=== PATIENT | male | born 1965 | race Caucasian/White ===

== ENCOUNTER 2020-11-08 12:22 | Outpatient (REF) | payer OTHER, SELFPAY ==
[2020-11-08 14:41] LABS: Alanine Aminotransferase 19 U/L (0-40); Albumin Level 4.6 g/dL (3.5-5.0); Alkaline Phosphatase 56 U/L (39-117); Anion Gap 12 (12-20); Aspartate Amino Transferase 18 U/L (5-37); Bilirubin Total 1.5 mg/dL (0.0-1.0); Blood Urea Nitrogen 20 mg/dL (9-16); Calcium 9.1 mg/dL (8.4-10.2); Carbon Dioxide 28 mmol/L (22-29); Chloride 103 mmol/L (96-108); Cholesterol 215 mg/dL; Estimated Glomerular Filt Rate > 60; Glucose Fasting 100 mg/dL (60-99); HDL Cholesterol 52 mg/dL; LDL Cholesterol Calculated 147 mg/dl; Potassium 3.8 mmol/l (3.3-5.1); Sodium 139 mmol/L (135-145); Total Protein 7.4 g/dL (6.5-8.0); Triglycerides 82 mg/dL
[2020-11-08 14:52] LABS: TSH reflex Free T4 1.17 mIU/mL (0.32-4.0)
== END 2020-11-08 12:23 | disposition home or self-care (01) ==
LOC: HO.WFDLDS 12:22
PROVIDERS: Visit Provider Family Medicine
DX: Z00.00 Encounter for general adult medical examination without abnormal findings (principal); R79.89 Other specified abnormal findings of blood chemistry
CPT/HCPCS: 80053; 80061; 84443

== ENCOUNTER 2020-11-09 09:21 | Outpatient (REF) | payer OTHER, SELFPAY ==
[2020-11-09 11:53] LABS: Prostate Specific Antigen Scr 1.59 ng/mL (<0.05-4.0)
== END 2020-11-09 09:22 | disposition home or self-care (01) ==
LOC: HO.WFDLDS 09:21
PROVIDERS: Visit Provider Family Medicine
DX: Z12.5 Encounter for screening for malignant neoplasm of prostate (principal)
CPT/HCPCS: 84153

== ENCOUNTER 2020-11-13 10:33 | Outpatient (REF) | payer OTHER, SELFPAY ==
--- NOTE | 2020-11-13 10:38 | US_ITS ---
EXAMINATION: US SCROTUM CLINICAL INFORMATION: Right testicular pain. COMPARISON: None TECHNIQUE: A sonogram of the scrotum was performed assessing butts-scale appearance and color Doppler flow. Spectral Doppler analysis of the arterial and venous flow were performed in the testes bilaterally. FINDINGS: RIGHT: Right testicle measures 4.43 x 2.54 x 5.17 cm, volume 30.4 mL. There is a small hyperechoic scrotal pole, otherwise no focal testicular parenchymal lesions are visualized. Spectral Doppler analysis of the arterial and venous flow is normal in the right testis. Right epididymal head is normal in size. There is a small right epididymal head cyst measuring 0.40 x 0.35 x 0.25 cm. There is small right hydrocele and a varicocele. Right epididymal Doppler flow is normal. LEFT: Left testicle measures 5.24 x 2.78 x 3.95 cm, volume 30.1 mL. No focal testicular parenchymal lesions are visualized. Spectral Doppler analysis of the arterial and venous flow is normal in the left testis. Left epididymal head is normal in size. There is a small left hydrocele and varicocele seen. Left epididymal Doppler flow is normal. US/US scrotum IMPRESSION: Bilateral hydroceles and varicoceles. There is a small right epididymal cyst and a right testicular scrotal fanta. Both testes are unremarkable with normal flow seen to both testes and epididymides.
== END 2020-11-13 10:34 | disposition home or self-care (01) ==
LOC: HO.HMGCX 10:33
PROVIDERS: PCP Family Medicine; Visit Provider Family Medicine
DX: N50.811 Right testicular pain (principal)
CPT/HCPCS: 76870

== ENCOUNTER 2020-11-16 14:23 | Outpatient (REF) | payer OTHER, SELFPAY | END 2020-11-16 14:24 | disposition home or self-care (01) | LOC: HO.LAB 14:23 | PROVIDERS: Visit Provider Internal Medicine | DX: Z20.828 Contact with and (suspected) exposure to other viral communicable diseases (principal) | CPT/HCPCS: C9803; U0003 ==

== ENCOUNTER → 2021-02-13 08:13 | Outpatient (BNVA) | payer OTHER, SELFPAY | PROVIDERS: PCP Family Medicine; Visit Provider Psychiatry & Neurology Neurology ==

== ENCOUNTER → 2021-08-14 11:25 | Outpatient (BNVA) | payer OTHER, SELFPAY | PROVIDERS: PCP Family Medicine; Visit Provider Psychiatry & Neurology Neurology ==

== ENCOUNTER → 2022-02-08 09:04 | Outpatient (BNVA) | payer OTHER, SELFPAY | PROVIDERS: PCP Family Medicine; Visit Provider Nurse Practitioner Family | DX: G47.33 Obstructive sleep apnea (adult) (pediatric) (principal); Z79.899 Other long term (current) drug therapy | CPT/HCPCS: 99212 ==

== ENCOUNTER → 2023-03-06 08:39 | Outpatient (BNVA) | payer OTHER, SELFPAY | PROVIDERS: PCP Family Medicine; Visit Provider Nurse Practitioner Family | DX: Z13.89 Encounter for screening for other disorder (principal) ==

== ENCOUNTER → 2023-03-25 10:24 | Outpatient (REF) | payer OTHER, SELFPAY | LOC: HO.SL 10:24 | PROVIDERS: PCP Family Medicine; Visit Provider Nurse Practitioner Family | DX: G47.33 Obstructive sleep apnea (adult) (pediatric) (principal) | CPT/HCPCS: 95806 ==

== ENCOUNTER 2023-05-21 16:28 | Outpatient (AMB) | payer OTHER, SELFPAY ==
--- NOTE | 2023-05-21 16:46 | MHC.OFFWIV ---
Intake Vital Signs 05/21/23 16:47 Height 5 ft 11 in BP 142/70 H Blood Pressure Location Lt brachial Position Sitting Pulse 95 Pulse Source Pulse Oximeter Temp 97.3 F Temp Source Temporal Artery Scan Pulse Oximetry (%) 100 Oxygen Delivery Method Room Air Intake Visit Reasons: EP Infected wound? (lobby) Intake Note: Pt is here c/o infection wound on his left leg. Patient Tobacco Use Status: Never used Tobacco Allergies erythromycin base Allergy (Mild, Verified 05/30/23 15:27) Rash Medication List - Last Reconciled 05/30/23 by Rinku Sauceda MD celecoxib 200 mg PO DAILY doxycycline monohydrate 200 mg (2 x 100 mg) PO ONCE lisinopril-hydrochlorothiazide 10-12.5 mg 1 tab PO DAILY omeprazole 20 mg PO DAILY 90 days sertraline 50 mg PO DAILY 90 days Do you need a note to return to daycare/school/sports/work: No HPI EP Infected wound? (lobby) HPI Details 57-year-old male presents to the office for a sick visit. He has a rash on the left leg. No redness or tenderness. [facility] Surgical History History of hernia surgery History of hip surgery Social History Alcohol intake: current Alcohol intake frequency: a few times a week Patient Tobacco Use Status: Never used Tobacco e-Cigarette/Vaping Use: Never Used Second Hand Smoke Exposure: No service: No Current occupational status: employed Current occupational exposures/hazards: No Cognitive needs: No Hearing needs: No Vision needs: No Physical Exam Vital Signs: Last Vital Signs Temp 97.3 F 05/21/23 16:47 Pulse 95 05/21/23 16:47 BP 142/70 H 05/21/23 16:47 Pulse Ox 100 05/21/23 16:47 Oxygen Delivery Method Room Air 05/21/23 16:47 Extrem Other: Erythematous rash, left leg. No vesicles or pustules. Assessment & Plan Assessment & Plan (1) Cellulitis: Code(s): L03.90 - Cellulitis, unspecified Plan: Continue current medications. Coding Level of Care Code Est Pt Level 3 (94647) Diagnoses Cellulitis L03.90
[2023-05-21 16:47] VITALS: BP 142/70; PULSE 95; TEMP 36.3; O2SAT 100
== END 2023-05-21 17:01 | disposition home or self-care (01) ==
LOC: HO.HMGWI 16:28
PROVIDERS: PCP Family Medicine
DX: L03.90 Cellulitis, unspecified (principal)
CPT/HCPCS: 99213

== ENCOUNTER 2023-08-06 09:04 | Outpatient (AMB) | payer OTHER, SELFPAY ==
--- NOTE | 2023-08-06 09:12 | MHC.OFFVIS ---
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 The home sleep study result was significant for moderate degree of sleep apnea with increased severity in supine sleep. The AHI was 23/hr, supine AHI was 52/hr and oxygen bello was 78%. He started APAP [id number]. The CPAP compliance and therapy response (07/07-08/05) reviewed. The usage days 100% and the average usage hours 7 hrs and 40 min. The AHI was 2.7/hr and the max pressure was 10. He sleeps well with new CPAP for 7-9 hrs. His daytime symptoms has improved, no tired or sleepy during daytime. [facility] Surgical History History of hip surgery History of hernia surgery Social History Alcohol intake: current Alcohol intake frequency: a few times a week Patient Tobacco Use Status: Never used Tobacco e-Cigarette/Vaping Use: Never Used Second Hand Smoke Exposure: No service: No Current occupational status: employed Current occupational exposures/hazards: No Cognitive needs: No Hearing needs: No Vision needs: No Review of Systems Const All systems reviewed & are unremarkable except as noted in HPI and below Physical Exam Vital Signs: Last Vital Signs Pulse 57 08/06/23 09:14 BP 110/82 08/06/23 09:14 Pulse Ox 97 08/06/23 09:14 Oxygen Delivery Method Room Air 08/06/23 09:14 Const General: cooperative and healthy appearing Nutritional Appearance: average body habitus Orientation/consciousness: patient oriented x3 Neck Neck: Yes full ROM Resp Effort & Inspection: normal respiratory effort and able to speak in complete sentences Neuro General: patient oriented x3 and CN's II-XI intact bilaterally Gait exam (Neuro): Normal gait present Motor exam (neuro): 5/5 motor strength present throughout Psych Appearance: grossly normal Mental Status: mental status grossly normal Speech and movement: Normal speech and movement present Assessment & Plan Assessment & Plan (1) HEAVEN (obstructive sleep apnea): Code(s): G47.33 - Obstructive sleep apnea (adult) (pediatric) Plan Continue to use APAP [id number] as patient experiences good clinical effects, better quality sleep and daytime sleepiness has improved. Stressed compliance, use CPAP nightly and more than 4 hrs. Wt reduction advised. Coding Level of Care Code Est Pt Level 3 (49840) Diagnoses HEAVEN (obstructive sleep apnea) G47.33
[2023-08-06 09:14] VITALS: BP 110/82; PULSE 57; O2SAT 97
== END 2023-08-06 09:34 | disposition home or self-care (01) ==
PROVIDERS: Visit Provider Nurse Practitioner Family
DX: G47.33 Obstructive sleep apnea (adult) (pediatric) (principal)
CPT/HCPCS: 99213

== ENCOUNTER → 2023-08-06 09:04 | Outpatient (BNVA) | payer OTHER, SELFPAY | PROVIDERS: Visit Provider Nurse Practitioner Family ==

== ENCOUNTER 2023-11-12 12:57 | Outpatient (REF) | payer OTHER, SELFPAY ==
[2023-11-12 14:22] LABS: Appearance Urine Clear; Color Urine Yellow; Glucose Urine UA Negative (Negative); Leukocyte Esterase Urine Negative (Negative); Nitrite Urine Negative (Negative); PH 5.5 (5.0-9.0); Specific Gravity - Urine 1.015 (1.005-1.025); Urine Blood Negative (Negative); Urine Ketones Negative (Negative); Urine Protein Negative (Neg-Trace)
[2023-11-12 14:56] LABS: Creatinine Urine 111.99 mg/dL; Microalbum/Creatinine Ratio Ur 5.3 ug/mg cr (<30)
[2023-11-12 16:25] LABS: Estimated Average Glucose 111 mg/dL; Hemoglobin A1c % 5.5 % (<6.0)
[2023-11-12 16:54] LABS: Alanine Aminotransferase 25 U/L (0-40); Albumin Level 4.6 g/dL (3.5-5.0); Alkaline Phosphatase 70 U/L (39-117); Anion Gap 11 (12-20); Aspartate Amino Transferase 23 U/L (5-37); Bilirubin Total 0.8 mg/dL (0.0-1.0); Blood Urea Nitrogen 17 mg/dL (9-16); Calcium 9.9 mg/dL (8.4-10.2); Carbon Dioxide 30 mmol/L (22-29); Chloride 104 mmol/L (96-108); Cholesterol 205 mg/dL (<200); Estimated Glomerular Filt Rate > 60; Glucose Fasting 120 mg/dL (60-99); HDL Cholesterol 37 mg/dL (>40); LDL Cholesterol Calculated 111 mg/dL (<100); Potassium 4.3 mmol/L (3.3-5.1); Sodium 141 mmol/L (135-145); Total Protein 7.7 g/dL (6.5-8.0); Triglycerides 286 mg/dL (<150)
[2023-11-12 17:15] LABS: TSH reflex Free T4 1.18 uIU/mL (0.32-4.0)
[2023-11-12 17:21] LABS: Prostate Specific Antigen Scr 3.44 ng/mL (<0.05-4.0)
== END 2023-11-12 12:58 | disposition home or self-care (01) ==
LOC: HO.WFDLDS 12:57
PROVIDERS: Visit Provider Family Medicine
DX: Z00.00 Encounter for general adult medical examination without abnormal findings (principal); I10 Essential (primary) hypertension; R73.01 Impaired fasting glucose; R39.198 Other difficulties with micturition; E78.6 Lipoprotein deficiency; Z12.5 Encounter for screening for malignant neoplasm of prostate
CPT/HCPCS: 36415; 80053; 80061; 81003; 82043; 82570; 83036; 84153; 84443

== ENCOUNTER 2023-11-13 08:58 | Outpatient (AMB) | payer OTHER, SELFPAY ==
[2023-11-13 09:02] VITALS: BP 110/62; PULSE 91; RESP 13; O2SAT 96; BMI 29.6
--- NOTE | 2023-11-13 09:02 | A.OFFPC_ITS ---
Vital Signs 11/13/23 09:02 Height 5 ft 11 in Weight 212 lb BMI 29.6 BP 110/62 Blood Pressure Location Lt brachial Position Sitting Respiration 13 Pulse 91 Pulse Source Pulse Oximeter Pulse Oximetry (%) 96 Oxygen Delivery Method Room Air Intake Visit Reasons: CPE Intake Note: Patient is here today for his physical. Patient reports he takes cod liver oil, vitamin D3, vitamin K2, Magnesium, and probiotics- patient does not know the dosing of these items. Patient reports he has tinnitus and hearing concerns and has not seen an ENT. Fill Technician Required: No Accompanied by: Self / Same As Patient Allergies erythromycin base Allergy (Mild, Verified 11/13/23 09:07) Rash Tobacco use date assessed: 11/13/23 Dental Screening Dental Screen Date: 11/13/23 Did you have a dental visit in the last 12 months?: Yes Did you have a dental problem in the last 6 months where you did not have access to dental care?: No Was dental information given to patient?: Patient has dentist HPI CPE HPI Details 58 y/o male presents for a CPE with f/u labs and health maintenance. Labs were drawn 11/12/23. Reviewed labs with pt. Elevated fasting glucose of 120. A1c 5.5%. Triglycerides 286. TC 205. LDL 111. HDL low at 37. Blood pressure today 110/62. He is on lisinopril-HCTZ 10-12.5mg daily. Pt reports tinnitus. Pt states he has not been exercising much. HPI Comments History of Present Illness Details Documentation assistance for Miguel Ángel Small MD, was provided by David Irving, Sewer Cleaner on 11/13/2023 9:25 AM EREN. Rachelle, Dr. Small, have read, observed, and verified documentation. [facility] Surgical History History of hip surgery History of hernia surgery Family History (Updated 11/13/23 @ 09:13 by Georgie Escobar CMA) Sister Breast cancer Father Alcohol abuse Social History (Updated 11/13/23 @ 09:16 by Georgie Escobar CMA) Household Members: Children Household Members Other:: Son Housing: House Are you a primary attending ambulatory care to a significant other at home: No Do you presently have visiting nurse or other home services: No 75 years or older and lives alone: No Alcohol intake: current Alcohol intake frequency: a few times a week Patient Tobacco Use Status: Never used Tobacco e-Cigarette/Vaping Use: Never Used Second Hand Smoke Exposure: No service: No Current occupational status: employed 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 1. Little interest or pleasure in doing things: nearly every day 2. Feeling down, depressed, or hopeless: not at all 3. Trouble falling or staying asleep, or sleeping too much: several days 4. Feeling tired or having little energy: several days 5. Poor appetite or overeating: several days 6. Feeling bad about yourself - or that you are a failure or have let yourself or your family down: not at all 7. Trouble concentrating on things, such as reading the newspaper or watching television: not at all 8. Moving or speaking so slowly that other people could have noticed. Or the opposite - being so fidgety or restless that you have been moving around a lot more than usual: not at all 9. Thoughts that you would be better off or of hurting yourself in some way: not at all Total score: 6 Depression Screening Interpretation: Positive Depression Screening Follow-up: Declines treatment Depression Screening Done: Yes 93448 - PHQ-9 Billing: Yes Source: Developed by Drs. Tani Mehta, Bhumika Burns, De Mckeon and colleagues, with an educational noe from [employer]. Thrive Questionnaire Date Thrive assessed: 11/13/23 I am a: Patient What is your living situation today?: I have a steady place to live Within the past 12 months, did the food you bought not last and you didn't have the money to get more?: Never true Within the past 12 months, did you worry whether your food would run out before you got money to buy more?: Never true Do you have trouble paying for medicines?: No Do you have trouble getting transportation to medical appointments?: No Do you have trouble paying your heating and electricity bill?: No Do you have trouble taking care of your child, family member or friend?: No Do you have trouble with day-to-day activities such as bathing, preparing meals, shopping, managing finances, etc.?: No Are you currently unemployed and looking for a job?: No Are you interested in more education?: No Please select the resources that you would like help with: None Currently or been in a relationship where the following occur: no concerns reported AUDIT C Alcohol Use Questionnaire (AUDIT-C) 1. How often do you have a drink containing alcohol?: 2-3 times a week 2. How many drinks containing alcohol do you have on a typical day when you are drinking?: 1 or 2 3. How often do you have six or more drinks on one occasion?: Never Total Score: 3 SANTOS-7 AMB Questionnaire SANTOS-7 Date SANTOS - 7 assessed: 11/13/23 Feeling nervous, anxious, or on edge: 3 = Nearly every day Not being able to stop or control worryin = Not at all Worrying too much about different things: 1 = Several days Trouble relaxin = Several days Being so restless that it is hard to sit still: 0 = Not at all Becoming easily annoyed or irritable: 1 = Several days Feeling afraid as if something awful might happen: 0 = Not at all Total SANTOS-7 score (0-4 normal; 5-9 mild; 10-14 moderate; 15-21 severe): 6 Source: Developed by Drs. Tani Mehta, Bhumika Burns, De Mckeon and colleagues, with an educational noe from [employer]. SANTOS-7 Assessment Billing SANTOS-7 Assessment Tool: SANTOS-7 Assessment 20669 Physical exam (Primary Care) Vital Signs: Last Vital Signs Pulse 91 11/13/23 09:02 Resp 13 11/13/23 09:02 BP 110/62 11/13/23 09:02 Pulse Ox 96 11/13/23 09:02 Oxygen Delivery Method Room Air 11/13/23 09:02 BMI result Body Mass Index 29.6 Tobacco/Smoking Status: Tobacco use Status Tobacco use date assessed 11/13/23 11/13/23 09:15 Patient Tobacco Use Status Never used Tobacco 11/13/23 09:16 e-Cigarette/Vaping Use Never Used 11/13/23 09:16 PHQ-9: PHQ-9 Score PHQ-9: Total score 6 11/13/23 10:40 Depression Screening Interpretation: Positive Depression Screening Follow-up: Declines treatment Thrive Assessment: Date of Thrive Assessment Date Thrive assessed 11/13/23 11/13/23 09:20 Currently or been in a relationship where the following occur: no concerns reported Assessment and Plan Assessment & Plan (1) Adult general medical exam: Code(s): Z00.00 - Encounter for general adult medical examination without abnormal findings Plan: 58-year-old?male?presents?for?complete?physical?exam Encouraged?healthy?diet?with?active?lifestyle?and?plenty?of?exercise (2) Essential hypertension: Code(s): I10 - Essential (primary) hypertension Plan: Blood?pressure?is?controlled.??Goal?is?less?than?140/90 Continue?current?medications (3) Elevated fasting glucose: Code(s): R73.01 - Impaired fasting glucose Plan: A1c?at?upper?range?of?normal?and?strong?family?history?of?diabetes Encouraged?diet?lower?in?sugars?and?starches Encouraged?diet?exercise?and?weight?loss (4) Low HDL (under 40): Code(s): E78.6 - Lipoprotein deficiency Plan: Encouraged?exercise?and?lifestyle?changes Will?recheck?in?3?months (5) Tinnitus: Code(s): H93.19 - Tinnitus, unspecified ear Plan: Referred?to?audiology May?need?referral?to?ENT (6) Screening for colon cancer: Code(s): Z12.11 - Encounter for screening for malignant neoplasm of colon Plan: Patient?says?he?had?a?colonoscopy?at?about?age?51?and?was?told?to?follow- up?in?10?years Will?request?report (7) Screening for prostate cancer: Code(s): Z12.5 - Encounter for screening for malignant neoplasm of prostate Plan: Significant?increase?in?patient's?PSA?value?though?still?less?than?4.0 He?does?note?some?decrease?in?urine?stream,?intermittently. Repeating?PSA We?discussed?may?need?BRODIE?or?referral?to?urology. Orders: Orders Hemoglobin A1c Today R73.01 - Impaired fasting glucose Comprehensive [place]. Panel Fast Today R73.01 - Impaired fasting glucose, Z00.00 - Encounter for general adult medical examination without abnormal findings Lipid Panel Today E78.6 - Lipoprotein deficiency, Z00.00 - Encounter for general adult medical examination without abnormal findings Prostate Specific Antigen Scr Today R39.198 - Other difficulties with micturition, Z12.5 - Encounter for screening for malignant neoplasm of prostate Referrals Audiology Referral H91.90 - Unspecified hearing loss, unspecified ear, H93.19 - Tinnitus, unspecified ear Coding Level of Care Code Est Pt Level 3 (34492) Est Pt Prev Care 40-64y(27243) Diagnoses Adult general medical exam Z00.00 Essential hypertension I10 Elevated fasting glucose R73.01 Low HDL (under 40) E78.6 Tinnitus H93.19 Screening for colon cancer Z12.11 Screening for prostate cancer Z12.5 Additional Codes SANTOS-7 Assessment Billing - SANTOS-7 Assessment Tool: SANTOS-7 Assessment 70460 ([id number])
== END 2023-11-13 09:48 | disposition home or self-care (01) ==
PROVIDERS: PCP Family Medicine; Visit Provider Family Medicine
DX: Z00.00 Encounter for general adult medical examination without abnormal findings (principal); I10 Essential (primary) hypertension; R73.01 Impaired fasting glucose; E78.6 Lipoprotein deficiency; H93.19 Tinnitus, unspecified ear; Z12.11 Encounter for screening for malignant neoplasm of colon; Z12.5 Encounter for screening for malignant neoplasm of prostate
CPT/HCPCS: 99213; 99396

== ENCOUNTER 2024-02-23 13:09 | Outpatient (REF) | payer OTHER, SELFPAY | END 2024-02-23 13:10 | disposition home or self-care (01) | LOC: HO.SH 13:09 | PROVIDERS: PCP Family Medicine; Visit Provider Family Medicine | DX: Z01.118 Encounter for examination of ears and hearing with other abnormal findings (principal); H90.3 Sensorineural hearing loss, bilateral; H93.13 Tinnitus, bilateral | CPT/HCPCS: 92557; 92567 ==

== ENCOUNTER 2024-07-26 15:12 | Outpatient (REF) | payer OTHER, SELFPAY ==
[2024-07-27 05:30] LABS: Estimated Average Glucose 111 mg/dL; Hemoglobin A1c % 5.5 % (<6.0)
== END 2024-07-26 15:13 | disposition home or self-care (01) ==
LOC: HO.WFDLDS 15:12
PROVIDERS: Visit Provider Family Medicine
DX: R73.01 Impaired fasting glucose (principal)
CPT/HCPCS: 36415; 83036

== ENCOUNTER 2024-07-27 10:33 | Outpatient (REF) | payer OTHER, SELFPAY ==
[2024-07-27 15:12] LABS: Prostate Specific Antigen Scr 3.71 ng/mL (<0.05-4.0)
[2024-07-27 15:33] LABS: Alanine Aminotransferase 18 U/L (0-40); Albumin Level 4.6 g/dL (3.5-5.0); Alkaline Phosphatase 64 U/L (39-117); Anion Gap 13 (12-20); Aspartate Amino Transferase 18 U/L (5-37); Bilirubin Total 1.5 mg/dL (0.0-1.0); Blood Urea Nitrogen 18 mg/dL (9-16); Carbon Dioxide 27 mmol/L (22-29); Chloride 105 mmol/L (96-108); Cholesterol 197 mg/dL (<200); Estimated Glomerular Filt Rate > 60; Glucose Fasting 95 mg/dL (60-99); HDL Cholesterol 40 mg/dL (>40); LDL Cholesterol Calculated 139 mg/dL (<100); Potassium 3.9 mmol/L (3.3-5.1); Sodium 141 mmol/L (135-145); Total Protein 7.6 g/dL (6.5-8.0); Triglycerides 93 mg/dL (<150)
== END 2024-07-27 10:34 | disposition home or self-care (01) ==
LOC: HO.WFDLDS 10:33
PROVIDERS: Visit Provider Family Medicine
DX: Z00.00 Encounter for general adult medical examination without abnormal findings (principal); R73.01 Impaired fasting glucose; E78.6 Lipoprotein deficiency; Z12.5 Encounter for screening for malignant neoplasm of prostate; R39.198 Other difficulties with micturition
CPT/HCPCS: 36415; 80053; 80061; 84153

== ENCOUNTER 2024-07-28 16:30 | Outpatient (AMB) | payer OTHER, SELFPAY ==
--- NOTE | 2024-07-28 16:37 | MHC.PC.OV ---
Vital Signs 07/28/24 16:40 Height 5 ft 11 in Weight 201 lb BMI 28.0 BP 110/60 Blood Pressure Location Rt brachial Position Sitting Respiration 12 Pulse 62 Pulse Source Pulse Oximeter Temp 96.9 F Temp Source Tympanic Pulse Oximetry (%) 97 Oxygen Delivery Method Room Air Intake Visit Reasons: elevated FBS and lipids Intake Note: f/u for labs Allergies erythromycin base Allergy (Mild, Verified 07/28/24 16:38) Rash Tobacco use date assessed: 11/13/23 Dental Screening Dental Screen Date: 11/13/23 HPI elevated FBS and lipids HPI Details 59 y/o male presents to f/u elevated FBS, lipids, PSA level. Labs drawn 07/27/24. Reviewed labs with pt. Triglycerides improved from 286 to 93. TC 197. LDL 139. HDL 40. PSA 3.71. A1c 5.5% - 07/26/24. Blood pressure today 110/60. He is on lisinopril-HCTZ 10-12.5mg daily. Pt notes he has been exercising more frequently now. HPI Comments History of Present Illness Details Documentation assistance for Miguel Ángel Small MD, was provided by David Irving, Guest History Clerk on 07/28/2024 at 5:19 PM EST. I, Dr. Small, have read, observed, and verified documentation. [facility] Surgical History History of hip surgery History of hernia surgery Family History (Updated 11/13/23 @ 09:13 by Georgie Escobar CMA) Sister Breast cancer Father Alcohol abuse Social History (Updated 11/13/23 @ 09:16 by Georgie Escobar CMA) Household Members: Children Household Members Other:: Son Housing: House Are you a primary professional healthcare representative to a significant other at home: No Do you presently have visiting nurse or other home services: No 75 years or older and lives alone: No Alcohol intake: current Alcohol intake frequency: a few times a week Patient Tobacco Use Status: Never used Tobacco e-Cigarette/Vaping Use: Never Used Second Hand Smoke Exposure: No service: No Current occupational status: employed 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 Tani Mehta, Bhumika Burns, De Mckeon and colleagues, with an educational noe from [employer]. Review of Systems Const Denies chills, Denies fatigue, Denies fever(s), Denies headache(s) and Denies weakness ENT Denies dizziness and Denies headache(s) Card Denies dyspnea Resp Denies cough, Denies dyspnea, Denies wheezing and Denies other (shortness of breath) Musc Reports back pain, Denies numbness and Denies tingling Neuro Denies dizziness, Denies headache(s), Denies numbness, Denies tingling and Denies weakness Psych Denies anxiety and Denies depression Endo Denies fatigue Aller/Immun Denies wheezing Physical exam (Primary Care) Vital Signs: Last Vital Signs Temp 96.9 F 07/28/24 16:40 Pulse 62 07/28/24 16:40 Resp 12 07/28/24 16:40 BP 110/60 07/28/24 16:40 Pulse Ox 97 07/28/24 16:40 Oxygen Delivery Method Room Air 07/28/24 16:40 BMI result Body Mass Index 28.0 Tobacco/Smoking Status: Tobacco use Status Tobacco use date assessed 11/13/23 07/28/24 16:43 Patient Tobacco Use Status Never used Tobacco 07/28/24 16:43 e-Cigarette/Vaping Use Never Used 07/28/24 16:43 Thrive Assessment: Date of Thrive Assessment Date Thrive assessed 11/13/23 07/28/24 16:43 Const General: well developed; No acute distress Nutritional Appearance: well nourished Orientation/consciousness: patient oriented x3 HENMT Head: Yes normocephalic and Yes atraumatic Eyes General: appearance normal, both eyes and all related structures Pupils: Equal, round and reactive pupils present EOM: EOMs intact bilaterally Resp Effort & Inspection: normal respiratory effort Neuro General: patient oriented x3 and gait normal Cranial nerves: Yes Equal, round and reactive pupils present Psych Affect: normal affect Assessment and Plan Assessment & Plan (1) Elevated fasting glucose: Code(s): R73.01 - Impaired fasting glucose Plan: Fasting?blood?sugars?have?been?elevated A1c?is?in?top?normal?range Likely?some?insulin?resistance Encouraged?diet?lower?in?sugars?and?starches Will?continue?to?monitor (2) Essential hypertension: Code(s): I10 - Essential (primary) hypertension Plan: Blood?pressure?is?controlled Goal?is?less?than?140/90 Continue?current?medication?regimen (3) Hyperlipidemia: Code(s): E78.5 - Hyperlipidemia, unspecified Plan: Triglycerides?are?improved?but?LDL?cholesterol?has?increased?and?is?still?too?high Patient?wants?to?avoid?statin Encouraged?diet?lower?in?sugars?and?starches Encouraged?weight?loss?and?exercise (4) Low HDL (under 40): Code(s): E78.6 - Lipoprotein deficiency Plan: Encouraged?more?exercise (5) Screening for prostate cancer: Code(s): Z12.5 - Encounter for screening for malignant neoplasm of prostate Plan: PSA?level?has?increased?and?patient?notices?decrease?in?urinary?stream?and?some?incomplete?emptying Referred?to?urology (6) Back pain: Code(s): M54.9 - Dorsalgia, unspecified Plan: Back?pain?which?appears?muscular Encouraged?ice/heat?and?will?give?him?a?script?for?meloxicam. Demonstrated?stretching?exercises He?will?let?me?know?if?not?improving?or?worsening (7) Skin tag: Code(s): L91.8 - Other hypertrophic disorders of the skin Plan: Patient?has?small?skin?tag?in?right?ear?canal He?would?like?a?referral?to?ENT?he-referred Orders: Orders Comprehensive [place]. Panel Fast Today E78.5 - Hyperlipidemia, unspecified, Z00.00 - Encounter for general adult medical examination without abnormal findings Hemoglobin A1c Today E78.5 - Hyperlipidemia, unspecified, R73.01 - Impaired fasting glucose Lipid Panel Today E78.5 - Hyperlipidemia, unspecified, Z00.00 - Encounter for general adult medical examination without abnormal findings Referrals Ear/Nose/Throat Referral L91.8 - Other hypertrophic disorders of the skin Urology Referral R39.11 - Hesitancy of micturition, R97.20 - Elevated prostate specific antigen [PSA] Medications: New meloxicam 15 mg PO DAILY 30 days 30 tabs 2RF Coding Level of Care Code Est Pt Level 4 (06615) Diagnoses Elevated fasting glucose R73.01 Essential hypertension I10 Hyperlipidemia E78.5 Low HDL (under 40) E78.6 Screening for prostate cancer Z12.5 Back pain M54.9 Skin tag L91.8
[2024-07-28 16:40] VITALS: BP 110/60; PULSE 62; RESP 12; TEMP 36.1; O2SAT 97; BMI 28.0
== END 2024-07-28 17:05 ==
PROVIDERS: PCP Family Medicine; Visit Provider Family Medicine
DX: R73.01 Impaired fasting glucose (principal); I10 Essential (primary) hypertension; E78.5 Hyperlipidemia, unspecified; E78.6 Lipoprotein deficiency; Z12.5 Encounter for screening for malignant neoplasm of prostate; M54.9 Dorsalgia, unspecified; L91.8 Other hypertrophic disorders of the skin
CPT/HCPCS: 99214

== ENCOUNTER 2024-09-23 15:29 | Outpatient (AMB) | payer OTHER, SELFPAY ==
--- NOTE | 2024-09-23 15:43 | A.OFFVIS_ITS ---
Intake Visit Reasons: increasing PSA/urinary hesitancy Intake Note: New Patient presents for initial visit for increasing PSA and urinary hesitancy Urology Medications: none Blood Thinner: none PVR: 23ml's Enrichment Assistant Required: No Accompanied by: Self / Same As Patient Allergies erythromycin base Allergy (Mild, Verified 09/24/24 09:28) Rash Medication List - Last Reconciled 09/24/24 by KEYLA Banuelos lisinopril-hydrochlorothiazide 10-12.5 mg 1 tab PO DAILY lorazepam 0.5 mg PO BEDTIME PRN 30 days meloxicam 15 mg PO DAILY 30 days omeprazole 20 mg PO DAILY 90 days sertraline 50 mg PO DAILY 90 days sulfamethoxazole-trimethoprim 800-160 mg (Bactrim DS) 1 tab PO BID 14 days HPI Comments Details: Jarret is a very pleasant 59-year-old male patient of Dr. Small. He has a past medical history of GERD, hypertension, and bilateral hip replacements. He presents to the office today as a new patient for an elevation and a PSA. In discussion with the patient today he reports to be doing and feeling well. He reports having followed up with his PCP at which time it was noted his PSA has been increasingly going up. When asked he does report follow ing up with a urologist approximately 20 years ago and underwent a vasectomy and had a BORDIE that was noted to be within normal limits. He does report a previous history of prostatitis however discusses modifying his diet and prostatitis improved. PSA results reviewed with the patient today. PSAs are as follows: 11/05 1.6, 11/08 3.4, 08/10 3.7 We discussed at length potential causes of increase in PSA as well as further treatment options. Dairy performed noted boggy prostate left side greater than right otherwise no suspicious nodules palpated. When asked he does report noting intermittent issues with urinary hesitancy however this is infrequent. He otherwise denies urinary urgency, urinary frequency, incontinence, nocturia, hematuria, dysuria, foul smelling urine, changes to urinary stream, flank pain, fever, and or chills. He is happy with his current voiding parameters. In office urinalysis results reviewed with the patient today. PVR 23ml's. He discusses going to the gym 3 times per week in [place]. He otherwise offers no other issues or concerns at this time. [facility] Surgical History History of hip surgery History of hernia surgery Family History Sister Breast cancer Father Alcohol abuse Social History Household Members: Children Household Members Other:: Son Housing: House Are you a primary animal caretaker to a significant other at home: No Do you presently have visiting nurse or other home services: No 75 years or older and lives alone: No Alcohol intake: current Alcohol intake frequency: a few times a week Patient Tobacco Use Status: Never used Tobacco e-Cigarette/Vaping Use: Never Used Second Hand Smoke Exposure: No service: No Current occupational status: employed 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 Current occupational exposures/hazards: No Sexual orientation: Unable to collect Gender identity: Unable to collect Cognitive needs: No Hearing needs: Yes ( says what a lot has tinnitus ) Vision needs: No Review of Systems Const All systems reviewed & are unremarkable except as noted in HPI and below Physical Exam Const General: cooperative, healthy appearing, comfortable, no acute distress, well developed, alert and awake Orientation/consciousness: patient oriented x3 Limitations: no limitations HEENT Head: Yes normal to inspection, Yes normocephalic and Yes atraumatic Ears: hearing grossly normal bilaterally Eyes General: appearance normal, both eyes and all related structures Neck Neck: Yes normal visual inspection and Yes trachea midline Chest Chest palpation & inspection: normal inspection of the chest Resp Effort & Inspection: normal respiratory effort and able to speak in complete sentences Cardio Rate: regular rate GI Inspection: Yes normal to inspection General: Yes no CVA tenderness Back/Spine/Pelvis Back: no CVA tenderness Skin General skin exam: no rashes or lesions noted Neuro General: patient oriented x3 Extrem General: Yes normal to inspection Psych Appearance: grossly normal and well kempt Mental Status: mental status grossly normal Speech and movement: Normal speech and movement present and Clear speech present Affect: normal affect Attitude: cooperative Thought process: Normal thought process present Thought content: Normal thought content present Insight: Fair insight present (Psych) Judgement: Fair judgement present (Psych) Office Procedures Post Void Residual Post Residual Void Post Void Residual (PVR): 23 [id number] Void Residual by ultrasound Results AMB Urinalysis, Automated UA Leukoctes 0 Elana/uL Last Edit by [employer] juan Rodrigues on 09/23/24 16:32 UA Nitrite Last Edit by [employer] juan Isent[employer]mimi on 09/23/24 16:32 UA Urobilinogen 0.2 mg/dL Last Edit by [employer] on 09/23/24 16:32 UA Protein 0 mg/dL Last Edit by [employer] on 09/23/24 16:32 UA pH 5.5 Last Edit by [employer] on 09/23/24 16:32 UA Blood 0 Jerry/uL Last Edit by [employer] on 09/23/24 16:32 UA Specific [place] 1.015 Last Edit by [employer] on 09/23/24 16:32 UA Ketone Negative Last Edit by [employer] on 09/23/24 16:32 UA Bilirubin 0 mg/dL Last Edit by [employer] on 09/23/24 16:32 UA Glucose 0 mg/dL Last Edit by [employer] on 09/23/24 16:32 Results Reviewed Results Reviewed: Laboratory Last Values Urine pH (Auto) 5.5 09/23/24 15:46 Specific [place] (Auto) 1.015 09/23/24 15:46 Urine Protein (Auto) 0 mg/dL 09/23/24 15:46 Glucose (UA)(Auto) 0 mg/dL 09/23/24 15:46 Urine Ketones (Auto) Negative 09/23/24 15:46 Urine Blood (Auto) 0 Jerry/uL 09/23/24 15:46 Urine Bilirubin (Auto) 0 mg/dL 09/23/24 15:46 Urine Urobilinogen (Auto) 0.2 mg/dL 09/23/24 15:46 Leukocyte Esterase (Auto) 0 Elana/uL 09/23/24 15:46 Assessment & Plan Assessment & Plan (1) Prostatitis: Code(s): N41.9 - Inflammatory disease of prostate, unspecified Category: Medical (2) PSA elevation: Code(s): R97.20 - Elevated prostate specific antigen [PSA] Category: Medical Plan In office urinalysis results reviewed with the patient today; as noted above. PVR 23 mL. PSA labs reviewed with the patient today; as noted above. Discussed at length potential causes of elevation in PSA. We discussed further treatment options of prostatitis given BRODIE. Will obtain retroperitoneal ultrasound for further assessment evaluation. Start Bactrim as discussed and prescribed. Discussed bladder triggers/irritants. Discussed obtaining PSA status post completion of antibiotic therapy in 4-6 weeks; with no sex the night before, no caffeine morning of, and no heavy lifting 1-2 days prior. Follow-up in 2 months with imaging and lab to be completed prior; or sooner with any issues, concerns, or questions. Orders: Orders AMB Urinalysis Automated 09/23/24 Z13.9 - Encounter for screening, unspecified AMB Post Void Residual by ultrasound 09/23/24 R39.11 - Hesitancy of micturition US retroperitoneal comp 09/23/24 N41.9 - Inflammatory disease of prostate, unspecified Prostate Specific Antigen 6 Months N41.9 - Inflammatory disease of prostate, unspecified, R97.20 - Elevated prostate specific antigen [PSA] Medications: New sulfamethoxazole-trimethoprim 800-160 mg (Bactrim DS) 1 tab PO BID 28 tabs 0RF 14 days N39.0 - Urinary tract infection, site not specified Patient Instructions: The patient had an opportunity to ask questions regarding the treatment plan. All questions were answered. Physical exam, labs, and imaging were discussed and reviewed in detail. As well as risks, benefits, and discussion of treatment choices. No major barriers to understanding were identified. The patient expressed understanding and agreement with the above treatment plan. The patient was made aware they should contact our office by phone for worsening of their current condition, the appearance of new symptoms, or with any questions or concerns. Compliance is encouraged with any medications and follow up testing that is ordered. It is a privilege to be allowed the opportunity to participate in? your urological care.? Again, if you have any questions or concerns If you have any questions or concerns please do not hesitate to contact me. The office is [phone]. This note is constructed using voice recognition software. While every effort has been made to ensure accuracy on site services specialist errors may have been included. Yours sincerely, BRI Banuelos-MEGHANN Coding Level of Care Code New Pt Level 4 (80441) Diagnoses Prostatitis N41.9 PSA elevation R97.20 CPT Codes Post Residual Void - PVR CPT Code: 44502-Yaym Void Residual by ultrasound ([id number])
== END 2024-09-23 16:29 | disposition home or self-care (01) ==
LOC: HO.HUSH 15:30
PROVIDERS: PCP Family Medicine; Visit Provider Nurse Practitioner Family
DX: N41.9 Inflammatory disease of prostate, unspecified (principal); R97.20 Elevated prostate specific antigen [PSA]
CPT/HCPCS: 99204

== ENCOUNTER → 2024-09-23 15:29 | Outpatient (BNVA) | payer OTHER, SELFPAY | PROVIDERS: PCP Family Medicine; Visit Provider Nurse Practitioner Family | DX: R97.20 Elevated prostate specific antigen [PSA] (principal); N41.9 Inflammatory disease of prostate, unspecified | CPT/HCPCS: 51798; 81003 ==

== ENCOUNTER 2024-09-30 14:58 | Outpatient (REF) | payer OTHER, SELFPAY | END 2024-09-30 14:59 | disposition home or self-care (01) | LOC: HO.US 14:58 | PROVIDERS: PCP Family Medicine; Visit Provider Nurse Practitioner Family | DX: N41.9 Inflammatory disease of prostate, unspecified (principal) | CPT/HCPCS: 76770 ==

== ENCOUNTER 2024-10-28 12:27 | Outpatient (REF) | payer OTHER, SELFPAY ==
--- OUTSIDE RECORDS SUMMARY | 2024-10-28 12:30 | XMS_ITS | Data Portability ---
Author Organization [facility], Main Office Address [address] [place] [address] Care Team Providers Care Business Services Officer Name Role Phone NIXON HERNANDEZ Primary Care Provider [facility] Float Nurse TIFF LEONARD Referring Provider Assessment Encounter Date Assessment Date Assessment LastModified by Organization Details LastModified Time 10/21/2017 10/21/2017 STable chronic medical problems. Reviewed motivations for increasing exercise. [email or web address] Not available 10/21/2017 08:55:57 04/27/2018 04/27/2018 Stable BP on present meds. Needs repeat labs. Knee pain seems consistent with PF pain phelmuth Not available 04/27/2018 09:30:44 11/16/2018 11/16/2018 Stable BP on present meds. Doing well with some intended weight loss. Hb A1C down slightly. pheuth Not available 11/16/2018 10:07:32 Plan of Treatment Reminders Order Date Submit Date Provider Last Modified By Organization Details Last Modified Time Details Appointments None record ed. Lab BMP, serum or plasma 2016 017 [email or web address] & Growttos [facility], [address] [place], [address], 8 11:09:35 lipid panel, serum 2016 017 [email or web address] [facility], [address] [place], [address], 8 11:09:35 ALT (pamela august), serum or plasma 2016 017 [email or web address] [facility], [address] [place], [address], 8 11:09:35 TSH, serum or plasma 2016 017 [email or web address] [facility], [address] [place], [address], 8 11:09:34 CBC w/ auto diff 2016 017 [email or web address] [facility], [address] [place], [address], 8 11:09:35 BMP, serum or plasma 2017 018 JOCELINE [facility], [address], [address], [place], [address], 8 15:39:41 lipid panel, serum 2017 018 J[facility], [address], [address], [place], [address], 8 15:39:42 TSH, serum or plasma 2017 018 [facility], [address], [address], [place], [address], 8 15:55:52 CBC w/ auto diff 2017 018 J[facility], [address], [address], [place], [address], 8 14:30:42 lipid panel, serum 2017 018 JOCELINE [facility], [address] [place], [address], 8 11:07:05 BMP, serum or plasma 2017 018 JOCELINE [facility], [address] [place], [address], 8 11:07:04 HbA1c (hemog lobin A1c), blood 2017 018 [email or web address] [facility], [address], [address], 8 10:22:36 HbA1c (hemog lobin A1c), blood - Please add to labs done 018. 2017 018 [email or web address] [facility], [address], [address], [place], [address], 9 11:35:33 hemogl obin A1C, finger stick 2017 018 pheuth In-Office Order, Internal Use Only DO Not Attach Compendium DO Not Attach Compendium, Do Not Delete/merge, [id number] 8 09:46:31 lipid panel, serum 2017 018 [email or web address] [facility], [address] [place], [address], 9 15:35:57 BMP, serum or plasma 2017 018 [email or web address] [facility], [address] [place], [address], 9 15:35:57 Referral nutrit ionist /dieti karan referr al 2016 017 [email or web address] Not available 7 09:30:22 physic al therap ist referr al - Please see for BPPV 2016 017 rakesh [facility], [address] [place] [address] Rd, [address], [place], [address], 8 15:21:26 nutrit ionist /dieti karan referr al 2017 018 [email or web address] Not available 8 10:13:38 Procedures None record ed. Surgeries None record ed. Imaging None record ed. Medication Orders omepra zole 20 mg capsul echristina releas e 2017 018 [facility], [address] [facility], [place], [address], 8 09:47:43 Patient TargetsNo targets recorded. Patient Instructions Encounter Date Encounter Id Patient Instructions Last Modified By Organization Details Last Modified Time 10/21/2017 [id number] When You Want to Lose Weight: Care Instructions [email or web address] Not available 10/21/2017 09:26:49 Nutrition Referr al and Weight Management Follow-up Information [email or web address] Not available 10/21/2017 09:30:15 high blood press ure: care instructions [email or web address] Not available 10/21/2017 09:26:49 learning about h igh blood pressure [email or web address] Not available 10/21/2017 09:26:49 obsessive-compul sive disorder: care instructions [email or web address] Not available 10/21/2017 09:26:49 10/27/2017 [id number] benign paroxysma l positional vertigo (bppv): care instructions [email or web address] Not available 10/27/2017 16:34:30 04/27/2018 [id number] patellofemoral p ain syndrome (runner's knee): exercises [facility] Not available 04/27/2018 09:26:19 patellofemoral p ain syndrome: care instructions [facility] Not available 04/27/2018 09:26:18 high blood press ure: care instructions phelmuth Not available 04/27/2018 09:26:18 learning about h igh blood pressure phelmuth Not available 04/27/2018 09:26:19 05/18/2018 [id number] high cholesterol : care instructions Not available 05/18/2018 14:06:24 heart-healthy di et: care instructions Not available 05/18/2018 14:06:24 prediabetes: car e instructions Not available 05/18/2018 13:43:06 mediterranean diet Not availab le 05/18/2018 13:43:06 11/16/2018 [id number] gastroesophageal reflux disease (GERD): care instructions [facility] Not available 11/16/2018 09:47:43 high cholesterol : care instructions [facility] Not available 11/16/2018 09:55:59 high blood press ure: care instructions [facility] Not available 11/16/2018 09:55:59 learning about h igh blood pressure phelmuth Not available 11/16/2018 09:55:59 When You Want to Lose Weight: Care Instructions [facility] Not available 11/16/2018 09:46:30 Nutrition Referr al and Weight Management Follow-up Information [facility] Not available 11/16/2018 09:46:30 Reason for Referral Hairspring Vibrator/dietitian Refer ral for Body mass index 25-29 - overweight Referring Physician: Nixon Hernandez, Internal Medicine, Encounter Date: 10/21/2017 Please see for BPPV Referring Physician: Nixon Hernandez Internal Medicine, Encounter Date: 10/27/2017 Hairspring Vibrator/dietitian Refer ral for Body mass index 25-29 - overweight Referring Physician: Nixon Hernandez Internal Medicine, Encounter Date: 11/16/2018 Results Created Date Observation Date Name Description Value Unit Range Abnormal Flag Note LastModifiedBy Organization Detail LastModifiedTime 04/27/20 18 04/27/2018 CBC w/ auto diff WBC 4.5 K/mm3 (4.0-1 1.0) Not Available [facility] [address] [place], [address], 04/27/2018 14:30:42 04/27/20 18 04/27/2018 CBC w/ auto diff RBC 4.69 M/mm3 (4.70- 6.10) low Not Available [facility] [address] [place], [address], 04/27/2018 14:30:42 04/27/20 18 04/27/2018 CBC w/ auto diff HGB 13.8 gm/dL (13.7- 16.5) Effec tive April 10 18, refer ence range s for HGB and HCT have been updat ed. Not Available [facility] [address] [place], [address], 04/27/2018 14:30:42 04/27/20 18 04/27/2018 CBC w/ auto diff HCT 42.1 % (40.5- 48.5) Effec tive April 10, 18, refer ence range s for HGB and HCT have been updat ed. Not Available [facility] [address] [place], [address], 04/27/2018 14:30:42 04/27/20 18 04/27/2018 CBC w/ auto diff MCV 89.8 fL (80.0- 94.0) Not Available [facility] [address] [place], [address], 04/27/2018 14:30:42 04/27/20 18 04/27/2018 CBC w/ auto diff MCH 29.4 pg (27.0- 34.0) Not Available [facility] [address] [place], [address], 04/27/2018 14:30:42 04/27/20 18 04/27/2018 CBC w/ auto diff MCHC 32.8 g/dL (33.0- 37.0) low Not Available [facility] [address] [place], [address], 04/27/2018 14:30:42 04/27/20 18 04/27/2018 CBC w/ auto diff plt 165 K/mm3 (150-4 60) Not Available [facility] [address] [place], [address], 04/27/2018 14:30:42 04/27/20 18 04/27/2018 CBC w/ auto diff RDW-SD 41.9 fL (<47.0 ) Not Available [facility] [address] [place], [address], 04/27/2018 14:30:42 04/27/20 18 04/27/2018 CBC w/ auto diff MPV 12.2 fL (9.4-1 2.4) Not Available [facility] [address] [place], [address], 04/27/2018 14:30:42 04/27/20 18 04/27/2018 CBC w/ auto diff automated NRBC 0.0 #/100 _WBC' s Not Available [facility] [address] [place], [address], 04/27/2018 14:30:42 04/27/20 18 04/27/2018 CBC w/ auto diff abs. NRBC 0.0 K/mm3 Not Available [facility] [address] [place], [address], 04/27/2018 14:30:42 04/27/20 18 04/27/2018 CBC w/ auto diff neut # 2.7 K/mm3 (1.3-7 .0) Not Available [facility] [address] [place], [address], 04/27/2018 14:30:42 04/27/20 18 04/27/2018 CBC w/ auto diff lymph # 1.3 K/mm3 (0.8-3 .1) Not Available [facility] [address] [place], [address], 04/27/2018 14:30:42 04/27/20 18 04/27/2018 CBC w/ auto diff mono# 0.4 K/mm3 (0.4-1 .3) Not Available [facility] [address] [place], [address], 04/27/2018 14:30:42 04/27/20 18 04/27/2018 CBC w/ auto diff eo # 0.1 K/mm3 (0.0-0 .4) Not Available [facility] [address] [place], [address], 04/27/2018 14:30:42 04/27/20 18 04/27/2018 CBC w/ auto diff baso # 0.0 K/mm3 (0.0-0 .1) Not Available [facility] [address] [place], [address], 04/27/2018 14:30:42 04/27/20 18 04/27/2018 CBC w/ auto diff abs. imm gran 0.0 K/mm3 Not Available [facility] [address] [place], [address], 04/27/2018 14:30:42 04/27/20 18 04/27/2018 CBC w/ auto diff neut 60.1 % (44-76 ) Not Available [facility] [address] [place], [address], 04/27/2018 14:30:42 04/27/20 18 04/27/2018 CBC w/ auto diff lymph 27.8 % (15-43 ) Not Available [facility] [address] [place], [address], 04/27/2018 14:30:42 04/27/20 18 04/27/2018 CBC w/ auto diff monocyte 8.1 % (4.5-1 0.5) Not Available [facility] [address] [place], [address], 04/27/2018 14:30:42 04/27/20 18 04/27/2018 CBC w/ auto diff eo 2.4 % (0-6) Not Available [facility] [address] [place], [address], 04/27/2018 14:30:42 04/27/20 18 04/27/2018 CBC w/ auto diff baso 0.9 % (0-2) Not Available [facility] [address] [place], [address], 04/27/2018 14:30:42 04/27/20 18 04/27/2018 CBC w/ auto diff imm gran 0.7 % (0.0-0 .6) high Not Available [facility] [address] [place], [address], 04/27/2018 14:30:42 04/27/20 18 04/27/2018 BMP, serum or plasm a glucose 117 mg/dL (70-99 ) high Not Available [facility] [address] [place], [address], 04/27/2018 15:39:41 04/27/20 18 04/27/2018 BMP, serum or plasm a BUN 18 mg/dL (6-20) Not Available [facility] [address] [place], [address], 04/27/2018 15:39:41 04/27/20 18 04/27/2018 BMP, serum or plasm a creatinine 0.9 mg/dL (0.7-1 .2) Not Available [facility] [address] [place], [address], 04/27/2018 15:39:41 04/27/20 18 04/27/2018 BMP, serum or plasm a sodium 142 mmol/ L (133-1 45) Not Available [facility] [address] [place], [address], 04/27/2018 15:39:41 04/27/20 18 04/27/2018 BMP, serum or plasm a potassium 4.4 mmol/ L (3.6-5 .2) Not Available [facility] [address] [place], [address], 04/27/2018 15:39:41 04/27/20 18 04/27/2018 BMP, serum or plasm a chloride 101 mmol/ L (98-10 7) Not Available [facility] [address] [place], [address], 04/27/2018 15:39:41 04/27/20 18 04/27/2018 BMP, serum or plasm a bicarbonate 30 mmol/ L (22-29 ) high Not Available [facility] [address] [place], [address], 04/27/2018 15:39:41 04/27/20 18 04/27/2018 BMP, serum or plasm a anion gap 11 (4-17) Not Available [facility] [address] [place], [address], 04/27/2018 15:39:41 04/27/20 18 04/27/2018 BMP, serum or plasm a calcium 9.7 mg/dL (8.6-1 0.5) Not Available [facility] [address] [place], [address], 04/27/2018 15:39:41 04/27/20 18 04/27/2018 BMP, serum or plasm a est GFR non 99 mL/mi n/1.7 3_M2 Creat inine based estim ated glome rular filtr ation rate (eGFR ) is calcu lated using the Chron ic Kidne y Disea se Epide miolo gy Colla borat ion (CKD- EPI). The CKD-E PI creat inine equat ion has not been valid ated in child sharri (<18 years ), pregn ant women or in some racia l or ethni c subgr oups other than Cauca sians and Afric an Ameri cans. Not Available [facility] [address] [place], [address], 04/27/2018 15:39:41 04/27/20 18 04/27/2018 BMP, serum or plasm a est GFR 114 mL/mi n/1.7 3_M2 Creat inine based estim ated glome rular filtr ation rate (eGFR ) is calcu lated using the Chron ic Kidne y Disea se Epide miolo gy Colla borat ion (CKD- EPI). The CKD-E PI creat inine equat ion has not been valid ated in child sharri (<18 years ), pregn ant women or in some racia l or ethni c subgr oups other than Cauca sians and Afric an Ameri cans. Not Available [facility] [address] [place], [address], 04/27/2018 15:39:41 04/27/20 18 04/27/2018 lipid panel , serum cholesterol, total 192 mg/dL (<200) Not Available [facility] [address] [place], [address], 04/27/2018 15:39:42 04/27/20 18 04/27/2018 lipid panel , serum triglyceride 410 mg/dL (<150) high Not Available [facility] [address] [place], [address], 04/27/2018 15:39:42 04/27/20 18 04/27/2018 lipid panel , serum HDL chol 30 mg/dL (>39) low Not Available [facility] [address] [place], [address], 04/27/2018 15:39:42 04/27/20 18 04/27/2018 lipid panel , serum LDL cholesterol, calculated mg/dL (0-130 ) LDL NEHA STERO L NOT CALCU LATED WHEN TRIGL YCERI SRIKANTH ARE GREAT ER THAN OR EQUAL TO 400 MG/DL . Not Available [facility] [address] [place], [address], 04/27/2018 15:39:42 04/27/20 18 04/27/2018 lipid panel , serum non HDL cholesterol (calc) 162 mg/dL (<160) high Not Available [facility] [address] [place], [address], 04/27/2018 15:39:42 04/27/20 18 04/27/2018 TSH, serum or plasm a TSH 1.28 mIU/m L (0.40- 4.00) Not Available [facility] [address] [place], [address], 04/27/2018 15:55:52 04/27/20 18 04/29/2018 HbA1c (hemo globi n A1c), blood hemoglobin A1C, (diagnostic) 5.7 % (0-5.6 ) high INCRE ASED RISK FOR DIABE HAROON MELLI TUS. DIABE HAROON CARE, VOLUM E 33, SUPPL EMENT 1, JANANTHONY RY,20 10 Hemog lobin (Hb) A1c testi ng is perfo rmed by Loretta Olivia- quant immun oassa y. Any cause of short ened eryth rocyt e survi angelica will reduc e expos ure of eryth rocyt es to gluco se with a conse quent decre ase in Hb A1c (%). Cause s of short ened eryth rocyt e lifet nadja might be hemol ytic anemi a or other hemol ytic disea ses, prese nce of homoz ygous forms of abnor mal Hb (eg, SS, CC, SC), pregn ahmet, or recen t signi fican t or chron ic blood loss. Speci mens conta ining Hb F highe r than 10 perce nt of total Hb may resul t in lower than expec anil % Hb A1c. Not Available [facility] [address] [place], [address], 04/29/2018 09:22:49 11/16/20 18 11/16/2018 BMP, serum or plasm a glucose 108 mg/dL (70-99 ) high Not Available [facility] [address] [place], [address], 11/16/2018 11:07:04 11/16/20 18 11/16/2018 BMP, serum or plasm a BUN 21 mg/dL (6-20) high Not Available [facility] [address] [place], [address], 11/16/2018 11:07:04 11/16/20 18 11/16/2018 BMP, serum or plasm a creatinine 1.1 mg/dL (0.7-1 .2) Not Available [facility] [address] [place], [address], 11/16/2018 11:07:04 11/16/20 18 11/16/2018 BMP, serum or plasm a sodium 140 mmol/ L (133-1 45) Not Available [facility] [address] [place], [address], 11/16/2018 11:07:04 11/16/20 18 11/16/2018 BMP, serum or plasm a potassium 3.8 mmol/ L (3.6-5 .2) Not Available [facility] [address] [place], [address], 11/16/2018 11:07:04 11/16/20 18 11/16/2018 BMP, serum or plasm a chloride 97 mmol/ L (98-10 7) low Not Available [facility] [address] [place], [address], 11/16/2018 11:07:04 11/16/20 18 11/16/2018 BMP, serum or plasm a bicarbonate 30 mmol/ L (22-29 ) high Not Available [facility] [address] [place], [address], 11/16/2018 11:07:04 11/16/20 18 11/16/2018 BMP, serum or plasm a anion gap 13 (4-17) Not Available [facility] [address] [place], [address], 11/16/2018 11:07:04 11/16/20 18 11/16/2018 BMP, serum or plasm a calcium 10.0 mg/dL (8.6-1 0.5) Not Available [facility] [address] [place], [address], 11/16/2018 11:07:04 11/16/20 18 11/16/2018 BMP, serum or plasm a est GFR non 77 mL/mi n/1.7 3_M2 Creat inine based estim ated glome rular filtr ation rate (eGFR ) is calcu lated using the Chron ic Kidne y Disea se Epide miolo gy Colla borat ion (CKD- EPI). The CKD-E PI creat inine equat ion has not been valid ated in child sharri (<18 years ), pregn ant women or in some racia l or ethni c subgr oups other than Cauca sians and Afric an Ameri cans. Not Available [facility] [address] [place], [address], 11/16/2018 11:07:04 11/16/20 18 11/16/2018 BMP, serum or plasm a est GFR 89 mL/mi n/1.7 3_M2 Creat inine based estim ated glome heberlar filtr ation rate (eGFR ) is calcu lated using the Chron ic Kidne y Disea se Epide miolo gy Colla borat ion (CKD- EPI). The CKD-E PI creat inine equat ion has not been valid ated in child sharri (<18 years ), pregn ant women or in some racia l or ethni c subgr oups other than Cauca sians and Afric an Ameri cans. Not Available [facility] [address] [place], [address], 11/16/2018 11:07:04 11/16/20 18 11/16/2018 lipid panel , serum cholesterol, total 215 mg/dL (<200) high Not Available [facility] [address] [place], [address], 11/16/2018 11:07:05 11/16/20 18 11/16/2018 lipid panel , serum triglyceride 297 mg/dL (<150) high Not Available [facility] [address] [place], [address], 11/16/2018 11:07:05 11/16/20 18 11/16/2018 lipid panel , serum HDL chol 38 mg/dL (>39) low Not Available [facility] [address] [place], [address], 11/16/2018 11:07:05 11/16/20 18 11/16/2018 lipid panel , serum LDL cholesterol, calculated 118 mg/dL (0-130 ) Not Available [facility] [address] [place], [address], 11/16/2018 11:07:05 11/16/20 18 11/16/2018 lipid panel , serum non HDL cholesterol (calc) 177 mg/dL (<160) high Not Available [facility] [address] [place], [address], 11/16/2018 11:07:05 11/16/20 18 11/16/2018 HbA1c (hemo globi n A1c), blood hemoglobin A1C 5.4 % (4-6) HEMOG LOBIN A1C(% ) GLUCO SE CONTR OL INDEX <6% EXCEL LENT 6-7% VERY GOOD 7-8% GOOD 8-10% FAIR >10% POOR Hemog lobin (Hb) A1c testi ng is perfo rmed by Loretta Olivia- quant immun oassa y. Any cause of short ened eryth rocyt e survi angelica will reduc e expos ure of eryth rocyt es to gluco se with a conse quent decre ase in Hb A1c (%). Not Available [facility] [address] [place], [address], 11/16/2018 13:52:45 11/16/20 18 11/16/2018 hemog lobin A1C, hal blackmon k HA1C 5.4 % 4-6 Not Available In-Office Order Internal Use Only DO Not Attach Compendium DO Not Attach Compendium, Do Not Delete/merge, [id number] 11/16/2018 09:36:28 10/01/20 19 10/01/2019 HbA1c (hemo globi n A1c), blood hemoglobin A1C 5.4 % (4-6) HEMOG LOBIN A1C(% ) GLUCO SE CONTR OL INDEX <6% EXCEL LENT 6-7% VERY GOOD 7-8% GOOD 8-10% FAIR >10% POOR Hemog lobin (Hb) A1c testi ng is perfo rmed by Loretta Olivia- quant immun oassa y. Any cause of short ened eryth rocyt e survi angelica will reduc e expos ure of eryth rocyt es to gluco se with a conse quent decre ase in Hb A1c (%). Not Available [facility] [address] [place], [address], 10/01/2019 18:42:09 10/01/20 19 10/01/2019 BMP, serum or plasm a glucose 89 mg/dL (70-99 ) Not Available [facility] [address] [place], [address], 10/01/2019 18:45:16 10/01/20 19 10/01/2019 BMP, serum or plasm a BUN 14 mg/dL (6-20) Not Available [facility] [address] [place], [address], 10/01/2019 18:45:16 10/01/20 19 10/01/2019 BMP, serum or plasm a creatinine 1.0 mg/dL (0.7-1 .2) Not Available [facility] [address] [place], [address], 10/01/2019 18:45:16 10/01/20 19 10/01/2019 BMP, serum or plasm a sodium 142 mmol/ L (133-1 45) Not Available [facility] [address] [place], [address], 10/01/2019 18:45:16 10/01/20 19 10/01/2019 BMP, serum or plasm a potassium 4.2 mmol/ L (3.6-5 .2) Not Available [facility] [address] [place], [address], 10/01/2019 18:45:16 10/01/20 19 10/01/2019 BMP, serum or plasm a chloride 101 mmol/ L (98-10 7) Not Available [facility] [address] [place], [address], 10/01/2019 18:45:16 10/01/20 19 10/01/2019 BMP, serum or plasm a bicarbonate 30 mmol/ L (22-29 ) high Not Available [facility] [address] [place], [address], 10/01/2019 18:45:16 10/01/20 19 10/01/2019 BMP, serum or plasm a anion gap 11 (4-17) Not Available [facility] [address] [place], [address], 10/01/2019 18:45:16 10/01/20 19 10/01/2019 BMP, serum or plasm a calcium 9.8 mg/dL (8.6-1 0.5) Not Available [facility] [address] [place], [address], 10/01/2019 18:45:16 10/01/20 19 10/01/2019 BMP, serum or plasm a est GFR non 86 mL/mi n/1.7 3_M2 Creat inine based estim ated glome rular filtr ation rate (eGFR ) is calcu lated using the Chron ic Kidne y Disea se Epide miolo gy Colla borat ion (CKD- EPI). The CKD-E PI creat inine equat ion has not been valid ated in child sharri (<18 years ), pregn ant women or in some racia l or ethni c subgr oups other than Cauca sians and Afric an Ameri cans. Not Available [facility] [address] [place], [address], 10/01/2019 18:45:16 10/01/20 19 10/01/2019 BMP, serum or plasm a est GFR 99 mL/mi n/1.7 3_M2 Creat inine based estim ated glome rular filtr ation rate (eGFR ) is calcu lated using the Chron ic Kidne y Disea se Epide miolo gy Colla borat ion (CKD- EPI). The CKD-E PI creat inine equat ion has not been valid ated in child sharri (<18 years ), pregn ant women or in some racia l or ethni c subgr oups other than Cauca sians and Afric an Ameri cans. Not Available [facility] [address] [place], [address], 10/01/2019 18:45:16 10/01/20 19 10/01/2019 lipid panel , serum cholesterol, total 208 mg/dL (<200) high Not Available [facility] [address] [place], [address], 10/01/2019 18:45:17 10/01/20 19 10/01/2019 lipid panel , serum triglyceride 91 mg/dL (<150) Not Available [facility] [address] [place], [address], 10/01/2019 18:45:17 10/01/20 19 10/01/2019 lipid panel , serum HDL chol 47 mg/dL (>39) Not Available [facility] [address] [place], [address], 10/01/2019 18:45:17 10/01/20 19 10/01/2019 lipid panel , serum LDL cholesterol, calculated 143 mg/dL (0-130 ) high Not Available [facility] [address] [place], [address], 10/01/2019 18:45:17 10/01/20 19 10/01/2019 lipid panel , serum non HDL cholesterol (calc) 161 mg/dL (<160) high Not Available [facility] [address] [place], [address], 10/01/2019 18:45:17 10/01/20 19 10/01/2019 lipid panel , serum cholesterol, total 208 mg/dL (<200) high Not Available [facility] [address] [place], [address], 10/01/2019 18:45:25 10/01/20 19 10/01/2019 lipid panel , serum triglyceride 91 mg/dL (<150) Not Available [facility] [address] [place], [address], 10/01/2019 18:45:25 10/01/20 19 10/01/2019 lipid panel , serum HDL chol 47 mg/dL (>39) Not Available [facility] [address] [place], [address], 10/01/2019 18:45:25 10/01/20 19 10/01/2019 lipid panel , serum LDL cholesterol, calculated 143 mg/dL (0-130 ) high Not Available [facility] [address] [place], [address], 10/01/2019 18:45:25 10/01/20 19 10/01/2019 lipid panel , serum non HDL cholesterol (calc) 161 mg/dL (<160) high Not Available [facility] [address] [place], [address], 10/01/2019 18:45:25 10/21/20 17 10/22/2012 XR, abdom en + pelvi s No observ ation record ed. BARCODE Not Available 2016 12:48:22 Result Notes None recorded. Problems Name Problem SNOMED Code Status Onset Date Resolution Date Notes Provider Name and Address Organization Details Recorded Time Abdomina l pain 95463713 Completed 201206/07/2014 IMPRESSI ON: UNCLEAR CAUSE OF PAIN. NO ACUTE ABDOMEN BASED ON CT. MAYBE MILD PANCREAT ITIS. WILL CHECK AMYLASE. HE DRINKS 12 DRINKS A WEEK. NO HX ALCOHOLI SM.; RECORDED 04/02/20 13 10:12AM BY ANANYA ESTRELLA MA, ANNOTATI ON/ADDEN DUM Not Available [facility] 4 15:14:10 Abnormal findings diagnost ic imaging of liver+bi liary tract [id number] Completed 201206/07/2014 IMPRESSI ON: THIS MAY JUST BE INCIDENT AL FINDING. NOT SURE IF CAUSE OF HIS PAIN. GI NEXT WEEK FOR FURTHER W/U; RECORDED 04/02/20 13 10:12AM BY ANANYA ESTRELLA MA, NATALYA ON/ADDEN DUM Not Available [facility] 4 15:14:10 Acute sinusiti s [id number] Completed 200806/07/2014 RECORDED 02/03/20 09 7:20AM BY ANANYA ESTRELLA MA, NATALYA ON/ADDEN DUM Not Available [facility] 4 15:14:10 Anemia [id number] Active 2013 LATASHA Sosa, [place] [facility] 6 09:09:29 Adult health examinat ion Active 2013 LATASHA Sosa, [facility] 6 09:09:26 Anxiety disorder 842297492 Active 2013 LATASHA Sosa, [facility] 6 09:09:20 Diarrhea of presumed infectio us origin 41286481 Completed 201106/07/2014 RECORDED 10/23/20 12 9:37AM BY ANANYA ESTRELLA MA, NATALYA ON/ADDEN DUM Not Available [facility] 4 15:14:11 Dysuria 00609675 Completed 200706/07/2014 RECORDED 11/14/20 08 9:53AM BY NATALYA CASTRO ON/ADDEN DUM Not Available [facility] 4 15:14:11 Essentia l hyperten candace 90227134 Active 2013 LATASHA Sosa MA - [facility] 6 09:09:46 Respirat ory finding 897132013 Completed 201306/07/2014 RECORDED 12/03/19 14 1:12PM BY ROXY MICHELE MA, NATALYA ON/ADDEN DUM Not Available [facility] 4 15:14:11 Malaise and fatigue 703971775 Completed 201106/07/2014 RECORDED 10/23/20 12 9:37AM BY ANANYA ESTRELLA MA, NATALYA ON/ADDEN DUM Not Available [facility] 4 15:14:11 Influenz a vaccine needed 82764205129 06 Completed 201206/07/2014 RECORDED 04/02/20 13 10:12AM BY ANANYA ESTRELLA MA, ANNOTATI ON/ADDEN DUM Not Available [facility] 4 15:14:11 General examinat ion of patient Completed 200706/07/2014 RESOLVED DATE: 07/14/20 08; RECORDED 07/14/20 08 3:43PM BY NATALYA MONTES ON/ADDEN DUM Not Available [facility] 4 15:14:11 Hyperlip idemia 30822506 Active 2013 LATASHA Sosa MA - [facility] 6 09:09:40 Essentia l hyperten candace 09077649 Completed 201206/07/2014 RECORDED 05/21/20 13 12:30PM BY ANANYA ESTRELLA MA, ANNOTNAVEEN ON/ADDEN DUM LATASHA Sosa, [facility] 6 09:09:46 Insomnia 521741956 Active 2013 LATASHA Sosa, [facility] 6 09:09:11 Laborato ry procedur e performe d 782681866 Completed 201206/07/2014 RECORDED 04/02/20 13 10:11AM BY ANANYA ESTRELLA MA, NATALYA ON/ADDEN DUM Not Available [facility] 4 15:14:11 Administ ration of bacteria l and viral vaccine Completed 200706/07/2014 RECORDED 07/14/20 08 3:34PM BY DEBBIE ESTRELLA, OFFICE VISIT Not Available [facility] 4 15:14:11 Patient status finding 862701590 Completed 201310/18/2016 RECORDED 12/03/19 14 1:12PM BY ROXY MICHELE MA, OFFICE VISIT LATASHA Sosa, [facility] 6 09:09:03 Elevated level of transami nase and lactic acid dehydrog enase 718713591 Completed 201106/07/2014 RECORDED 10/23/20 12 9:37AM BY ANANYA ESTRELLA MA, NATALYA ON/ADDEN DUM Not Available [facility] 4 15:14:12 Osteoart hritis of hip 609674817 Active 2013 LATASHA Sosa, [facility] 6 09:09:23 Disorder of bursa of shoulder region 00676591 Active 2013 LATASHA Sosa, [facility] 6 09:09:43 Disorder of skin 18680537 Completed 201306/07/2014 RECORDED 12/03/19 14 1:12PM BY ROXY MICHELE MA, NATALYA ON/ADDEN DUM Not Available [facility] 4 15:14:12 Dermatop hytosis of the perianal area Completed 201106/07/2014 RECORDED 10/23/20 12 9:37AM BY ANANYA ESTRELLA MA, NATALYA ON/ADDEN DUM Not Available [facility] 4 15:14:12 Visual disturba nce 65493434 Completed 201106/07/2014 RECORDED 10/23/20 12 9:37AM BY ANANYA ESTRELLA MA, NATALYA ON/ADDEN DUM Not Available [facility] 4 15:14:12 Urinary system finding 397683442 Completed 201106/07/2014 RECORDED 10/23/20 12 9:36AM BY ANANYA ESTRELLA MA, NATALYA ON/ADDEN DUM Not Available [facility] 4 15:14:12 Abdomina l pain 01498828 Completed 201206/27/2014 IMPRESSI ON: UNCLEAR CAUSE OF PAIN. NO ACUTE ABDOMEN BASED ON CT. MAYBE MILD PANCREAT ITIS. WILL CHECK AMYLASE. HE DRINKS 12 DRINKS A WEEK. NO HX ALCOHOLI SM.; RECORDED 04/02/20 13 10:12AM BY ANANYA ESTRELLA MA, NATALYA ON/ADDEN DUM Not Available [facility] 4 06:00:33 Abnormal findings diagnost ic imaging of liver+bi liary tract 850374805 Completed 201206/27/2014 IMPRESSI ON: THIS MAY JUST BE INCIDENT AL FINDING. NOT SURE IF CAUSE OF HIS PAIN. GI NEXT WEEK FOR FURTHER W/U; RECORDED 04/02/20 13 10:12AM BY ANANYA ESTRELLA MA, NATALYA ON/ADDEN DUM Not Available [facility] 4 06:00:33 Acute sinusiti s 46238570 Completed 200806/27/2014 RECORDED 02/03/20 09 7:20AM BY ANANYA ESTRELLA MA, NATALYA ON/ADDEN DUM Not Available [facility] 4 06:00:33 Diarrhea of presumed infectio us origin 40670316 Completed 201106/27/2014 RECORDED 10/23/20 12 9:37AM BY ANANYA ESTRELLA MA, NATALYA ON/ADDEN DUM Not Available [facility] 4 06:00:33 Dysuria 20292282 Completed 200706/27/2014 RECORDED 11/14/20 08 9:53AM BY LATASHA DELVALLE, REGGIEATI ON/ADDEN DUM Not Available [facility] 4 06:00:33 Respirat ory finding 981193883 Completed 201306/27/2014 RECORDED 12/03/19 14 1:12PM BY ROXY MICHELE MA, NATALYA ON/ADDEN DUM Not Available [facility] 4 06:00:33 Malaise and fatigue 173670678 Completed 201106/27/2014 RECORDED 10/23/20 12 9:37AM BY ANANYA ESTRELLA MA, NATALYA ON/ADDEN DUM Not Available [facility] 4 06:00:33 Influenz a vaccine needed 77861974298 06 Completed 201206/27/2014 RECORDED 04/02/20 13 10:12AM BY ANANYA ESTRELLA MA, NATALYA ON/ADDEN DUM Not Available [facility] 4 06:00:33 General examinat ion of patient Completed 200706/27/2014 RESOLVED DATE: 07/14/20 08; RECORDED 07/14/20 08 3:43PM BY NATALYA MONTES ON/ADDEN DUM Not Available [facility] 4 06:00:33 Laborato ry procedur e performe d 561042009 Completed 201206/27/2014 RECORDED 04/02/20 13 10:11AM BY ANANYA ESTRELLA MA, NATALYA ON/ADDEN DUM Not Available [facility] 4 06:00:33 Administ ration of bacteria l and viral vaccine Completed 200706/27/2014 RECORDED 07/14/20 08 3:34PM BY DEBBIE ESTRELLA, OFFICE VISIT Not Available [facility] 4 06:00:33 Elevated level of transami nase and lactic acid dehydrog enase 970856496 Completed 201106/27/2014 RECORDED 10/23/20 12 9:37AM BY ANANYA ESTRELLA MA, ANNOTNAVEEN ON/ADDEN DUM Not Available [facility] 4 06:00:33 Disorder of skin 54603593 Completed 201306/27/2014 RECORDED 12/03/19 14 1:12PM BY ROXY MICHELE MA, ANNOTATI ON/ADDEN DUM Not Available [facility] 4 06:00:33 Dermatop hytosis of the perianal area Completed 201106/27/2014 RECORDED 10/23/20 12 9:37AM BY ANANYA ESTRELLA MA, NATALYA ON/ADDEN DUM Not Available [facility] 4 06:00:33 Visual disturba nce 78507905 Completed 201106/27/2014 RECORDED 10/23/20 12 9:37AM BY ANANYA ESTRELLA MA, ANNOTATI ON/ADDEN DUM Not Available [facility] 4 06:00:33 Urinary system finding 468700849 Completed 201106/27/2014 RECORDED 10/23/20 12 9:36AM BY ANANYA ESTRELLA MA, REGGIEATI ON/ADDEN DUM Not Available [facility] 4 06:00:33 Body mass index 25-29 - overweig ht 689857024 Active Nixon Hernandez MD [address] [address], [place], [address] , [facility] 4 16:07:00 Gastroes ophageal reflux disease 596539354 Active Nixon Hernandez MD [address] [address], [place], [address] , [facility] 5 14:23:28 Patellar tendonit is 77884076 Active Nixon Hernandez MD [address] [facility] [address], [place], [address] , [facility] 5 14:23:28 Impacted cerumen 64530063 Active Nixon Hernandez MD [address], [place], [address] , [facility] 5 14:23:28 Wheezing symptom 064742332 Completed 10/18/2016 [facility] [place] 6 09:09:32 Hypersom ramon 56592092 Active Nixon Hernandez MD [address] [facility] [address], [place], [address] , [facility] 6 09:29:57 Prediabe haroon 016162457 Active 2017 Nixon Hernandez MD [address] [facility] [address], [place], [address] , [facility] 8 09:36:24 Mixed hyperlip idemia 495736086 Completed 201810/03/2019 Hina Hong PA-C [address] [facility] [address], [place], [address] , [facility] 9 19:19:38 Problem Notes None recorded. Procedures Surgical History Date Name Laterality Status Provider Name and Address Organization Details Recorded Time 7 Colonoscopy completed Julissa Escobar [facility] 08/13/2017 11:18:24 6 Vasectomy completed Ata Sifuentes [facility] 10/21/2017 08:29:26 4 Eye Surgery completed Ata Sifuentes [facility] 10/21/2017 08:29:26 08/01/201 4 Other completed Ananya oquendo MA [facility] 08/26/2014 09:56:51 9 Hernia Repair completed Ata Sifuentes [facility] 10/21/2017 08:29:26 6 Circumcision completed Atakatie Sifuentes [facility] 10/21/2017 08:29:26 6 Hernia Repair completed Ata Lovelacedeann [facility] 10/21/2017 08:29:26 Imaging Results Imaging Date Name Status LastModified by Organiz ation Details LastModified Time 10/22/2012 XR, abdomen + pelvis completed [facility] Information not available 10/21/2017 12:48:22 Procedure Notes None recorded. Medical Equipment None Reported. Allergies Allergen ID Allergen Name Allergen Category Reaction Reaction Severity Criticality Documentation Date Start Date Code Code System Note Provider Name and Address Organization Details Recorded Time 31573 erythromy tonio medicatio n Not available Not available Not available 05/31/20142013 4053 RxNorm as an infan t [facility] [place] 5 08:58:50 Medications Name Sig Start Date Stop Date Status Note LastModified by Organization Details LastModified Time atorvasta tin 40 mg tablet Take 1 tablet every day by oral route for 90 days. 10/05 completed Not Available Not Available Not Available sertralin e 100 mg tablet TAKE 1 TABLET BY MOUTH ONCE DAILY active Not Available Not Available No t Available oxycodone -acetamin ophen 5 mg-325 mg tablet EVERY 4 HRS NEEDED FOR PAIN 10/26 completed RECORDED 10/27/20 12 9:28AM BY RAFAEL SORIANO, MEDICATI ON AUTO-YENY CTIVATIO N; Not Available Not Available Not Available clotrimaz ole-betam ethasone 1 %-0.05 % topical cream BID 11/05 completed RECORDED 11/05/20 12 2:59PM BY ANIKA LOYOLA ANNOTATI ON/ADDEN DUM; Not Available Not Available Not Available polymyxin B sulfate 10,000 unit-trim ethoprim 1 mg/mL eye drops Instill 1 drop 6 times a day by ophthalm ic route for 7 days. 04/25 completed Not Available Not Available Not Available omeprazol e 20 mg capsule,d elayed release Take 1 capsule every day by oral route for 90 days. 2017 active Not Available Not Available Not Avai lable lorazepam 1 mg tablet Take 1 tablet by mouth three times daily as needed active Not Available Not Available No t Available lisinopri l 10 mg-hydroc hlorothia zide 12.5 mg tablet TAKE 1 TABLET BY MOUTH ONCE DAILY active Not Available Not Available No t Available propranol ol 20 mg tablet Q 6 HOURS PRN 11/05 completed RECORDED 11/05/20 12 2:59PM BY ANIKA LOYOLA, ANNOTATI ON/ADDEN DUM; Not Available Not Available Not Available Amoxil BID 12/04 completed RECORDED 01/10/20 09 6:50AM BY BRANDEN BOX MD, MEDICATI ON AUTO-YENY CTIVATIO N; Not Available Not Available Not Available Flucelvax Quad [id number] (PF) 60 mcg (15 mcg x 4)/0.5 mL IM syringe active Not Available Not Available Not Available Vitals Date Recorded Body height Body mass index (BMI) Body weight Heart rate Oxygen saturation Oxygen saturation in Arterial blood by Pulse oximetry Body temperature Systolic blood pressure Diastolic blood pressure Provider Name and Address Organization Details Last Updated DateTime 7 181.61 cm 29.2 kg/m2 38122.5 8 g 61 /min 97 % 97 % 97.4 [degF] 130 mm[Hg] 68 mm[Hg] Ata Sifuentes [facility] 7 08:42:46 Date Recorded Body height Body temperature Oxygen saturation Oxygen saturation in Arterial blood by Pulse oximetry Heart rate Body mass index (BMI) Body weight Systolic blood pressure Diastolic blood pressure Provider Name and Address Organization Details Last Updated DateTime 7 181.61 cm 98.3 [degF] 98 % 98 % 59 /min 29 kg/m2 31629.9 9 g 136 mm[Hg] 84 mm[Hg] Ananya shi [facility] 7 16:14:47 Date Recorded Body height Body mass index (BMI) Body weight Oxygen saturation Oxygen saturation in Arterial blood by Pulse oximetry Heart rate Body temperature Provider Name and Address Organization Details Last Updated DateTime 8 181.61 cm 28.7 kg/m2 11304.8 1 g 97 % 97 % 65 /min 97.7 [degF] Ananya shi MA [facility] 8 09:04:31 Date Recorded Systolic blood pressure Diastolic blood pressure Provider Name and Address Organization Details Last Updated DateTime 04/27/2018 122 mm[Hg] 76 mm[Hg] Nixon Hernandez MD [address], [address], [facility] 04/27/2018 09:26:05 Date Recorded Body height Body mass index (BMI) Body weight Heart rate Oxygen saturation Oxygen saturation in Arterial blood by Pulse oximetry Body temperature Systolic blood pressure Diastolic blood pressure Provider Name and Address Organization Details Last Updated DateTime 8 181.61 cm 26.7 kg/m2 63835.6 2 g 81 /min 98 % 98 % 98.7 [degF] 127 mm[Hg] 83 mm[Hg] Claudette Unger [facility] 8 13:04:48 Date Recorded Body height Body mass index (BMI) Body weight Heart rate Oxygen saturation Oxygen saturation in Arterial blood by Pulse oximetry Body temperature Systolic blood pressure Diastolic blood pressure Provider Name and Address Organization Details Last Updated DateTime 8 181.61 cm 26.4 kg/m2 34530.7 4 g 69 /min 98 % 98 % 98.7 [degF] 107 mm[Hg] 72 mm[Hg] Catina Grimm MA [facility] 8 09:22:39 Social History Question Answer Notes LastModified by Organizat ion Details LastModified Time Tobacco Smoking Status Never Smoker [facility]ASHA [facility] 08/26/2014 09:56:50 Do You Have An Advance Directive? Yes Signed 03/17/2015 Information not available 03/17/2015 What Is Your Level Of Alcohol Consumption? Moderate Information not available 08/26/2014 Animal Exposure? Yes Information not available 08/26/2014 Do You Wear A Helmet When Biking? Yes Information not available 08/26/2014 Is Blood Transfusion Acceptable In An Emergency? Yes Information not available 08/26/2014 What Is Your Level Of Caffeine Consumption? Moderate 2 Cups Of Coffee Daily, Occasional Tea Information not available 09/22/2015 How Much Tobacco Do You Chew? None Information not available 08/26/2014 Are You Currently Employed? Yes Information not available 08/26/2014 What Type Of Diet Are You Following? REGULAR Information not available 08/26/2014 Which Illicit Or Recreational Drugs Have You Used? 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 No Information not available 08/26/2014 How Many Days In The Past Year Have You Had A Heavy Drinking Consumption (4+ Female, 5+ Male)? 3 Information not available 08/26/2014 Are There Any Guns Present In Your Home? Yes Information not available 08/26/2014 What Is Your Home Situation? Both Parents Information not available 08/26/2014 Legally Blind In One Or Both Eyes? No Information not available 08/26/2014 Live Alone Or With Others? With Others (Yancy) And Son Information not available 09/22/2015 Do You Take Precautions To Prevent Distracted Driving? Yes Information not available 09/22/2015 How Often Do You Need To Have Someone Help You When You Read Instructions, Pamphlets, Or Other Written Material From Your Doctor Or Pharmacy? Never Information not available 09/22/2015 Have You Served In The [employer]? No Information not available 10/18/2016 Marital Status Inform ation not available 08/26/2014 What Was The Date Of Your Most Recent Tobacco Screening? 11/16/2018 Information not available 06/10/2019 Total Number Of Stairs In Home 15 Information not available 08/26/2014 How Many Children Do You Have? 1 Son (Buddhist) Information not available 09/22/2015 Do You Use Protection During Sex? No Information not available 08/26/2014 Difficulty Reading? No Information not available 08/26/2014 What Is Your Relationship Status? Information not available 08/26/2014 Seat Belts Used Routinely Yes Information not available 08/26/2014 Are You Sexually Active? Yes Information not available 08/26/2014 Smoke Alarm In Home Yes Information not available 09/22/2015 At What Age Did You Start Smoking Tobacco? 0 Information not available 09/22/2015 Are You Passively Exposed To Smoke? No Information not available 09/22/2015 How Much Tobacco Do You Smoke? No Information not available 03/17/2015 What Types Of Sporting Activities Do You Participate In? Jogging Information not available 08/26/2014 Do You Use Any Illicit Or Recreational Drugs? No Information not available 08/26/2014 Do You Use Sunscreen Routinely? No Information not available 08/26/2014 How Many Years Have You Smoked Tobacco? 0 Information not available 09/22/2015 Sex: Unknown Functional Status Question Answer Note LastModified by Organizat ion Details LastModified Time Do you have difficulty walking or climbing stairs? No Information not available 08/26/2014 Difficulty driving at night? No Information not available 08/26/2014 Are you able to care for yourself? Yes Information not available 08/26/2014 Do you have difficulty dressing or bathing? No Information not available 08/26/2014 What is your exercise level? Moderate 4 x week Information not available 09/22/2015 Mental Status Question Answer Note LastModified by Organization D etails LastModified Time Do you have difficulty concentrating, remembering or making decisions? No Information no t available 08/26/2014 Family History Relationship Description Onset Age of this Age Resolved Age Notes LastModified by Organization Details LastModified Time Maternal Aunt Malignant tumor of breast 48 51 [email or web address] s Not available 08/26/2014 09:56:48 Son Anxiety disorder 6 [email or web address] Not available 08:51:52 Mother Malignant tumor of breast 55 [email or web address] Not available 08:51:52 Mother Obesity 40 [email or web address] s Not available 10/18/2016 09:07:58 Father Diabetes mellitus 40 [email or web address] Not available 08:51:52 Father Malignant tumor of lung 65 [email or web address] Not available 08:51:52 Father Anxiety disorder 21 [email or web address] Not available 08:51:52 Father Heart disease 51 [email or web address] Not available 08:51:52 Father Alcohol abuse 17 [email or web address] Not available 08:51:52 Father Hypertensive disorder 35 [email or web address] Not available 08:51:52 Father Chronic obstructive pulmonary disease 60 74 [email or web address] Not available 2017 09:45:38 Father Obesity 55 [email or web address] Not availa ble 03/29/2016 08:51:52 Paternal Aunt Malignant tumor of breast 50 55 [email or web address] s Not available 08/26/2014 09:56:48 Brother Anxiety disorder 21 [email or web address] Not available 08:51:52 Sister Allergy 21 [email or web address] s Not available 10/18/2016 09:07:58 Sister Anxiety disorder 21 [email or web address] Not available 08:51:52 Sister Malignant tumor of breast 44 [email or web address] s Not available 10/18/2016 09:07:58 Sister Obesity [email or web address] Not available 11/16/2018 09:46:01 Medical History Condition Response Other N Gout N Kidney Stones N Blood Diseases N Hyperthyroidism N Breast Cancer N Hypothyroidism N Lung Disease N COPD N Depression N Defects or Inherited Disease N Anesthesia Complications N Headaches/Migraines Y Varicose Veins N Anxiety Disorder Y Obesity N Vision or Eye Problems Y Arthritis N Head Injury/Concussion N Infertility N Polyps N Congenital Anomalies N Acid Reflux (GERD) Y Cancer N Stroke N ADHD N Endometriosis N High Cholesterol N Liver Disease N Fibromyalgia N Kidney Disease N Heart Problems N Ear or Hearing Problems N Hospitalizations N Thyroid Problems N GI Problems N Acne N Eating Disorder N Skin Problems N Anemia N Constipation N Bladder Problems N Mental Illness N Ovarian Cancer N Diabetes N Blood Transfusions N Seizures/Epilepsy N Tuberculosis N AIDS/HIV N Congestive Heart Failure (CHF) N Eczema N Diverticulitis N Abuse/Domestic Violence N Asthma N Allergies Y Reflux/GERD N Hepatitis N Pulmonary Embolism N Hypertension Y Chicken Pox Y Autism Spectrum Disorder (ASD) N Osteoporosis N Immunizations Vaccine Type Date Status Note Provider Nam e and Address Organization Details Recorded Time Influenza, split virus, quadrivalent, PF 6 completed Not Available [facility] 12/04/2019 02:22:07 Influenza, split virus, quadrivalent, PF 7 completed Not Available [facility] 12/04/2019 02:22:11 Tdap 8 completed Not Available [facility] 12/04/2019 02:21:48 Influenza, split virus, trivalent, PF 4 completed Not Available [facility] 12/04/2019 02:21:57 Influenza, split virus, quadrivalent, PF 8 completed Not Available [facility] 12/04/2019 02:22:15 Tdap 8 completed Not Available [facility] 05/31/2014 13:23:39 Influenza, split virus, trivalent, preservative 1 completed Not Available [facility] 05/31/2014 13:23:39 Influenza, split virus, trivalent, preservative 2 completed Not Available [facility] 05/31/2014 13:23:39 Past Encounters Encounter ID Performer Location Encounter Start Date Encounter Closed Date Diagnosis/Indication Diagnosis SNOMED-CT Code Diagnosis ICD10 Code [id number] [address]Comm [address] [place] [address] 12/18/2007 00:00:[id number] [place] [address] 12/29/2007 00:00:00 [id number] autoEComm erce [address] [facility] [place] [address] 07/14/2008 00:00:00 [id number] autoEComm erce [address] [facility] [place] [address] 11/14/2008 00:00:00 [id number] autoEComm erce [address] [facility] [place] [address] 02/02/2009 00:00:00 [id number] autoEComm erce [address] [facility] [place] [address] 09/20/2009 00:00:00 [id number] autoEComm erce [address] [facility] [place] [address] 12/20/2009 00:00:00 [id number] autoEComm erce [address] [facility] [place] [address] 06/27/2010 00:00:00 [id number] autoEComm erce [address] [facility] [place] [address] 01/08/2011 00:00:00 [id number] autoEComm erce [address] [facility] [place] [address] 10/23/2012 00:00:00 [id number] autoEComm erce [address] [facility] [place] [address] 04/02/2013 00:00:00 [id number] autoEComm erce [address] [facility] [place] [address] 05/21/2013 00:00:00 [id number] autoEComm erce [address] [facility] [place] [address] 12/03/2013 00:00:00 [id number] Main Office [address] [address] [place] [address] 08/26/2014 09:40:18 08/26/2014 11:11:25 Adult health examination 613861727 Needs infl uenza immunization 073289823 Essential hypertension 75144980 Hyperlipidemia 79135753 Body mass index 25-29 - overweight 498231539 [id number] Main Office [address] [address] [place] [address] 03/17/2015 08:52:49 03/17/2015 09:27:02 Essential hypertension 26988128 [id number] Nixon Hernandez MD Main Office [address] [address] [place] [address] 09/22/2015 08:54:36 09/22/2015 10:36:06 Adult health examination 702801575 Z00.00 Essential hypertension 29392004 I10 Anxiety disorder 6863795 06 F41.9 Hyperlipidemia 07329575 E78.5 Gastroesop hageal reflux disease 637704275 K21.9 Patellar tendonitis 3778 5001 M76.50 Impacted cerumen 9198489 6 H61.22 Wheezing symptom 9695465 08 R06.2 [id number] Nixon Hernandez MD Main Office [address] [address] [place] [address] 03/29/2016 08:43:25 03/29/2016 09:32:19 Essential hypertension 60308615 I10 Family romina nning education 011518687 Z30.02 Hypersomnia 15342070 G47 .10 [id number] Nixon Hernandez MD Main Office [address] [address] [place] [address] 10/18/2016 09:00:30 10/18/2016 10:13:03 Adult health examination 101445177 Z00.00 Needs infl uenza immunization 969800339 Z23 Screening for malignant neoplasm of colon 329874613 Z12.11 Body mass index 25-29 - overweight 527628471 E66.3 Hyperlipidemia 27731773 E78.5 Fatigue 42880032 R53.83 Gastroesop hageal reflux disease 666783551 K21.9 [id number] Nixon Hernandez MD Main Office [address] [address] [place] [address] 04/25/2017 11:07:04 04/25/2017 11:49:25 Essential hypertension 48041583 I10 Hyperlipidemia 30754364 E78.5 Fatigue 09451714 R53.83 [id number] Nixon Hernandez MD Main Office [address] [address] [place] [address] 07/29/2017 14:58:39 07/29/2017 16:09:18 Needs influenza immunization 832372707 Z23 [id number] Nixon Hernandez MD Main Office [address] [address] [place] [address] 10/21/2017 08:26:02 10/21/2017 09:30:21 Adult health examination 603308716 Z00.00 Essential hypertension 11566035 I10 Hyperlipidemia 87365313 E78.5 Fatigue 01547548 R53.83 Body mass index 25-29 - overweight 481387608 E66.3 Z68.25 Obsessive- compulsive disorder 415852217 F42.9 [id number] Nixon Hernandez MD Main Office [address] [address] [place] [address] 10/27/2017 15:55:29 10/27/2017 16:34:42 Benign paroxysmal positional vertigo 007453648 H81.10 [id number] Nixon Hernandez MD Main Office [address] [address] [place] [address] 04/27/2018 08:47:55 04/27/2018 09:33:18 Essential hypertension 66825407 I10 Administra tion of viral vaccine 66739686 Z23 Hyperlipidemia 88806941 E78.5 Fatigue 13765753 R53.83 Patellofem oral stress syndrome 583650685 M22.2X9 [id number] Nixon Hernandez MD Main Office [address] [address] [place] [address] 05/18/2018 13:01:09 05/18/2018 14:21:34 Prediabetes 489529840 R73.03 Mixed hyperlipidemia 267 021048 E78.2 Body mass index 25-29 - overweight 084437054 Z68.26 [id number] Nixon Hernandez MD Main Office [address] [address] [place] [address] 11/16/2018 09:12:04 11/16/2018 10:08:00 Adult health examination 876644023 Z00.00 Needs infl uenza immunization 657046210 Z23 Body mass index 25-29 - overweight 228026689 E66.3 Z68.25 Prediabetes 901330160 R7 3.03 Gastroesop hageal reflux disease 991494276 K21.9 Hyperlipidemia 09247652 E78.5 Essential hypertension 51274343 I10 Health Concerns Section Related Observation LastModified by Organization Detai ls LastModified Time None Recorded Concern Status LastModified by Organization Details LastModified Time None Recorded Advance Directives Directive Y: signed 03/17/2015 Payers Encounter Date Sequence Insurance Name Policy Number Policy Haynse Covered Member ID Haynes Member ID Guarantor Name 10/21/2017 1 [facility] ([facility]) [id number] 23 Yancy Nalepinski [id number] Yancy Nalepinski 10/27/2017 1 [facility] ([facility]) [id number] 23 Yancy Nalepinski [id number] Yancy Nalepinski 04/27/2018 1 [facility] (PPO) [id number] 23 Yancy Nalepinski [id number] Yancy Nalepinski 05/18/2018 1 [facility] (O) [id number] 23 Yancy Nalepinski [id number] Yancy Nalepinski 11/16/2018 1 [facility] (O) [id number] 23 Yancy Nalepinski [id number] Yancy Nalepinski Notes Date Note Type Note Provider Name and Address Organization Details Recorded Time 7 text/html Anxiety/DepressionReported bypatient.Notes:Stable symptoms of depression and anxiety with OCD. Taking sertraline with good effects. Previously seen by psychiatry. Good med adherence.Hypertension F/UReported bypatient.Associated Symptoms:no dizziness; no lightheadedness; no chest pain; no shortness of breath; no palpitations; no edema; no calf pain with exertion Lifestyle:regular exercise; limiting/avoiding salt Medications:taking medications as directed; no side effects from medication Here for PE visit. Doing well. Reviewed cardiovascular risks and concerns about weight. Nixon Hernandez MD [address], [address], [facility] 10/21/2017 09:25:17 7 text/html DizzinessReported bypatient.Quality:symptoms worse in the evening (wakes occasionally from sleep) Severity:no effect on daily activities Duration:intermittent episodes lasting:; lasts <5 minutes Notes sensation of dizziness with spinning sensation for the past 4 days. Nixon Hernandez MD [address], [address], [facility] 10/27/2017 16:37:37 8 text/html Hypertension F/UReported bypatient.Associated Symptoms:no dizziness; no lightheadedness; no chest pain; no shortness of breath; no palpitations; no edema; no calf pain with exertion Lifestyle:regular exercise; limiting/avoiding salt; has been walking more Medications:taking medications as directed; no side effects from medicationNotes:Stable BP checking intermittently - no recent BP readingsMusculoskeletal PainReported bypatient.Location:right knee Quality:aching Severity:same Duration:present for 1-6 months; approx 2 mos Timing:intermittent; worse with extreme of flexion Context:no obvious injuryNotes:No obvious swelling Nixon Hernandez MD [address], [address], [facility] 04/27/2018 09:31:19 8 text/html Diabetes F/UReported bypatient.Context:normal range of home blood sugars (in the low 100s); seeing eye doctor regularly Associated Symptoms:no weight gain; no weight loss; no dizziness; no sweats; no headaches; no confusion; no increased thirst; no increased appetite; no increased urination; no blurred vision; no numbness of feet; no calluses on feetNotes:52 year old male presents for prediabetic counseling and f/u. REcent lab showed fasting glucose of 117 and HgA1c was 5.7%. Pt. has family h/o Diabetes Mellitus in father. Current BMI is 26.7 down from 28.7 recently in April . Pt. started new diet with more regular eating and lowered carbs significantly. Stopped beer and sweats. Has well controlled HTN and labs showed mixed hyperlipidemia with TRG count of 401 and HDL of 30. High cardiovasc. risk with early IA in father at age 50. Pt. lost 15 lbs since April 27. Nixon Hernandez MD [address] [address], [place], [address], [facility] 05/18/2018 18:03:06 8 text/html GERD RefluxReported bypatient.Notes:Stable on PPIHypertension F/UReported bypatient.Associated Symptoms:no dizziness; no lightheadedness; no chest pain; no shortness of breath; no palpitations; no edema; no calf pain with exertion Lifestyle:regular exercise; limiting/avoiding salt Medications:taking medications as directed; no side effects from medication Here for PE visit. Doing well. Reviewed cardiovascular risks and concerns about weight and exercise program. Has had 20lbs weight loss intended over the past year. Had pre-diabetes diagnosis in April 2018. Had been doing more exercise over the summer months. Nixon Hernandez MD [address] [address], [place], [address], [facility] 11/16/2018 10:07:57
[2024-10-28 14:33] LABS: Estimated Average Glucose 105 mg/dL; Hemoglobin A1C 121.9946 umol/L; Hemoglobin A1c % 5.3 % (<6.0); Total Hemoglobin (HGBA1C) 3561.0167 umol/L
[2024-10-28 14:47] LABS: Alanine Aminotransferase 29 U/L (0-40); Albumin Level 4.5 g/dL (3.5-5.0); Alkaline Phosphatase 77 U/L (39-117); Anion Gap 12 (12-20); Aspartate Amino Transferase 28 U/L (5-37); Bilirubin Total 1.6 mg/dL (0.0-1.0); Blood Urea Nitrogen 22 mg/dL (9-16); Carbon Dioxide 31 mmol/L (22-29); Chloride 105 mmol/L (96-108); Cholesterol 189 mg/dL (<200); Estimated Glomerular Filt Rate > 60; Glucose Fasting 98 mg/dL (60-99); HDL Cholesterol 40 mg/dL (>40); LDL Cholesterol Calculated 122 mg/dL (<100); Sodium 144 mmol/L (135-145); Total Protein 7.5 g/dL (6.5-8.0); Triglycerides 136 mg/dL (<150)
== END 2024-10-28 12:28 | disposition home or self-care (01) ==
LOC: HO.WFDLDS 12:27
PROVIDERS: Visit Provider Family Medicine
DX: Z00.00 Encounter for general adult medical examination without abnormal findings (principal); E78.5 Hyperlipidemia, unspecified; R73.01 Impaired fasting glucose
CPT/HCPCS: 36415; 80053; 80061; 83036

== ENCOUNTER 2024-10-29 08:28 | Outpatient (AMB) | payer OTHER, SELFPAY ==
--- NOTE | 2024-10-29 08:34 | MHC.PC.OV ---
Vital Signs 10/29/24 08:36 10/29/24 08:44 Height 5 ft 1 in Weight 195 lb 4 oz BMI 36.9 BP 158/96 H 138/90 H Blood Pressure Location Lt brachial Lt brachial Position Sitting Sitting Pulse 56 Pulse Source Pulse Oximeter Pulse Oximetry (%) 99 Oxygen Delivery Method Room Air Intake Visit Reasons: f/u HLD, HTN Intake Note: Follow up. Needs refill on Omeprazole 20mg. Lab results. Recreational Therapy Aide Required: No Allergies erythromycin base Allergy (Mild, Verified 10/29/24 08:35) Rash Tobacco use date assessed: 11/13/23 Dental Screening Dental Screen Date: 11/13/23 HPI f/u HLD, HTN HPI Details 59 y/o male presents to f/u HLD, HTN. Labs drawn 10/28/24. Reviewed labs with pt. Triglycerides 136. TC 189. LDL 122. HDL 40. A1c 5.3%. Blood pressure today 138/90. He is on lisinopril-HCTZ 10-12.5mg daily. Continues to f/u with urology for urinary symptoms and rising PSA level. He is on sertraline 50mg, lorazpem for his mood. Notes he had been on sertraline 100mg before but had stopped this due to sexual side effects. Pt questions whether or not he has adult ADHD. HPI Comments History of Present Illness Details Documentation assistance for Miguel Ángel Small MD, was provided by David Irving, Application Lead on 10/29/2024 at 9:01 AM EST. I, Dr. Small, have read, observed, and verified documentation. COUNT INCLUDES THE [facility] Surgical History History of hip surgery History of hernia surgery Family History Sister Breast cancer Father Alcohol abuse Social History Household Members: Children Household Members Other:: Son Housing: House Are you a primary ostomy care nurse to a significant other at home: No Do you presently have visiting nurse or other home services: No 75 years or older and lives alone: No Alcohol intake: current Alcohol intake frequency: a few times a week Patient Tobacco Use Status: Never used Tobacco e-Cigarette/Vaping Use: Never Used Second Hand Smoke Exposure: No service: No Current occupational status: employed 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 1. Little interest or pleasure in doing things: several days 2. Feeling down, depressed, or hopeless: not at all 3. Trouble falling or staying asleep, or sleeping too much: several days 4. Feeling tired or having little energy: not at all 5. Poor appetite or overeating: not at all 6. Feeling bad about yourself - or that you are a failure or have let yourself or your family down: not at all 7. Trouble concentrating on things, such as reading the newspaper or watching television: several days 8. Moving or speaking so slowly that other people could have noticed. Or the opposite - being so fidgety or restless that you have been moving around a lot more than usual: several days 9. Thoughts that you would be better off or of hurting yourself in some way: not at all Total score: 4 Depression Screening Interpretation: Positive Depression Screening Done: Yes 75501 - PHQ-9 Billing: Yes Source: Developed by Drs. Tani Mehta, Bhumika Burns, De Mckeon and colleagues, with an educational noe from [employer]. Thrive Questionnaire Date Thrive assessed: 10/29/24 I am a: Patient What is your living situation today?: I have a steady place to live Within the past 12 months, did the food you bought not last and you didn't have the money to get more?: Never true Within the past 12 months, did you worry whether your food would run out before you got money to buy more?: Never true Do you have trouble paying for medicines?: No Do you have trouble getting transportation to medical appointments?: No Do you have trouble paying your heating and electricity bill?: No Do you have trouble taking care of your child, family member or friend?: No Do you have trouble with day-to-day activities such as bathing, preparing meals, shopping, managing finances, etc.?: No Are you currently unemployed and looking for a job?: Yes Are you interested in more education?: No Please select the resources that you would like help with: None Currently or been in a relationship where the following occur: No concerns reported THRIVE Score: 0 AUDIT C Alcohol Use Questionnaire (AUDIT-C) 1. How often do you have a drink containing alcohol?: 2-3 times a week 2. How many drinks containing alcohol do you have on a typical day when you are drinking?: 3 or 4 3. How often do you have six or more drinks on one occasion?: Less than monthly Total Score: 5 SANTOS-7 AMB Questionnaire SANTOS-7 Date SANTOS - 7 assessed: 10/29/24 Feeling nervous, anxious, or on edge: 2 = More than half the days Not being able to stop or control worryin = Several days Worrying too much about different things: 1 = Several days Trouble relaxin = Several days Being so restless that it is hard to sit still: 0 = Not at all Becoming easily annoyed or irritable: 1 = Several days Feeling afraid as if something awful might happen: 0 = Not at all Total SANTOS-7 score (0-4 normal; 5-9 mild; 10-14 moderate; 15-21 severe): 6 Source: Developed by Drs. Tani Mehta, Bhumika Burns, De Mckeon and colleagues, with an educational noe from [employer]. SANTOS-7 Assessment Billing SANTOS-7 Assessment Tool: SANTOS-7 Assessment 89452 Review of Systems Const Denies chills, Denies fatigue, Denies fever(s), Denies headache(s) and Denies weakness ENT Denies dizziness and Denies headache(s) Card Denies dyspnea Resp Denies cough, Denies dyspnea, Denies wheezing and Denies other (shortness of breath) Musc Denies numbness and Denies tingling Neuro Denies dizziness, Denies headache(s), Denies numbness, Denies tingling and Denies weakness Psych Reports anxiety and Reports depression Endo Denies fatigue Aller/Immun Denies wheezing Physical exam (Primary Care) Vital Signs: Last Vital Signs Pulse 56 10/29/24 08:36 BP 138/90 H 10/29/24 08:44 Pulse Ox 99 10/29/24 08:36 Oxygen Delivery Method Room Air 10/29/24 08:36 BMI result Body Mass Index 36.9 Tobacco/Smoking Status: Tobacco use Status Tobacco use date assessed 11/13/23 10/29/24 08:35 Patient Tobacco Use Status Never used Tobacco 10/29/24 08:35 e-Cigarette/Vaping Use Never Used 10/29/24 08:35 PHQ-9: PHQ-9 Score PHQ-9: Total score 4 10/29/24 08:35 Depression Screening Interpretation: Positive Thrive Assessment: Date of Thrive Assessment Date Thrive assessed 11/13/23 10/29/24 08:35 Currently or been in a relationship where the following occur: No concerns reported Const General: well developed; No acute distress Nutritional Appearance: well nourished Orientation/consciousness: patient oriented x3 HENMT Head: Yes normocephalic and Yes atraumatic Eyes General: appearance normal, both eyes and all related structures Pupils: Equal, round and reactive pupils present EOM: EOMs intact bilaterally Resp Effort & Inspection: normal respiratory effort Auscultation: clear to auscultation bilaterally Cardio Rate: regular rate Rhythm: regular rhythm Heart sounds: S1 normal heart sound present, S2 normal heart sound present, no gallops, no murmurs and no rubs Neuro General: patient oriented x3 and gait normal Cranial nerves: Yes Equal, round and reactive pupils present Psych Affect: normal affect Coding Level of Care Code Est Pt Level 4 (27933) Diagnoses Essential hypertension I10 Hyperlipidemia E78.5 Anxiety F41.9 PSA elevation R97.20 Additional Codes SANTOS-7 Assessment Billing - SANTOS-7 Assessment Tool: SANTOS-7 Assessment 41706 ([id number]) PHQ-9 - 31901 - PHQ-9 Billing: Yes ([id number]) Assessment & Plan Assessment & Plan (1) Essential hypertension: Code(s): I10 - Essential (primary) hypertension Category: Medical Plan: Blood?pressure?is?running?too?high.??Goal?is?less?than?140/90 Increased?lisinopril?in?his?combo?pill (2) Hyperlipidemia: Code(s): E78.5 - Hyperlipidemia, unspecified Category: Medical Plan: LDL?cholesterol?is?elevated.??HDL?is?borderline He?will?work?on?a?diet?lower?in?saturated?fats?and?cholesterol.??Encouraged?exercise (3) Anxiety: Code(s): F41.9 - Anxiety disorder, unspecified Category: Medical Plan: Ongoing/worsened?anxiety?lately?and?patient?has?been?needing?an?increased?dose?of?lorazepam. Increased?to?1?mg?per?dose Continue?sertraline Referred?to?a?therapist. Patient?wonders?if?he?may?have?adult?ADHD.??He?can?discuss?with?a?therapist.??May?evaluation?by?Psychiatry?neuropsychiatry. (4) PSA elevation: Code(s): R97.20 - Elevated prostate specific antigen [PSA] Category: Medical Plan: Patient?is?undergoing?workup?with?Urology Orders: Referrals Nurse Navigator Referral F41.9 - Anxiety disorder, unspecified Medications: New lisinopril-hydrochlorothiazide 20-12.5 mg 1 tab PO DAILY 90 days 90 tabs 3RF blood-glucose meter (FreeStyle Lite Meter kit) DX: R 73.01, test blood sugar Once a day, duration 999 days 1 ea 0RF R73.01 - Impaired fasting glucose Changed From lorazepam MassPat Verified 0.5 mg PO BEDTIME 30 days PRN 12 tabs 0RF anxiety To lorazepam MassPat Verified 1 mg PO BEDTIME 30 days PRN 12 tabs 0RF anxiety Refilled omeprazole 20 mg PO DAILY 90 days 90 caps 3RF Discontinued lisinopril-hydrochlorothiazide 10-12.5 mg Discontinued Reason: Doctor's Order 1 tab PO DAILY 90 tabs 0RF
[2024-10-29 08:36] VITALS: BP 158/96; PULSE 56; O2SAT 99; BMI 36.9
[2024-10-29 08:44] VITALS: BP 138/90
== END 2024-10-29 09:17 | disposition home or self-care (01) ==
PROVIDERS: PCP Family Medicine; Visit Provider Family Medicine
DX: I10 Essential (primary) hypertension (principal); E78.5 Hyperlipidemia, unspecified; F41.9 Anxiety disorder, unspecified; R97.20 Elevated prostate specific antigen [PSA]

== ENCOUNTER → 2024-10-29 08:28 | Outpatient (BNVA) | payer OTHER, SELFPAY | PROVIDERS: PCP Family Medicine; Visit Provider Family Medicine | DX: I10 Essential (primary) hypertension (principal); E78.5 Hyperlipidemia, unspecified; F41.9 Anxiety disorder, unspecified; R97.20 Elevated prostate specific antigen [PSA]; Z79.899 Other long term (current) drug therapy | CPT/HCPCS: 96127 ==

== ENCOUNTER 2024-11-19 11:08 | Outpatient (REF) | payer OTHER, SELFPAY ==
--- OUTSIDE RECORDS SUMMARY | 2024-11-19 12:57 | XMS_ITS | Data Portability ---
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 TIFF LEONARD Referring Provider Assessment Encounter Date [...] Lab BMP, serum or plasma 2016 017 [email or web address] [facility], [address] [place], [address], 8 11:09:35 lipid panel, serum 2016 017 [email or web address] [facility], [address] [place], [address], 8 11:09:35 ALT (pamela august), serum or plasma 2016 017 [email or web address] [facility], [address] [place], [address], 8 11:09:35 TSH, serum or plasma 2016 017 [email or web address] [facility], [address] [place], [address], 8 11:09:34 CBC w/ auto diff 2016 017 [email or web address] [facility], [address] [place], [address], 8 11:09:35 BMP, serum or plasma 2017 018 JOCELINE [facility], [address], [address], [place], [address], 8 15:39:41 lipid panel, serum 2017 018 JOCELINE [facility], [address], [address], [place], [address], 8 15:39:42 TSH, serum or plasma 2017 018 JOCELINE [facility], [address], [address], [place], [address], 8 15:55:52 CBC w/ auto diff 2017 018 JOCELINE [facility], [address], [address], [place], [address], 8 14:30:42 lipid panel, serum 2017 018 JOCELINE [facility], [address] [place], [address], 8 11:07:05 BMP, serum or plasma 2017 018 JOCELINE [facility], [address] [place], [address], 8 11:07:04 HbA1c (hemog lobin A1c), blood 2017 018 [email or web address] [facility], [address], [address], 8 10:22:36 HbA1c (hemog lobin A1c), blood - Please add to labs done 018. 2017 018 [email or web address] [facility], [address], [address], [place], [address], 9 11:35:33 hemogl obin A1C, finger stick 2017 018 pheuth In-Office Order, Internal Use Only DO Not Attach Compendium DO Not Attach Compendium, Do Not Delete/merge, [id number] 8 09:46:31 lipid panel, serum 2017 018 [email or web address] [facility], [address] [place], [address], 9 15:35:57 BMP, serum or plasma 2017 018 [email or web address] [facility], [address] [place], [address], 9 15:35:57 Referral nutrit ionist /dieti karan referr al 2016 017 [email or web address] Not available 7 09:30:22 physic al therap ist referr al - Please see for BPPV 2016 017 rakesh [facility] [place], [address] [place] [address] Rd, [address], [place], [address], 8 15:21:26 nutrit ionist /dieti karan referr al 2017 018 [email or web address] Not available 8 10:13:38 Procedures None record ed. Surgeries None record ed. Imaging None record ed. Medication Orders omepra zole 20 mg capsul echristina releas e 2017 018 [facility], [address] [facility], [place], [address], 8 09:47:43 Patient TargetsNo targets recorded. Patient Instructions Encounter Date Encounter Id Patient Instructions Last Modified By Organization Details Last Modified Time 10/21/2017 [id number] When You Want to Lose Weight: Care Instructions [email or web address] Not available 10/21/2017 09:26:49 Nutrition Referr al and Weight Management Follow-up Information [email or web address] Not available 10/21/2017 09:30:15 high blood press ure: care instructions [email or web address] Not available 10/21/2017 09:26:49 learning about h igh blood pressure [email or web address] Not available 10/21/2017 09:26:49 obsessive-compul sive disorder: care instructions [email or web address] Not available 10/21/2017 09:26:49 10/27/2017 [id number] benign paroxysma l positional vertigo (bppv): care instructions [email or web address] Not available 10/27/2017 16:34:30 04/27/2018 [id number] patellofemoral p ain syndrome (runner's knee): [facility] Not [facility] 04/27/2018 09:26:19 patellofemoral p ain syndrome: [facility] Not available 04/27/2018 09:26:18 high blood press ure: care instructions [email or web address] Not available 04/27/2018 09:26:18 learning about h igh blood pressure phelmuth Not available 04/27/2018 09:26:19 05/18/2018 [id number] high cholesterol : care instructions Not available 05/18/2018 14:06:24 heart-healthy di et: care instructions Not available 05/18/2018 14:06:24 prediabetes: car e instructions Not available 05/18/2018 13:43:06 mediterranean diet Not availab le 05/18/2018 13:43:06 11/16/2018 [id number] gastroesophageal reflux disease (GERD): care instructions [facility] Not available 11/16/2018 09:47:43 high cholesterol : care instructions [facility] Not available 11/16/2018 09:55:59 high blood press ure: care instructions [facility] Not available 11/16/2018 09:55:59 learning about h igh blood pressure phelmuth Not available 11/16/2018 09:55:59 When You Want to Lose Weight: [email or web address] Not available 11/16/2018 09:46:30 Nutrition Referr al and Weight Management Follow-up Information [facility] Not available 11/16/2018 09:46:30 Reason for Referral Vp Clinical/dietitian Refer ral for Body mass index 25-29 - overweight Referring Physician: Nixon Hernandez, Internal Medicine, Encounter Date: 10/21/2017 Please see for BPPV Referring Physician: Nixon Hernandez Internal Medicine, Encounter Date: 10/27/2017 Vp Clinical/dietitian Refer ral for Body mass index 25-29 - overweight Referring Physician: Nixon Hernandez Internal Medicine, Encounter Date: 11/16/2018 Results Created Date Observation Date Name Description Value Unit Range Abnormal Flag Note LastModifiedBy Organization Detail LastModifiedTime 04/27/20 18 04/27/2018 CBC w/ auto diff WBC 4.5 K/mm3 (4.0-1 1.0) Not Available [facility] [address] [place], [address], 04/27/2018 14:30:42 04/27/20 18 04/27/2018 CBC w/ auto diff RBC 4.69 M/mm3 (4.70- 6.10) low Not Available [facility] [address] [place], [address], 04/27/2018 14:30:42 04/27/20 18 04/27/2018 CBC w/ auto diff HGB 13.8 gm/dL (13.7- 16.5) Effec tive April 10 18, refer ence range s for HGB and HCT have been updat ed. Not Available [facility] [address] [place], [address], 04/27/2018 14:30:42 04/27/20 18 04/27/2018 CBC w/ auto diff HCT 42.1 % (40.5- 48.5) Effec tive April 10, 18, refer ence range s for HGB and HCT have been updat ed. Not Available [facility] [address] [place], [address], 04/27/2018 14:30:42 04/27/20 18 04/27/2018 CBC w/ auto diff MCV 89.8 fL (80.0- 94.0) Not Available [facility] [address] [place], [address], 04/27/2018 14:30:42 04/27/20 18 04/27/2018 CBC w/ auto diff MCH 29.4 pg (27.0- 34.0) Not Available [facility] [address] [place], [address], 04/27/2018 14:30:42 04/27/20 18 04/27/2018 CBC w/ auto diff MCHC 32.8 g/dL (33.0- 37.0) low Not Available [facility] [address] [place], [address], 04/27/2018 14:30:42 04/27/20 18 04/27/2018 CBC w/ auto diff plt 165 K/mm3 (150-4 60) Not Available [facility] [address] [place], [address], 04/27/2018 14:30:42 04/27/20 18 04/27/2018 CBC w/ auto diff RDW-SD 41.9 fL (<47.0 ) Not Available [facility] [address] [place], [address], 04/27/2018 14:30:42 04/27/20 18 04/27/2018 CBC w/ auto diff MPV 12.2 fL (9.4-1 2.4) Not Available [facility] [address] [place], [address], 04/27/2018 14:30:42 04/27/20 18 04/27/2018 CBC w/ auto diff automated NRBC 0.0 #/100 _WBC' s Not Available [facility] [address] [place], [address], 04/27/2018 14:30:42 04/27/20 18 04/27/2018 CBC w/ auto diff abs. NRBC 0.0 K/mm3 Not Available [facility] [address] [place], [address], 04/27/2018 14:30:42 04/27/20 18 04/27/2018 CBC w/ auto diff neut # 2.7 K/mm3 (1.3-7 .0) Not Available [facility] [address] [place], [address], 04/27/2018 14:30:42 04/27/20 18 04/27/2018 CBC w/ auto diff lymph # 1.3 K/mm3 (0.8-3 .1) Not Available [facility] [address] [place], [address], 04/27/2018 14:30:42 04/27/20 18 04/27/2018 CBC w/ auto diff mono# 0.4 K/mm3 (0.4-1 .3) Not Available [facility] [address] [place], [address], 04/27/2018 14:30:42 04/27/20 18 04/27/2018 CBC w/ auto diff eo # 0.1 K/mm3 (0.0-0 .4) Not Available [facility] [address] [place], [address], 04/27/2018 14:30:42 04/27/20 18 04/27/2018 CBC w/ auto diff baso # 0.0 K/mm3 (0.0-0 .1) Not Available [facility] [address] [place], [address], 04/27/2018 14:30:42 04/27/20 18 04/27/2018 CBC w/ auto diff abs. imm gran 0.0 K/mm3 Not Available [facility] [address] [place], [address], 04/27/2018 14:30:42 04/27/20 18 04/27/2018 CBC w/ auto diff neut 60.1 % (44-76 ) Not Available [facility] [address] [place], [address], 04/27/2018 14:30:42 04/27/20 18 04/27/2018 CBC w/ auto diff lymph 27.8 % (15-43 ) Not Available [facility] [address] [place], [address], 04/27/2018 14:30:42 04/27/20 18 04/27/2018 CBC w/ auto diff monocyte 8.1 % (4.5-1 0.5) Not Available [facility] [address] [place], [address], 04/27/2018 14:30:42 04/27/20 18 04/27/2018 CBC w/ auto diff eo 2.4 % (0-6) Not Available [facility] [address] [place], [address], 04/27/2018 14:30:42 04/27/20 18 04/27/2018 CBC w/ auto diff baso 0.9 % (0-2) Not Available [facility] [address] [place], [address], 04/27/2018 14:30:42 04/27/20 18 04/27/2018 CBC w/ auto diff imm gran 0.7 % (0.0-0 .6) high Not Available [facility] [address] [place], [address], 04/27/2018 14:30:42 04/27/20 18 04/27/2018 BMP, serum or plasm a glucose 117 mg/dL (70-99 ) high Not Available [facility] [address] [place], [address], 04/27/2018 15:39:41 04/27/20 18 04/27/2018 BMP, serum or plasm a BUN 18 mg/dL (6-20) Not Available [facility] [address] [place], [address], 04/27/2018 15:39:41 04/27/20 18 04/27/2018 BMP, serum or plasm a creatinine 0.9 mg/dL (0.7-1 .2) Not Available [facility] [address] [place], [address], 04/27/2018 15:39:41 04/27/20 18 04/27/2018 BMP, serum or plasm a sodium 142 mmol/ L (133-1 45) Not Available [facility] [address] [place], [address], 04/27/2018 15:39:41 04/27/20 18 04/27/2018 BMP, serum or plasm a potassium 4.4 mmol/ L (3.6-5 .2) Not Available [facility] [address] [place], [address], 04/27/2018 15:39:41 04/27/20 18 04/27/2018 BMP, serum or plasm a chloride 101 mmol/ L (98-10 7) Not Available [facility] [address] [place], [address], 04/27/2018 15:39:41 04/27/20 18 04/27/2018 BMP, serum or plasm a bicarbonate 30 mmol/ L (22-29 ) high Not Available [facility] [address] [place], [address], 04/27/2018 15:39:41 04/27/20 18 04/27/2018 BMP, serum or plasm a anion gap 11 (4-17) Not Available [facility] [address] [place], [address], 04/27/2018 15:39:41 04/27/20 18 04/27/2018 BMP, serum or plasm a calcium 9.7 mg/dL (8.6-1 0.5) Not Available [facility] [address] [place], [address], 04/27/2018 15:39:41 04/27/20 18 04/27/2018 BMP, serum [...] [facility] [address] [place], [address], 04/27/2018 15:39:41 04/27/20 18 04/27/2018 BMP, serum [...] Available [facility] [address] [place], [address], 04/27/2018 15:39:41 04/27/20 18 04/27/2018 lipid panel , serum cholesterol, total 192 mg/dL (<200) Not Available [facility] [address] [place], [address], 04/27/2018 15:39:42 04/27/20 18 04/27/2018 lipid panel , serum triglyceride 410 mg/dL (<150) high Not Available [facility] [address] [place], [address], 04/27/2018 15:39:42 04/27/20 18 04/27/2018 lipid panel , serum HDL chol 30 mg/dL (>39) low Not Available [facility] [address] [place], [address], 04/27/2018 15:39:42 04/27/20 18 04/27/2018 lipid panel , serum LDL cholesterol, calculated mg/dL (0-130 ) LDL NEHA STERO L NOT CALCU LATED WHEN TRIGL YCERI SRIKANTH ARE GREAT ER THAN OR EQUAL TO 400 MG/DL . Not Available [facility] [address] [place], [address], 04/27/2018 15:39:42 04/27/20 18 04/27/2018 lipid panel , serum non HDL cholesterol (calc) 162 mg/dL (<160) high Not Available [facility] [address] [place], [address], 04/27/2018 15:39:42 04/27/20 18 04/27/2018 TSH, serum or plasm a TSH 1.28 mIU/m L (0.40- 4.00) Not Available [facility] [address] [place], [address], 04/27/2018 15:55:52 04/27/20 18 04/29/2018 HbA1c (hemo [...] Available [facility] [address] [place], [address], 04/29/2018 09:22:49 11/16/20 18 11/16/2018 BMP, serum or plasm a glucose 108 mg/dL (70-99 ) high Not Available [facility] [address] [place], [address], 11/16/2018 11:07:04 11/16/20 18 11/16/2018 BMP, serum or plasm a BUN 21 mg/dL (6-20) high Not Available [facility] [address] [place], [address], 11/16/2018 11:07:04 11/16/20 18 11/16/2018 BMP, serum or plasm a creatinine 1.1 mg/dL (0.7-1 .2) Not Available [facility] [address] [place], [address], 11/16/2018 11:07:04 11/16/20 18 11/16/2018 BMP, serum or plasm a sodium 140 mmol/ L (133-1 45) Not Available [facility] [address] [place], [address], 11/16/2018 11:07:04 11/16/20 18 11/16/2018 BMP, serum or plasm a potassium 3.8 mmol/ L (3.6-5 .2) Not Available [facility] [address] [place], [address], 11/16/2018 11:07:04 11/16/20 18 11/16/2018 BMP, serum or plasm a chloride 97 mmol/ L (98-10 7) low Not Available [facility] [address] [place], [address], 11/16/2018 11:07:04 11/16/20 18 11/16/2018 BMP, serum or plasm a bicarbonate 30 mmol/ L (22-29 ) high Not Available [facility] [address] [place], [address], 11/16/2018 11:07:04 11/16/20 18 11/16/2018 BMP, serum or plasm a anion gap 13 (4-17) Not Available [facility] [address] [place], [address], 11/16/2018 11:07:04 11/16/20 18 11/16/2018 BMP, serum or plasm a calcium 10.0 mg/dL (8.6-1 0.5) Not Available [facility] [address] [place], [address], 11/16/2018 11:07:04 11/16/20 18 11/16/2018 BMP, serum [...] Available [facility] [address] [place], [address], 11/16/2018 11:07:04 11/16/20 18 11/16/2018 BMP, serum [...] Available [facility] [address] [place], [address], 11/16/2018 11:07:04 11/16/20 18 11/16/2018 lipid panel , serum cholesterol, total 215 mg/dL (<200) high Not Available [facility] [address] [place], [address], 11/16/2018 11:07:05 11/16/20 18 11/16/2018 lipid panel , serum triglyceride 297 mg/dL (<150) high Not Available [facility] [address] [place], [address], 11/16/2018 11:07:05 11/16/20 18 11/16/2018 lipid panel , serum HDL chol 38 mg/dL (>39) low Not Available [facility] [address] [place], [address], 11/16/2018 11:07:05 11/16/20 18 11/16/2018 lipid panel , serum LDL cholesterol, calculated 118 mg/dL (0-130 ) Not Available [facility] [address] [place], [address], 11/16/2018 11:07:05 11/16/20 18 11/16/2018 lipid panel , serum non HDL cholesterol (calc) 177 mg/dL (<160) high Not Available [facility] [address] [place], [address], 11/16/2018 11:07:05 11/16/20 18 11/16/2018 HbA1c (hemo [...] in Hb A1c (%). Not Available [facility] [address] [place], [address], 11/16/2018 13:52:45 11/16/20 18 11/16/2018 hemog lobin A1C, hal blackmon k HA1C 5.4 % 4-6 Not Available In-Office Order Internal Use Only DO Not Attach Compendium DO Not Attach Compendium, Do Not Delete/merge, [id number] 11/16/2018 09:36:28 10/01/20 19 10/01/2019 HbA1c (hemo [...] Available [facility] [address] [place], [address], 10/01/2019 18:42:09 10/01/20 19 10/01/2019 BMP, serum or plasm a glucose 89 mg/dL (70-99 ) Not Available [facility] [address] [place], [address], 10/01/2019 18:45:16 10/01/20 19 10/01/2019 BMP, serum or plasm a BUN 14 mg/dL (6-20) Not Available [facility] [address] [place], [address], 10/01/2019 18:45:16 10/01/20 19 10/01/2019 BMP, serum or plasm a creatinine 1.0 mg/dL (0.7-1 .2) Not Available [facility] [address] [place], [address], 10/01/2019 18:45:16 10/01/20 19 10/01/2019 BMP, serum or plasm a sodium 142 mmol/ L (133-1 45) Not Available [facility] [address] [place], [address], 10/01/2019 18:45:16 10/01/20 19 10/01/2019 BMP, serum or plasm a potassium 4.2 mmol/ L (3.6-5 .2) Not Available [facility] [address] [place], [address], 10/01/2019 18:45:16 10/01/20 19 10/01/2019 BMP, serum or plasm a chloride 101 mmol/ L (98-10 7) Not Available [facility] [address] [place], [address], 10/01/2019 18:45:16 10/01/20 19 10/01/2019 BMP, serum or plasm a bicarbonate 30 mmol/ L (22-29 ) high Not Available [facility] [address] [place], [address], 10/01/2019 18:45:16 10/01/20 19 10/01/2019 BMP, serum or plasm a anion gap 11 (4-17) Not Available [facility] [address] [place], [address], 10/01/2019 18:45:16 10/01/20 19 10/01/2019 BMP, serum or plasm a calcium 9.8 mg/dL (8.6-1 0.5) Not Available [facility] [address] [place], [address], 10/01/2019 18:45:16 10/01/20 19 10/01/2019 BMP, serum [...] Available [facility] [address] [place], [address], 10/01/2019 18:45:16 10/01/20 19 10/01/2019 BMP, serum [...] Available [facility] [address] [place], [address], 10/01/2019 18:45:16 10/01/20 19 10/01/2019 lipid panel , serum cholesterol, total 208 mg/dL (<200) high Not Available [facility] [address] [place], [address], 10/01/2019 18:45:17 10/01/20 19 10/01/2019 lipid panel , serum triglyceride 91 mg/dL (<150) Not Available [facility] [address] [place], [address], 10/01/2019 18:45:17 10/01/20 19 10/01/2019 lipid panel , serum HDL chol 47 mg/dL (>39) Not Available [facility] [address] [place], [address], 10/01/2019 18:45:17 10/01/20 19 10/01/2019 lipid panel , serum LDL cholesterol, calculated 143 mg/dL (0-130 ) high Not Available [facility] [address] [place], [address], 10/01/2019 18:45:17 10/01/20 19 10/01/2019 lipid panel , serum non HDL cholesterol (calc) 161 mg/dL (<160) high Not Available [facility] [address] [place], [address], 10/01/2019 18:45:17 10/01/20 19 10/01/2019 lipid panel , serum cholesterol, total 208 mg/dL (<200) high Not Available [facility] [address] [place], [address], 10/01/2019 18:45:25 10/01/20 19 10/01/2019 lipid panel , serum triglyceride 91 mg/dL (<150) Not Available [facility] [address] [place], [address], 10/01/2019 18:45:25 10/01/20 19 10/01/2019 lipid panel , serum HDL chol 47 mg/dL (>39) Not Available [facility] [address] [place], [address], 10/01/2019 18:45:25 10/01/20 19 10/01/2019 lipid panel , serum LDL cholesterol, calculated 143 mg/dL (0-130 ) high Not Available [facility] [address] [place], [address], 10/01/2019 18:45:25 10/01/20 19 10/01/2019 lipid panel , serum non HDL cholesterol (calc) 161 mg/dL (<160) high Not Available [facility] [address] [place], [address], 10/01/2019 18:45:25 10/21/20 17 10/22/2012 XR, abdom en + pelvi s No observ ation record ed. BARCODE Not Available 2016 12:48:22 Result Notes None recorded. Problems Name Problem SNOMED Code Status Onset Date Resolution Date Notes Provider Name and Address Organization Details Recorded Time Abdomina l pain 09825546 Completed 201206/07/2014 IMPRESSI ON: UNCLEAR CAUSE OF PAIN. NO ACUTE ABDOMEN BASED ON CT. MAYBE MILD PANCREAT ITIS. WILL CHECK AMYLASE. HE DRINKS 12 DRINKS A WEEK. NO HX ALCOHOLI SM.; RECORDED 04/02/20 13 10:12AM BY ANANYA ESTRELLA MA, ANNOTATI ON/ADDEN DUM Not Available [facility] 4 15:14:10 Abnormal findings diagnost ic imaging of liver+bi liary tract [id number] Completed 201206/07/2014 IMPRESSI ON: THIS MAY JUST BE INCIDENT AL FINDING. NOT SURE IF CAUSE OF HIS PAIN. GI NEXT WEEK FOR FURTHER W/U; RECORDED 04/02/20 13 10:12AM BY ANANYA ESTRELLA MA, NATALYA ON/ADDEN DUM Not Available [facility] 4 15:14:10 Acute sinusiti s 76005319 Completed 200806/07/2014 RECORDED 02/03/20 09 7:20AM BY ANANYA ESTRELLA MA, NATALYA ON/ADDEN DUM Not Available [facility] 4 15:14:10 Anemia 141838417 Active 2013 [place] Sosa, [facility] 6 09:09:29 Adult health examinat ion Active 2013 LAT[place] Sosa, [facility] 6 09:09:26 Anxiety disorder 571791899 Active 2013 LAT[place] Sosa, [facility] 6 09:09:20 Diarrhea of presumed infectio us origin 98016832 Completed 201106/07/2014 RECORDED 10/23/20 12 9:37AM BY ANANYA ESTRELLA MA, NATALYA ON/ADDEN DUM Not Available [facility] 4 15:14:11 Dysuria 90472063 Completed 200706/07/2014 RECORDED 11/14/20 08 9:53AM BY NATALYA CASTRO ON/ADDEN DUM Not Available [facility] 4 15:14:11 Essentia l hyperten candace 70898456 Active 2013 [place] Sosa [place] - [facility] 6 09:09:46 Respirat ory finding 397885945 Completed 201306/07/2014 RECORDED 12/03/19 14 1:12PM BY ROXY MICHELE MA, NATALYA ON/ADDEN DUM Not Available [facility] 4 15:14:11 Malaise and fatigue 949991003 Completed 201106/07/2014 RECORDED 10/23/20 12 9:37AM BY ANANYA ESTRELLA MA, NATALYA ON/ADDEN DUM Not Available [facility] 4 15:14:11 Influenz a vaccine needed [id number] 06 Completed 201206/07/2014 RECORDED 04/02/20 13 10:12AM BY ANANYA ESTRELLA MA, ANNOTATI ON/ADDEN DUM Not Available [facility] 4 15:14:11 General examinat ion of patient Completed 200706/07/2014 RESOLVED DATE: 07/14/20 08; RECORDED 07/14/20 08 3:43PM BY NATALYA MONTES ON/ADDEN DUM Not Available [facility] 4 15:14:11 Hyperlip idemia 82969986 Active 2013 LATASHA Sosa [place] - [facility] 6 09:09:40 Essentia l hyperten candace 86642283 Completed 201206/07/2014 RECORDED 05/21/20 13 12:30PM BY ANANYA ESTRELLA MA, ANNOTNAVEEN ON/ADDEN DUM LATASHA Sosa, [facility] 6 09:09:46 Insomnia 347693823 Active 2013 LAT[place] Sosa, [facility] 6 09:09:11 Laborato ry procedur e performe d 285315171 Completed 201206/07/2014 RECORDED 04/02/20 13 10:11AM BY ANANYA ESTRELLA MA, NATALYA ON/ADDEN DUM Not Available [facility] 4 15:14:11 Administ ration of bacteria l and viral vaccine Completed 200706/07/2014 RECORDED 07/14/20 08 3:34PM BY DEBBIE ESTRELLA, OFFICE VISIT Not Available [facility] 4 15:14:11 Patient status finding 148132712 Completed 201310/18/2016 RECORDED 12/03/19 14 1:12PM BY ROXY MICHELE MA, OFFICE VISIT LATASHA Sosa, [facility] 6 09:09:03 Elevated level of transami nase and lactic acid dehydrog enase 705876459 Completed 201106/07/2014 RECORDED 10/23/20 12 9:37AM BY ANANYA ESTRELLA MA, NATALYA ON/ADDEN DUM Not Available [facility] 4 15:14:12 Osteoart hritis of hip 199101568 Active 2013 LATASHA Sosa, [facility] 6 09:09:23 Disorder of bursa of shoulder region 87680530 Active 2013 LATASHA Sosa, [facility] 6 09:09:43 Disorder of skin 76651390 Completed 201306/07/2014 RECORDED 12/03/19 14 1:12PM BY ROXY MICHELE MA, NATALYA ON/ADDEN DUM Not Available [facility] 4 15:14:12 Dermatop hytosis of the perianal area Completed 201106/07/2014 RECORDED 10/23/20 12 9:37AM BY ANANYA ESTRELLA MA, NATALYA ON/ADDEN DUM Not Available [facility] 4 15:14:12 Visual disturba nce 65043494 Completed 201106/07/2014 RECORDED 10/23/20 12 9:37AM BY ANANYA ESTRELLA MA, NATALYA ON/ADDEN DUM Not Available [facility] 4 15:14:12 Urinary system finding 513063739 Completed 201106/07/2014 RECORDED 10/23/20 12 9:36AM BY ANANYA ESTRELLA MA, NATALYA ON/ADDEN DUM Not Available [facility] 4 15:14:12 Abdomina l pain 03550669 Completed 201206/27/2014 IMPRESSI ON: UNCLEAR CAUSE OF PAIN. NO ACUTE ABDOMEN BASED ON CT. MAYBE MILD PANCREAT ITIS. WILL CHECK AMYLASE. HE DRINKS 12 DRINKS A WEEK. NO HX ALCOHOLI SM.; RECORDED 04/02/20 13 10:12AM BY ANANYA ESTRELLA MA, NATALYA ON/ADDEN DUM Not Available [facility] 4 06:00:33 Abnormal findings diagnost ic imaging of liver+bi liary tract 175663562 Completed 201206/27/2014 IMPRESSI ON: THIS MAY JUST BE INCIDENT AL FINDING. NOT SURE IF CAUSE OF HIS PAIN. GI NEXT WEEK FOR FURTHER W/U; RECORDED 04/02/20 13 10:12AM BY ANANYA ESTRELLA MA, NATALYA ON/ADDEN DUM Not Available [facility] 4 06:00:33 Acute sinusiti s [id number] Completed 200806/27/2014 RECORDED 02/03/20 09 7:20AM BY ANANYA ESTRELLA MA, NATLAYA ON/ADDEN DUM Not Available [facility] 4 06:00:33 Diarrhea of presumed infectio us origin [id number] Completed 201106/27/2014 RECORDED 10/23/20 12 9:37AM BY ANANYA ESTRELLA MA, NATALYA ON/ADDEN DUM Not Available [facility] 4 06:00:33 Dysuria [id number] Completed 200706/27/2014 RECORDED 11/14/20 08 9:53AM BY LATASHA DELVALLE, REGGIEATI ON/ADDEN DUM Not Available [facility] 4 06:00:33 Respirat ory finding 707298919 Completed 201306/27/2014 RECORDED 12/03/19 14 1:12PM BY ROXY MICHELE MA, NATALYA ON/ADDEN DUM Not Available [facility] 4 06:00:33 Malaise and fatigue 985327304 Completed 201106/27/2014 RECORDED 10/23/20 12 9:37AM BY ANANYA ESTRELLA MA, NATALYA ON/ADDEN DUM Not Available [facility] 4 06:00:33 Influenz a vaccine needed [id number] 06 Completed 201206/27/2014 RECORDED 04/02/20 13 10:12AM BY ANANYA ESTRELLA MA, NATALYA ON/ADDEN DUM Not Available [facility] 4 06:00:33 General examinat ion of patient Completed 200706/27/2014 RESOLVED DATE: 07/14/20 08; RECORDED 07/14/20 08 3:43PM BY NATALYA MONTES ON/ADDEN DUM Not Available [facility] 4 06:00:33 Laborato ry procedur e performe d 233962734 Completed 201206/27/2014 RECORDED 04/02/20 13 10:11AM BY ANANYA ESTRELLA MA, NATALYA ON/ADDEN DUM Not Available [facility] 4 06:00:33 Administ ration of bacteria l and viral vaccine Completed 200706/27/2014 RECORDED 07/14/20 08 3:34PM BY DEBBIE ESTRELLA, OFFICE VISIT Not Available [facility] 4 06:00:33 Elevated level of transami nase and lactic acid dehydrog enase 011412864 Completed 201106/27/2014 RECORDED 10/23/20 12 9:37AM BY ANANYA ESTRELLA MA, ANNOTNAVEEN ON/ADDEN DUM Not Available [facility] 4 06:00:33 Disorder of skin 79941079 Completed 201306/27/2014 RECORDED 12/03/19 14 1:12PM BY ROXY MICHELE MA, ANNOTATI ON/ADDEN DUM Not Available [facility] 4 06:00:33 Dermatop hytosis of the perianal area Completed 201106/27/2014 RECORDED 10/23/20 12 9:37AM BY ANANYA ESTRELLA MA, NATALYA ON/ADDEN DUM Not Available [facility] 4 06:00:33 Visual disturba nce 81413505 Completed 201106/27/2014 RECORDED 10/23/20 12 9:37AM BY ANANYA ESTRELLA MA, ANNOTATI ON/ADDEN DUM Not Available [facility] 4 06:00:33 Urinary system finding 272215307 Completed 201106/27/2014 RECORDED 10/23/20 12 9:36AM BY ANANYA ESTRELLA MA, REGGIEATI ON/ADDEN DUM Not Available [facility] 4 06:00:33 Body mass index 25-29 - overweig ht 319991851 Active Nixon Hernandez MD [address] [address], [place], [address] , [facility] 4 16:07:00 Gastroes ophageal reflux disease 582570029 Active Nixon Hernandez MD [address] [address], [place], [address] , [facility] 5 14:23:28 Patellar tendonit is 10960034 Active Nixon Hernandez MD [address] [facility] [address], [place], [address] , [facility] 5 14:23:28 Impacted cerumen 44337179 Active Nixon Hernandez MD [address], [place], [address] , [facility] 5 14:23:28 Wheezing symptom 768699151 Completed 10/18/2016 [facility] 09:09:32 Hypersom ramon 05557474 Active Nixon Hernandez MD [address] [facility] [address], [place], [address] , [facility] 6 09:29:57 Prediabe haroon 938509296 Active 2017 Nixon Hernandez MD [address] [facility] [address], [place], [address] , [facility] 8 09:36:24 Mixed hyperlip idemia 723887751 Completed 201810/03/2019 Hina Hong PA-C [address] [facility] [address], [place], [address] , [facility] 9 19:19:38 Problem Notes None recorded. Procedures Surgical History Date Name Laterality Status Provider Name and Address Organization Details Recorded Time 7 Colonoscopy completed Julissa Escobar [facility] 08/13/2017 11:18:24 6 Vasectomy completed Ata Sifuentes [facility] 10/21/2017 08:29:26 4 Eye Surgery completed Ata Sifuentes [facility] 10/21/2017 08:29:26 08/01/201 4 Other completed Ananya oquendo MA [facility] 08/26/2014 09:56:51 9 Hernia Repair completed Ata Sifuentes [facility] 10/21/2017 08:29:26 6 Circumcision completed Atakatie Sifuentes [facility] 10/21/2017 08:29:26 6 Hernia Repair completed Ata Lovelacedeann [facility] 10/21/2017 08:29:26 Imaging Results Imaging Date Name Status LastModified by Organiz ation Details LastModified Time 10/22/2012 XR, abdomen + pelvis completed [facility] Information not available 10/21/2017 12:48:22 Procedure Notes None recorded. Medical Equipment None Reported. Allergies Allergen ID Allergen Name Allergen Category Reaction Reaction Severity Criticality Documentation Date Start Date Code Code System Note Provider Name and Address Organization Details Recorded Time 20657 erythromy tonio medicatio n Not available Not available Not available 05/31/20142013 4053 RxNorm as an infan t [facility] 5 08:58:50 Medications Name Sig Start Date [...] 6:50AM BY BRANDEN BOX MD, MEDICATI ON AUTO-EYNY CTIVATIO N; Not Available Not Available Not Available Flucelvax Quad [id number] (PF) 60 mcg (15 mcg x 4)/0.5 mL IM syringe active Not Available Not Available Not Available Vitals Date Recorded Body height Body mass index (BMI) Body weight Heart rate Oxygen saturation Oxygen saturation in Arterial blood by Pulse oximetry Body temperature Systolic blood pressure Diastolic blood pressure Provider Name and Address Organization Details Last Updated DateTime 7 181.61 cm 29.2 kg/m2 58165.5 8 g 61 /min 97 % 97 % 97.4 [degF] 130 mm[Hg] 68 mm[Hg] Ata Sifuentes [facility] 7 08:42:46 Date Recorded Body height Body temperature Oxygen saturation Oxygen saturation in Arterial blood by Pulse oximetry Heart rate Body mass index (BMI) Body weight Systolic blood pressure Diastolic blood pressure Provider Name and Address Organization Details Last Updated DateTime 7 181.61 cm 98.3 [degF] 98 % 98 % 59 /min 29 kg/m2 98115.9 9 g 136 mm[Hg] 84 mm[Hg] Ananya shi [facility] 7 16:14:47 Date Recorded Body height Body mass index (BMI) Body weight Oxygen saturation Oxygen saturation in Arterial blood by Pulse oximetry Heart rate Body temperature Provider Name and Address Organization Details Last Updated DateTime 8 181.61 cm 28.7 kg/m2 42211.8 1 g 97 % 97 % 65 /min 97.7 [degF] Ananya shi MA [facility] 8 09:04:31 Date Recorded Systolic blood pressure Diastolic blood pressure Provider Name and Address Organization Details Last Updated DateTime 04/27/2018 122 mm[Hg] 76 mm[Hg] Nixon Hernandez MD [address], [address], [facility] 04/27/2018 09:26:05 Date Recorded Body height Body mass index (BMI) Body weight Heart rate Oxygen saturation Oxygen saturation in Arterial blood by Pulse oximetry Body temperature Systolic blood pressure Diastolic blood pressure Provider Name and Address Organization Details Last Updated DateTime 8 181.61 cm 26.7 kg/m2 02325.6 2 g 81 /min 98 % 98 % 98.7 [degF] 127 mm[Hg] 83 mm[Hg] Claudette Unger [facility] 8 13:04:48 Date Recorded Body height Body mass index (BMI) Body weight Heart rate Oxygen saturation Oxygen saturation in Arterial blood by Pulse oximetry Body temperature Systolic blood pressure Diastolic blood pressure Provider Name and Address Organization Details Last Updated DateTime 8 181.61 cm 26.4 kg/m2 89287.7 4 g 69 /min 98 % 98 % 98.7 [degF] 107 mm[Hg] 72 mm[Hg] Catina Grimm MA [facility] 8 09:22:39 Social History Question Answer Notes LastModified by Organizat ion Details LastModified Time Tobacco Smoking Status Never Smoker LATASHA Melo 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 No Information not available 10/18/2016 Marital Status Inform ation not available 08/26/2014 What Was The Date Of Your Most Recent Tobacco Screening? 11/16/2018 Information not available 06/10/2019 Total Number Of Stairs In Home 15 Information not available 08/26/2014 How Many Children Do You Have? 1 Son (Caodaism) Information not available 09/22/2015 Do You Use [...] Diseases N Hyperthyroidism N Breast Cancer N Depression N COPD N Lung Disease N Hypothyroidism N Defects or Inherited Disease N Anesthesia Complications N Headaches/Migraines Y Varicose Veins N Anxiety Disorder Y Obesity N Vision or Eye Problems Y Arthritis N Head Injury/Concussion N Polyps N Infertility N Congenital Anomalies N Acid Reflux (GERD) [...] virus, quadrivalent, PF 6 completed Not Available [facility] 12/04/2019 02:22:07 Influenza, split virus, quadrivalent, PF 7 completed Not Available [facility] 12/04/2019 02:22:11 Tdap 8 completed Not Available [facility] 12/04/2019 02:21:48 Influenza, split virus, trivalent, PF 4 completed Not Available [facility] 12/04/2019 02:21:57 Influenza, split virus, quadrivalent, PF 8 completed Not Available [facility] 12/04/2019 02:22:15 Tdap 8 completed Not Available [facility] 05/31/2014 13:23:39 Influenza, split virus, trivalent, preservative 1 completed Not Available [facility] 05/31/2014 13:23:39 Influenza, split virus, trivalent, preservative 2 completed Not Available [facility] 05/31/2014 13:23:39 Past Encounters Encounter ID Performer Location Encounter Start Date Encounter Closed Date Diagnosis/Indication Diagnosis SNOMED-CT Code Diagnosis ICD10 Code [id number] [address]Comm [address] [place] [address] 12/18/2007 00:00:00 [id number] autoEComm erce [address] [facility] [address] [place] [address] 12/29/2007 00:00:00 [id number] autoEComm erce [address] [facility] [place] [address] 07/14/2008 00:00:00 [id number] autoEComm erce [address] [facility] [place] [address] 11/14/2008 00:00:00 [id number] autoEComm erce [address] [facility] [place] [address] 02/02/2009 00:00:00 [id number] autoEComm erce [address] [facility] [place] [address] 09/20/2009 00:00:00 [id number] autoEComm erce [address] [facility] [place] [address] 12/20/2009 00:00:00 [id number] autoEComm erce [address] [facility] [place] [address] 06/27/2010 00:00:00 [id number] autoEComm erce [address] [facility] [place] [address] 01/08/2011 00:00:00 [id number] autoEComm erce [address] [facility] [place] [address] 10/23/2012 00:00:00 [id number] autoEComm erce [address] [facility] [place] [address] 04/02/2013 00:00:00 [id number] autoEComm erce [address] [facility] [place] [address] 05/21/2013 00:00:00 [id number] autoEComm erce [address] [facility] [place] [address] 12/03/2013 00:00:00 [id number] Main Office [address] [address] [place] [address] 08/26/2014 09:40:18 08/26/2014 11:11:25 Adult health examination 413709523 Needs infl uenza immunization 576664793 Essential hypertension 51884282 Hyperlipidemia 45805677 Body mass index 25-29 - overweight 961959086 [id number] Main Office [address] [address] [place] [address] 03/17/2015 08:52:49 03/17/2015 09:27:02 Essential hypertension 29107855 [id number] Nixon Hernandez MD Main Office [address] [address] [place] [address] 09/22/2015 08:54:36 09/22/2015 10:36:06 Adult health examination 765896602 Z00.00 Essential hypertension 19591994 I10 Anxiety disorder 3008714 06 F41.9 Hyperlipidemia 11805075 E78.5 Gastroesop hageal reflux disease 967094921 K21.9 Patellar tendonitis 3778 5001 M76.50 Impacted cerumen 0221428 6 H61.22 Wheezing symptom 7508315 08 R06.2 [id number] Nixon Hernandez MD Main Office [address] [address] [place] [address] 03/29/2016 08:43:25 03/29/2016 09:32:19 Essential hypertension 43505758 I10 Family romina nning education 819877741 Z30.02 Hypersomnia 38077629 G47 .10 [id number] Nixon Hernandez MD Main Office [address] [address] [place] [address] 10/18/2016 09:00:30 10/18/2016 10:13:03 Adult health examination 772770075 Z00.00 Needs infl uenza immunization 793100982 Z23 Screening for malignant neoplasm of colon 472518116 Z12.11 Body mass index 25-29 - overweight 775450269 E66.3 Hyperlipidemia 96432650 E78.5 Fatigue 90646895 R53.83 Gastroesop hageal reflux disease 120961980 K21.9 [id number] Nixon Hernandez MD Main Office [address] [address] [place] [address] 04/25/2017 11:07:04 04/25/2017 11:49:25 Essential hypertension 15103974 I10 Hyperlipidemia 51860519 E78.5 Fatigue 31534317 R53.83 [id number] Nixon Hernandez MD Main Office [address] [address] [place] [address] 07/29/2017 14:58:39 07/29/2017 16:09:18 Needs influenza immunization 201273123 Z23 [id number] Nixon eHrnandez MD Main Office [address] [address] [place] [address] 10/21/2017 08:26:02 10/21/2017 09:30:21 Adult health examination 217416169 Z00.00 Essential hypertension 33696960 I10 Hyperlipidemia 84048367 E78.5 Fatigue 99260041 R53.83 Body mass index 25-29 - overweight 593400652 E66.3 Z68.25 Obsessive- compulsive disorder 304782443 F42.9 [id number] Nixon Hernandez MD Main Office [address] [address] [place] [address] 10/27/2017 15:55:29 10/27/2017 16:34:42 Benign paroxysmal positional vertigo 908486265 H81.10 [id number] Nixon Hernandez MD Main Office [address] [address] [place] [address] 04/27/2018 08:47:55 04/27/2018 09:33:18 Essential hypertension 00546045 I10 Administra tion of viral vaccine 65435304 Z23 Hyperlipidemia 88098168 E78.5 Fatigue 93173670 R53.83 Patellofem oral stress syndrome 407687904 M22.2X9 [id number] Nixon Hernandez MD Main Office [address] [address] [place] [address] 05/18/2018 13:01:09 05/18/2018 14:21:34 Prediabetes 331767797 R73.03 Mixed hyperlipidemia 267 149174 E78.2 Body mass index 25-29 - overweight 468436172 Z68.26 [id number] Nixon Hernandez MD Main Office [address] [address] [place] [address] 11/16/2018 09:12:04 11/16/2018 10:08:00 Adult health examination 731285352 Z00.00 Needs infl uenza immunization 855344474 Z23 Body mass index 25-29 - overweight 052492761 E66.3 Z68.25 Prediabetes 752990300 R7 3.03 Gastroesop hageal reflux disease 051775066 K21.9 Hyperlipidemia 70033526 E78.5 Essential hypertension 95772335 I10 Health Concerns Section Related Observation LastModified by Organization Detai ls LastModified Time None Recorded Concern Status LastModified by Organization Details LastModified Time None Recorded Advance Directives Directive Y: signed 03/17/2015 Payers Encounter Date Sequence Insurance Name Policy Number Policy Haynes Covered Member ID Haynes Member ID Guarantor Name 10/21/2017 1 [facility] (O) [id number] Yancy Nalepinski [id number] Yancy Nalepinski 10/27/2017 1 [facility] (O) [id number] 23 Yancy Nalepinski [id number] Yancy Nalepinski 04/27/2018 1 [facility] (PPO) [id number] 23 Yancy Nalepinski [id number] Yancy Nalepinski 05/18/2018 1 [facility] (O) [id number] 23 Yancy Nalepinski [id number] Yancy Nalepinski 11/16/2018 1 [facility] (O) [id number] 23 Yancy Nalepinski [id number] Yancy Nalepinski Notes Date Note Type Note [...] concerns about weight. Nixon Hernandez MD [address], [address], [facility] 10/21/2017 09:25:17 7 text/html DizzinessReported bypatient.Quality:symptoms worse in the evening (wakes occasionally from sleep) Severity:no effect on daily activities Duration:intermittent episodes lasting:; lasts <5 minutes Notes sensation of dizziness with spinning sensation for the past 4 days. Nixon Hernandez MD [address], [address], [facility] 10/27/2017 16:37:37 8 text/html Hypertension F/UReported bypatient.Associated [...] injuryNotes:No obvious swelling Nixon Hernandez MD [address], [address], [facility] 04/27/2018 09:31:19 8 text/html Diabetes F/UReported bypatient.Context:normal [...] of 31. High cardiovasc. risk with early AL in father at age 50. Pt. lost 15 lbs since April 27. Nixon Hernandez MD [address] [address], [place], [address], [facility] 05/18/2018 18:03:06 8 text/html GERD RefluxReported bypatient.Notes:Stable [...] over the summer months. Nixon Hernandez MD [address] [address], [place], [address], [facility] 11/16/2018 10:07:57
[2024-11-19 15:00] LABS: Prostate Specific Antigen 4.03 ng/mL (<0.05-4.0)
== END 2024-11-19 11:09 | disposition home or self-care (01) ==
LOC: HO.WFDLDS 11:08
PROVIDERS: Visit Provider Nurse Practitioner Family
DX: N41.9 Inflammatory disease of prostate, unspecified (principal); R97.20 Elevated prostate specific antigen [PSA]; Z12.5 Encounter for screening for malignant neoplasm of prostate
CPT/HCPCS: 36415; 84153

== ENCOUNTER 2024-11-22 15:24 | Outpatient (AMB) | payer OTHER, SELFPAY ==
--- NOTE | 2024-11-22 15:34 | A.OFFVIS_ITS ---
Intake Visit Reasons: 2m/ PSA/ US Intake Note: Patient presents today for follow up visit on: increasing PSA, PSA lab and ultrasound results * Imaging Completed: 09/30/24 * PSA: 4.03 Urology Medications: none Blood Thinner: none Diorama Model Maker Required: No Accompanied by: Self / Same As Patient Allergies erythromycin base Allergy (Mild, Verified 11/22/24 20:45) Rash Medication List - Last Reconciled 11/22/24 by BRI Banuelos- blood-glucose meter (FreeStyle Lite Meter kit) DX: R 73.01, test blood sugar Once a day, duration 999 days finasteride 5 mg PO DAILY 90 days lisinopril-hydrochlorothiazide 20-12.5 mg 1 tab PO DAILY 90 days lorazepam 1 mg PO BEDTIME PRN 30 days meloxicam 15 mg PO DAILY 30 days omeprazole 20 mg PO DAILY 90 days sertraline 50 mg PO DAILY 90 days HPI Comments Details: Jarret is a very pleasant 59-year-old male patient of Dr. Small. He has a past medical history of GERD, hypertension, and bilateral hip replacements. He presents to the office today for follow-up. Of note, patient was seen approximately 2 months ago as a new patient for an elevated PSA at which time a retroperitoneal ultrasound and redraw of PSA were ordered for further assessment evaluation. Patient also was treated for potential prostatitis as BRODIE during last office visit noted boggy prostate. In discussion with the patient today he reports having completed antibiotic therapy as prescribed. He does feel lower urinary tract symptoms of urinary hesitancy have somewhat improved. Unofficial retroperitoneal ultrasound notes bilateral kidneys with no calculi, lesions, and or hydronephrosis. Pre void bladder volume was approximately 480 mL. Postvoid bladder volume is approximately 125 mL. Question ureterocele right side of the prostate. Prostate volume of approximatly 130 mL. PSAs are as follows: 11/05 1.6, 11/08 3.4, 08/10 3.7, 12/11 4.0 We discussed correlation of enlarged prostate with borderline elevated PSA. We discussed potential causes of elevated PSA as well as further workup to include surveillance monitoring verses MRI of the prostate versus prostate biopsy. Risks and benefits of these interventions were discussed. He discusses following up with a urologist approximately 20 years ago as he underwent a vasectomy in the past and also has a longstanding history of prostatitis. He currently denies a ny bothersome urinary issues or concerns. He denies urinary urgency, urinary frequency, incontinence, nocturia, hematuria, dysuria, foul smelling urine, changes to urinary stream, flank pain, fever, and or chills. He is happy with his current voiding parameters. In office urinalysis results reviewed with the patient today. He discusses going to the gym 3 times per week in [place]. He otherwise offers no other issues or concerns at this time. [facility] Surgical History History of hip surgery History of hernia surgery Family History Sister Breast cancer Father Alcohol abuse Social History Household Members: Children Household Members Other:: Son Housing: House Are you a primary ocular care aide to a significant other at home: No Do you presently have visiting nurse or other home services: No 75 years or older and lives alone: No Alcohol intake: current Alcohol intake frequency: a few times a week Patient Tobacco Use Status: Never used Tobacco e-Cigarette/Vaping Use: Never Used Second Hand Smoke Exposure: No service: No Current occupational status: employed 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 Current occupational exposures/hazards: No Sexual orientation: Unable to collect Gender identity: Unable to collect Cognitive needs: No Hearing needs: Yes ( says what a lot has tinnitus ) Vision needs: No Review of Systems Const All systems reviewed & are unremarkable except as noted in HPI and below Physical Exam Const General: cooperative, healthy appearing, comfortable, no acute distress, well developed, alert and awake Orientation/consciousness: patient oriented x3 Limitations: no limitations HEENT Head: Yes normal to inspection, Yes normocephalic and Yes atraumatic Ears: hearing grossly normal bilaterally Eyes General: appearance normal, both eyes and all related structures Neck Neck: Yes normal visual inspection and Yes trachea midline Chest Chest palpation & inspection: normal inspection of the chest Resp Effort & Inspection: normal respiratory effort and able to speak in complete sentences Cardio Rate: regular rate GI Inspection: Yes normal to inspection General: Yes no CVA tenderness Back/Spine/Pelvis Back: no CVA tenderness Skin General skin exam: no rashes or lesions noted Neuro General: patient oriented x3 Extrem General: Yes normal to inspection Psych Appearance: grossly normal and well kempt Mental Status: mental status grossly normal Speech and movement: Normal speech and movement present and Clear speech present Affect: normal affect Attitude: cooperative Thought process: Normal thought process present Thought content: Normal thought content present Insight: Fair insight present (Psych) Judgement: Fair judgement present (Psych) Results AMB Urinalysis, Automated UA Leukoctes 0 Elana/uL Last Edit by [employer] on 11/22/24 15:45 UA Nitrite Last Edit by [employer] on 11/22/24 15:45 UA Urobilinogen 0.2 mg/dL Last Edit by [employer] on 11/22/24 15:45 UA Protein 0 mg/dL Last Edit by [employer] on 11/22/24 15:45 UA pH 5.5 Last Edit by [employer] on 11/22/24 15:45 UA Blood 0 Jerry/uL Last Edit by [employer] on 11/22/24 15:45 UA Specific [place] 1.020 Last Edit by [employer] on 11/22/24 15:45 UA Ketone Last Edit by [employer] on 11/22/24 15:45 UA Bilirubin 0 mg/dL Last Edit by [employer] on 11/22/24 15:45 UA Glucose 0 mg/dL Last Edit by [employer] on 11/22/24 15:45 Results Reviewed Results Reviewed: Laboratory Last Values Urine pH (Auto) 5.5 11/22/24 15:44 Specific [place] (Auto) 1.020 11/22/24 15:44 Urine Protein (Auto) 0 mg/dL 11/22/24 15:44 Glucose (UA)(Auto) 0 mg/dL 11/22/24 15:44 Urine Blood (Auto) 0 Jerry/uL 01/06/25 15:44 Urine Bilirubin (Auto) 0 mg/dL 11/22/24 15:44 Urine Urobilinogen (Auto) 0.2 mg/dL 11/22/24 15:44 Leukocyte Esterase (Auto) 0 Elana/uL 11/22/24 15:44 Assessment & Plan Assessment & Plan (1) Prostatitis: Code(s): N41.9 - Inflammatory disease of prostate, unspecified Category: Medical (2) Urinary hesitancy: Code(s): R39.11 - Hesitancy of micturition Category: Medical (3) PSA elevation: Code(s): R97.20 - Elevated prostate specific antigen [PSA] Category: Medical (4) Enlarged prostate: Code(s): N40.0 - Benign prostatic hyperplasia without lower urinary tract symptoms Category: Medical (5) Ureterocele: Code(s): N28.89 - Other specified disorders of kidney and ureter Category: Medical Plan In office urinalysis results reviewed with the patient today; as noted above. Recent unofficial retroperitoneal ultrasound results reviewed with the patient today; as noted above. Recent PSA results reviewed with the patient today; as noted above. We discussed at length potential causes of elevated PSA. We discussed further treatment options to include surveillance monitoring of PSA verses MRI of the prostate verses prostate biopsy verses trial of finasteride; risks and benefits of these interventions were discussed. All questions were answered. Start finasteride as discussed and prescribed. Will obtain PSA in 4 months. We discussed potential for near future in office cystoscopy to further assess potential for prostate procedure. Follow-up in 4 months with PSA and PVR; or sooner with any issues, concerns, and or questions. Orders: Orders AMB Urinalysis Automated Today Z13.9 - Encounter for screening, unspecified PSA,Total (Free>4and<10) 4 Months N40.0 - Benign prostatic hyperplasia without lower urinary tract symptoms, R97.20 - Elevated prostate specific antigen [PSA] Medications: New finasteride 5 mg PO DAILY 90 days 90 tabs 1RF N32.0 - Bladder-neck obstruction Patient Instructions: The patient had an opportunity to ask questions regarding the treatment plan. All questions were answered. Physical exam, labs, and imaging were discussed and reviewed in detail. As well as risks, benefits, and discussion of treatment choices. No major barriers to understanding were identified. The patient expressed understanding and agreement with the above treatment plan. The patient was made aware they should contact our office by phone for worsening of their current condition, the appearance of new symptoms, or with any questions or concerns. Compliance is encouraged with any medications and follow up testing that is ordered. It is a privilege to be allowed the opportunity to participate in? your urological care.? Again, if you have any questions or concerns If you have any questions or concerns please do not hesitate to contact me. The office is [phone]. This note is constructed using voice recognition software. While every effort has been made to ensure accuracy advanced practice rn errors may have been included. Yours sincerely, CHRISTY Banuelos Coding Level of Care Code Est Pt Level 4 (80106) Diagnoses Prostatitis N41.9 Urinary hesitancy R39.11 PSA elevation R97.20 Enlarged prostate N40.0 Ureterocele N28.89
--- OUTSIDE RECORDS SUMMARY | 2024-11-22 17:17 | XMS_ITS | Data Portability ---
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 Name Role Phone NIXON HERNANDEZ Primary Care Provider [facility] Pantograph Engraver TIFF LEONARD Referring Provider [phone] Assessment Encounter Date Assessment Date Assessment LastModified [...] Lab BMP, serum or plasma 2016 017 [email or web address] [facility], [address] [place], [address], 8 11:09:35 lipid panel, serum 2016 017 [email or web address] [facility], [address] [place], [address], 8 11:09:35 ALT (pamela august), serum or plasma 2016 017 [email or web address] [facility], [address] [place], [address], 8 11:09:35 TSH, serum or plasma 2016 017 [email or web address] [facility], [address] [place], [address], 8 11:09:34 CBC w/ auto diff 2016 017 [email or web address] [facility], [address] [place], [address], 8 11:09:35 BMP, serum or plasma 2017 018 JOCELINE [facility], [address], [address], [place], [address], 8 15:39:41 lipid panel, serum 2017 018 JOC[facility], [address], [address], [place], [address], 8 15:39:42 TSH, serum or plasma 2017 018 [facility], [address], [address], [place], [address], 8 15:55:52 CBC w/ auto diff 2017 018 JOC[facility], [address], [address], [place], [address], 8 14:30:42 lipid panel, serum 2017 018 JOCELINE [facility], [address] [place], [address], 8 11:07:05 BMP, serum or plasma 2017 018 JOCELINE [facility], [address] [place], [address], 8 11:07:04 HbA1c (hemog lobin A1c), blood 2017 018 [email or web address] [facility], [address], [address], 8 10:22:36 HbA1c (hemog lobin A1c), blood - Please add to labs done 018. 2017 018 [email or web address] [facility], [address], [address], [place], [address], 9 11:35:33 hemogl obin A1C, finger stick 2017 018 pheuth In-Office Order, Internal Use Only DO Not Attach Compendium DO Not Attach Compendium, Do Not Delete/merge, [id number] 8 09:46:31 lipid panel, serum 2017 018 [email or web address] [facility], [address] [place], [address], 9 15:35:57 BMP, serum or plasma 2017 018 [email or web address] [facility], [address] [place], [address], 9 15:35:57 Referral nutrit ionist /dieti karan referr al 2016 017 [email or web address] Not available 7 09:30:22 physic al therap ist referr al - Please see for BPPV 2016 017 rakesh [facility] [place], [address] [place] [address] Rd, [address], [place], [address], 8 15:21:26 nutrit ionist /dieti karan referr al 2017 018 [email or web address] Not available 8 10:13:38 Procedures None record ed. Surgeries None record ed. Imaging None record ed. Medication Orders omepra zole 20 mg capsul echristina releas e 2017 018 [facility], [address] [facility], [place], [address], 8 09:47:43 Patient TargetsNo targets recorded. Patient Instructions Encounter Date Encounter Id Patient Instructions Last Modified By Organization Details Last Modified Time 10/21/2017 [id number] When You Want to Lose Weight: Care Instructions [email or web address] Not available 10/21/2017 09:26:49 Nutrition Referr al and Weight Management Follow-up Information Not available 10/21/2017 09:30:15 high blood press ure: care instructions [email or web address] Not available 10/21/2017 09:26:49 learning about h igh blood pressure [email or web address] Not available 10/21/2017 09:26:49 obsessive-compul sive disorder: care instructions [email or web address] Not available 10/21/2017 09:26:49 10/27/2017 [id number] benign paroxysma l positional vertigo (bppv): care instructions [email or web address] Not available 10/27/2017 16:34:30 04/27/2018 [id number] patellofemoral p ain syndrome (runner's knee): [facility] Not available 04/27/2018 09:26:19 patellofemoral p ain syndrome: care instructions [email or web address] Not available 04/27/2018 09:26:18 high blood press ure: care instructions [email or web address] Not available 04/27/2018 09:26:18 learning about h igh blood pressure phelmuth Not available 04/27/2018 09:26:19 05/18/2018 [id number] high cholesterol : care instructions Not available 05/18/2018 14:06:24 heart-healthy di et: care instructions Not available 05/18/2018 14:06:24 prediabetes: car e instructions Not available 05/18/2018 13:43:06 mediterranean diet Not availab le 05/18/2018 13:43:06 11/16/2018 [id number] gastroesophageal reflux disease (GERD): care instructions [facility] Not available 11/16/2018 09:47:43 high cholesterol : care instructions [facility] Not available 11/16/2018 09:55:59 high blood press ure: care instructions [facility] Not available 11/16/2018 09:55:59 learning about h igh blood pressure phelmuth Not available 11/16/2018 09:55:59 When You Want to Lose Weight: [facility] Not available 11/16/2018 09:46:30 Nutrition Referr al and Weight Management Follow-up Information [facility] Not available 11/16/2018 09:46:30 Reason for Referral House Wrecker/dietitian Refer ral for Body mass index 25-29 - overweight Referring Physician: Nixon Hernandez, Internal Medicine, Encounter Date: 10/21/2017 Please see for BPPV Referring Physician: Nixon Hernandez Internal Medicine, Encounter Date: 10/27/2017 House Wrecker/dietitian Refer ral for Body mass index 25-29 - overweight Referring Physician: Nixon Hernandez Internal Medicine, Encounter Date: 11/16/2018 Results Created Date Observation Date Name Description Value Unit Range Abnormal Flag Note LastModifiedBy Organization Detail LastModifiedTime 04/27/20 18 04/27/2018 CBC w/ auto diff WBC 4.5 K/mm3 (4.0-1 1.0) Not Available [facility] [address] [place], [address], 04/27/2018 14:30:42 04/27/20 18 04/27/2018 CBC w/ auto diff RBC 4.69 M/mm3 (4.70- 6.10) low Not Available [facility] [address] [place], [address], 04/27/2018 14:30:42 04/27/20 18 04/27/2018 CBC w/ auto diff HGB 13.8 gm/dL (13.7- 16.5) Effec tive April 10 18, refer ence range s for HGB and HCT have been updat ed. Not Available [facility] [address] [place], [address], 04/27/2018 14:30:42 04/27/20 18 04/27/2018 CBC w/ auto diff HCT 42.1 % (40.5- 48.5) Effec tive April 10, 18, refer ence range s for HGB and HCT have been updat ed. Not Available [facility] [address] [place], [address], 04/27/2018 14:30:42 04/27/20 18 04/27/2018 CBC w/ auto diff MCV 89.8 fL (80.0- 94.0) Not Available [facility] [address] [place], [address], 04/27/2018 14:30:42 04/27/20 18 04/27/2018 CBC w/ auto diff MCH 29.4 pg (27.0- 34.0) Not Available [facility] [address] [place], [address], 04/27/2018 14:30:42 04/27/20 18 04/27/2018 CBC w/ auto diff MCHC 32.8 g/dL (33.0- 37.0) low Not Available [facility] [address] [place], [address], 04/27/2018 14:30:42 04/27/20 18 04/27/2018 CBC w/ auto diff plt 165 K/mm3 (150-4 60) Not Available [facility] [address] [place], [address], 04/27/2018 14:30:42 04/27/20 18 04/27/2018 CBC w/ auto diff RDW-SD 41.9 fL (<47.0 ) Not Available [facility] [address] [place], [address], 04/27/2018 14:30:42 04/27/20 18 04/27/2018 CBC w/ auto diff MPV 12.2 fL (9.4-1 2.4) Not Available [facility] [address] [place], [address], 04/27/2018 14:30:42 04/27/20 18 04/27/2018 CBC w/ auto diff automated NRBC 0.0 #/100 _WBC' s Not Available [facility] [address] [place], [address], 04/27/2018 14:30:42 04/27/20 18 04/27/2018 CBC w/ auto diff abs. NRBC 0.0 K/mm3 Not Available [facility] [address] [place], [address], 04/27/2018 14:30:42 04/27/20 18 04/27/2018 CBC w/ auto diff neut # 2.7 K/mm3 (1.3-7 .0) Not Available [facility] [address] [place], [address], 04/27/2018 14:30:42 04/27/20 18 04/27/2018 CBC w/ auto diff lymph # 1.3 K/mm3 (0.8-3 .1) Not Available [facility] [address] [place], [address], 04/27/2018 14:30:42 04/27/20 18 04/27/2018 CBC w/ auto diff mono# 0.4 K/mm3 (0.4-1 .3) Not Available [facility] [address] [place], [address], 04/27/2018 14:30:42 04/27/20 18 04/27/2018 CBC w/ auto diff eo # 0.1 K/mm3 (0.0-0 .4) Not Available [facility] [address] [place], [address], 04/27/2018 14:30:42 04/27/20 18 04/27/2018 CBC w/ auto diff baso # 0.0 K/mm3 (0.0-0 .1) Not Available [facility] [address] [place], [address], 04/27/2018 14:30:42 04/27/20 18 04/27/2018 CBC w/ auto diff abs. imm gran 0.0 K/mm3 Not Available [facility] [address] [place], [address], 04/27/2018 14:30:42 04/27/20 18 04/27/2018 CBC w/ auto diff neut 60.1 % (44-76 ) Not Available [facility] [address] [place], [address], 04/27/2018 14:30:42 04/27/20 18 04/27/2018 CBC w/ auto diff lymph 27.8 % (15-43 ) Not Available [facility] [address] [place], [address], 04/27/2018 14:30:42 04/27/20 18 04/27/2018 CBC w/ auto diff monocyte 8.1 % (4.5-1 0.5) Not Available [facility] [address] [place], [address], 04/27/2018 14:30:42 04/27/20 18 04/27/2018 CBC w/ auto diff eo 2.4 % (0-6) Not Available [facility] [address] [place], [address], 04/27/2018 14:30:42 04/27/20 18 04/27/2018 CBC w/ auto diff baso 0.9 % (0-2) Not Available [facility] [address] [place], [address], 04/27/2018 14:30:42 04/27/20 18 04/27/2018 CBC w/ auto diff imm gran 0.7 % (0.0-0 .6) high Not Available [facility] [address] [place], [address], 04/27/2018 14:30:42 04/27/20 18 04/27/2018 BMP, serum or plasm a glucose 117 mg/dL (70-99 ) high Not Available [facility] [address] [place], [address], 04/27/2018 15:39:41 04/27/20 18 04/27/2018 BMP, serum or plasm a BUN 18 mg/dL (6-20) Not Available [facility] [address] [place], [address], 04/27/2018 15:39:41 04/27/20 18 04/27/2018 BMP, serum or plasm a creatinine 0.9 mg/dL (0.7-1 .2) Not Available [facility] [address] [place], [address], 04/27/2018 15:39:41 04/27/20 18 04/27/2018 BMP, serum or plasm a sodium 142 mmol/ L (133-1 45) Not Available [facility] [address] [place], [address], 04/27/2018 15:39:41 04/27/20 18 04/27/2018 BMP, serum or plasm a potassium 4.4 mmol/ L (3.6-5 .2) Not Available [facility] [address] [place], [address], 04/27/2018 15:39:41 04/27/20 18 04/27/2018 BMP, serum or plasm a chloride 101 mmol/ L (98-10 7) Not Available [facility] [address] [place], [address], 04/27/2018 15:39:41 04/27/20 18 04/27/2018 BMP, serum or plasm a bicarbonate 30 mmol/ L (22-29 ) high Not Available [facility] [address] [place], [address], 04/27/2018 15:39:41 04/27/20 18 04/27/2018 BMP, serum or plasm a anion gap 11 (4-17) Not Available [facility] [address] [place], [address], 04/27/2018 15:39:41 04/27/20 18 04/27/2018 BMP, serum or plasm a calcium 9.7 mg/dL (8.6-1 0.5) Not Available [facility] [address] [place], [address], 04/27/2018 15:39:41 04/27/20 18 04/27/2018 BMP, serum [...] [facility] [address] [place], [address], 04/27/2018 15:39:41 04/27/20 18 04/27/2018 BMP, serum [...] Available [facility] [address] [place], [address], 04/27/2018 15:39:41 04/27/20 18 04/27/2018 lipid panel , serum cholesterol, total 192 mg/dL (<200) Not Available [facility] [address] [place], [address], 04/27/2018 15:39:42 04/27/20 18 04/27/2018 lipid panel , serum triglyceride 410 mg/dL (<150) high Not Available [facility] [address] [place], [address], 04/27/2018 15:39:42 04/27/20 18 04/27/2018 lipid panel , serum HDL chol 30 mg/dL (>39) low Not Available [facility] [address] [place], [address], 04/27/2018 15:39:42 04/27/20 18 04/27/2018 lipid panel , serum LDL cholesterol, calculated mg/dL (0-130 ) LDL NEHA STERO L NOT CALCU LATED WHEN TRIGL YCERI SRIKANTH ARE GREAT ER THAN OR EQUAL TO 400 MG/DL . Not Available [facility] [address] [place], [address], 04/27/2018 15:39:42 04/27/20 18 04/27/2018 lipid panel , serum non HDL cholesterol (calc) 162 mg/dL (<160) high Not Available [facility] [address] [place], [address], 04/27/2018 15:39:42 04/27/20 18 04/27/2018 TSH, serum or plasm a TSH 1.28 mIU/m L (0.40- 4.00) Not Available [facility] [address] [place], [address], 04/27/2018 15:55:52 04/27/20 18 04/29/2018 HbA1c (hemo [...] Available [facility] [address] [place], [address], 04/29/2018 09:22:49 11/16/20 18 11/16/2018 BMP, serum or plasm a glucose 108 mg/dL (70-99 ) high Not Available [facility] [address] [place], [address], 11/16/2018 11:07:04 11/16/20 18 11/16/2018 BMP, serum or plasm a BUN 21 mg/dL (6-20) high Not Available [facility] [address] [place], [address], 11/16/2018 11:07:04 11/16/20 18 11/16/2018 BMP, serum or plasm a creatinine 1.1 mg/dL (0.7-1 .2) Not Available [facility] [address] [place], [address], 11/16/2018 11:07:04 11/16/20 18 11/16/2018 BMP, serum or plasm a sodium 140 mmol/ L (133-1 45) Not Available [facility] [address] [place], [address], 11/16/2018 11:07:04 11/16/20 18 11/16/2018 BMP, serum or plasm a potassium 3.8 mmol/ L (3.6-5 .2) Not Available [facility] [address] [place], [address], 11/16/2018 11:07:04 11/16/20 18 11/16/2018 BMP, serum or plasm a chloride 97 mmol/ L (98-10 7) low Not Available [facility] [address] [place], [address], 11/16/2018 11:07:04 11/16/20 18 11/16/2018 BMP, serum or plasm a bicarbonate 30 mmol/ L (22-29 ) high Not Available [facility] [address] [place], [address], 11/16/2018 11:07:04 11/16/20 18 11/16/2018 BMP, serum or plasm a anion gap 13 (4-17) Not Available [facility] [address] [place], [address], 11/16/2018 11:07:04 11/16/20 18 11/16/2018 BMP, serum or plasm a calcium 10.0 mg/dL (8.6-1 0.5) Not Available [facility] [address] [place], [address], 11/16/2018 11:07:04 11/16/20 18 11/16/2018 BMP, serum [...] Available [facility] [address] [place], [address], 11/16/2018 11:07:04 11/16/20 18 11/16/2018 BMP, serum [...] Available [facility] [address] [place], [address], 11/16/2018 11:07:04 11/16/20 18 11/16/2018 lipid panel , serum cholesterol, total 215 mg/dL (<200) high Not Available [facility] [address] [place], [address], 11/16/2018 11:07:05 11/16/20 18 11/16/2018 lipid panel , serum triglyceride 297 mg/dL (<150) high Not Available [facility] [address] [place], [address], 11/16/2018 11:07:05 11/16/20 18 11/16/2018 lipid panel , serum HDL chol 38 mg/dL (>39) low Not Available [facility] [address] [place], [address], 11/16/2018 11:07:05 11/16/20 18 11/16/2018 lipid panel , serum LDL cholesterol, calculated 118 mg/dL (0-130 ) Not Available [facility] [address] [place], [address], 11/16/2018 11:07:05 11/16/20 18 11/16/2018 lipid panel , serum non HDL cholesterol (calc) 177 mg/dL (<160) high Not Available [facility] [address] [place], [address], 11/16/2018 11:07:05 11/16/20 18 11/16/2018 HbA1c (hemo [...] in Hb A1c (%). Not Available [facility] [address] [place], [address], 11/16/2018 13:52:45 11/16/20 18 11/16/2018 hemog lobin A1C, hal blackmon k HA1C 5.4 % 4-6 Not Available In-Office Order Internal Use Only DO Not Attach Compendium DO Not Attach Compendium, Do Not Delete/merge, [id number] 11/16/2018 09:36:28 10/01/20 19 10/01/2019 HbA1c (hemo [...] Available [facility] [address] [place], [address], 10/01/2019 18:42:09 10/01/20 19 10/01/2019 BMP, serum or plasm a glucose 89 mg/dL (70-99 ) Not Available [facility] [address] [place], [address], 10/01/2019 18:45:16 10/01/20 19 10/01/2019 BMP, serum or plasm a BUN 14 mg/dL (6-20) Not Available [facility] [address] [place], [address], 10/01/2019 18:45:16 10/01/20 19 10/01/2019 BMP, serum or plasm a creatinine 1.0 mg/dL (0.7-1 .2) Not Available [facility] [address] [place], [address], 10/01/2019 18:45:16 10/01/20 19 10/01/2019 BMP, serum or plasm a sodium 142 mmol/ L (133-1 45) Not Available [facility] [address] [place], [address], 10/01/2019 18:45:16 10/01/20 19 10/01/2019 BMP, serum or plasm a potassium 4.2 mmol/ L (3.6-5 .2) Not Available [facility] [address] [place], [address], 10/01/2019 18:45:16 10/01/20 19 10/01/2019 BMP, serum or plasm a chloride 101 mmol/ L (98-10 7) Not Available [facility] [address] [place], [address], 10/01/2019 18:45:16 10/01/20 19 10/01/2019 BMP, serum or plasm a bicarbonate 30 mmol/ L (22-29 ) high Not Available [facility] [address] [place], [address], 10/01/2019 18:45:16 10/01/20 19 10/01/2019 BMP, serum or plasm a anion gap 11 (4-17) Not Available [facility] [address] [place], [address], 10/01/2019 18:45:16 10/01/20 19 10/01/2019 BMP, serum or plasm a calcium 9.8 mg/dL (8.6-1 0.5) Not Available [facility] [address] [place], [address], 10/01/2019 18:45:16 10/01/20 19 10/01/2019 BMP, serum [...] Available [facility] [address] [place], [address], 10/01/2019 18:45:16 10/01/20 19 10/01/2019 BMP, serum [...] Available [facility] [address] [place], [address], 10/01/2019 18:45:16 10/01/20 19 10/01/2019 lipid panel , serum cholesterol, total 208 mg/dL (<200) high Not Available [facility] [address] [place], [address], 10/01/2019 18:45:17 10/01/20 19 10/01/2019 lipid panel , serum triglyceride 91 mg/dL (<150) Not Available [facility] [address] [place], [address], 10/01/2019 18:45:17 10/01/20 19 10/01/2019 lipid panel , serum HDL chol 47 mg/dL (>39) Not Available [facility] [address] [place], [address], 10/01/2019 18:45:17 10/01/20 19 10/01/2019 lipid panel , serum LDL cholesterol, calculated 143 mg/dL (0-130 ) high Not Available [facility] [address] [place], [address], 10/01/2019 18:45:17 10/01/20 19 10/01/2019 lipid panel , serum non HDL cholesterol (calc) 161 mg/dL (<160) high Not Available [facility] [address] [place], [address], 10/01/2019 18:45:17 10/01/20 19 10/01/2019 lipid panel , serum cholesterol, total 208 mg/dL (<200) high Not Available [facility] [address] [place], [address], 10/01/2019 18:45:25 10/01/20 19 10/01/2019 lipid panel , serum triglyceride 91 mg/dL (<150) Not Available [facility] [address] [place], [address], 10/01/2019 18:45:25 10/01/20 19 10/01/2019 lipid panel , serum HDL chol 47 mg/dL (>39) Not Available [facility] [address] [place], [address], 10/01/2019 18:45:25 10/01/20 19 10/01/2019 lipid panel , serum LDL cholesterol, calculated 143 mg/dL (0-130 ) high Not Available [facility] [address] [place], [address], 10/01/2019 18:45:25 10/01/20 19 10/01/2019 lipid panel , serum non HDL cholesterol (calc) 161 mg/dL (<160) high Not Available [facility] [address] [place], [address], 10/01/2019 18:45:25 10/21/20 17 10/22/2012 XR, abdom en + pelvi s No observ ation record ed. BARCODE Not Available 2016 12:48:22 Result Notes None recorded. Problems Name Problem SNOMED Code Status Onset Date Resolution Date Notes Provider Name and Address Organization Details Recorded Time Abdomina l pain [id number] Completed 201206/07/2014 IMPRESSI ON: UNCLEAR CAUSE OF PAIN. NO ACUTE ABDOMEN BASED ON CT. MAYBE MILD PANCREAT ITIS. WILL CHECK AMYLASE. HE DRINKS 12 DRINKS A WEEK. NO HX ALCOHOLI SM.; RECORDED 04/02/20 13 10:12AM BY ANANYA ESTRELLA MA, ANNOTATI ON/ADDEN DUM Not Available [facility] 4 15:14:10 Abnormal findings diagnost ic imaging of liver+bi liary tract [id number] Completed 201206/07/2014 IMPRESSI ON: THIS MAY JUST BE INCIDENT AL FINDING. NOT SURE IF CAUSE OF HIS PAIN. GI NEXT WEEK FOR FURTHER W/U; RECORDED 04/02/20 13 10:12AM BY ANANYA ESTRELLA MA, NATALYA ON/ADDEN DUM Not Available [facility] 4 15:14:10 Acute sinusiti s 96555915 Completed 200806/07/2014 RECORDED 02/03/20 09 7:20AM BY ANANYA ESTRELLA MA, NATALYA ON/ADDEN DUM Not Available [facility] 4 15:14:10 Anemia 718636181 Active 2013 LAT[place]HA Sosa, [facility] 6 09:09:29 Adult health examinat ion Active 2013 LAT[place]HA Sosa, [facility] 6 09:09:26 Anxiety disorder 641424262 Active 2013 LATASHA Sosa, [facility] 6 09:09:20 Diarrhea of presumed infectio us origin 54560393 Completed 201106/07/2014 RECORDED 10/23/20 12 9:37AM BY ANANYA ESTRELLA MA, NATALYA ON/ADDEN DUM Not Available [facility] 4 15:14:11 Dysuria 15740406 Completed 200706/07/2014 RECORDED 11/14/20 08 9:53AM BY NATALYA CASTRO ON/ADDEN DUM Not Available [facility] 4 15:14:11 Essentia l hyperten candace 31801233 Active 2013 [place]HA Sosa MA - [facility] 6 09:09:46 Respirat ory finding 451857468 Completed 201306/07/2014 RECORDED 12/03/19 14 1:12PM BY ROXY MICHELE MA, NATALYA ON/ADDEN DUM Not Available [facility] 4 15:14:11 Malaise and fatigue 052854815 Completed 201106/07/2014 RECORDED 10/23/20 12 9:37AM BY ANANYA ESTRELLA MA, NATALYA ON/ADDEN DUM Not Available [facility] 4 15:14:11 Influenz a vaccine needed [id number] 06 Completed 201206/07/2014 RECORDED 04/02/20 13 10:12AM BY ANANYA ESTRELLA MA, ANNOTATI ON/ADDEN DUM Not Available [facility] 4 15:14:11 General examinat ion of patient Completed 200706/07/2014 RESOLVED DATE: 07/14/20 08; RECORDED 07/14/20 08 3:43PM BY NATALYA MONTES ON/ADDEN DUM Not Available [facility] 4 15:14:11 Hyperlip idemia 82699703 Active 2013 LATASHA Sosa MA - [facility] 6 09:09:40 Essentia l hyperten candace 01780560 Completed 201206/07/2014 RECORDED 05/21/20 13 12:30PM BY ANANYA ESTRELLA MA, ANNOTNAVEEN ON/ADDEN DUM LATASHA Sosa, [facility] 6 09:09:46 Insomnia 218305476 Active 2013 LATASHA Sosa, [facility] 6 09:09:11 Laborato ry procedur e performe d 433824235 Completed 201206/07/2014 RECORDED 04/02/20 13 10:11AM BY ANANYA ESTRELLA MA, NATALYA ON/ADDEN DUM Not Available [facility] 4 15:14:11 Administ ration of bacteria l and viral vaccine Completed 200706/07/2014 RECORDED 07/14/20 08 3:34PM BY DEBBIE ESTRELLA, OFFICE VISIT Not Available [facility] 4 15:14:11 Patient status finding [id number] Completed 201310/18/2016 RECORDED 12/03/19 14 1:12PM BY ROXY MICHELE MA, OFFICE VISIT LATASHA Sosa, [facility] 6 09:09:03 Elevated level of transami nase and lactic acid dehydrog enase 598726442 Completed 201106/07/2014 RECORDED 10/23/20 12 9:37AM BY ANANYA ESTRELLA MA, NATALYA ON/ADDEN DUM Not Available [facility] 4 15:14:12 Osteoart hritis of hip 706679438 Active 2013 LATASHA Sosa, [facility] 6 09:09:23 Disorder of bursa of shoulder region 05545039 Active 2013 LATASHA Sosa, [facility] 6 09:09:43 Disorder of skin 01658920 Completed 201306/07/2014 RECORDED 12/03/19 14 1:12PM BY ROXY MICHELE MA, NATALYA ON/ADDEN DUM Not Available [facility] 4 15:14:12 Dermatop hytosis of the perianal area Completed 201106/07/2014 RECORDED 10/23/20 12 9:37AM BY ANANYA ESTRELLA MA, NATALYA ON/ADDEN DUM Not Available [facility] 4 15:14:12 Visual disturba nce 02396245 Completed 201106/07/2014 RECORDED 10/23/20 12 9:37AM BY ANANYA ESTRELLA MA, NATALYA ON/ADDEN DUM Not Available [facility] 4 15:14:12 Urinary system finding 212660544 Completed 201106/07/2014 RECORDED 10/23/20 12 9:36AM BY ANANYA ESTRELLA MA, NATALYA ON/ADDEN DUM Not Available [facility] 4 15:14:12 Abdomina l pain 66586556 Completed 201206/27/2014 IMPRESSI ON: UNCLEAR CAUSE OF PAIN. NO ACUTE ABDOMEN BASED ON CT. MAYBE MILD PANCREAT ITIS. WILL CHECK AMYLASE. HE DRINKS 12 DRINKS A WEEK. NO HX ALCOHOLI SM.; RECORDED 04/02/20 13 10:12AM BY ANANYA ESTRELLA MA, NATALYA ON/ADDEN DUM Not Available [facility] 4 06:00:33 Abnormal findings diagnost ic imaging of liver+bi liary tract 795280799 Completed 201206/27/2014 IMPRESSI ON: THIS MAY JUST BE INCIDENT AL FINDING. NOT SURE IF CAUSE OF HIS PAIN. GI NEXT WEEK FOR FURTHER W/U; RECORDED 04/02/20 13 10:12AM BY ANANYA ESTRELLA MA, NATALYA ON/ADDEN DUM Not Available [facility] 4 06:00:33 Acute sinusiti s [id number] Completed 200806/27/2014 RECORDED 02/03/20 09 7:20AM BY ANANYA ESTRELLA MA, NATALYA ON/ADDEN DUM Not Available [facility] 4 06:00:33 Diarrhea of presumed infectio us origin [id number] Completed 201106/27/2014 RECORDED 10/23/20 12 9:37AM BY ANANYA ESTRELLA MA, NATALYA ON/ADDEN DUM Not Available [facility] 4 06:00:33 Dysuria [id number] Completed 200706/27/2014 RECORDED 11/14/20 08 9:53AM BY LATASHA DELVALLE, REGGIEATI ON/ADDEN DUM Not Available [facility] 4 06:00:33 Respirat ory finding [id number] Completed 201306/27/2014 RECORDED 12/03/19 14 1:12PM BY ROXY MICHELE MA, NATALYA ON/ADDEN DUM Not Available Pending sale to [facility] 4 06:00:33 Malaise and fatigue [id number] Completed 201106/27/2014 RECORDED 10/23/20 12 9:37AM BY ANANYA ESTRELLA MA, NATALYA ON/ADDEN DUM Not Available Pending sale to [facility] 4 06:00:33 Influenz a vaccine needed [id number] 06 Completed 201206/27/2014 RECORDED 04/02/20 13 10:12AM BY ANANYA ESTRELLA MA, NATALYA ON/ADDEN DUM Not Available Pending sale to [facility] 4 06:00:33 General examinat ion of patient Completed 200706/27/2014 RESOLVED DATE: 07/14/20 08; RECORDED 07/14/20 08 3:43PM BY NATALYA MONTES ON/ADDEN DUM Not Available Pending sale to [facility] 4 06:00:33 Laborato ry procedur e performe d [id number] Completed 201206/27/2014 RECORDED 04/02/20 13 10:11AM BY ANANYA ESTRELLA MA, NATALYA ON/ADDEN DUM Not Available [facility] 4 06:00:33 Administ ration of bacteria l and viral vaccine Completed 200706/27/2014 RECORDED 07/14/20 08 3:34PM BY DEBBIE ESTRELLA, OFFICE VISIT Not Available [facility] 4 06:00:33 Elevated level of transami nase and lactic acid dehydrog enase 693979274 Completed 201106/27/2014 RECORDED 10/23/20 12 9:37AM BY ANANYA ESTRELLA MA, ANNOTNAVEEN ON/ADDEN DUM Not Available [facility] 4 06:00:33 Disorder of skin 85457251 Completed 201306/27/2014 RECORDED 12/03/19 14 1:12PM BY ROXY MICHELE MA, ANNOTATI ON/ADDEN DUM Not Available [facility] 4 06:00:33 Dermatop hytosis of the perianal area Completed 201106/27/2014 RECORDED 10/23/20 12 9:37AM BY ANANYA ESTRELLA MA, NATALYA ON/ADDEN DUM Not Available [facility] 4 06:00:33 Visual disturba nce 74468512 Completed 201106/27/2014 RECORDED 10/23/20 12 9:37AM BY ANANYA ESTRELLA MA, ANNOTATI ON/ADDEN DUM Not Available [facility] 4 06:00:33 Urinary system finding 031763311 Completed 201106/27/2014 RECORDED 10/23/20 12 9:36AM BY ANANYA ESTRELLA MA, REGGIEATI ON/ADDEN DUM Not Available [facility] 4 06:00:33 Body mass index 25-29 - overweig ht 219897173 Active Nixon Hernandez MD [address] [address], [place], [address] , [facility] 4 16:07:00 Gastroes ophageal reflux disease 162209698 Active Nixon Hernandez MD [address] [address], [place], [address] , [facility] 5 14:23:28 Patellar tendonit is 90047277 Active Nixon Hernandez MD [address] [facility] [address], [place], [address] , [facility] 5 14:23:28 Impacted cerumen 72793843 Active Nixon Hernandez MD [address], [place], [address] , [facility] 5 14:23:28 Wheezing symptom 786756183 Completed 10/18/2016 [facility] 6 09:09:32 Hypersom ramon 72482704 Active Nixon Hernandez MD [address] [facility] [address], [place], [address] , [facility] 6 09:29:57 Prediabe haroon 075715121 Active 2017 Nixon Hernandez MD [address] [facility] [address], [place], [address] , [facility] 8 09:36:24 Mixed hyperlip idemia 464925497 Completed 201810/03/2019 Hina Hong PA-C [address] [facility] [address], [place], [address] , [facility] 9 19:19:38 Problem Notes None recorded. Procedures Surgical History Date Name Laterality Status Provider Name and Address Organization Details Recorded Time 7 Colonoscopy completed Julissa Escobar [facility] 08/13/2017 11:18:24 6 Vasectomy completed Ata Sifuentes [facility] 10/21/2017 08:29:26 4 Eye Surgery completed Ata Sifuentes [facility] 10/21/2017 08:29:26 08/01/201 4 Other completed Ananya oquendo MA [facility] 08/26/2014 09:56:51 9 Hernia Repair completed Ata Sifuentes [facility] 10/21/2017 08:29:26 6 Circumcision completed Atakatie Sifuentes [facility] 10/21/2017 08:29:26 6 Hernia Repair completed Ata Lovelacedeann [facility] 10/21/2017 08:29:26 Imaging Results Imaging Date Name Status LastModified by Organiz ation Details LastModified Time 10/22/2012 XR, abdomen + pelvis completed [facility] Information not available 10/21/2017 12:48:22 Procedure Notes None recorded. Medical Equipment None Reported. Allergies Allergen ID Allergen Name Allergen Category Reaction Reaction Severity Criticality Documentation Date Start Date Code Code System Note Provider Name and Address Organization Details Recorded Time 62265 erythromy tonio medicatio n Not available Not available Not available 05/31/20142013 4053 RxNorm as an infan t [facility] 5 08:58:50 Medications Name Sig Start Date [...] Available Not Available Not Available Flucelvax Quad 3384-3720 (PF) 60 mcg (15 mcg x 4)/0.5 mL IM syringe active Not Available Not Available Not Available Vitals Date Recorded Body height Body mass index (BMI) Body weight Heart rate Oxygen saturation Oxygen saturation in Arterial blood by Pulse oximetry Body temperature Systolic blood pressure Diastolic blood pressure Provider Name and Address Organization Details Last Updated DateTime 7 181.61 cm 29.2 kg/m2 22408.5 8 g 61 /min 97 % 97 % 97.4 [degF] 130 mm[Hg] 68 mm[Hg] Ata Sifuentes [facility] 7 08:42:46 Date Recorded Body height Body temperature Oxygen saturation Oxygen saturation in Arterial blood by Pulse oximetry Heart rate Body mass index (BMI) Body weight Systolic blood pressure Diastolic blood pressure Provider Name and Address Organization Details Last Updated DateTime 7 181.61 cm 98.3 [degF] 98 % 98 % 59 /min 29 kg/m2 49490.9 9 g 136 mm[Hg] 84 mm[Hg] Ananya shi [facility] 7 16:14:47 Date Recorded Body height Body mass index (BMI) Body weight Oxygen saturation Oxygen saturation in Arterial blood by Pulse oximetry Heart rate Body temperature Provider Name and Address Organization Details Last Updated DateTime 8 181.61 cm 28.7 kg/m2 71264.8 1 g 97 % 97 % 65 /min 97.7 [degF] Ananya shi MA [facility] 8 09:04:31 Date Recorded Systolic blood pressure Diastolic blood pressure Provider Name and Address Organization Details Last Updated DateTime 04/27/2018 122 mm[Hg] 76 mm[Hg] Nixon Hernandez MD [address], [address], [facility] 04/27/2018 09:26:05 Date Recorded Body height Body mass index (BMI) Body weight Heart rate Oxygen saturation Oxygen saturation in Arterial blood by Pulse oximetry Body temperature Systolic blood pressure Diastolic blood pressure Provider Name and Address Organization Details Last Updated DateTime 8 181.61 cm 26.7 kg/m2 84647.6 2 g 81 /min 98 % 98 % 98.7 [degF] 127 mm[Hg] 83 mm[Hg] Claudette Unger [facility] 8 13:04:48 Date Recorded Body height Body mass index (BMI) Body weight Heart rate Oxygen saturation Oxygen saturation in Arterial blood by Pulse oximetry Body temperature Systolic blood pressure Diastolic blood pressure Provider Name and Address Organization Details Last Updated DateTime 8 181.61 cm 26.4 kg/m2 54798.7 4 g 69 /min 98 % 98 % 98.7 [degF] 107 mm[Hg] 72 mm[Hg] Catina Grimm MA [facility] 8 09:22:39 Social History Question Answer Notes LastModified by Organizat ion Details LastModified Time Tobacco Smoking Status Never Smoker LATASHA Melo [facility] 08/26/2014 09:56:50 Do You Have An Advance [...] 08/26/2014 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 No Information not available 10/18/2016 Marital Status Inform ation not available 08/26/2014 What Was The Date Of Your Most Recent Tobacco Screening? 11/16/2018 Information not available 06/10/2019 Total Number Of Stairs In Home 15 Information not available 08/26/2014 How Many Children Do You Have? 1 Son (Restorationist) Information not available 09/22/2015 Do You Use [...] available 11/16/2018 09:46:01 Medical History Condition Response Gout N Other N Kidney Stones N Blood Diseases N Hyperthyroidism N Breast Cancer N COPD N Depression N Lung Disease N Hypothyroidism N Defects or Inherited Disease N Anesthesia Complications N Headaches/Migraines Y Anxiety Disorder Y Varicose Veins N Obesity N Vision or Eye Problems Y [...] N Bladder Problems N Mental Illness N Diabetes N Ovarian Cancer N Blood Transfusions N Seizures/Epilepsy N Tuberculosis N AIDS/HIV N Congestive Heart Failure (CHF) N Eczema N Abuse/Domestic Violence N Diverticulitis N Asthma N Allergies Y Reflux/GERD N Hepatitis N Pulmonary Embolism N Hypertension Y Chicken Pox Y Autism Spectrum Disorder (ASD) N Osteoporosis N Immunizations Vaccine Type Date Status Note Provider Nam e and Address Organization Details Recorded Time Influenza, split virus, quadrivalent, PF 6 completed Not Available Pending sale to [facility] 12/04/2019 02:22:07 Influenza, split virus, quadrivalent, PF 7 completed Not Available Pending sale to [facility] 12/04/2019 02:22:11 Tdap 8 completed Not Available Pending sale to [facility] 12/04/2019 02:21:48 Influenza, split virus, trivalent, PF 4 completed Not Available Pending sale to [facility] 12/04/2019 02:21:57 Influenza, split virus, quadrivalent, PF 8 completed Not Available Pending sale to [facility] 12/04/2019 02:22:15 Tdap 8 completed Not Available Pending sale to [facility] 05/31/2014 13:23:39 Influenza, split virus, trivalent, preservative 1 completed Not Available Pending sale to [facility] 05/31/2014 13:23:39 Influenza, split virus, trivalent, preservative 2 completed Not Available Pending sale to [facility] 05/31/2014 13:23:39 Past Encounters Encounter ID Performer Location Encounter Start Date Encounter Closed Date Diagnosis/Indication Diagnosis SNOMED-CT Code Diagnosis ICD10 Code Diagnosis Note [id number] [address] [place] [address] 12/18/2007 00:00:00 [id number] auto[employer] erce [address] [place] [address] 12/29/2007 00:00:00 [id number] autoEComm erce [address] [facility] [address] [place] [address] 07/14/2008 00:00:00 [id number] autoEComm erce [address] [facility] [address] [place] [address] 11/14/2008 00:00:00 [id number] autoEComm erce [address] [facility],[address] [place] [address] 02/02/2009 00:00:00 [id number] auto[employer]Comm erce [address] [facility],[address] [place] [address] 09/20/2009 00:00:00 [id number] autoEComm erce [address] [facility],[address] [place] [address] 12/20/2009 00:00:00 [id number] autoEComm erce [address] [facility],[address] [place] [address] 06/27/2010 00:00:00 [id number] autoEComm erce [address] [facility],[address] [place] [address] 01/08/2011 00:00:00 [id number] autoEComm erce [address] [facility] [place] [address] 10/23/2012 00:00:00 [id number] autoEComm erce [address] [facility] [place] [address] 04/02/2013 00:00:00 [id number] autoEComm erce [address] [facility],[address] [place] [address] 05/21/2013 00:00:00 [id number] autoEComm erce [address] [facility] [place] [address] 12/03/2013 00:00:00 [id number] Main Office [address] [address] [place] [address] 08/26/2014 09:40:18 08/26/2014 11:11:25 Adult health examination 633066629 Needs infl uenza immunization 956298662 Essential hypertension 48715527 Hyperlipidemia 78115308 Body mass index 25-29 - overweight 808715405 262030 Main Office [address] [address] [place] [address] 03/17/2015 08:52:49 03/17/2015 09:27:02 Essential hypertension 29271184 [id number] Nixon Hernandez MD Main Office [address] [address] [place] [address] 09/22/2015 08:54:36 09/22/2015 10:36:06 Adult health examination 411608989 Z00.00 Essential hypertension 63567886 I10 Anxiety disorder 5924576 06 F41.9 Hyperlipidemia 05092569 E78.5 Gastroesop hageal reflux disease 614137570 K21.9 Patellar tendonitis 3778 5001 M76.50 Impacted cerumen 3126173 6 H61.22 Wheezing symptom 7057197 08 R06.2 [id number] Nixon Heranndez MD Main Office [address] [address] [place] [address] 03/29/2016 08:43:25 03/29/2016 09:32:19 Essential hypertension 22200847 I10 Family romina nning education 863153005 Z30.02 Hypersomnia 15362160 G47 .10 [id number] Nixon Hernandez MD Main Office [address] [address] [place] [address] 10/18/2016 09:00:30 10/18/2016 10:13:03 Adult health examination 974921791 Z00.00 Needs infl uenza immunization 077141189 Z23 Screening for malignant neoplasm of colon 619414474 Z12.11 Body mass index 25-29 - overweight 305700188 E66.3 Hyperlipidemia 55449555 E78.5 Fatigue 40319267 R53.83 Gastroesop hageal reflux disease 787858984 K21.9 [id number] Nixon Hernandez MD Main Office [address] [address] [place] [address] 04/25/2017 11:07:04 04/25/2017 11:49:25 Essential hypertension 04443477 I10 Hyperlipidemia 11661273 E78.5 Fatigue 23142721 R53.83 [id number] Nixon Hernandez MD Main Office [address] [address] [place] [address] 07/29/2017 14:58:39 07/29/2017 16:09:18 Needs influenza immunization 449149704 Z23 [id number] Nixon Hernandez MD Main Office [address] [address] [place] [address] 10/21/2017 08:26:02 10/21/2017 09:30:21 Adult health examination 025611695 Z00.00 Essential hypertension 91304608 I10 Hyperlipidemia 68708117 E78.5 Fatigue 86335959 R53.83 Body mass index 25-29 - overweight 414367837 E66.3 Z68.25 Obsessive- compulsive disorder 635512991 F42.9 Continue SSRI [id number] Nixon Hernandez MD Main Office [address] [address] [place] [address] 10/27/2017 15:55:29 10/27/2017 16:34:42 Benign paroxysmal positional vertigo 866244502 H81.10 [id number] Nixon Hernandez MD Main Office [address] [address] [place] [address] 04/27/2018 08:47:55 04/27/2018 09:33:18 Essential hypertension 28108539 I10 Administra tion of viral vaccine 76024043 Z23 Hyperlipidemia 33389453 E78.5 Fatigue 05364400 R53.83 Patellofem oral stress syndrome 770290797 M22.2X9 [id number] Nixon Hernandez MD Main Office [address] [address] [place] [address] 05/18/2018 13:01:09 05/18/2018 14:21:34 Prediabetes 850301519 R73.03 Total time spent teaching and coordinati ng prediabeti c care 45 minutes. Basic physiology of Type II Diabetes Mellitus was reviewed. Glucose records were reviewed. Goal for fasting glucose is 80-130 and 1-2 hrs after the meal under 180. Pt. was instructed on 2000 jean pierre ADA diet and given 7 day sample menus to use at home. Pt. was advised to start exercise activity by walking 30 min at least 3 times weekly and increase weekly or by weekly to 4-6 day per week. If unable to walk , pt. should use other exercise modalities /equipment that is stationary at home or in the gym for that amount of time weekly or water exercises. Mixed hyperlipidemia 267 148332 E78.2 recommend to recheck before next visit. Body mass index 25-29 - overweight 912521096 Z68.26 [id number] Nixon Hernandez MD Main Office [address] [facility] [address] [place] [address] 11/16/2018 09:12:04 11/16/2018 10:08:00 Adult health examination 661316775 Z00.00 Needs infl uenza immunization 409252247 Z23 Body mass index 25-29 - overweight 098647714 E66.3 Z68.25 Prediabetes 817839713 R7 3.03 Gastroesop hageal reflux disease 956045809 K21.9 Hyperlipidemia 64343312 E78.5 Essential hypertension 81999563 I10 Health Concerns Section Related Observation LastModified by Organization Detai ls LastModified Time None Recorded Concern Status LastModified by Organization Details LastModified Time None Recorded Advance Directives Directive Y: signed 03/17/2015 Payers Encounter Date Sequence Insurance Name Policy Number Policy Haynes Covered Member ID Haynes Member ID Guarantor Name 10/21/2017 1 [facility] [id number] Yancy Nalepinski [id number] Yancy Nalepinski 10/27/2017 1 [facility] [id number] 23 Yancy Nalepinski [id number] Yancy Nalepinski 04/27/2018 1 [facility] ([facility] [id number] 23 Yancy Nalepinski [id number] Yancy Nalepinski 05/18/2018 1 [facility] [id number] 23 Yancy Nalepinski [id number] Yancy Nalepinski 11/16/2018 1 [facility] [id number] 23 Yancy Nalepinski [id number] Yancy Nalepinski Notes Date Note Type Note [...] concerns about weight. Nixon Hernandez MD [address], [address], [facility] 10/21/2017 09:25:17 7 text/html DizzinessReported bypatient.Quality:symptoms worse in the evening (wakes occasionally from sleep) Severity:no effect on daily activities Duration:intermittent episodes lasting:; lasts <5 minutes Notes sensation of dizziness with spinning sensation for the past 4 days. Nixon Hernandez MD [address], [address], [facility] 10/27/2017 16:37:37 8 text/html Hypertension F/UReported bypatient.Associated [...] injuryNotes:No obvious swelling Nixon Hernandez MD [address] [address], [place], [address], [facility] 04/27/2018 09:31:19 8 text/html Diabetes F/UReported bypatient.Context:normal [...] of 31. High cardiovasc. risk with early KS in father at age 50. Pt. lost 15 lbs since April 27. Nixon Hernandez MD [address], [address], [facility] 05/18/2018 18:03:06 8 text/html GERD RefluxReported bypatient.Notes:Stable [...] over the summer months. Nixon Hernandez MD [address], [address], [facility] [place] 11/16/2018 10:07:57
== END 2024-11-22 16:12 | disposition home or self-care (01) ==
PROVIDERS: PCP Family Medicine; Visit Provider Nurse Practitioner Family
DX: N41.9 Inflammatory disease of prostate, unspecified (principal); R39.11 Hesitancy of micturition; R97.20 Elevated prostate specific antigen [PSA]; N40.0 Benign prostatic hyperplasia without lower urinary tract symptoms; N28.89 Other specified disorders of kidney and ureter; Z13.9 Encounter for screening, unspecified
CPT/HCPCS: 99214

== ENCOUNTER → 2024-11-22 15:24 | Outpatient (BNVA) | payer OTHER, SELFPAY | PROVIDERS: PCP Family Medicine; Visit Provider Nurse Practitioner Family | DX: N41.9 Inflammatory disease of prostate, unspecified (principal); N40.1 Benign prostatic hyperplasia with lower urinary tract symptoms; R39.11 Hesitancy of micturition; R97.20 Elevated prostate specific antigen [PSA]; N28.89 Other specified disorders of kidney and ureter | CPT/HCPCS: 81003 ==

== ENCOUNTER 2025-02-01 16:37 | Outpatient (AMB) | payer OTHER, SELFPAY ==
--- NOTE | 2025-02-01 16:48 | MHC.PC.OV ---
Vital Signs 02/01/25 16:51 Height 5 ft 1 in Weight 201 lb 4 oz BMI 38.0 BP 110/70 Blood Pressure Location Lt brachial Position Sitting Respiration 12 Pulse 64 Pulse Source Pulse Oximeter Temp 98.5 F Temp Source Oral Pulse Oximetry (%) 96 Oxygen Delivery Method Room Air Intake Visit Reasons: f/u HTN, anxiety Intake Note: patient is scheduled for htn and anxiety follow up Occupational Safety Specialist Required: No Allergies erythromycin base Allergy (Mild, Verified 02/01/25 16:50) Rash Medication List - Last Reconciled 02/01/25 by Miguel Ángel Small MD blood-glucose meter (FreeStyle Lite Meter kit) DX: R 73.01, test blood sugar Once a day, duration 999 days finasteride 5 mg PO DAILY 90 days lisinopril-hydrochlorothiazide 20-12.5 mg 1 tab PO DAILY 90 days lorazepam 1 mg PO BEDTIME PRN 30 days meloxicam 15 mg PO DAILY 30 days omeprazole 20 mg PO DAILY 90 days sertraline 50 mg PO DAILY 90 days Tobacco use date assessed: 11/13/23 Dental Screening Dental Screen Date: 11/13/23 HPI f/u HTN, anxiety HPI Details 59 y/o male presents to f/u hypertension, elevated fasting blood sugars, anxiety. He is on sertraline, lorazepam for his mood. Blood pressure today 110/70, 64p. He is on lisinopril-HCTZ 20-12.5mg daily. A1c today 02/01/25 5.7%. PHQ-9 4, SANTOS-7 today. He notes he has not been using lorazepam recently. [facility] Surgical History History of hip surgery History of hernia surgery Family History Sister Breast cancer Father Alcohol abuse Social History Household Members: Children Household Members Other:: Son Housing: House Are you a primary manager wound care to a significant other at home: No Do you presently have visiting nurse or other home services: No 75 years or older and lives alone: No Alcohol intake: current Alcohol intake frequency: a few times a week Patient Tobacco Use Status: Never used Tobacco e-Cigarette/Vaping Use: Never Used Second Hand Smoke Exposure: No service: No Current occupational status: employed 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 1. Little interest or pleasure in doing things: not at all 2. Feeling down, depressed, or hopeless: not at all 3. Trouble falling or staying asleep, or sleeping too much: several days 4. Feeling tired or having little energy: several days 5. Poor appetite or overeating: several days 6. Feeling bad about yourself - or that you are a failure or have let yourself or your family down: not at all 7. Trouble concentrating on things, such as reading the newspaper or watching television: several days 8. Moving or speaking so slowly that other people could have noticed. Or the opposite - being so fidgety or restless that you have been moving around a lot more than usual: not at all 9. Thoughts that you would be better off or of hurting yourself in some way: not at all Total score: 4 Depression Screening Interpretation: Negative Depression Screening Done: Yes 37351 - PHQ-9 Billing: Yes Source: Developed by Drs. Tani Mehta, Bhumika Burns, De Mckeon and colleagues, with an educational noe from [employer]. Thrive Questionnaire Date Thrive assessed: 02/01/25 I am a: Patient What is your living situation today?: I have a steady place to live Within the past 12 months, did the food you bought not last and you didn't have the money to get more?: Never true Within the past 12 months, did you worry whether your food would run out before you got money to buy more?: Never true Do you have trouble paying for medicines?: No Do you have trouble getting transportation to medical appointments?: No Do you have trouble paying your heating and electricity bill?: No Do you have trouble taking care of your child, family member or friend?: No Do you have trouble with day-to-day activities such as bathing, preparing meals, shopping, managing finances, etc.?: No Are you currently unemployed and looking for a job?: No Are you interested in more education?: No Please select the resources that you would like help with: None Currently or been in a relationship where the following occur: No concerns reported THRIVE Score: 0 AUDIT C Alcohol Use Questionnaire (AUDIT-C) 1. How often do you have a drink containing alcohol?: 2-3 times a week 2. How many drinks containing alcohol do you have on a typical day when you are drinking?: 3 or 4 3. How often do you have six or more drinks on one occasion?: Less than monthly Total Score: 5 SANTOS-7 AMB Questionnaire SANTOS-7 Date SANTOS - 7 assessed: 02/01/25 Feeling nervous, anxious, or on edge: 3 = Nearly every day Not being able to stop or control worryin = Several days Worrying too much about different things: 1 = Several days Trouble relaxin = Not at all Being so restless that it is hard to sit still: 0 = Not at all Becoming easily annoyed or irritable: 1 = Several days Feeling afraid as if something awful might happen: 1 = Several days Total SANTOS-7 score (0-4 normal; 5-9 mild; 10-14 moderate; 15-21 severe): 7 Source: Developed by Drs. Tani Mehta, Bhumika Burns, De Mckeon and colleagues, with an educational noe from [employer]. Review of Systems Const Denies chills, Denies fatigue, Denies fever(s), Denies headache(s) and Denies weakness ENT Denies dizziness and Denies headache(s) Card Denies dyspnea Resp Denies cough, Denies dyspnea, Denies wheezing and Denies other (shortness of breath) Musc Denies numbness and Denies tingling Neuro Denies dizziness, Denies headache(s), Denies numbness, Denies tingling and Denies weakness Psych Reports anxiety and Denies depression Endo Denies fatigue Aller/Immun Denies wheezing Physical exam (Primary Care) Vital Signs: Last Vital Signs Temp 98.5 F 02/01/25 16:51 Pulse 64 02/01/25 16:51 Resp 12 02/01/25 16:51 BP 110/70 02/01/25 16:51 Pulse Ox 96 02/01/25 16:51 Oxygen Delivery Method Room Air 02/01/25 16:51 BMI result Body Mass Index 38.0 Tobacco/Smoking Status: Tobacco use Status Tobacco use date assessed 11/13/23 02/01/25 16:55 Patient Tobacco Use Status Never used Tobacco 02/01/25 16:55 e-Cigarette/Vaping Use Never Used 02/01/25 16:55 PHQ-9: PHQ-9 Score PHQ-9: Total score 4 02/01/25 16:55 Depression Screening Interpretation: Negative Thrive Assessment: Date of Thrive Assessment Date Thrive assessed 02/01/25 02/01/25 16:55 Currently or been in a relationship where the following occur: No concerns reported Const General: well developed; No acute distress Nutritional Appearance: well nourished Orientation/consciousness: patient oriented x3 HENMT Head: Yes normocephalic and Yes atraumatic Eyes General: appearance normal, both eyes and all related structures Pupils: Equal, round and reactive pupils present EOM: EOMs intact bilaterally Resp Effort & Inspection: normal respiratory effort Auscultation: clear to auscultation bilaterally Cardio Rate: regular rate Rhythm: regular rhythm Heart sounds: S1 normal heart sound present, S2 normal heart sound present, no gallops, no murmurs and no rubs Neuro General: patient oriented x3 and gait normal Cranial nerves: Yes Equal, round and reactive pupils present Psych Affect: normal affect Results AMB Hemoglobin A1c AMB Hemoglobin A1c 5.7 % Last Edit by JOSIE Bahena on 02/01/25 17:10 Coding Level of Care Code Est Pt Level 4 (41056) Diagnoses Essential hypertension I10 Pre-diabetes R73.03 Anxiety F41.9 Difficulty concentrating R41.840 Additional Codes PHQ-9 - 37878 - PHQ-9 Billing: Yes ([id number]) Assessment & Plan Assessment & Plan (1) Essential hypertension: Code(s): I10 - Essential (primary) hypertension Category: Medical Plan: Blood?pressure?now?well?controlled.??Goal?is?less?than?140/90 Continue?current?medication (2) Pre-diabetes: Code(s): R73.03 - Prediabetes Category: Medical Plan: A1c?has?risen?to?5.7%?again.??Pre?diabetes?range. Encouraged?diet?lower?in?sugars?and?starches Encouraged?exercise?and?some?weight?loss (3) Anxiety: Code(s): F41.9 - Anxiety disorder, unspecified Category: Medical Plan: Fairly?stable?with?sertraline?and?patient?has?lorazepam?which?he?says?does?not?use?often. He?is?also?wondering?about?the?possibility?of?ADD?and?I?have?referred?him?to?a?therapist.??He?says?he?was?contacted?but?did?not?get?a?chance?to?answer. Will?ask?the?nurse?navigator?to?reach?out?to?again?get?connected?with?a?therapist. (4) Difficulty concentrating: Code(s): R41.840 - Attention and concentration deficit Category: Medical Plan: As?above Orders: Orders AMB Hemoglobin A1c Today R73.03 - Prediabetes
[2025-02-01 16:51] VITALS: BP 110/70; PULSE 64; RESP 12; TEMP 36.9; O2SAT 96; BMI 38.0
--- OUTSIDE RECORDS SUMMARY | 2025-02-01 18:52 | XMS_ITS | Data Portability ---
Author Organization [facility], Main Office Address [address] [place] [address] Care Team Providers Care Engineering Clerk Name Role Phone NIXON HERNANDEZ Primary Care Provider [phone] [facility] Soaping Machine Back Tender [phone] TIFF LEONARD Referring Provider Assessment Encounter Date [...] Time Details Appointments None record ed. Lab HbA1c (hemog lobin A1c), blood - Please add to labs done 018. 2017 018 rakesh [facility], [address] [address], [place], [address], 9 11:35:33 hemogl obin A1C, finger stick 2017 018 [facility] In-Office Order, Internal Use Only DO Not Attach Compendium DO Not Attach Compendium, Do Not Delete/merge, [id number] 8 09:46:31 lipid panel, serum 2017 018 [email or web address] [facility] (Centralized Electronic Ordering - All Locations), Patient Can Go To The Location Of Their Choice, 9 15:35:57 BMP, serum or plasma 2017 018 [email or web address] [facility] (Centralized Electronic Ordering - All Locations), Patient Can Go To The Location Of Their Choice, 9 15:35:57 lipid panel, serum 2017 018 JOCELINE [facility] (Centralized Electronic Ordering - All Locations), Patient Can Go To The Location Of Their Choice, 8 11:07:05 BMP, serum or plasma 2017 018 JOCELINE [facility] (Centralized Electronic Ordering - All Locations), Patient Can Go To The Location Of Their Choice, 8 11:07:04 HbA1c (hemog lobin A1c), blood 2017 018 [email or web address] [facility] (Centralized Electronic Ordering - All Locations), Patient Can Go To The Location Of Their Choice, 8 10:22:36 BMP, serum or plasma 2017 018 JOCELINE [facility], [address], [address], [place], [address], 8 15:39:41 lipid panel, serum 2017 018 JOCELINE [facility], [address], [address], [place], [address], 8 15:39:42 TSH, serum or plasma 2017 018 JOCELINE [facility], [address], [address], [place], [address], 8 15:55:52 CBC w/ auto diff 2017 018 JOCELINE [facility], [address], [address], [place], [address], 8 14:30:42 BMP, serum or plasma 2016 017 [email or web address] [facility] (Centralized Electronic Ordering - All Locations), Patient Can Go To The Location Of Their Choice, [id number] 8 11:09:35 lipid panel, serum 2016 017 [email or web address] [facility] (Centralized Electronic Ordering - All Locations), Patient Can Go To The Location Of Their Choice, [id number] 8 11:09:35 ALT (pamela august), serum or plasma 2016 017 [email or web address] [facility] (Centralized Electronic Ordering - All Locations), Patient Can Go To The Location Of Their Choice, [id number] 8 11:09:35 TSH, serum or plasma 2016 017 [email or web address] [facility] (Centralized Electronic Ordering - All Locations), Patient Can Go To The Location Of Their Choice, [id number] 8 11:09:34 CBC w/ auto diff 2016 017 [email or web address] [facility] (Centralized Electronic Ordering - All Locations), Patient Can Go To The Location Of Their Choice, [id number] 8 11:09:35 Referral nutrit ionist /sauli karan referr al 2017 018 [email or web address] Not available 8 10:13:38 physic al therap ist referr al - Please see for BPPV 2016 017 [email or web address] [facility] [place], [address] [place] [address], [address], [place], [address], 8 15:21:26 nutrit ionist /dieti karan referr al 2016 017 [email or web address] Not available 7 09:30:22 Procedures None record ed. Surgeries None record ed. Imaging None record ed. Medication Orders omepra zole 20 mg capsul christina manzano e 2017 018 [facility], [address] [place] [address], [place], [address], 8 09:47:43 Patient TargetsNo targets recorded. Patient Instructions Encounter Date Encounter Id Patient Instructions Last Modified By Organization Details Last Modified Time 10/21/2017 [id number] When You Want to Lose Weight: Care Instructions [email or web address] Not available 10/21/2017 09:26:49 Nutrition Referr al and Weight Management Follow-up Information [email or web address] Not available 10/21/2017 09:30:15 high blood press ure: care instructions [email or web address] Not available 10/21/2017 09:26:49 learning about h igh blood pressure [email or web address] Not available 10/21/2017 09:26:49 obsessive-compul sive disorder: care instructions [email or web address] Not available 10/21/2017 09:26:49 10/27/2017 [id number] benign paroxysma l positional vertigo (bppv): care instructions [email or web address] Not available 10/27/2017 16:34:30 04/27/2018 [id number] patellofemoral p ain syndrome (runner's knee): exercises [facility] Not available 04/27/2018 09:26:19 patellofemoral p ain syndrome: care instructions [facility] Not available 04/27/2018 09:26:18 high blood press ure: care instructions [email or web address] Not available 04/27/2018 09:26:18 learning about h igh blood pressure [email or web address] Not available 04/27/2018 09:26:19 05/18/2018 [id number] high cholesterol : care instructions Not available 05/18/2018 14:06:24 heart-healthy di et: care instructions Not available 05/18/2018 14:06:24 prediabetes: car e instructions Not available 05/18/2018 13:43:06 mediterranean diet Not availab le 05/18/2018 13:43:06 11/16/2018 [id number] gastroesophageal reflux disease (GERD): care instructions [email or web address] Not available 11/16/2018 09:47:43 high cholesterol : care instructions [facility] Not available 11/16/2018 09:55:59 high blood press ure: care instructions [facility] Not available 11/16/2018 09:55:59 learning about h igh blood pressure pheuth Not available 11/16/2018 09:55:59 When You Want to Lose Weight: Care Instructions [facility] Not available 11/16/2018 09:46:30 Nutrition Referr al and Weight Management Follow-up Information [facility] Not available 11/16/2018 09:46:30 Reason for Referral Medical Practice Assistant/dietitian Refer ral for Body mass index 25-29 - overweight Referring Physician: Nixon Hernandez, Internal Medicine, Encounter Date: 10/21/2017 Please see for BPPV Referring Physician: Nixon Hernandez, Internal Medicine, Encounter Date: 10/27/2017 Medical Practice Assistant/dietitian Refer ral for Body mass index 25-29 - overweight Referring Physician: Nixon Hernandez, Internal Medicine, Encounter Date: 11/16/2018 Results Created Date Observation Date Name Description Value Unit Range Abnormal Flag Note LastModifiedBy Organization Detail LastModifiedTime 04/27/2004/27/2018 CBC w/ auto diff WBC 4.5 K/mm3 (4.0-1 1.0) Not Available [facility] (Centralized Electronic Ordering - All Locations) Patient Can Go To The Location Of Their Choice, [id number] 04/27/2018 14:30:42 04/27/2004/27/2018 CBC w/ auto diff RBC 4.69 M/mm3 (4.70- 6.10) low Not Available [facility] (Centralized Electronic Ordering - All Locations) Patient Can Go To The Location Of Their Choice, [id number] 04/27/2018 14:30:42 04/27/2004/27/2018 CBC w/ auto diff HGB 13.8 gm/dL (13.7- 16.5) Effec tive April 10 18, refer ence range s for HGB and HCT have been updat ed. Not Available [facility] (Centralized Electronic Ordering - All Locations) Patient Can Go To The Location Of Their Choice, [id number] 04/27/2018 14:30:42 04/27/20 18 04/27/2018 CBC w/ auto diff HCT 42.1 % (40.5- 48.5) Effec tive April 10, 18, refer ence range s for HGB and HCT have been updat ed. Not Available [facility] (Centralized Electronic Ordering - All Locations) Patient Can Go To The Location Of Their Choice, 04/27/2018 14:30:42 04/27/2004/27/2018 CBC w/ auto diff MCV 89.8 fL (80.0- 94.0) Not Available [facility] (Centralized Electronic Ordering - All Locations) Patient Can Go To The Location Of Their Choice, 04/27/2018 14:30:42 04/27/2004/27/2018 CBC w/ auto diff MCH 29.4 pg (27.0- 34.0) Not Available [facility] (Centralized Electronic Ordering - All Locations) Patient Can Go To The Location Of Their Choice, 04/27/2018 14:30:42 04/27/2004/27/2018 CBC w/ auto diff MCHC 32.8 g/dL (33.0- 37.0) low Not Available [facility] (Centralized Electronic Ordering - All Locations) Patient Can Go To The Location Of Their Choice, 04/27/2018 14:30:42 04/27/2004/27/2018 CBC w/ auto diff plt 165 K/mm3 (150-4 60) Not Available [facility] (Centralized Electronic Ordering - All Locations) Patient Can Go To The Location Of Their Choice, 04/27/2018 14:30:42 04/27/2004/27/2018 CBC w/ auto diff RDW-SD 41.9 fL (<47.0 ) Not Available [facility] (Centralized Electronic Ordering - All Locations) Patient Can Go To The Location Of Their Choice, 04/27/2018 14:30:42 04/27/2004/27/2018 CBC w/ auto diff MPV 12.2 fL (9.4-1 2.4) Not Available [facility] (Centralized Electronic Ordering - All Locations) Patient Can Go To The Location Of Their Choice, 04/27/2018 14:30:42 04/27/2004/27/2018 CBC w/ auto diff automated NRBC 0.0 #/100 _WBC' s Not Available [facility] (Centralized Electronic Ordering - All Locations) Patient Can Go To The Location Of Their Choice, 04/27/2018 14:30:42 04/27/2004/27/2018 CBC w/ auto diff abs. NRBC 0.0 K/mm3 Not Available [facility] (Centralized Electronic Ordering - All Locations) Patient Can Go To The Location Of Their Choice, 04/27/2018 14:30:42 04/27/2004/27/2018 CBC w/ auto diff neut # 2.7 K/mm3 (1.3-7 .0) Not Available [facility] (Centralized Electronic Ordering - All Locations) Patient Can Go To The Location Of Their Choice, 04/27/2018 14:30:42 04/27/2004/27/2018 CBC w/ auto diff lymph # 1.3 K/mm3 (0.8-3 .1) Not Available [facility] (Centralized Electronic Ordering - All Locations) Patient Can Go To The Location Of Their Choice, 04/27/2018 14:30:42 04/27/2004/27/2018 CBC w/ auto diff mono# 0.4 K/mm3 (0.4-1 .3) Not Available [facility] (Centralized Electronic Ordering - All Locations) Patient Can Go To The Location Of Their Choice, 04/27/2018 14:30:42 04/27/2004/27/2018 CBC w/ auto diff eo # 0.1 K/mm3 (0.0-0 .4) Not Available [facility] (Centralized Electronic Ordering - All Locations) Patient Can Go To The Location Of Their Choice, 04/27/2018 14:30:42 04/27/2004/27/2018 CBC w/ auto diff baso # 0.0 K/mm3 (0.0-0 .1) Not Available [facility] (Centralized Electronic Ordering - All Locations) Patient Can Go To The Location Of Their Choice, 04/27/2018 14:30:42 04/27/2004/27/2018 CBC w/ auto diff abs. imm gran 0.0 K/mm3 Not Available [facility] ([facility] Ordering - All Locations) Patient Can Go To The Location Of Their Choice, 04/27/2018 14:30:42 04/27/20 18 04/27/2018 CBC w/ auto diff neut 60.1 % (44-76 ) Not Available [facility] (Centralized Electronic Ordering - All Locations) Patient Can Go To The Location Of Their Choice, 04/27/2018 14:30:42 04/27/20 18 04/27/2018 CBC w/ auto diff lymph 27.8 % (15-43 ) Not Available [facility] (Centralized Electronic Ordering - All Locations) Patient Can Go To The Location Of Their Choice, 04/27/2018 14:30:42 04/27/20 18 04/27/2018 CBC w/ auto diff monocyte 8.1 % (4.5-1 0.5) Not Available [facility] (Centralized Electronic Ordering - All Locations) Patient Can Go To The Location Of Their Choice, 04/27/2018 14:30:42 04/27/20 18 04/27/2018 CBC w/ auto diff eo 2.4 % (0-6) Not Available [facility] (Centralized Electronic Ordering - All Locations) Patient Can Go To The Location Of Their Choice, 04/27/2018 14:30:42 04/27/20 18 04/27/2018 CBC w/ auto diff baso 0.9 % (0-2) Not Available [facility] (Centralized Electronic Ordering - All Locations) Patient Can Go To The Location Of Their Choice, 04/27/2018 14:30:42 04/27/20 18 04/27/2018 CBC w/ auto diff imm gran 0.7 % (0.0-0 .6) high Not Available [facility] (Centralized Electronic Ordering - All Locations) Patient Can Go To The Location Of Their Choice, 04/27/2018 14:30:42 04/27/20 18 04/27/2018 BMP, serum or plasm a glucose 117 mg/dL (70-99 ) high Not Available [facility] (Centralized Electronic Ordering - All Locations) Patient Can Go To The Location Of Their Choice, 04/27/2018 15:39:41 04/27/2004/27/2018 BMP, serum or plasm a BUN 18 mg/dL (6-20) Not Available [facility] (Centralized Electronic Ordering - All Locations) Patient Can Go To The Location Of Their Choice, 04/27/2018 15:39:41 04/27/20 18 04/27/2018 BMP, serum or plasm a creatinine 0.9 mg/dL (0.7-1 .2) Not Available [facility] (Centralized Electronic Ordering - All Locations) Patient Can Go To The Location Of Their Choice, 04/27/2018 15:39:41 04/27/2004/27/2018 BMP, serum or plasm a sodium 142 mmol/ L (133-1 45) Not Available [facility] (Centralized Electronic Ordering - All Locations) Patient Can Go To The Location Of Their Choice, 04/27/2018 15:39:41 04/27/2004/27/2018 BMP, serum or plasm a potassium 4.4 mmol/ L (3.6-5 .2) Not Available [facility] (Centralized Electronic Ordering - All Locations) Patient Can Go To The Location Of Their Choice, 04/27/2018 15:39:41 04/27/2004/27/2018 BMP, serum or plasm a chloride 101 mmol/ L (98-10 7) Not Available [facility] (Centralized Electronic Ordering - All Locations) Patient Can Go To The Location Of Their Choice, 04/27/2018 15:39:41 04/27/2004/27/2018 BMP, serum or plasm a bicarbonate 30 mmol/ L (22-29 ) high Not Available [facility] (Centralized Electronic Ordering - All Locations) Patient Can Go To The Location Of Their Choice, 04/27/2018 15:39:41 04/27/2004/27/2018 BMP, serum or plasm a anion gap 11 (4-17) Not Available [facility] (Centralized Electronic Ordering - All Locations) Patient Can Go To The Location Of Their Choice, 04/27/2018 15:39:41 04/27/2004/27/2018 BMP, serum or plasm a calcium 9.7 mg/dL (8.6-1 0.5) Not Available [facility] (Centralized Electronic Ordering - All Locations) Patient Can Go To The Location Of Their Choice, 04/27/2018 15:39:41 04/27/2004/27/2018 BMP, serum or plasm a est GFR [...] [place] [employer] [employer]. Not Available [facility] (Centralized Electronic Ordering - All Locations) Patient Can Go To The Location Of Their Choice, 04/27/2018 15:39:41 04/27/2004/27/2018 BMP, serum or plasm a est GFR [...] [employer]. Not Available [facility] (Centralized Electronic Ordering - All Locations) Patient Can Go To The Location Of Their Choice, 04/27/2018 15:39:41 04/27/2004/27/2018 lipid panel , serum cholesterol, total 192 mg/dL (<200) Not Available [facility] ([facility] Ordering - All Locations) Patient Can Go To The Location Of Their Choice, 04/27/2018 15:39:42 04/27/2004/27/2018 lipid panel , serum triglyceride 410 mg/dL (<150) high Not Available [facility] ([facility] Order[facility] - All Locations) Patient Can Go To The Location Of Their Choice, 04/27/2018 15:39:42 04/27/2004/27/2018 lipid panel , serum HDL chol 30 mg/dL (>39) low Not Available [facility] (Centralized Electronic Ordering - All Locations) Patient Can Go To The Location Of Their Choice, 04/27/2018 15:39:42 04/27/2004/27/2018 lipid panel , serum LDL cholesterol, calculated mg/dL (0-130 ) LDL NEHA STERO L NOT CALCU LATED WHEN TRIGL YCERI SRIKANTH ARE GREAT ER THAN OR EQUAL TO 400 MG/DL . Not Available [facility] (Centralized Electronic Ordering - All Locations) Patient Can Go To The Location Of Their Choice, [id number] 04/27/2018 15:39:42 04/27/2004/27/2018 lipid panel , serum non HDL cholesterol (calc) 162 mg/dL (<160) high Not Available [facility] ([facility] Ordering - All Locations) Patient Can Go To The Location Of Their Choice, [id number] 04/27/2018 15:39:42 04/27/2004/27/2018 TSH, serum or plasm a TSH 1.28 mIU/m L (0.40- 4.00) Not Available [facility] (Centralized Electronic Ordering - All Locations) Patient Can Go To The Location Of Their Choice, [id number] 04/27/2018 15:55:52 04/27/2004/29/2018 HbA1c (hemo globi n A1c), blood hemoglobin A1C, (diagnostic) 5.7 % (0-5.6 ) high INCRE ASED RISK FOR DIABE HAROON MELLI TUS. DIABE HAROON CARE, VOLUM E 33, SUPPL EMENT 1, DARIAN RY,20 10 Hemog lobin (Hb) A1c testi [...] anil % Hb A1c. Not Available [facility] (Centralized Electronic Ordering - All Locations) Patient Can Go To The Location Of Their Choice, [id number] 04/29/2018 09:22:49 11/16/20 18 11/16/2018 BMP, serum or plasm a glucose 108 mg/dL (70-99 ) high Not Available [facility] (Centralized Electronic Ordering - All Locations) Patient Can Go To The Location Of Their Choice, [id number] 11/16/2018 11:07:04 11/16/20 18 11/16/2018 BMP, serum or plasm a BUN 21 mg/dL (6-20) high Not Available [facility] (Centralized Electronic Ordering - All Locations) Patient Can Go To The Location Of Their Choice, [id number] 11/16/2018 11:07:04 11/16/20 18 11/16/2018 BMP, serum or plasm a creatinine 1.1 mg/dL (0.7-1 .2) Not Available [facility] (Centralized Electronic Ordering - All Locations) Patient Can Go To The Location Of Their Choice, [id number] 11/16/2018 11:07:04 11/16/20 18 11/16/2018 BMP, serum or plasm a sodium 140 mmol/ L (133-1 45) Not Available [facility] ([facility]ized Electronic Ordering - All Locations) Patient Can Go To The Location Of Their Choice, [id number] 11/16/2018 11:07:04 11/16/20 18 11/16/2018 BMP, serum or plasm a potassium 3.8 mmol/ L (3.6-5 .2) Not Available [facility] (Centralized Electronic Ordering - All Locations) Patient Can Go To The Location Of Their Choice, [id number] 11/16/2018 11:07:04 11/16/20 18 11/16/2018 BMP, serum or plasm a chloride 97 mmol/ L (98-10 7) low Not Available [facility] (Centralized Electronic Ordering - All Locations) Patient Can Go To The Location Of Their Choice, [id number] 11/16/2018 11:07:04 11/16/20 18 11/16/2018 BMP, serum or plasm a bicarbonate 30 mmol/ L (22-29 ) high Not Available [facility] (Centralized Electronic Ordering - All Locations) Patient Can Go To The Location Of Their Choice, [id number] 11/16/2018 11:07:04 11/16/20 18 11/16/2018 BMP, serum or plasm a anion gap 13 (4-17) Not Available [facility] (Centralized Electronic Ordering - All Locations) Patient Can Go To The Location Of Their Choice, [id number] 11/16/2018 11:07:04 11/16/20 18 11/16/2018 BMP, serum or plasm a calcium 10.0 mg/dL (8.6-1 0.5) Not Available [facility] ([facility]ized Electronic Ordering - All Locations) Patient Can Go To The Location Of Their Choice, [id number] 11/16/2018 11:07:04 11/16/20 18 11/16/2018 BMP, serum [...] [employer]. Not Available [facility] (Centralized Electronic Ordering - All Locations) Patient Can Go To The Location Of Their Choice, [id number] 11/16/2018 11:07:04 11/16/20 18 11/16/2018 BMP, serum [...] [employer]. Not Available [facility] (Centralized Electronic Ordering - All Locations) Patient Can Go To The Location Of Their Choice, [id number] 11/16/2018 11:07:04 11/16/20 18 11/16/2018 lipid panel , serum cholesterol, total 215 mg/dL (<200) high Not Available [facility] ([facility] Order[facility] - All Locations) Patient Can Go To The Location Of Their Choice, [id number] 11/16/2018 11:07:05 11/16/20 18 11/16/2018 lipid panel , serum triglyceride 297 mg/dL (<150) high Not Available [facility] ([facility] Order[facility] - All Locations) Patient Can Go To The Location Of Their Choice, [id number] 11/16/2018 11:07:05 11/16/20 18 11/16/2018 lipid panel , serum HDL chol 38 mg/dL (>39) low Not Available [facility] ([facility]ized Electronic Ordering - All Locations) Patient Can Go To The Location Of Their Choice, [id number] 11/16/2018 11:07:05 11/16/20 18 11/16/2018 lipid panel , serum LDL cholesterol, calculated 118 mg/dL (0-130 ) Not Available [facility] ([facility]ized [facility] Ordering - All Locations) Patient Can Go To The Location Of Their Choice, [id number] 11/16/2018 11:07:05 11/16/20 18 11/16/2018 lipid panel , serum non HDL cholesterol (calc) 177 mg/dL (<160) high Not Available [facility] ([facility] Order[facility] - All Locations) Patient Can Go To The Location Of Their Choice, [id number] 11/16/2018 11:07:05 11/16/20 18 11/16/2018 HbA1c (hemo [...] in Hb A1c (%). Not Available [facility] ([facility]ized [facility] Ordering - All Locations) Patient Can Go To The Location Of Their Choice, [id number] 11/16/2018 13:52:45 11/16/20 18 11/16/2018 hemog lobin A1C, finge rstic k HA1C 5.4 % 4-6 Not Available In-Office Order Internal Use Only DO Not Attach Compendium DO Not Attach Compendium, Do Not Delete/merge, [id number] 11/16/2018 09:36:28 10/01/2010/01/2019 HbA1c (hemo globi n A1c), blood hemoglobin [...] in Hb A1c (%). Not Available [facility] ([facility]ized Electronic Ordering - All Locations) Patient Can Go To The Location Of Their Choice, 10/01/2019 18:42:09 10/01/2010/01/2019 BMP, serum or plasm a glucose 89 mg/dL (70-99 ) Not Available [facility] ([facility]ized Electronic Ordering - All Locations) Patient Can Go To The Location Of Their Choice, 10/01/2019 18:45:16 10/01/20 19 10/01/2019 BMP, serum or plasm a BUN 14 mg/dL (6-20) Not Available [facility] ([facility]ized Electronic Ordering - All Locations) Patient Can Go To The Location Of Their Choice, 10/01/2019 18:45:16 10/01/20 19 10/01/2019 BMP, serum or plasm a creatinine 1.0 mg/dL (0.7-1 .2) Not Available [facility] ([facility]ized Electronic Ordering - All Locations) Patient Can Go To The Location Of Their Choice, 10/01/2019 18:45:16 10/01/20 19 10/01/2019 BMP, serum or plasm a sodium 142 mmol/ L (133-1 45) Not Available [facility] (Centralized Electronic Ordering - All Locations) Patient Can Go To The Location Of Their Choice, 10/01/2019 18:45:16 10/01/20 19 10/01/2019 BMP, serum or plasm a potassium 4.2 mmol/ L (3.6-5 .2) Not Available [facility] ([facility]ized Electronic Ordering - All Locations) Patient Can Go To The Location Of Their Choice, 10/01/2019 18:45:16 10/01/20 19 10/01/2019 BMP, serum or plasm a chloride 101 mmol/ L (98-10 7) Not Available [facility] ([facility]ized Electronic Ordering - All Locations) Patient Can Go To The Location Of Their Choice, 10/01/2019 18:45:16 10/01/20 19 10/01/2019 BMP, serum or plasm a bicarbonate 30 mmol/ L (22-29 ) high Not Available [facility] ([facility]ized Electronic Ordering - All Locations) Patient Can Go To The Location Of Their Choice, 10/01/2019 18:45:16 10/01/20 19 10/01/2019 BMP, serum or plasm a anion gap 11 (4-17) Not Available [facility] ([facility]ized Electronic Ordering - All Locations) Patient Can Go To The Location Of Their Choice, 10/01/2019 18:45:16 10/01/20 19 10/01/2019 BMP, serum or plasm a calcium 9.8 mg/dL (8.6-1 0.5) Not Available [facility] ([facility]ized Electronic Ordering - All Locations) Patient Can Go To The Location Of Their Choice, 10/01/2019 18:45:16 10/01/2010/01/2019 BMP, serum or plasm a est GFR [...] [employer]. Not Available [facility] ([facility]ized Electronic Ordering - All Locations) Patient Can Go To The Location Of Their Choice, 10/01/2019 18:45:16 10/01/20 19 10/01/2019 BMP, serum or plasm a est GFR 99 mL/mi n/1.7 3_M2 Creat inine based estim ated glome rular filtr ation rate (eGFR ) is calcu lated using the Chron ic Kidne y Disea se Epide shane gy Timbo gutierrez (CKD- EPI). The CKD-E PI brandy jay ion has not been valid ated in child sharri (<18 years ), pregn ant women or in some racia l or ethni c subgr oups other than Cauca sians and Afric an Ameri cans. Not Available [facility] (Centralized Electronic Ordering - All Locations) Patient Can Go To The Location Of Their Choice, 10/01/2019 18:45:16 10/01/2010/01/2019 lipid panel , serum cholesterol, total 208 mg/dL (<200) high Not Available [facility] ([facility] Order[facility] - All Locations) Patient Can Go To The Location Of Their Choice, 10/01/2019 18:45:17 10/01/2010/01/2019 lipid panel , serum triglyceride 91 mg/dL (<150) Not Available [facility] ([facility] Order[facility] - All Locations) Patient Can Go To The Location Of Their Choice, 10/01/2019 18:45:17 10/01/2010/01/2019 lipid panel , serum HDL chol 47 mg/dL (>39) Not Available [facility] ([facility]ized Electronic Ordering - All Locations) Patient Can Go To The Location Of Their Choice, 10/01/2019 18:45:17 10/01/2010/01/2019 lipid panel , serum LDL cholesterol, calculated 143 mg/dL (0-130 ) high Not Available [facility] (Centralized Electronic Ordering - All Locations) Patient Can Go To The Location Of Their Choice, 10/01/2019 18:45:17 10/01/2010/01/2019 lipid panel , serum non HDL cholesterol (calc) 161 mg/dL (<160) high Not Available [facility] ([facility] Order[facility] - All Locations) Patient Can Go To The Location Of Their Choice, 10/01/2019 18:45:17 10/01/20 19 10/01/2019 lipid panel , serum cholesterol, total 208 mg/dL (<200) high Not Available [facility] ([facility] Ordering - All Locations) Patient Can Go To The Location Of Their Choice, 10/01/2019 18:45:25 10/01/20 19 10/01/2019 lipid panel , serum triglyceride 91 mg/dL (<150) Not Available [facility] ([facility] Order[facility] - All Locations) Patient Can Go To The Location Of Their Choice, [id number] 10/01/2019 18:45:25 10/01/20 19 10/01/2019 lipid panel , serum HDL chol 47 mg/dL (>39) Not Available [facility] ([facility]ized Electronic Ordering - All Locations) Patient Can Go To The Location Of Their Choice, [id number] 10/01/2019 18:45:25 10/01/20 19 10/01/2019 lipid panel , serum LDL cholesterol, calculated 143 mg/dL (0-130 ) high Not Available [facility] (Centralized Electronic Ordering - All Locations) Patient Can Go To The Location Of Their Choice, [id number] 10/01/2019 18:45:25 10/01/20 19 10/01/2019 lipid panel , serum non HDL cholesterol (calc) 161 mg/dL (<160) high Not Available [facility] (Centralized Electronic Ordering - All Locations) Patient Can Go To The Location Of Their Choice, [id number] 10/01/2019 18:45:25 10/21/20 17 10/22/2012 XR, abdom en + pelvi s No observ ation record ed. BARCODE Not Available 2016 12:48:22 Result Notes None recorded. Problems Name Problem SNOMED Code Status Onset Date Resolution Date Notes Provider Name and Address Organization Details Recorded Time Abdomina l pain 07964420 Completed 201206/07/2014 IMPRESSI ON: UNCLEAR CAUSE OF PAIN. NO ACUTE ABDOMEN BASED ON CT. MAYBE MILD PANCREAT ITIS. WILL CHECK AMYLASE. HE DRINKS 12 DRINKS A WEEK. NO HX ALCOHOLI SM.; RECORDED 04/02/20 13 10:12AM BY ANANYA ESTRELLA MA, ANNOTATI ON/ADDEN DUM Not Available [facility] 4 15:14:10 Abnormal findings diagnost ic imaging of liver+bi liary tract 760060492 Completed 201206/07/2014 IMPRESSI ON: THIS MAY JUST BE INCIDENT AL FINDING. NOT SURE IF CAUSE OF HIS PAIN. GI NEXT WEEK FOR FURTHER W/U; RECORDED 04/02/20 13 10:12AM BY ANANYA ESTRELLA MA, ANNOTATI ON/ADDEN DUM Not Available [facility] 4 15:14:10 Acute sinusiti s 05159113 Completed 200806/07/2014 RECORDED 02/03/20 09 7:20AM BY ANANYA ESTRELLA MA, ANNOTATI ON/ADDEN DUM Not Available [facility] 4 15:14:10 Anemia 963530022 Active 2013 LATASHA Sosa, [facility] 6 09:09:29 Adult health examinat ion Active 2013 LATASHA Sosa, [facility] 6 09:09:26 Anxiety disorder 785485121 Active 2013 LATASHA Sosa, [facility] 6 09:09:20 Diarrhea of presumed infectio us origin 78238404 Completed 201106/07/2014 RECORDED 10/23/20 12 9:37AM BY ANANYA ESTRELLA MA, ANNOTATI ON/ADDEN DUM Not Available [facility] 4 15:14:11 Dysuria 65524391 Completed 200706/07/2014 RECORDED 11/14/20 08 9:53AM BY LATASHA DELVALLE, REGGIEATI ON/ADDEN DUM Not Available [facility] 4 15:14:11 Essentia l hyperten candace 16306271 Active 2013 LATASHA Sosa, [facility] 6 09:09:46 Respirat ory finding 133420257 Completed 201306/07/2014 RECORDED 12/03/19 14 1:12PM BY ROXY MICHELE MA, ANNOTATI ON/ADDEN DUM Not Available [facility] 4 15:14:11 Malaise and fatigue 735143208 Completed 201106/07/2014 RECORDED 10/23/20 12 9:37AM BY ANANYA ESTRELLA MA, NATALYA ON/ADDEN DUM Not Available [facility] 4 15:14:11 Influenz a vaccine needed [id number] 06 Completed 201206/07/2014 RECORDED 04/02/20 13 10:12AM BY ANANYA ESTRELLA MA, ANNOTNAVEEN ON/ADDEN DUM Not Available [facility] 4 15:14:11 General examinat ion of patient Completed 200706/07/2014 RESOLVED DATE: 07/14/20 08; RECORDED 07/14/20 08 3:43PM BY NATALYA MONTES ON/ADDEN DUM Not Available [facility] 4 15:14:11 Hyperlip idemia 15299896 Active 2013 LATASHA Sosa, [facility] 6 09:09:40 Essentia l hyperten candace 92949065 Completed 201206/07/2014 RECORDED 05/21/20 13 12:30PM BY ANANYA ESTRELLA MA, ANNOTNAVEEN ON/ADDEN DUM LATASHA Sosa, [facility] 6 09:09:46 Insomnia 886825834 Active 2013 LATASHA Sosa, [facility] 6 09:09:11 Laborato ry procedur e performe d 641732795 Completed 201206/07/2014 RECORDED 04/02/20 13 10:11AM BY ANANYA ESTRELLA MA, REGGIEATI ON/ADDEN DUM Not Available [facility] 4 15:14:11 Administ ration of bacteria l and viral vaccine Completed 200706/07/2014 RECORDED 07/14/20 08 3:34PM BY DEBBIE ESTRELLA, OFFICE VISIT Not Available [facility] 4 15:14:11 Patient status finding 772732740 Completed 201310/18/2016 RECORDED 12/03/19 14 1:12PM BY ROXY MICHELE MA, OFFICE VISIT LATASHA Sosa, [facility] 6 09:09:03 Elevated level of transami nase and lactic acid dehydrog enase 617563716 Completed 201106/07/2014 RECORDED 10/23/20 12 9:37AM BY ANANYA ESTRELLA MA, ANNOTNAVEEN ON/ADDEN DUM Not Available [facility] 4 15:14:12 Osteoart hritis of hip 637549923 Active 2013 LATASHA Sosa, [facility] 6 09:09:23 Disorder of bursa of shoulder region 49697029 Active 2013 LATASHA Sosa, [facility] 6 09:09:43 Disorder of skin 90733710 Completed 201306/07/2014 RECORDED 12/03/19 14 1:12PM BY ROXY MICHELE MA, ANNOTATI ON/ADDEN DUM Not Available [facility] 4 15:14:12 Dermatop hytosis of the perianal area Completed 201106/07/2014 RECORDED 10/23/20 12 9:37AM BY ANANYA ESTRELLA MA, ANNOTATI ON/ADDEN DUM Not Available [facility] 4 15:14:12 Visual disturba nce 21848682 Completed 201106/07/2014 RECORDED 10/23/20 12 9:37AM BY ANANYA ESTRELLA MA, ANNOTATI ON/ADDEN DUM Not Available [facility] 4 15:14:12 Urinary system finding 026978774 Completed 201106/07/2014 RECORDED 10/23/20 12 9:36AM BY ANANYA ESTRELLA MA, ANNOTATI ON/ADDEN DUM Not Available [facility] 4 15:14:12 Abdomina l pain 93936649 Completed 201206/27/2014 IMPRESSI ON: UNCLEAR CAUSE OF PAIN. NO ACUTE ABDOMEN BASED ON CT. MAYBE MILD PANCREAT ITIS. WILL CHECK AMYLASE. HE DRINKS 12 DRINKS A WEEK. NO HX ALCOHOLI SM.; RECORDED 04/02/20 13 10:12AM BY ANANYA ESTRELLA MA, NATALYA ON/ADDEN DUM Not Available [facility] 4 06:00:33 Abnormal findings diagnost ic imaging of liver+bi liary tract 507315126 Completed 201206/27/2014 IMPRESSI ON: THIS MAY JUST BE INCIDENT AL FINDING. NOT SURE IF CAUSE OF HIS PAIN. GI NEXT WEEK FOR FURTHER W/U; RECORDED 04/02/20 13 10:12AM BY ANANYA ESTRELLA MA, NATALYA ON/ADDEN DUM Not Available [facility] 4 06:00:33 Acute sinusiti s 26755882 Completed 200806/27/2014 RECORDED 02/03/20 09 7:20AM BY ANANYA ESTRELLA MA, NATALYA ON/ADDEN DUM Not Available [facility] 4 06:00:33 Diarrhea of presumed infectio us origin 66912062 Completed 201106/27/2014 RECORDED 10/23/20 12 9:37AM BY ANANYA ESTRELLA MA, REGGIEATI ON/ADDEN DUM Not Available [facility] 4 06:00:33 Dysuria 68458147 Completed 200706/27/2014 RECORDED 11/14/20 08 9:53AM BY NATALYA CASTRO ON/ADDEN DUM Not Available [facility] 4 06:00:33 Respirat ory finding 784472843 Completed 201306/27/2014 RECORDED 12/03/19 14 1:12PM BY ROXY MICHELE MA, NATALYA ON/ADDEN DUM Not Available [facility] 4 06:00:33 Malaise and fatigue 239904278 Completed 201106/27/2014 RECORDED 10/23/20 12 9:37AM BY ANANYA ESTRELLA MA, NATALYA ON/ADDEN DUM Not Available [facility] 4 06:00:33 Influenz a vaccine needed 37479310285 06 Completed 201206/27/2014 RECORDED 04/02/20 13 10:12AM BY ANANYA ESTRELLA MA, NATALYA ON/ADDEN DUM Not Available [facility] 4 06:00:33 General examinat ion of patient Completed 200706/27/2014 RESOLVED DATE: 07/14/20 08; RECORDED 07/14/20 08 3:43PM BY NATALYA MONTES ON/ADDEN DUM Not Available [facility] 4 06:00:33 Laborato ry procedur e performe d 618776457 Completed 201206/27/2014 RECORDED 04/02/20 13 10:11AM BY ANANYA ESTRELLA MA, NATALYA ON/ADDEN DUM Not Available [facility] 4 06:00:33 Administ ration of bacteria l and viral vaccine Completed 200706/27/2014 RECORDED 07/14/20 08 3:34PM BY DEBBIE ESTRELLA, OFFICE VISIT Not Available [facility] 4 06:00:33 Elevated level of transami nase and lactic acid dehydrog enase 020964068 Completed 201106/27/2014 RECORDED 10/23/20 12 9:37AM BY ANANYA ESTRELLA MA, NATALYA ON/ADDEN DUM Not Available [facility] 4 06:00:33 Disorder of skin 29520482 Completed 201306/27/2014 RECORDED 12/03/19 14 1:12PM BY ROXY MICHELE MA, NATALYA ON/ADDEN DUM Not Available [facility] 4 06:00:33 Dermatop hytosis of the perianal area Completed 201106/27/2014 RECORDED 10/23/20 12 9:37AM BY ANANYA ESTRELLA MA, NATALYA ON/ADDEN DUM Not Available [facility] 4 06:00:33 Visual disturba ore 66867279 Completed 201106/27/2014 RECORDED 10/23/20 12 9:37AM BY ANANYA ESTRELLA MA, ANNOTATI ON/ADDEN DUM Not Available [facility] 4 06:00:33 Urinary system finding 306049169 Completed 201106/27/2014 RECORDED 10/23/20 12 9:36AM BY ANANYA ESTRELLA MA, ANNOTATI ON/ADDEN DUM Not Available [facility] 4 06:00:33 Body mass index 25-29 - overweig ht 363174381 Active Nixon Hernandez MD [address], [place], [address] , [facility] 4 16:07:00 Gastroes ophageal reflux disease 874704387 Active Nixon Hernandez MD [address], [place], [address] , [facility] 5 14:23:28 Patellar tendonit is 21084247 Active Nixon Hernandez MD [address], [place], [address] , [facility] 5 14:23:28 Impacted cerumen 04897921 Active Nixon Hernandez MD [address], [place], [address] , [facility] 5 14:23:28 Wheezing symptom 423078446 Completed 10/18/2016 Ananya ellison MA null, [facility] 6 09:09:32 Hypersom ramon 62508104 Active Nixon Hernandez MD [address], [place], [address] , [facility] 6 09:29:57 Prediabe haroon 996160786 Active 2017 Nixon Hernandez MD [address], [place], [address] , [facility] 8 09:36:24 Mixed hyperlip idemia 815914238 Completed 201810/03/2019 Hina Hong PA-C [address], [place], [address] , [facility] 9 19:19:38 Problem Notes None recorded. Procedures Surgical History Date Name Laterality Status Provider Name and Address Organization Details Recorded Time 7 Colonoscopy completed Julissa Escobar [facility] 08/13/2017 11:18:24 6 Vasectomy completed Ata Sifuentes [facility] 10/21/2017 08:29:26 4 Eye Surgery completed Ata Sifuentes [facility] 10/21/2017 08:29:26 4 Other completed Ananya oquendo MA [facility] 08/26/2014 09:56:51 9 Hernia Repair completed Ata Sifuentes [facility] 10/21/2017 08:29:26 6 Circumcision completed Ata Sifuentes [facility] 10/21/2017 08:29:26 6 Hernia Repair completed Ata Sifuentes [facility] 10/21/2017 08:29:26 Imaging Results Imaging Date Name Status LastModified by Organiz ation Details LastModified Time 10/22/2012 XR, abdomen + pelvis completed BAR[facility] Information not available 10/21/2017 12:48:22 Procedure Notes None recorded. Medical Equipment None Reported. Allergies Allergen ID Allergen Name Allergen Category Reaction Reaction Severity Criticality Documentation Date Start Date Code Code System Note Provider Name and Address Organization Details Recorded Time 72530 erythromy tonio medicatio n Not available Not available Not available 05/31/20142013 4053 RxNorm [facility] an [facility] 5 08:58:50 Medications Name Sig [...] 11/05 completed RECORDED 11/05/20 12 2:59PM BY NATALYA INTERIANO ON/ADDYAO DUM; Not Available Not Available Not Available [...] 11/05 completed RECORDED 11/05/20 12 2:59PM BY NATALYA INTERIANO ON/ADDYAO DUM; Not Available Not Available Not Available Amoxil BID 12/04 completed RECORDED 01/10/20 09 6:50AM BY BRANDEN BOX MD, MEDICATI ON AUTO-YENY CTIVATIO N; Not Available Not Available Not Available Flucelvax Quad (PF) 60 mcg (15 mcg x 4)/0.5 mL IM syringe active Not Available Not Available Not Available Vitals Date Recorded Body height Body mass index (BMI) Body weight Heart rate Oxygen saturation Oxygen saturation in Arterial blood by Pulse oximetry Body temperature Systolic blood pressure Diastolic blood pressure Provider Name and Address Organization Details Last Updated DateTime 7 181.61 cm 29.2 kg/m2 88389.5 8 g 61 /min 97 % 97 % 97.4 [degF] 130 mm[Hg] 68 mm[Hg] Ata Sifuentes [facility] 7 08:42:46 Date Recorded Body height Body temperature Oxygen saturation Oxygen saturation in Arterial blood by Pulse oximetry Heart rate Body mass index (BMI) Body weight Systolic blood pressure Diastolic blood pressure Provider Name and Address Organization Details Last Updated DateTime 7 181.61 cm 98.3 [degF] 98 % 98 % 59 /min 29 kg/m2 27850.9 9 g 136 mm[Hg] 84 mm[Hg] Ananya shi MA [facility] 7 16:14:47 Date Recorded Body height Body mass index (BMI) Body weight Oxygen saturation Oxygen saturation in Arterial blood by Pulse oximetry Heart rate Body temperature Provider Name and Address Organization Details Last Updated DateTime 8 181.61 cm 28.7 kg/m2 63070.8 1 g 97 % 97 % 65 /min 97.7 [degF] Ananya shi MA [facility] 8 09:04:31 Date Recorded Systolic blood pressure Diastolic blood pressure Provider Name and Address Organization Details Last Updated DateTime 04/27/2018 122 mm[Hg] 76 mm[Hg] Nixon Hernandez MD [address], [address], [facility] 04/27/2018 09:26:05 Date Recorded Body height Body mass index (BMI) Body weight Heart rate Oxygen saturation Oxygen saturation in Arterial blood by Pulse oximetry Body temperature Systolic blood pressure Diastolic blood pressure Provider Name and Address Organization Details Last Updated DateTime 8 181.61 cm 26.7 kg/m2 10520.6 2 g 81 /min 98 % 98 % 98.7 [degF] 127 mm[Hg] 83 mm[Hg] Claudette Unger [facility] 8 13:04:48 Date Recorded Body height Body mass index (BMI) Body weight Heart rate Oxygen saturation Oxygen saturation in Arterial blood by Pulse oximetry Body temperature Systolic blood pressure Diastolic blood pressure Provider Name and Address Organization Details Last Updated DateTime 8 181.61 cm 26.4 kg/m2 69806.7 4 g 69 /min 98 % 98 % 98.7 [degF] 107 mm[Hg] 72 mm[Hg] Catina Grimm MA [facility] 8 09:22:39 Social History Question Answer Notes LastModified by Organizat ion Details LastModified Time Tobacco Smoking Status Never Smoker LATASHA Melo [facility] 08/26/2014 09:56:50 Do You Have An Advance [...] 08/26/2014 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 No Information not available 10/18/2016 Marital Status Inform ation not available 08/26/2014 What Was The Date Of Your Most Recent Tobacco Screening? 11/16/2018 Information not available 06/10/2019 Total Number Of Stairs In Home 15 Information not available 08/26/2014 How Many Children Do You Have? 1 Son (Evangelical) Information not available 09/22/2015 Do You Use [...] Cancer N Hypothyroidism N Lung Disease N Depression N COPD N Defects or Inherited Disease N Anesthesia [...] virus, quadrivalent, PF 6 completed Not Available [facility] 12/04/2019 02:22:07 Influenza, split virus, quadrivalent, PF 7 completed Not Available [facility] 12/04/2019 02:22:11 Tdap 06/11/201 8 completed Not Available [facility] 12/04/2019 02:21:48 Influenza, split virus, trivalent, PF 4 completed Not Available [facility] 12/04/2019 02:21:57 Influenza, split virus, quadrivalent, PF 8 completed Not Available [facility] 12/04/2019 02:22:15 Tdap 8 completed Not Available [facility] 05/31/2014 13:23:39 Influenza, split virus, trivalent, preservative 1 completed Not Available [facility] 05/31/2014 13:23:39 Influenza, split virus, trivalent, preservative 2 completed Not Available [facility] 05/31/2014 13:23:39 Past Encounters Encounter ID Performer Location Encounter Start Date Encounter Closed Date Diagnosis/Indication Diagnosis SNOMED-CT Code Diagnosis ICD10 Code Diagnosis Note [id number] autoEComm erce [address] [facility] [place] [address] 12/18/2007 00:00:00 [id number] autoEComm erce [address] [facility] [place] [address] 12/29/2007 00:00:00 [id number] autoEComm erce [address] [facility] [place] [address] 07/14/2008 00:00:00 [id number] autoEComm erce [address] [facility] [place] [address] 11/14/2008 00:00:00 [id number] autoEComm erce [address] [facility] [place] [address] 02/02/2009 00:00:00 [id number] autoEComm erce [address] [facility] [place] [address] 09/20/2009 00:00:00 [id number] autoEComm erce [address] [facility] [place] [address] 12/20/2009 00:00:00 [id number] autoEComm erce [address] [place] [place], [place] [address] 06/27/2010 00:00:00 [id number] autoEComm erce [address] [facility] [place], LAT[place] [address] 01/08/2011 00:00:00 [id number] autoEComm erce [address] [facility] [place], [place] [address] 10/23/2012 00:00:00 [id number] autoEComm erce [address] [facility] [place], [place] [address] 04/02/2013 00:00:00 [id number] autoEComm erce [address] [facility] [place], [place] [address] 05/21/2013 00:00:00 [id number] autoEComm erce [address] [facility] [place], [place] [address] 12/03/2013 00:00:00 [id number] Main Office [address] [address] [place] [address] 08/26/2014 09:40:18 08/26/2014 11:11:25 Adult health examination 132969503 Needs infl uenza immunization 138890106 Essential hypertension 61847294 Hyperlipidemia 35932055 Body mass index 25-29 - overweight 145811042 [id number] Main Office [address] [address] [place] [address] 03/17/2015 08:52:49 03/17/2015 09:27:02 Essential hypertension 41346453 [id number] Nixon Hernandez MD Main Office [address] [address] [place] [address] 09/22/2015 08:54:36 09/22/2015 10:36:06 Adult health examination 129619491 Z00.00 Essential hypertension 19812410 I10 Anxiety disorder 7731004 06 F41.9 Hyperlipidemia 54137667 E78.5 Gastroesop hageal reflux disease 147226500 K21.9 Patellar tendonitis 3778 5001 M76.50 Impacted cerumen 3257517 6 H61.22 Wheezing symptom 7543553 08 R06.2 [id number] Nixon Hernandez MD Main Office [address] [address] [place] [address] 03/29/2016 08:43:25 03/29/2016 09:32:19 Essential hypertension 64187096 I10 Family romina nning education 466624598 Z30.02 Hypersomnia 39177893 G47 .10 [id number] Nixon Hernandez MD Main Office [address] [address] [place] [address] 10/18/2016 09:00:30 10/18/2016 10:13:03 Adult health examination 503096825 Z00.00 Needs infl uenza immunization 956784043 Z23 Screening for malignant neoplasm of colon 498701684 Z12.11 Body mass index 25-29 - overweight 511048873 E66.3 Hyperlipidemia 17075839 E78.5 Fatigue 78036911 R53.83 Gastroesop hageal reflux disease 385660099 K21.9 [id number] Nixon Hernandez MD Main Office [address] [address] [place] [address] 04/25/2017 11:07:04 04/25/2017 11:49:25 Essential hypertension 72566875 I10 Hyperlipidemia 79931592 E78.5 Fatigue 97738631 R53.83 [id number] Nixon Hernandez MD Main Office [address] [address] [place] [address] 07/29/2017 14:58:39 07/29/2017 16:09:18 Needs influenza immunization 465723464 Z23 [id number] Nixon Hernandez MD Main Office [address] [address] [place] [address] 10/21/2017 08:26:02 10/21/2017 09:30:21 Adult health examination 316978723 Z00.00 Essential hypertension 20960683 I10 Hyperlipidemia 00152290 E78.5 Fatigue 74042858 R53.83 Body mass index 25-29 - overweight 242429672 E66.3 Z68.25 Obsessive- compulsive disorder 488371703 F42.9 Continue SSRI [id number] Nixon Hernandez MD Main Office [address] [address] [place] [address] 10/27/2017 15:55:29 10/27/2017 16:34:42 Benign paroxysmal positional vertigo 784405583 H81.10 [id number] Nixon Hernandez MD Main Office [address] [address] [place] [address] 04/27/2018 08:47:55 04/27/2018 09:33:18 Essential hypertension 79592968 I10 Administra tion of viral vaccine 26246349 Z23 Hyperlipidemia 56542978 E78.5 Fatigue 63974040 R53.83 Patellofem oral stress syndrome 048451134 M22.2X9 [id number] Nixon Hernandez MD Main Office [address] [address] [place] [address] 05/18/2018 13:01:09 05/18/2018 14:21:34 Prediabetes 568521649 R73.03 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 Mixed hyperlipidemia 267 258161 E78.2 recommend to recheck before next visit. Body mass index 25-29 - overweight 373408184 Z68.26 [id number] Nixon Hernandez MD Main Office [address] [address] [place] [address] 11/16/2018 09:12:04 11/16/2018 10:08:00 Adult health examination 319897241 Z00.00 Needs infl uenza immunization 358457254 Z23 Body mass index 25-29 - overweight 883744019 E66.3 Z68.25 Prediabetes 512114330 R7 3.03 Gastroesop hageal reflux disease 692030501 K21.9 Hyperlipidemia 54242323 E78.5 Essential hypertension 19098886 I10 Health Concerns Section Related Observation LastModified by Organization Detai ls LastModified Time None Recorded Concern Status LastModified by Organization Details LastModified Time None Recorded Advance Directives Directive Y: signed 03/17/2015 Payers Encounter Date Sequence Insurance Name Policy Number Policy Haynes Covered Member ID Haynes Member ID Guarantor Name 10/21/2017 1 [facility] (O) [id number] Yancy Nalepinski [id number] Yancy Nalepinski 10/27/2017 1 [facility] (PPO) [id number] 23 Yancy Nalepinski [id number] Yancy Nalepinski 04/27/2018 1 [facility] (O) [id number] 23 Yancy Nalepinski [id number] Yancy Nalepinski 05/18/2018 1 [facility] (O) [id number] 23 Yancy Nalepinski [id number] Yancy Nalepinski 11/16/2018 1 [facility] (O) [id number] 23 Yancy Nalepinski [id number] Yancy Nalepinski Notes Date Note Type Note [...] concerns about weight. Nixon Hernandez MD [address], [address], [facility] 10/21/2017 09:25:17 7 text/html DizzinessReported bypatient.Quality:symptoms worse in the evening (wakes occasionally from sleep) Severity:no effect on daily activities Duration:intermittent episodes lasting:; lasts <5 minutes Notes sensation of dizziness with spinning sensation for the past 4 days. Nixon Hernandez MD [address], [address], [facility] 10/27/2017 16:37:37 8 text/html Hypertension F/UReported bypatient.Associated [...] obvious injuryNotes:No obvious swelling Nixon Hernandez MD [address], [address], [facility] 04/27/2018 09:31:19 8 text/html Diabetes F/UReported bypatient.Context:normal [...] of 31. High cardiovasc. risk with early [place] in father at age 50. Pt. lost 15 lbs since April 27. Nixon Hernandez MD [address], [address], [facility] 05/18/2018 18:03:06 8 text/html GERD RefluxReported bypatient.Notes:Stable [...] over the summer months. Nixon Hernandez MD [address] [address], [place], [address], [facility] 11/16/2018 10:07:57
== END 2025-02-01 17:09 | disposition home or self-care (01) ==
LOC: HO.HMCFM 16:37
PROVIDERS: PCP Family Medicine; Visit Provider Family Medicine
DX: I10 Essential (primary) hypertension (principal); R73.03 Prediabetes; F41.9 Anxiety disorder, unspecified; R41.840 Attention and concentration deficit

== ENCOUNTER → 2025-02-01 16:37 | Outpatient (BNVA) | payer OTHER, SELFPAY | PROVIDERS: PCP Family Medicine; Visit Provider Family Medicine | DX: I10 Essential (primary) hypertension (principal); R73.03 Prediabetes; F41.9 Anxiety disorder, unspecified; R41.840 Attention and concentration deficit; Z79.899 Other long term (current) drug therapy | CPT/HCPCS: 83036; 96127 ==

== ENCOUNTER 2025-02-10 14:04 | Outpatient (AMB) | payer OTHER, SELFPAY ==
--- NOTE | 2025-02-10 14:07 | A.OFFVIS_ITS ---
Vital Signs 3 02/10/25 14:08 Height 5 ft 11 in Weight 199 lb BMI 27.8 BP 120/82 Blood Pressure Location Lt brachial Position Sitting Pulse 68 Pulse Source Pulse Oximeter Pulse Oximetry (%) 96 Oxygen Delivery Method Room Air Intake Visit Reasons: 1yr follow up CPAp Intake Note: Patient presents follow up HEAVEN. Compliance in chart Internist Medical Doctor Md Required: No Accompanied by: Self / Same As Patient Allergies erythromycin base Allergy (Mild, Verified 02/10/25 14:10) Rash HPI Comments Details: History of Present Illness The patient is a 58-year-old male presenting with a follow-up for obstructive sleep apnea management. he is curious about alternate sleep apnea treatments, such as surgical interventions. Diagnosed with obstructive sleep apnea, managed with CPAP. The CPAP settings are 5 to 20 cm H2O with EPR set to 2. The patient uses CPAP 8 hours/night, maximum pressure 10 cm H2O, residual AHI 1/hour, median leak 0. Excellent adherence with 99% usage. Weight 199, previously 214. No change in medical history except elevated PSA under another provider's care. Reports weight fluctuations, actively exercises to manage weight, previously increased due inactivity post-hip surgery. Reports health improvements with past significant weight loss. Acknowledges stress eating influenced by anxiety and OCD. 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 - Exercise: Regular gym attendance and walking, particularly during warmer months; hip surgery previously limited mobility. - Nutritional Intake: Consumes minimal carbohydrates; focuses on protein and healthy foods with periodic high-carb consumption during social occasions- 3-4 beers when out with his partner. - Weight Management: Engages in active weight management through increased physical activity; reported past significant weight loss but currently stable at around 199. - Substance Use: Occasional alcohol consumption, aware of impact on carbohydrate intake. Review of Systems - Neurological: Reports OCD and chronic anxiety. - Endocrine: No changes significant enough to report other than managed elevated prostate-specific antigen. - Nutrition: Reports eating stress-related to anxiety and OCD. Physical Exam CPAP compliance review: Does patient have sufficient PAP supplies? Yes Does patient clean PAP supplies on a regular basis? Yes Does the patient use distilled water in their PAP machine water reservoir? Yes PAP compliance report reviewed. Compliance report date range: 11/05/2024 - 02/02/2025 Overall usage: 99 percent Usage greater than 4 hours: 99 percent PAP setting: CPAP 5 to 20 cmH2O with EPR set to 2 Maximum APAP pressure: 10 cm H2O Average usage on days used: 8 hours Average mask leakage: 0 LPM Residual AHI: 1 per hour Results - Sleep study findings: Previously 23 events per hour, now maximizing CPAP efficiency at 1 event per hour with improved compliance. - PSA Evaluation: Elevated, managed by another healthcare provider. Discussion Notes During this visit, I discussed the ongoing management and monitoring of the patient?s obstructive sleep apnea using CPAP therapy, commending the patient's excellent compliance and outcomes with a residual AHI of 1 per hour. The patient was informed about alternative treatments for sleep apnea, emphasizing CPAP as the gold-standard treatment. We reviewed the potential influence of weight and physical health on sleep apnea management, discussing the patient's history of effective weight loss and health improvements. The effects of diet on energy levels and sleep were analyzed, particularly in regard to carbohydrate intake and stress management. Strategies to enhance healthy eating habits while maintaining muscle mass were considered. The importance of continual weight and apnea management was emphasized, with reassurance to possibly repeat a sleep study if significant weight loss is achieved. Consistency in dietary and exercise habits was highlighted for overall health maintenance. Plan Continue current CPAP use for obstructive sleep apnea with current settings. Monitor CPAP compliance and evaluate potential sleep study if weight loss is sustained. Continue active weight management and dietary guidance suggested with focus on maintaining energy levels. Maintain regular physical activity and manage stress eating patterns. At this point, I would not recommend alternate treatments, such as the hypoglossal nerve stimulation device. Inspire. - Continue to use CPAP 5 to 20 cmH2O with EPR set to 2 nightly with a goal of greater than 4 hours nightly, as patient is experiencing good clinical effect from use. - CPAP supply refill order written today. - Clean and change PAP supplies routinely, including filters, masks, tubing, and water reservoir. - Use distilled water in PAP water reservoir. Patient was informed and verbally consented to the use of an ambient scribe for clinic note documentation during this visit. [facility] Surgical History History of hip surgery History of hernia surgery Family History Sister Breast cancer Father Alcohol abuse Social History Household Members: Children Household Members Other:: Son Housing: House Are you a primary child care center assistant director to a significant other at home: No Do you presently have visiting nurse or other home services: No 75 years or older and lives alone: No Alcohol intake: current Alcohol intake frequency: a few times a week Patient Tobacco Use Status: Never used Tobacco e-Cigarette/Vaping Use: Never Used Second Hand Smoke Exposure: No service: No Current occupational status: employed 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 Current occupational exposures/hazards: No Sexual orientation: Unable to collect Gender identity: Unable to collect Cognitive needs: No Hearing needs: Yes ( says what a lot has tinnitus ) Vision needs: No Physical Exam Vital Signs: Last Vital Signs Pulse 68 02/10/25 14:08 BP 120/82 02/10/25 14:08 Pulse Ox 96 02/10/25 14:08 Oxygen Delivery Method Room Air 02/10/25 14:08 BMI result Body Mass Index 27.8 Const General: no acute distress Orientation/consciousness: patient oriented x3 Resp Effort & Inspection: normal respiratory effort and able to speak in complete sentences Neuro General: patient oriented x3 Psych Mental Status: mental status grossly normal Speech and movement: Clear speech present Attitude: cooperative Assessment & Plan Assessment & Plan (1) HEAVEN (obstructive sleep apnea): Code(s): G47.33 - Obstructive sleep apnea (adult) (pediatric) Category: Medical Plan Coding Level of Care Code Est Pt Level 3 (57657) Diagnoses HEAVEN (obstructive sleep apnea) G47.33
[2025-02-10 14:08] VITALS: BP 120/82; PULSE 68; O2SAT 96; BMI 27.8
--- OUTSIDE RECORDS SUMMARY | 2025-02-10 17:43 | XMS_ITS | Data Portability ---
Author Organization [facility], Main Office Address [address] [place] [address] Care Team Providers Care Field Contact Person Name Role Phone NIXON HERNANDEZ Primary Care Provider [facility] Vendor TIFF LEONARD Referring Provider Assessment Encounter Date [...] done 018. 2017 018 rakesh [facility], [address] [address], [place], [address], 9 11:35:33 hemogl obin A1C, finger stick 2017 018 [facility] In-Office Order, Internal Use Only DO Not Attach Compendium DO Not Attach Compendium, Do Not Delete/merge, [id number] 8 09:46:31 lipid panel, serum 2017 018 [email or web address] [facility] (Centralized Electronic Ordering - All Locations), Patient Can Go To The Location Of Their Choice, 9 15:35:57 BMP, serum or plasma 2017 018 [email or web address] [facility] (Centralized Electronic Ordering - All Locations), [...] or plasma 2017 018 JOCELINE [facility], [address], [address], [place], [address], 8 15:39:41 lipid panel, serum 2017 018 JOCELINE [facility], [address], [address], [place], [address], 8 15:39:42 TSH, serum or plasma 2017 018 JOCELINE [facility], [address], [address], [place], [address], 8 15:55:52 CBC w/ auto diff 2017 018 JOCELINE [facility], [address], [address], [place], [address], 8 14:30:42 BMP, serum or plasma 2016 017 [email or web address] [facility] (Centralized Electronic Ordering - All Locations), Patient Can Go To The Location Of Their Choice, [id number] 8 11:09:35 lipid panel, serum 2016 017 [email or web address] [facility] (Centralized Electronic Ordering - All Locations), Patient Can Go To The Location Of Their Choice, [id number] 8 11:09:35 ALT (pamela august), serum or plasma 2016 017 [email or web address] [facility] (Centralized Electronic Ordering - All Locations), Patient Can Go To The Location Of Their Choice, [id number] 8 11:09:35 TSH, serum or plasma 2016 017 [email or web address] [facility] (Centralized Electronic Ordering - All Locations), Patient Can Go To The Location Of Their Choice, [id number] 8 11:09:34 CBC w/ auto diff 2016 017 [email or web address] [facility] (Centralized Electronic Ordering - All Locations), Patient Can Go To The Location Of Their Choice, [id number] 8 11:09:35 Referral nutrit ionist /sauli karan referr al 2017 018 Not available 8 10:13:38 physic al therap ist referr al - Please see for BPPV 2016 017 [email or web address] [facility], [address] [place] [address], [address], [place], [address], 8 15:21:26 nutrit ionist /dieti karan referr al 2016 017 Not available 7 09:30:22 Procedures None record ed. Surgeries None record ed. Imaging None record ed. Medication Orders omepra zole 20 mg capsul christina manzano e 2017 018 [facility], [address] [place] [address], [place], [address], 8 09:47:43 Patient TargetsNo targets recorded. Patient Instructions Encounter Date Encounter Id Patient Instructions Last Modified By Organization Details Last Modified Time 10/21/2017 [id number] When You Want to Lose Weight: Care Instructions [email or web address] Not available 10/21/2017 09:26:49 Nutrition Referr al and Weight Management Follow-up Information [email or web address] Not available 10/21/2017 09:30:15 high blood press ure: care instructions [email or web address] Not available 10/21/2017 09:26:49 learning about h igh blood pressure [email or web address] Not available 10/21/2017 09:26:49 obsessive-compul sive disorder: care instructions [email or web address] Not available 10/21/2017 09:26:49 10/27/2017 [id number] benign paroxysma l positional vertigo (bppv): care instructions [email or web address] Not available 10/27/2017 16:34:30 04/27/2018 [id number] patellofemoral p ain syndrome (runner's knee): exercises [facility] Not available 04/27/2018 09:26:19 patellofemoral p ain syndrome: care instructions [facility] Not available 04/27/2018 09:26:18 high blood press ure: care instructions [email or web address] Not available 04/27/2018 09:26:18 learning about h igh blood pressure phelmuth Not available 04/27/2018 09:26:19 05/18/2018 [id number] high cholesterol : care instructions Not available 05/18/2018 14:06:24 heart-healthy di et: care instructions Not available 05/18/2018 14:06:24 prediabetes: car e instructions Not available 05/18/2018 13:43:06 mediterranean diet Not availab le 05/18/2018 13:43:06 11/16/2018 [id number] gastroesophageal reflux disease (GERD): care instructions [email or web address] Not available 11/16/2018 09:47:43 high cholesterol : care instructions [facility] Not available 11/16/2018 09:55:59 high blood press ure: care instructions [facility] Not available 11/16/2018 09:55:59 learning about h igh blood pressure pheuth Not available 11/16/2018 09:55:59 When You Want to Lose Weight: Care Instructions [facility] Not available 11/16/2018 09:46:30 Nutrition Referr al and Weight Management Follow-up Information [facility] Not available 11/16/2018 09:46:30 Reason for Referral Assessment Analyst/dietitian Refer ral for Body mass index 25-29 - overweight Referring Physician: Nixon Hernandez, Internal Medicine, Encounter Date: 10/21/2017 Please see for BPPV Referring Physician: Nixon Hernandez, Internal Medicine, Encounter Date: 10/27/2017 Assessment Analyst/dietitian Refer ral for Body mass index 25-29 - overweight Referring Physician: Nixon Hernandez, Internal Medicine, Encounter Date: 11/16/2018 Results Created Date Observation Date Name Description Value Unit Range Abnormal Flag Note LastModifiedBy Organization Detail LastModifiedTime 04/27/2004/27/2018 CBC w/ auto diff WBC 4.5 K/mm3 (4.0-1 1.0) Not Available [facility] (Centralized Electronic Ordering - All Locations) Patient Can Go To The Location Of Their Choice, [id number] 04/27/2018 14:30:42 04/27/2004/27/2018 CBC w/ auto diff RBC 4.69 M/mm3 (4.70- 6.10) low Not Available [facility] (Centralized Electronic Ordering - All Locations) Patient Can Go To The Location Of Their Choice, [id number] 04/27/2018 14:30:42 04/27/2004/27/2018 CBC w/ auto diff HGB 13.8 gm/dL (13.7- 16.5) Effec tive April 10 18, refer ence range s for HGB and HCT have been updat ed. Not Available [facility] (Centralized Electronic Ordering - All Locations) Patient Can Go To The Location Of Their Choice, [id number] 04/27/2018 14:30:42 04/27/20 18 04/27/2018 CBC w/ [...] Go To The Location Of Their Choice, [id number] 04/27/2018 15:39:42 04/27/2004/27/2018 lipid panel , serum non HDL cholesterol (calc) 162 mg/dL (<160) high Not Available [facility] (Centralized Electronic Ordering - All Locations) Patient Can Go To The Location Of Their Choice, [id number] 04/27/2018 15:39:42 04/27/2004/27/2018 TSH, serum or plasm a TSH 1.28 mIU/m L (0.40- 4.00) Not Available [facility] (Centralized Electronic Ordering - All Locations) Patient Can Go To The Location Of Their Choice, [id number] 04/27/2018 15:55:52 04/27/2004/29/2018 HbA1c (hemo globi n [...] Go To The Location Of Their Choice, [id number] 04/29/2018 09:22:49 11/16/20 18 11/16/2018 BMP, serum or plasm a glucose 108 mg/dL (70-99 ) high Not Available [facility] (Centralized Electronic Ordering - All Locations) Patient Can Go To The Location Of Their Choice, [id number] 11/16/2018 11:07:04 11/16/20 18 11/16/2018 BMP, serum or plasm a BUN 21 mg/dL (6-20) high Not Available [facility] (Centralized Electronic Ordering - All Locations) Patient Can Go To The Location Of Their Choice, [id number] 11/16/2018 11:07:04 11/16/20 18 11/16/2018 BMP, serum or plasm a creatinine 1.1 mg/dL (0.7-1 .2) Not Available [facility] (Centralized Electronic Ordering - All Locations) Patient Can Go To The Location Of Their Choice, [id number] 11/16/2018 11:07:04 11/16/20 18 11/16/2018 BMP, serum or plasm a sodium 140 mmol/ L (133-1 45) Not Available [facility] (Centralized Electronic Ordering - All Locations) Patient Can Go To The Location Of Their Choice, [id number] 11/16/2018 11:07:04 11/16/20 18 11/16/2018 BMP, serum or plasm a potassium 3.8 mmol/ L (3.6-5 .2) Not Available [facility] (Centralized Electronic Ordering - All Locations) Patient Can Go To The Location Of Their Choice, [id number] 11/16/2018 11:07:04 11/16/20 18 11/16/2018 BMP, serum or plasm a chloride 97 mmol/ L (98-10 7) low Not Available [facility] (Centralized Electronic Ordering - All Locations) Patient Can Go To The Location Of Their Choice, [id number] 11/16/2018 11:07:04 11/16/20 18 11/16/2018 BMP, serum or plasm a bicarbonate 30 mmol/ L (22-29 ) high Not Available [facility] (Centralized Electronic Ordering - All Locations) Patient Can Go To The Location Of Their Choice, [id number] 11/16/2018 11:07:04 11/16/20 18 11/16/2018 BMP, serum or plasm a anion gap 13 (4-17) Not Available [facility] (Centralized Electronic Ordering - All Locations) Patient Can Go To The Location Of Their Choice, [id number] 11/16/2018 11:07:04 11/16/20 18 11/16/2018 BMP, serum or plasm a calcium 10.0 mg/dL (8.6-1 0.5) Not Available [facility] (Centralized Electronic Ordering - All Locations) Patient Can Go To The Location Of Their Choice, [id number] 11/16/2018 11:07:04 11/16/20 18 11/16/2018 BMP, serum [...] Go To The Location Of Their Choice, [id number] 11/16/2018 11:07:04 11/16/20 18 11/16/2018 BMP, serum [...] Go To The Location Of Their Choice, [id number] 11/16/2018 11:07:04 11/16/20 18 11/16/2018 lipid panel , serum cholesterol, total 215 mg/dL (<200) high Not Available [facility] (Centralized Electronic Ordering - All Locations) Patient Can Go To The Location Of Their Choice, [id number] 11/16/2018 11:07:05 11/16/20 18 11/16/2018 lipid panel , serum triglyceride 297 mg/dL (<150) high Not Available [facility] (Centralized [facility] Ordering - All Locations) Patient Can Go To The Location Of Their Choice, [id number] 11/16/2018 11:07:05 11/16/20 18 11/16/2018 lipid panel , serum HDL chol 38 mg/dL (>39) low Not Available [facility] (Centralized Electronic Ordering - All Locations) Patient Can Go To The Location Of Their Choice, [id number] 11/16/2018 11:07:05 11/16/20 18 11/16/2018 lipid panel , serum LDL cholesterol, calculated 118 mg/dL (0-130 ) Not Available [facility] (Centralized Electronic Ordering - All Locations) Patient Can Go To The Location Of Their Choice, [id number] 11/16/2018 11:07:05 11/16/20 18 11/16/2018 lipid panel , serum non HDL cholesterol (calc) 177 mg/dL (<160) high Not Available [facility] (Centralized Electronic Ordering - All Locations) Patient Can Go To The Location Of Their Choice, [id number] 11/16/2018 11:07:05 11/16/20 18 11/16/2018 HbA1c (hemo [...] Go To The Location Of Their Choice, [id number] 11/16/2018 13:52:45 11/16/20 18 11/16/2018 hemog lobin A1C, finge rstic k HA1C 5.4 % 4-6 Not Available In-Office Order Internal Use Only DO Not Attach Compendium DO Not Attach Compendium, Do Not Delete/merge, [id number] 11/16/2018 09:36:28 10/01/2010/01/2019 HbA1c (hemo globi n [...] Go To The Location Of Their Choice, [id number] 10/01/2019 18:45:25 10/01/20 19 10/01/2019 lipid panel , serum HDL chol 47 mg/dL (>39) Not Available [facility] (Centralized Electronic Ordering - All Locations) Patient Can Go To The Location Of Their Choice, [id number] 10/01/2019 18:45:25 10/01/20 19 10/01/2019 lipid panel , serum LDL cholesterol, calculated 143 mg/dL (0-130 ) high Not Available [facility] (Centralized Electronic Ordering - All Locations) Patient Can Go To The Location Of Their Choice, [id number] 10/01/2019 18:45:25 10/01/20 19 10/01/2019 lipid panel , serum non HDL cholesterol (calc) 161 mg/dL (<160) high Not Available [facility] (Centralized Electronic Ordering - All Locations) Patient Can Go To The Location Of Their Choice, [id number] 10/01/2019 18:45:25 10/21/20 17 10/22/2012 XR, abdom en + pelvi s No observ ation record ed. BARCODE Not Available 2016 12:48:22 Result Notes None recorded. Problems Name Problem SNOMED Code Status Onset Date Resolution Date Notes Provider Name and Address Organization Details Recorded Time Abdomina l pain 89441601 Completed 201206/07/2014 IMPRESSI ON: UNCLEAR CAUSE OF PAIN. NO ACUTE ABDOMEN BASED ON CT. MAYBE MILD PANCREAT ITIS. WILL CHECK AMYLASE. HE DRINKS 12 DRINKS A WEEK. NO HX ALCOHOLI SM.; RECORDED 04/02/20 13 10:12AM BY ANANYA ESTRELLA MA, ANNOTATI ON/ADDEN DUM Not Available [facility] 4 15:14:10 Abnormal findings diagnost ic imaging of liver+bi liary tract 576000506 Completed 201206/07/2014 IMPRESSI ON: THIS MAY JUST BE INCIDENT AL FINDING. NOT SURE IF CAUSE OF HIS PAIN. GI NEXT WEEK FOR FURTHER W/U; RECORDED 04/02/20 13 10:12AM BY ANANYA ESTRELLA MA, ANNOTATI ON/ADDEN DUM Not Available [facility] 4 15:14:10 Acute sinusiti s 76295672 Completed 200806/07/2014 RECORDED 02/03/20 09 7:20AM BY ANANYA ESTRELLA MA, ANNOTATI ON/ADDEN DUM Not Available [facility] 4 15:14:10 Anemia 676030791 Active 2013 LATASHA Sosa, [facility] 6 09:09:29 Adult health examinat ion Active 2013 LATASHA Sosa, [facility] 6 09:09:26 Anxiety disorder 341141956 Active 2013 LATASHA Sosa, [facility] 6 09:09:20 Diarrhea of presumed infectio us origin 65733780 Completed 201106/07/2014 RECORDED 10/23/20 12 9:37AM BY ANANYA ESTRELLA MA, ANNOTATI ON/ADDEN DUM Not Available [facility] 4 15:14:11 Dysuria 17438442 Completed 200706/07/2014 RECORDED 11/14/20 08 9:53AM BY LATASHA DELVALLE, REGGIEATI ON/ADDEN DUM Not Available [facility] 4 15:14:11 Essentia l hyperten candace 43443450 Active 2013 LATASHA Sosa, [facility] 6 09:09:46 Respirat ory finding 924345832 Completed 201306/07/2014 RECORDED 12/03/19 14 1:12PM BY ROXY MICHELE MA, ANNOTATI ON/ADDEN DUM Not Available [facility] 4 15:14:11 Malaise and fatigue 831635021 Completed 201106/07/2014 RECORDED 10/23/20 12 9:37AM BY ANANYA ESTRELLA MA, NATALYA ON/ADDEN DUM Not Available [facility] 4 15:14:11 Influenz a vaccine needed 86086171192 06 Completed 201206/07/2014 RECORDED 04/02/20 13 10:12AM BY ANANYA ESTRELLA MA, ANNOTNAVEEN ON/ADDEN DUM Not Available [facility] 4 15:14:11 General examinat ion of patient Completed 200706/07/2014 RESOLVED DATE: 07/14/20 08; RECORDED 07/14/20 08 3:43PM BY NATALYA MONTES ON/ADDEN DUM Not Available [facility] 4 15:14:11 Hyperlip idemia 51178444 Active 2013 LATASHA Sosa, [facility] 6 09:09:40 Essentia l hyperten candace 38387754 Completed 201206/07/2014 RECORDED 05/21/20 13 12:30PM BY ANANYA ESTRELLA MA, ANNOTNAVEEN ON/ADDEN DUM LATASHA Sosa, [facility] 6 09:09:46 Insomnia 511267007 Active 2013 LATASHA Sosa, [facility] 6 09:09:11 Laborato ry procedur e performe d 629268341 Completed 201206/07/2014 RECORDED 04/02/20 13 10:11AM BY ANANYA ESTRELLA MA, REGGIEATI ON/ADDEN DUM Not Available [facility] 4 15:14:11 Administ ration of bacteria l and viral vaccine Completed 200706/07/2014 RECORDED 07/14/20 08 3:34PM BY DEBBIE ESTRELLA, OFFICE VISIT Not Available [facility] 4 15:14:11 Patient status finding 489031382 Completed 201310/18/2016 RECORDED 12/03/19 14 1:12PM BY ROXY MICHELE MA, OFFICE VISIT LATASHA Sosa, [facility] 6 09:09:03 Elevated level of transami nase and lactic acid dehydrog enase 435769641 Completed 201106/07/2014 RECORDED 10/23/20 12 9:37AM BY ANANYA ESTRELLA MA, ANNOTNAVEEN ON/ADDEN DUM Not Available [facility] 4 15:14:12 Osteoart hritis of hip 651919397 Active 2013 LATASHA Sosa, [facility] 6 09:09:23 Disorder of bursa of shoulder region 95110033 Active 2013 LATSAHA Sosa, [facility] 6 09:09:43 Disorder of skin 59336644 Completed 201306/07/2014 RECORDED 12/03/19 14 1:12PM BY ROXY MICHELE MA, ANNOTATI ON/ADDEN DUM Not Available [facility] 4 15:14:12 Dermatop hytosis of the perianal area Completed 201106/07/2014 RECORDED 10/23/20 12 9:37AM BY ANANYA ESTRELLA MA, ANNOTATI ON/ADDEN DUM Not Available [facility] 4 15:14:12 Visual disturba nce 74108446 Completed 201106/07/2014 RECORDED 10/23/20 12 9:37AM BY ANANYA ESTRELLA MA, ANNOTATI ON/ADDEN DUM Not Available [facility] 4 15:14:12 Urinary system finding 377356849 Completed 201106/07/2014 RECORDED 10/23/20 12 9:36AM BY ANANYA ESTRELLA MA, ANNOTATI ON/ADDEN DUM Not Available [facility] 4 15:14:12 Abdomina l pain 57871906 Completed 201206/27/2014 IMPRESSI ON: UNCLEAR CAUSE OF PAIN. NO ACUTE ABDOMEN BASED ON CT. MAYBE MILD PANCREAT ITIS. WILL CHECK AMYLASE. HE DRINKS 12 DRINKS A WEEK. NO HX ALCOHOLI SM.; RECORDED 04/02/20 13 10:12AM BY ANANYA ESTRELLA MA, NATALYA ON/ADDEN DUM Not Available [facility] 4 06:00:33 Abnormal findings diagnost ic imaging of liver+bi liary tract 480665354 Completed 201206/27/2014 IMPRESSI ON: THIS MAY JUST BE INCIDENT AL FINDING. NOT SURE IF CAUSE OF HIS PAIN. GI NEXT WEEK FOR FURTHER W/U; RECORDED 04/02/20 13 10:12AM BY ANANYA ESTRELLA MA, NATALYA ON/ADDEN DUM Not Available [facility] 4 06:00:33 Acute sinusiti s 10415297 Completed 200806/27/2014 RECORDED 02/03/20 09 7:20AM BY ANANYA ESTRELLA MA, NATALYA ON/ADDEN DUM Not Available [facility] 4 06:00:33 Diarrhea of presumed infectio us origin 91931164 Completed 201106/27/2014 RECORDED 10/23/20 12 9:37AM BY ANANYA ESTRELLA MA, REGGIEATI ON/ADDEN DUM Not Available [facility] 4 06:00:33 Dysuria 74429190 Completed 200706/27/2014 RECORDED 11/14/20 08 9:53AM BY NATALYA CASTRO ON/ADDEN DUM Not Available [facility] 4 06:00:33 Respirat ory finding 083358242 Completed 201306/27/2014 RECORDED 12/03/19 14 1:12PM BY ROXY MICHELE MA, NATALYA ON/ADDEN DUM Not Available [facility] 4 06:00:33 Malaise and fatigue 753544739 Completed 201106/27/2014 RECORDED 10/23/20 12 9:37AM BY ANANYA ESTRELLA MA, NATALYA ON/ADDEN DUM Not Available [facility] 4 06:00:33 Influenz a vaccine needed 91228831525 06 Completed 201206/27/2014 RECORDED 04/02/20 13 10:12AM BY ANANYA ESTRELLA MA, NATALYA ON/ADDEN DUM Not Available [facility] 4 06:00:33 General examinat ion of patient Completed 200706/27/2014 RESOLVED DATE: 07/14/20 08; RECORDED 07/14/20 08 3:43PM BY NATALYA MONTES ON/ADDEN DUM Not Available [facility] 4 06:00:33 Laborato ry procedur e performe d 511021654 Completed 201206/27/2014 RECORDED 04/02/20 13 10:11AM BY ANANYA ESTRELLA MA, NATALYA ON/ADDEN DUM Not Available [facility] 4 06:00:33 Administ ration of bacteria l and viral vaccine Completed 200706/27/2014 RECORDED 07/14/20 08 3:34PM BY DEBBIE ESTRELLA, OFFICE VISIT Not Available [facility] 4 06:00:33 Elevated level of transami nase and lactic acid dehydrog enase 375116039 Completed 201106/27/2014 RECORDED 10/23/20 12 9:37AM BY ANANYA ESTRELLA MA, NATALYA ON/ADDEN DUM Not Available [facility] 4 06:00:33 Disorder of skin 03179983 Completed 201306/27/2014 RECORDED 12/03/19 14 1:12PM BY ROXY MICHELE MA, NATALYA ON/ADDEN DUM Not Available [facility] 4 06:00:33 Dermatop hytosis of the perianal area Completed 201106/27/2014 RECORDED 10/23/20 12 9:37AM BY ANANYA ESTRELLA MA, NATALYA ON/ADDEN DUM Not Available [facility] 4 06:00:33 Visual disturba nee 29908607 Completed 201106/27/2014 RECORDED 10/23/20 12 9:37AM BY ANANYA ESTRELLA MA, ANNOTATI ON/ADDEN DUM Not Available [facility] 4 06:00:33 Urinary system finding 374456703 Completed 201106/27/2014 RECORDED 10/23/20 12 9:36AM BY ANANYA ESTRELLA MA, ANNOTATI ON/ADDEN DUM Not Available [facility] 4 06:00:33 Body mass index 25-29 - overweig ht 661979663 Active Nixon Hernandez MD [address], [place], [address] , [facility] 4 16:07:00 Gastroes ophageal reflux disease 155606261 Active Nixon Hernandez MD [address], [place], [address] , [facility] 5 14:23:28 Patellar tendonit is 87750755 Active Nixon Hernandez MD [address], [place], [address] , [facility] 5 14:23:28 Impacted cerumen 05943459 Active Nixon Hernandez MD [address], [place], [address] , [facility] 5 14:23:28 Wheezing symptom 315665656 Completed 10/18/2016 Ananya ellison MA null, [facility] 6 09:09:32 Hypersom ramon 06669099 Active Nixon Hernandez MD [address], [place], [address] , [facility] 6 09:29:57 Prediabe haroon 341848872 Active 2017 Nixon Hernandez MD [address], [place], [address] , [facility] 8 09:36:24 Mixed hyperlip idemia 101912167 Completed 201810/03/2019 Hina Hong PA-C [address], [place], [address] , [facility] 9 19:19:38 Problem Notes None recorded. Procedures Surgical History Date Name Laterality Status Provider Name and Address Organization Details Recorded Time 7 Colonoscopy completed Julissa Escobar [facility] 08/13/2017 11:18:24 6 Vasectomy completed Ata Sifuentes [facility] 10/21/2017 08:29:26 4 Eye Surgery completed Ata Sifuentes [facility] 10/21/2017 08:29:26 4 Other completed Ananya oquendo MA [facility] 08/26/2014 09:56:51 9 Hernia Repair completed Ata Sifuentes [facility] 10/21/2017 08:29:26 6 Circumcision completed Ata Sifuentes [facility] 10/21/2017 08:29:26 6 Hernia Repair completed Ata Sifuentes [facility] 10/21/2017 08:29:26 Imaging Results Imaging Date Name Status LastModified by Organiz ation Details LastModified Time 10/22/2012 XR, abdomen + pelvis completed BAR[facility] Information not available 10/21/2017 12:48:22 Procedure Notes None recorded. Medical Equipment None Reported. Allergies Allergen ID Allergen Name Allergen Category Reaction Reaction Severity Criticality Documentation Date Start Date Code Code System Note Provider Name and Address Organization Details Recorded Time 07076 erythromy tonio medicatio n Not available Not available Not available 05/31/20142013 4053 RxNorm as an [facility] 5 08:58:50 Medications Name Sig Start Date [...] Updated DateTime 7 181.61 cm 29.2 kg/m2 94116.5 8 g 61 /min 97 % 97 % 97.4 [degF] 130 mm[Hg] 68 mm[Hg] Ata Sifuentes [facility] 7 08:42:46 Date Recorded Body height Body temperature Oxygen saturation Oxygen saturation in Arterial blood by Pulse oximetry Heart rate Body mass index (BMI) Body weight Systolic blood pressure Diastolic blood pressure Provider Name and Address Organization Details Last Updated DateTime 7 181.61 cm 98.3 [degF] 98 % 98 % 59 /min 29 kg/m2 34024.9 9 g 136 mm[Hg] 84 mm[Hg] Ananya shi MA [facility] 7 16:14:47 Date Recorded Body height Body mass index (BMI) Body weight Oxygen saturation Oxygen saturation in Arterial blood by Pulse oximetry Heart rate Body temperature Provider Name and Address Organization Details Last Updated DateTime 8 181.61 cm 28.7 kg/m2 65963.8 1 g 97 % 97 % 65 /min 97.7 [degF] Ananya shi MA [facility] 8 09:04:31 Date Recorded Systolic blood pressure Diastolic blood pressure Provider Name and Address Organization Details Last Updated DateTime 04/27/2018 122 mm[Hg] 76 mm[Hg] Nixon Hernandez MD [address], [address], [facility] 04/27/2018 09:26:05 Date Recorded Body height Body mass index (BMI) Body weight Heart rate Oxygen saturation Oxygen saturation in Arterial blood by Pulse oximetry Body temperature Systolic blood pressure Diastolic blood pressure Provider Name and Address Organization Details Last Updated DateTime 8 181.61 cm 26.7 kg/m2 30794.6 2 g 81 /min 98 % 98 % 98.7 [degF] 127 mm[Hg] 83 mm[Hg] Claudette Unger [facility] 8 13:04:48 Date Recorded Body height Body mass index (BMI) Body weight Heart rate Oxygen saturation Oxygen saturation in Arterial blood by Pulse oximetry Body temperature Systolic blood pressure Diastolic blood pressure Provider Name and Address Organization Details Last Updated DateTime 8 181.61 cm 26.4 kg/m2 08325.7 4 g 69 /min 98 % 98 % 98.7 [degF] 107 mm[Hg] 72 mm[Hg] Catina Grimm MA [facility] 8 09:22:39 Social History Question Answer Notes LastModified by Organizat ion Details LastModified Time Tobacco Smoking Status Never Smoker LATAS[place] Melo [facility] 08/26/2014 09:56:50 Do You Have An [...] 08/26/2014 What Is Your Occupation? [employer] Information not available 10/18/2016 Have There Been [...] Many Children Do You Have? 1 Son (Religion) Information not available 09/22/2015 Do You Use [...] virus, quadrivalent, PF 6 completed Not Available [facility] 12/04/2019 02:22:07 Influenza, split virus, quadrivalent, PF 7 completed Not Available [facility] 12/04/2019 02:22:11 Tdap 06/11/201 8 completed Not Available [facility] 12/04/2019 02:21:48 Influenza, split virus, trivalent, PF 4 completed Not Available [facility] 12/04/2019 02:21:57 Influenza, split virus, quadrivalent, PF 8 completed Not Available [facility] 12/04/2019 02:22:15 Tdap 8 completed Not Available [facility] 05/31/2014 13:23:39 Influenza, split virus, trivalent, preservative 1 completed Not Available [facility] 05/31/2014 13:23:39 Influenza, split virus, trivalent, preservative 2 completed Not Available [facility] 05/31/2014 13:23:39 Past Encounters Encounter ID Performer Location Encounter Start Date Encounter Closed Date Diagnosis/Indication Diagnosis SNOMED-CT Code Diagnosis ICD10 Code Diagnosis Note [id number] autoEComm erce [address] [facility] [place] [address] 12/18/2007 00:00:00 [id number] autoEComm erce [address] [facility] [place] [address] 12/29/2007 00:00:00 [id number] autoEComm erce [address] [facility] [place] [address] 07/14/2008 00:00:00 [id number] autoEComm erce [address] [facility] [place] [address] 11/14/2008 00:00:00 [id number] autoEComm erce [address] [facility] [place] [address] 02/02/2009 00:00:00 [id number] autoEComm erce [address] [facility] [place] [address] 09/20/2009 00:00:00 [id number] autoEComm erce [address] [facility] [place] [address] 12/20/2009 00:00:00 [id number] autoEComm erce [address] [place], [place] [address] 06/27/2010 00:00:00 [id number] autoEComm erce [address] [facility] [place], [place] [address] 01/08/2011 00:00:00 [id number] autoEComm erce [address] [facility] [place], [place] [address] 10/23/2012 00:00:00 [id number] autoEComm erce [address] [facility] [place], [place] [address] 04/02/2013 00:00:00 [id number] autoEComm erce [address] [facility] [place], [place] [address] 05/21/2013 00:00:00 [id number] autoEComm erce [address] [facility] [place], [place] [address] 12/03/2013 00:00:00 [id number] Main Office [address] [address] [place] [address] 08/26/2014 09:40:18 08/26/2014 11:11:25 Adult health examination 690200341 Needs infl uenza immunization 765600700 Essential hypertension 07173092 Hyperlipidemia 80455272 Body mass index 25-29 - overweight 533854377 [id number] Main Office [address] [address] [place] [address] 03/17/2015 08:52:49 03/17/2015 09:27:02 Essential hypertension 09149603 [id number] Nixon Hernandez MD Main Office [address] [address] [place] [address] 09/22/2015 08:54:36 09/22/2015 10:36:06 Adult health examination 731437239 Z00.00 Essential hypertension 24088134 I10 Anxiety disorder 1424447 06 F41.9 Hyperlipidemia 88365580 E78.5 Gastroesop hageal reflux disease 236715106 K21.9 Patellar tendonitis 3778 5001 M76.50 Impacted cerumen 5627539 6 H61.22 Wheezing symptom 5959006 08 R06.2 [id number] Nixon Hernandez MD Main Office [address] [address] [place] [address] 03/29/2016 08:43:25 03/29/2016 09:32:19 Essential hypertension 70062447 I10 Family romina nning education 396185296 Z30.02 Hypersomnia 69811443 G47 .10 [id number] Nixon Hernandez MD Main Office [address] [address] [place] [address] 10/18/2016 09:00:30 10/18/2016 10:13:03 Adult health examination 479727424 Z00.00 Needs infl uenza immunization 659074451 Z23 Screening for malignant neoplasm of colon 881737164 Z12.11 Body mass index 25-29 - overweight 473473387 E66.3 Hyperlipidemia 19641272 E78.5 Fatigue 77595080 R53.83 Gastroesop hageal reflux disease 417028076 K21.9 [id number] Nixon Hernandez MD Main Office [address] [address] [place] [address] 04/25/2017 11:07:04 04/25/2017 11:49:25 Essential hypertension 06345267 I10 Hyperlipidemia 68055863 E78.5 Fatigue 64746486 R53.83 [id number] Nixon Hernandez MD Main Office [address] [address] [place] [address] 07/29/2017 14:58:39 07/29/2017 16:09:18 Needs influenza immunization 583669611 Z23 [id number] Nixon Hernandez MD Main Office [address] [address] [place] [address] 10/21/2017 08:26:02 10/21/2017 09:30:21 Adult health examination 152877445 Z00.00 Essential hypertension 33673705 I10 Hyperlipidemia 01233679 E78.5 Fatigue 70449056 R53.83 Body mass index 25-29 - overweight 654440806 E66.3 Z68.25 Obsessive- compulsive disorder 524982592 F42.9 Continue SSRI [id number] Nixon Hernandez MD Main Office [address] [address] [place] [address] 10/27/2017 15:55:29 10/27/2017 16:34:42 Benign paroxysmal positional vertigo 753970191 H81.10 [id number] Nixon Hernandez MD Main Office [address] [address] [place] [address] 04/27/2018 08:47:55 04/27/2018 09:33:18 Essential hypertension 25843660 I10 Administra tion of viral vaccine 42929081 Z23 Hyperlipidemia 42442076 E78.5 Fatigue 85054712 R53.83 Patellofem oral stress syndrome 890640771 M22.2X9 [id number] Nixon Hernandez MD Main Office [address] [address] [place] [address] 05/18/2018 13:01:09 05/18/2018 14:21:34 Prediabetes 171298109 R73.03 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 Mixed hyperlipidemia 267 693287 E78.2 recommend to recheck before next visit. Body mass index 25-29 - overweight 261460101 Z68.26 [id number] Nixon Hernandez MD Main Office [address] [address] [place] [address] 11/16/2018 09:12:04 11/16/2018 10:08:00 Adult health examination 128787401 Z00.00 Needs infl uenza immunization 272421523 Z23 Body mass index 25-29 - overweight 711524083 E66.3 Z68.25 Prediabetes 877944912 R7 3.03 Gastroesop hageal reflux disease 171101961 K21.9 Hyperlipidemia 46364022 E78.5 Essential hypertension 15631351 I10 Health Concerns Section Related Observation LastModified by Organization Detai ls LastModified Time None Recorded Concern Status LastModified by Organization Details LastModified Time None Recorded Advance Directives Directive Y: signed 03/17/2015 Payers Encounter Date Sequence Insurance Name Policy Number Policy Haynes Covered Member ID Haynes Member ID Guarantor Name 10/21/2017 1 [facility] (O) [id number] Yancy Nalepinski [id number] Yancy Nalepinski 10/27/2017 1 [facility] (PPO) [id number] 23 Yancy Nalepinski [id number] Yancy Nalepinski 04/27/2018 1 [facility] (O) [id number] 23 Yancy Nalepinski [id number] Yancy Nalepinski 05/18/2018 1 [facility] (O) [id number] 23 Yancy Nalepinski [id number] Yancy Nalepinski 11/16/2018 1 [facility] (O) [id number] 23 Yancy Nalepinski [id number] Yancy Nalepinski Notes Date Note Type Note [...] concerns about weight. Nixon Hernandez MD [address], [address], [facility] 10/21/2017 09:25:17 7 text/html DizzinessReported bypatient.Quality:symptoms worse in the evening (wakes occasionally from sleep) Severity:no effect on daily activities Duration:intermittent episodes lasting:; lasts <5 minutes Notes sensation of dizziness with spinning sensation for the past 4 days. Nixon Hernandez MD [address], [address], [facility] 10/27/2017 16:37:37 8 text/html Hypertension [...] obvious injuryNotes:No obvious swelling Nixon Hernandez MD [address], [address], [facility] 04/27/2018 09:31:19 8 text/html Diabetes [...] of 31. High cardiovasc. risk with early HI in father at age 50. Pt. lost 15 lbs since April 27. Nixon Hernandez MD [address], [address], [facility] 05/18/2018 18:03:06 8 text/html GERD RefluxReported bypatient.Notes:Stable [...] over the summer months. Nixon Hernandez MD [address] [address], [place], [address], [facility] 11/16/2018 10:07:57
== END 2025-02-10 15:15 | disposition home or self-care (01) ==
LOC: HO.HSMS 14:06
PROVIDERS: Absent Provider Nurse Practitioner Family; PCP Family Medicine; Visit Provider Nurse Practitioner Family
DX: G47.33 Obstructive sleep apnea (adult) (pediatric) (principal)
CPT/HCPCS: 99213

== ENCOUNTER 2025-03-21 12:45 | Outpatient (REF) | payer OTHER, SELFPAY ==
--- OUTSIDE RECORDS SUMMARY | 2025-03-21 14:10 | XMS_ITS | Data Portability ---
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 2017 018 rakesh [facility], [address] [address], [place], [address], 9 11:35:33 hemogl obin A1C, finger stick 2017 018 [facility] In-Office Order, Internal Use Only DO Not Attach Compendium DO Not Attach Compendium, Do Not Delete/merge, [id number] 8 09:46:31 lipid panel, serum 2017 018 [email or web address] [facility] (Centralized Electronic Ordering - All Locations), Patient Can Go To The Location Of Their Choice, 9 15:35:57 BMP, serum or plasma 2017 018 [email or web address] [facility] (Centralized Electronic Ordering - All Locations), [...] or plasma 2017 018 JOCELINE [facility], [address], [address], [place], [address], 8 15:39:41 lipid panel, serum 2017 018 JOCELINE [facility], [address], [address], [place], [address], 8 15:39:42 TSH, serum or plasma 2017 018 JOCELINE [facility], [address], [address], [place], [address], 8 15:55:52 CBC w/ auto diff 2017 018 JOCELINE [facility], [address], [address], [place], [address], 8 14:30:42 BMP, serum or plasma 2016 017 [email or web address] [facility] (Centralized Electronic Ordering - All Locations), Patient Can Go To The Location Of Their Choice, [id number] 8 11:09:35 lipid panel, serum 2016 017 [email or web address] [facility] (Centralized Electronic Ordering - All Locations), Patient Can Go To The Location Of Their Choice, [id number] 8 11:09:35 ALT (pamela august), serum or plasma 2016 017 [email or web address] [facility] (Centralized Electronic Ordering - All Locations), Patient Can Go To The Location Of Their Choice, [id number] 8 11:09:35 TSH, serum or plasma 2016 017 [email or web address] [facility] (Centralized Electronic Ordering - All Locations), Patient Can Go To The Location Of Their Choice, [id number] 8 11:09:34 CBC w/ auto diff 2016 017 [email or web address] [facility] (Centralized Electronic Ordering - All Locations), Patient Can Go To The Location Of Their Choice, [id number] 8 11:09:35 Referral nutrit ionist /sauli karan referr al 2017 018 [email or web address] Not available 8 10:13:38 physic al therap ist referr al - Please see for BPPV 2016 017 [email or web address] [facility] [place], [address] [place] [address], [address], [place], [address], 8 15:21:26 nutrit ionist /dieti karan referr al 2016 017 [email or web address] Not available 7 09:30:22 Procedures None record ed. Surgeries None record ed. Imaging None record ed. Medication Orders omepra zole 20 mg capsul christina manzano e 2017 018 [facility], [address] [place] [address], [place], [address], 8 09:47:43 Patient TargetsNo targets recorded. Patient Instructions Encounter Date Encounter Id Patient Instructions Last Modified By Organization Details Last Modified Time 10/21/2017 [id number] When You Want to Lose Weight: Care Instructions [email or web address] Not available 10/21/2017 09:26:49 Nutrition Referr al and Weight Management Follow-up Information [email or web address] Not available 10/21/2017 09:30:15 high blood press ure: care instructions [email or web address] Not available 10/21/2017 09:26:49 learning about h igh blood pressure [email or web address] Not available 10/21/2017 09:26:49 obsessive-compul sive disorder: care instructions [email or web address] Not available 10/21/2017 09:26:49 10/27/2017 [id number] benign paroxysma l positional vertigo (bppv): care instructions [email or web address] Not available 10/27/2017 16:34:30 04/27/2018 [id number] patellofemoral p ain syndrome (runner's knee): exercises [facility] Not available 04/27/2018 09:26:19 patellofemoral p ain syndrome: care instructions [facility] Not available 04/27/2018 09:26:18 high blood press ure: care instructions [email or web address] Not available 04/27/2018 09:26:18 learning about h igh blood pressure phelmuth Not available 04/27/2018 09:26:19 05/18/2018 [id number] high cholesterol : care instructions Not available 05/18/2018 14:06:24 heart-healthy di et: care instructions Not available 05/18/2018 14:06:24 prediabetes: car e instructions Not available 05/18/2018 13:43:06 mediterranean diet Not availab le 05/18/2018 13:43:06 11/16/2018 [id number] gastroesophageal reflux disease (GERD): care instructions [email or web address] Not available 11/16/2018 09:47:43 high cholesterol : care instructions [facility] Not available 11/16/2018 09:55:59 high blood press ure: care instructions [facility] Not available 11/16/2018 09:55:59 learning about h igh blood pressure pheuth Not available 11/16/2018 09:55:59 When You Want to Lose Weight: Care Instructions [facility] Not available 11/16/2018 09:46:30 Nutrition Referr al and Weight Management Follow-up Information [facility] Not available 11/16/2018 09:46: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 Refer ral for Body mass index 25-29 - overweight Referring Physician: Nixon Hernandez, Internal Medicine, Encounter Date: 10/21/2017 Please see for BPPV Referring Physician: Nixon Hernandez, Internal Medicine, Encounter Date: 10/27/2017 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 Refer ral for Body mass index 25-29 - overweight Referring Physician: Nixon Hernandez, Internal Medicine, Encounter Date: 11/16/2018 Results Created Date Observation Date Name Description Value Unit Range Abnormal Flag Note LastModifiedBy Organization Detail LastModifiedTime 04/27/2004/27/2018 CBC w/ auto diff WBC 4.5 K/mm3 (4.0-1 1.0) Not Available [facility] (Centralized Electronic Ordering - All Locations) Patient Can Go To The Location Of Their Choice, [id number] 04/27/2018 14:30:42 04/27/2004/27/2018 CBC w/ auto diff RBC 4.69 M/mm3 (4.70- 6.10) low Not Available [facility] (Centralized Electronic Ordering - All Locations) Patient Can Go To The Location Of Their Choice, [id number] 04/27/2018 14:30:42 04/27/2004/27/2018 CBC w/ auto diff HGB 13.8 gm/dL (13.7- 16.5) Effec tive April 10 18, refer ence range s for HGB and HCT have been updat ed. Not Available [facility] (Centralized Electronic Ordering - All Locations) Patient Can Go To The Location Of Their Choice, [id number] 04/27/2018 14:30:42 04/27/20 18 04/27/2018 CBC w/ [...] Go To The Location Of Their Choice, [id number] 04/27/2018 15:39:42 04/27/2004/27/2018 lipid panel , serum non HDL cholesterol (calc) 162 mg/dL (<160) high Not Available [facility] (Centralized Electronic Ordering - All Locations) Patient Can Go To The Location Of Their Choice, [id number] 04/27/2018 15:39:42 04/27/2004/27/2018 TSH, serum or plasm a TSH 1.28 mIU/m L (0.40- 4.00) Not Available [facility] (Centralized Electronic Ordering - All Locations) Patient Can Go To The Location Of Their Choice, [id number] 04/27/2018 15:55:52 04/27/2004/29/2018 HbA1c (hemo globi n [...] Go To The Location Of Their Choice, [id number] 04/29/2018 09:22:49 11/16/20 18 11/16/2018 BMP, serum or plasm a glucose 108 mg/dL (70-99 ) high Not Available [facility] (Centralized Electronic Ordering - All Locations) Patient Can Go To The Location Of Their Choice, [id number] 11/16/2018 11:07:04 11/16/20 18 11/16/2018 BMP, serum or plasm a BUN 21 mg/dL (6-20) high Not Available [facility] (Centralized Electronic Ordering - All Locations) Patient Can Go To The Location Of Their Choice, [id number] 11/16/2018 11:07:04 11/16/20 18 11/16/2018 BMP, serum or plasm a creatinine 1.1 mg/dL (0.7-1 .2) Not Available [facility] (Centralized Electronic Ordering - All Locations) Patient Can Go To The Location Of Their Choice, [id number] 11/16/2018 11:07:04 11/16/20 18 11/16/2018 BMP, serum or plasm a sodium 140 mmol/ L (133-1 45) Not Available [facility] (Centralized Electronic Ordering - All Locations) Patient Can Go To The Location Of Their Choice, [id number] 11/16/2018 11:07:04 11/16/20 18 11/16/2018 BMP, serum or plasm a potassium 3.8 mmol/ L (3.6-5 .2) Not Available [facility] (Centralized Electronic Ordering - All Locations) Patient Can Go To The Location Of Their Choice, [id number] 11/16/2018 11:07:04 11/16/20 18 11/16/2018 BMP, serum or plasm a chloride 97 mmol/ L (98-10 7) low Not Available [facility] (Centralized Electronic Ordering - All Locations) Patient Can Go To The Location Of Their Choice, [id number] 11/16/2018 11:07:04 11/16/20 18 11/16/2018 BMP, serum or plasm a bicarbonate 30 mmol/ L (22-29 ) high Not Available [facility] (Centralized Electronic Ordering - All Locations) Patient Can Go To The Location Of Their Choice, [id number] 11/16/2018 11:07:04 11/16/20 18 11/16/2018 BMP, serum or plasm a anion gap 13 (4-17) Not Available [facility] (Centralized Electronic Ordering - All Locations) Patient Can Go To The Location Of Their Choice, [id number] 11/16/2018 11:07:04 11/16/20 18 11/16/2018 BMP, serum or plasm a calcium 10.0 mg/dL (8.6-1 0.5) Not Available [facility] (Centralized Electronic Ordering - All Locations) Patient Can Go To The Location Of Their Choice, [id number] 11/16/2018 11:07:04 11/16/20 18 11/16/2018 BMP, serum [...] Go To The Location Of Their Choice, [id number] 11/16/2018 11:07:04 11/16/20 18 11/16/2018 BMP, serum [...] Go To The Location Of Their Choice, [id number] 11/16/2018 11:07:04 11/16/20 18 11/16/2018 lipid panel , serum cholesterol, total 215 mg/dL (<200) high Not Available [facility] (Centralized Electronic Ordering - All Locations) Patient Can Go To The Location Of Their Choice, [id number] 11/16/2018 11:07:05 11/16/20 18 11/16/2018 lipid panel , serum triglyceride 297 mg/dL (<150) high Not Available [facility] (Centralized [facility] Ordering - All Locations) Patient Can Go To The Location Of Their Choice, [id number] 11/16/2018 11:07:05 11/16/20 18 11/16/2018 lipid panel , serum HDL chol 38 mg/dL (>39) low Not Available [facility] (Centralized Electronic Ordering - All Locations) Patient Can Go To The Location Of Their Choice, [id number] 11/16/2018 11:07:05 11/16/20 18 11/16/2018 lipid panel , serum LDL cholesterol, calculated 118 mg/dL (0-130 ) Not Available [facility] (Centralized Electronic Ordering - All Locations) Patient Can Go To The Location Of Their Choice, [id number] 11/16/2018 11:07:05 11/16/20 18 11/16/2018 lipid panel , serum non HDL cholesterol (calc) 177 mg/dL (<160) high Not Available [facility] (Centralized Electronic Ordering - All Locations) Patient Can Go To The Location Of Their Choice, [id number] 11/16/2018 11:07:05 11/16/20 18 11/16/2018 HbA1c (hemo [...] Go To The Location Of Their Choice, [id number] 11/16/2018 13:52:45 11/16/20 18 11/16/2018 hemog lobin A1C, finge rstic k HA1C 5.4 % 4-6 Not Available In-Office Order Internal Use Only DO Not Attach Compendium DO Not Attach Compendium, Do Not Delete/merge, [id number] 11/16/2018 09:36:28 10/01/2010/01/2019 HbA1c (hemo globi n [...] Go To The Location Of Their Choice, [id number] 10/01/2019 18:45:25 10/01/20 19 10/01/2019 lipid panel , serum HDL chol 47 mg/dL (>39) Not Available [facility] (Centralized Electronic Ordering - All Locations) Patient Can Go To The Location Of Their Choice, [id number] 10/01/2019 18:45:25 10/01/20 19 10/01/2019 lipid panel , serum LDL cholesterol, calculated 143 mg/dL (0-130 ) high Not Available [facility] (Centralized Electronic Ordering - All Locations) Patient Can Go To The Location Of Their Choice, [id number] 10/01/2019 18:45:25 10/01/20 19 10/01/2019 lipid panel , serum non HDL cholesterol (calc) 161 mg/dL (<160) high Not Available [facility] (Centralized Electronic Ordering - All Locations) Patient Can Go To The Location Of Their Choice, [id number] 10/01/2019 18:45:25 10/21/20 17 10/22/2012 XR, abdom en + pelvi s No observ ation record ed. BARCODE Not Available 2016 12:48:22 Result Notes None recorded. Problems Name Problem SNOMED Code Status Onset Date Resolution Date Notes Provider Name and Address Organization Details Recorded Time Abdomina l pain 97376689 Completed 201206/07/2014 IMPRESSI ON: UNCLEAR CAUSE OF PAIN. NO ACUTE ABDOMEN BASED ON CT. MAYBE MILD PANCREAT ITIS. WILL CHECK AMYLASE. HE DRINKS 12 DRINKS A WEEK. NO HX ALCOHOLI SM.; RECORDED 04/02/20 13 10:12AM BY ANANYA ESTRELLA MA, ANNOTATI ON/ADDEN DUM Not Available [facility] 4 15:14:10 Abnormal findings diagnost ic imaging of liver+bi liary tract 460317034 Completed 201206/07/2014 IMPRESSI ON: THIS MAY JUST BE INCIDENT AL FINDING. NOT SURE IF CAUSE OF HIS PAIN. GI NEXT WEEK FOR FURTHER W/U; RECORDED 04/02/20 13 10:12AM BY ANANYA ESTRELLA MA, ANNOTATI ON/ADDEN DUM Not Available [facility] 4 15:14:10 Acute sinusiti s 81378400 Completed 200806/07/2014 RECORDED 02/03/20 09 7:20AM BY ANANYA ESTRELLA MA, ANNOTATI ON/ADDEN DUM Not Available [facility] 4 15:14:10 Anemia 528582798 Active 2013 [place] Sosa, [facility] 6 09:09:29 Adult health examinat ion Active 2013 LATASHA Sosa, [facility] 6 09:09:26 Anxiety disorder 971689292 Active 2013 LATASHA Sosa, [facility] 6 09:09:20 Diarrhea of presumed infectio us origin 96025219 Completed 201106/07/2014 RECORDED 10/23/20 12 9:37AM BY ANANYA ESTRELLA MA, ANNOTATI ON/ADDEN DUM Not Available [facility] 4 15:14:11 Dysuria 77618197 Completed 200706/07/2014 RECORDED 11/14/20 08 9:53AM BY LATASHA DELVALLE, REGGIEATI ON/ADDEN DUM Not Available [facility] 4 15:14:11 Essentia l hyperten candace 49385650 Active 2013 LATASHA Sosa, [facility] 6 09:09:46 Respirat ory finding 574671276 Completed 201306/07/2014 RECORDED 12/03/19 14 1:12PM BY ORXY MICHELE MA, ANNOTATI ON/ADDEN DUM Not Available [facility] 4 15:14:11 Malaise and fatigue 955044452 Completed 201106/07/2014 RECORDED 10/23/20 12 9:37AM BY ANANYA ESTRELLA MA, NATALYA ON/ADDEN DUM Not Available [facility] 4 15:14:11 Influenz a vaccine needed 18665452540 06 Completed 201206/07/2014 RECORDED 04/02/20 13 10:12AM BY ANANYA ESTRELLA MA, ANNOTNAVEEN ON/ADDEN DUM Not Available [facility] 4 15:14:11 General examinat ion of patient Completed 200706/07/2014 RESOLVED DATE: 07/14/20 08; RECORDED 07/14/20 08 3:43PM BY NATALYA MONTES ON/ADDEN DUM Not Available [facility] 4 15:14:11 Hyperlip idemia 68113341 Active 2013 LATASHA Sosa, [facility] 6 09:09:40 Essentia l hyperten candace 61458696 Completed 201206/07/2014 RECORDED 05/21/20 13 12:30PM BY ANANYA ESTRELLA MA, ANNOTNAVEEN ON/ADDEN DUM [place]HA Sosa, [facility] 6 09:09:46 Insomnia 628999953 Active 2013 LATASHA Sosa, [facility] 6 09:09:11 Laborato ry procedur e performe d 661516518 Completed 201206/07/2014 RECORDED 04/02/20 13 10:11AM BY ANANYA ESTRELLA MA, REGGIEATI ON/ADDEN DUM Not Available [facility] 4 15:14:11 Administ ration of bacteria l and viral vaccine Completed 200706/07/2014 RECORDED 07/14/20 08 3:34PM BY DEBBIE ESTRELLA, OFFICE VISIT Not Available [facility] 4 15:14:11 Patient status finding 705654093 Completed 201310/18/2016 RECORDED 12/03/19 14 1:12PM BY ROXY MICHELE MA, OFFICE VISIT LATASHA Sosa, [facility] 6 09:09:03 Elevated level of transami nase and lactic acid dehydrog enase 073129948 Completed 201106/07/2014 RECORDED 10/23/20 12 9:37AM BY ANANYA ESTRELLA MA, ANNOTNAVEEN ON/ADDEN DUM Not Available [facility] 4 15:14:12 Osteoart hritis of hip 807787971 Active 2013 LATASHA Sosa, [facility] 6 09:09:23 Disorder of bursa of shoulder region 01898625 Active 2013 LATASHA Sosa, [facility] 6 09:09:43 Disorder of skin 30319038 Completed 201306/07/2014 RECORDED 12/03/19 14 1:12PM BY ROXY MICHELE MA, ANNOTATI ON/ADDEN DUM Not Available [facility] 4 15:14:12 Dermatop hytosis of the perianal area Completed 201106/07/2014 RECORDED 10/23/20 12 9:37AM BY ANANYA ESTRELLA MA, ANNOTATI ON/ADDEN DUM Not Available [facility] 4 15:14:12 Visual disturba nce 61267307 Completed 201106/07/2014 RECORDED 10/23/20 12 9:37AM BY ANANYA ESTRELLA MA, ANNOTATI ON/ADDEN DUM Not Available [facility] 4 15:14:12 Urinary system finding 545188488 Completed 201106/07/2014 RECORDED 10/23/20 12 9:36AM BY ANANYA ESTRELLA MA, ANNOTATI ON/ADDEN DUM Not Available [facility] 4 15:14:12 Abdomina l pain 32912046 Completed 201206/27/2014 IMPRESSI ON: UNCLEAR CAUSE OF PAIN. NO ACUTE ABDOMEN BASED ON CT. MAYBE MILD PANCREAT ITIS. WILL CHECK AMYLASE. HE DRINKS 12 DRINKS A WEEK. NO HX ALCOHOLI SM.; RECORDED 04/02/20 13 10:12AM BY ANANYA ESTRELLA MA, NATALYA ON/ADDEN DUM Not Available [facility] 4 06:00:33 Abnormal findings diagnost ic imaging of liver+bi liary tract 867521028 Completed 201206/27/2014 IMPRESSI ON: THIS MAY JUST BE INCIDENT AL FINDING. NOT SURE IF CAUSE OF HIS PAIN. GI NEXT WEEK FOR FURTHER W/U; RECORDED 04/02/20 13 10:12AM BY ANANYA ESTRELLA MA, NATALYA ON/ADDEN DUM Not Available [facility] 4 06:00:33 Acute sinusiti s 03134557 Completed 200806/27/2014 RECORDED 02/03/20 09 7:20AM BY ANANYA ESTRELLA MA, NATALYA ON/ADDEN DUM Not Available [facility] 4 06:00:33 Diarrhea of presumed infectio us origin 18155837 Completed 201106/27/2014 RECORDED 10/23/20 12 9:37AM BY ANANYA ESTRELLA MA, REGGIEATI ON/ADDEN DUM Not Available [facility] 4 06:00:33 Dysuria 85472406 Completed 200706/27/2014 RECORDED 11/14/20 08 9:53AM BY NATALYA CASTRO ON/ADDEN DUM Not Available [facility] 4 06:00:33 Respirat ory finding 579814628 Completed 201306/27/2014 RECORDED 12/03/19 14 1:12PM BY ROXY MICHELE MA, NATALYA ON/ADDEN DUM Not Available [facility] 4 06:00:33 Malaise and fatigue 467404818 Completed 201106/27/2014 RECORDED 10/23/20 12 9:37AM BY ANANYA ESTRELLA MA, NATALYA ON/ADDEN DUM Not Available [facility] 4 06:00:33 Influenz a vaccine needed 87303467482 06 Completed 201206/27/2014 RECORDED 04/02/20 13 10:12AM BY ANANYA ESTRELLA MA, NATALYA ON/ADDEN DUM Not Available [facility] 4 06:00:33 General examinat ion of patient Completed 200706/27/2014 RESOLVED DATE: 07/14/20 08; RECORDED 07/14/20 08 3:43PM BY NATALYA MONTES ON/ADDEN DUM Not Available [facility] 4 06:00:33 Laborato ry procedur e performe d 935308895 Completed 201206/27/2014 RECORDED 04/02/20 13 10:11AM BY ANANYA ESTRELLA MA, NATALYA ON/ADDEN DUM Not Available [facility] 4 06:00:33 Administ ration of bacteria l and viral vaccine Completed 200706/27/2014 RECORDED 07/14/20 08 3:34PM BY DEBBIE ESTRELLA, OFFICE VISIT Not Available [facility] 4 06:00:33 Elevated level of transami nase and lactic acid dehydrog enase 404103284 Completed 201106/27/2014 RECORDED 10/23/20 12 9:37AM BY ANANYA ESTRELLA MA, NATALYA ON/ADDEN DUM Not Available [facility] 4 06:00:33 Disorder of skin 75023218 Completed 201306/27/2014 RECORDED 12/03/19 14 1:12PM BY ROXY MICHELE MA, NATALYA ON/ADDEN DUM Not Available [facility] 4 06:00:33 Dermatop hytosis of the perianal area Completed 201106/27/2014 RECORDED 10/23/20 12 9:37AM BY ANANYA ESTRELLA MA, NATALYA ON/ADDEN DUM Not Available [facility] 4 06:00:33 Visual disturba wie 80351449 Completed 201106/27/2014 RECORDED 10/23/20 12 9:37AM BY ANANYA ESTRELLA MA, ANNOTATI ON/ADDEN DUM Not Available [facility] 4 06:00:33 Urinary system finding 746194436 Completed 201106/27/2014 RECORDED 10/23/20 12 9:36AM BY ANANYA ESTRELLA MA, ANNOTATI ON/ADDEN DUM Not Available [facility] 4 06:00:33 Body mass index 25-29 - overweig ht 301930296 Active Nixon Hernandez MD [address], [place], [address] , [facility] 4 16:07:00 Gastroes ophageal reflux disease 428596672 Active Nixon Hernandez MD [address], [place], [address] , [facility] 5 14:23:28 Patellar tendonit is 67477582 Active Nixon Hernandez MD [address], [place], [address] , [facility] 5 14:23:28 Impacted cerumen 98123659 Active Nixon Hernandez MD [address], [place], [address] , [facility] 5 14:23:28 Wheezing symptom 920563773 Completed 10/18/2016 Ananya ellison MA null, [facility] 6 09:09:32 Hypersom ramon 97843883 Active Nixno Hernandez MD [address], [place], [address] , [facility] 6 09:29:57 Prediabe haroon 505663960 Active 2017 Nixon Hernandez MD [address], [place], [address] , [facility] 8 09:36:24 Mixed hyperlip idemia 767430083 Completed 201810/03/2019 Hina Hong PA-C [address], [place], [address] , [facility] 9 19:19:38 Problem Notes None recorded. Procedures Surgical History Date Name Laterality Status Provider Name and Address Organization Details Recorded Time 7 Colonoscopy completed Julissa Escobar [facility] 08/13/2017 11:18:24 6 Vasectomy completed Ata Sifuentes [facility] 10/21/2017 08:29:26 4 Eye Surgery completed Ata Sifuentes [facility] 10/21/2017 08:29:26 4 Other completed Ananya oquendo MA [facility] 08/26/2014 09:56:51 9 Hernia Repair completed Ata Sifuentes [facility] 10/21/2017 08:29:26 6 Circumcision completed Ata Sifuentes [facility] 10/21/2017 08:29:26 6 Hernia Repair completed Ata Sifuentes [facility] 10/21/2017 08:29:26 Imaging Results Imaging Date Name Status LastModified by Organiz ation Details LastModified Time 10/22/2012 XR, abdomen + pelvis completed [facility] Information not available 10/21/2017 12:48:22 Procedure Notes None recorded. Medical Equipment None Reported. Allergies Allergen ID Allergen Name Allergen Category Reaction Reaction Severity Criticality Documentation Date Start Date Code Code System Note Provider Name and Address Organization Details Recorded Time 67862 erythromy tonio medicatio n Not available Not available Not available 05/31/20142013 4053 RxNorm as an infan [facility] 5 08:58:50 Medications Name Sig Start [...] Updated DateTime 7 181.61 cm 29.2 kg/m2 47426.5 8 g 61 /min 97 % 97 % 97.4 [degF] 130 mm[Hg] 68 mm[Hg] Ata Sifuentes [facility] 7 08:42:46 Date Recorded Body height Body temperature Oxygen saturation Oxygen saturation in Arterial blood by Pulse oximetry Heart rate Body mass index (BMI) Body weight Systolic blood pressure Diastolic blood pressure Provider Name and Address Organization Details Last Updated DateTime 7 181.61 cm 98.3 [degF] 98 % 98 % 59 /min 29 kg/m2 14717.9 9 g 136 mm[Hg] 84 mm[Hg] Ananya shi MA [facility] 7 16:14:47 Date Recorded Body height Body mass index (BMI) Body weight Oxygen saturation Oxygen saturation in Arterial blood by Pulse oximetry Heart rate Body temperature Provider Name and Address Organization Details Last Updated DateTime 8 181.61 cm 28.7 kg/m2 68968.8 1 g 97 % 97 % 65 /min 97.7 [degF] Ananya shi MA [facility] 8 09:04:31 Date Recorded Systolic blood pressure Diastolic blood pressure Provider Name and Address Organization Details Last Updated DateTime 04/27/2018 122 mm[Hg] 76 mm[Hg] Nixon Hernandez MD [address], [address], [facility] 04/27/2018 09:26:05 Date Recorded Body height Body mass index (BMI) Body weight Heart rate Oxygen saturation Oxygen saturation in Arterial blood by Pulse oximetry Body temperature Systolic blood pressure Diastolic blood pressure Provider Name and Address Organization Details Last Updated DateTime 8 181.61 cm 26.7 kg/m2 86820.6 2 g 81 /min 98 % 98 % 98.7 [degF] 127 mm[Hg] 83 mm[Hg] Claudette Unger [place] [facility] 8 13:04:48 Date Recorded Body height Body mass index (BMI) Body weight Heart rate Oxygen saturation Oxygen saturation in Arterial blood by Pulse oximetry Body temperature Systolic blood pressure Diastolic blood pressure Provider Name and Address Organization Details Last Updated DateTime 8 181.61 cm 26.4 kg/m2 56955.7 4 g 69 /min 98 % 98 % 98.7 [degF] 107 mm[Hg] 72 mm[Hg] Catina Grimm MA [facility] 8 09:22:39 Social History Question Answer Notes LastModified by Organizat ion Details LastModified Time Tobacco Smoking Status Never Smoker LAT[place] Melo [facility] 08/26/2014 09:56:50 Do You Have An Advance [...] 08/26/2014 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 1 Son (Islam) Information not available 09/22/2015 Do You Use [...] 40 [email or web address] Not available 08:51:52 Father Malignant neoplasm of lung 65 [email or web address] Not available 08:51:52 Father Anxiety disorder 21 [email or web address] Not available 08:51:52 Father Heart disease 51 [email or web address] Not available 08:51:52 Father Harmful pattern of use of alcohol 17 [email or web address] Not available 08:51:52 Father Hypertensive [...] History Condition Response Other N Gout N Blood Diseases N Kidney Stones N Hyperthyroidism N Breast Cancer N Hypothyroidism [...] virus, quadrivalent, PF 6 completed Not Available [facility] 12/04/2019 02:22:07 Influenza, split virus, quadrivalent, PF 7 completed Not Available [facility] 12/04/2019 02:22:11 Tdap 8 completed Not Available [facility] 12/04/2019 02:21:48 Influenza, split virus, trivalent, PF 4 completed Not Available [facility] 12/04/2019 02:21:57 Influenza, split virus, quadrivalent, PF 8 completed Not Available [facility] 12/04/2019 02:22:15 Tdap 8 completed Not Available [facility] 05/31/2014 13:23:39 Influenza, split virus, trivalent, preservative 1 completed Not Available [facility] 05/31/2014 13:23:39 Influenza, split virus, trivalent, preservative 2 completed Not Available [facility] 05/31/2014 13:23:39 Past Encounters Encounter ID Performer Location Encounter Start Date Encounter Closed Date Diagnosis/Indication Diagnosis SNOMED-CT Code Diagnosis ICD10 Code Diagnosis Note [id number] [facility] [id number] [facility] [place] [address] 12/18/2007 00:00:00 [id number] autoEComm erce [address] [facility] [place] [address] 12/29/2007 00:00:00 [id number] autoEComm erce [address] [facility] [place] [address] 07/14/2008 00:00:00 [id number] autoEComm erce [address] [facility] [place] [address] 11/14/2008 00:00:00 [id number] autoEComm erce [address] [facility] [place] [address] 02/02/2009 00:00:00 [id number] auto[facility]Comm erce [address] [facility] [place] [address] 09/20/2009 00:00:00 [id number] autoEComm erce [address] [facility] [place] [address] 12/20/2009 00:00:00 [id number] autoEComm erce [address] [facility] [place], [place] [address] 06/27/2010 00:00:00 [id number] autoEComm erce [address] [facility] [place], [place] [address] 01/08/2011 00:00:00 [id number] autoEComm erce [address] [facility] [place], [place] [address] 10/23/2012 00:00:00 [id number] auto[facility]Comm erce [address] [facility] [place], [place] [address] 04/02/2013 00:00:00 [id number] autoEComm erce [address] [facility] [place], [place] [address] 05/21/2013 00:00:00 [id number] autoEComm erce [address] [facility] [place], [place] [address] 12/03/2013 00:00:00 [id number] Nixon Hernandez MD Main Office [address] [address] [place] [address] 08/26/2014 09:40:18 08/26/2014 11:11:25 Adult health examination 432240402 Needs infl uenza immunization 745518897 Essential hypertension 89725697 Hyperlipidemia 36783156 Body mass index 25-29 - overweight 424762267 [id number] Nixon Hernandez MD Main Office [address] [address] [place], [place] [address] 03/17/2015 08:52:49 03/17/2015 09:27:02 Essential hypertension 39710138 [id number] Nixon Hernandez MD Main Office [address] [address] [place], [place] [address] 09/22/2015 08:54:36 09/22/2015 10:36:06 Adult health examination 778714224 Z00.00 Essential hypertension 86276883 I10 Anxiety disorder 1023618 06 F41.9 Hyperlipidemia 73903469 E78.5 Gastroesop hageal reflux disease 079035851 K21.9 Patellar tendonitis 3778 5001 M76.50 Impacted cerumen 6140413 6 H61.22 Wheezing symptom 1640167 08 R06.2 [id number] Nixon Hernandez MD Main Office [address] [address] [place] [address] 03/29/2016 08:43:25 03/29/2016 09:32:19 Essential hypertension 58479488 I10 Family romina nning education 182417746 Z30.02 Hypersomnia 27703232 G47 .10 [id number] Nixon Hernandez MD Main Office [address] [address] [place] [address] 10/18/2016 09:00:30 10/18/2016 10:13:03 Adult health examination 597456951 Z00.00 Needs infl uenza immunization 181396045 Z23 Screening for malignant neoplasm of colon 857727656 Z12.11 Body mass index 25-29 - overweight 803873264 E66.3 Hyperlipidemia 99440900 E78.5 Fatigue 01806961 R53.83 Gastroesop hageal reflux disease 809602050 K21.9 [id number] Nixon Hernandez MD Main Office [address] [address] [place] [address] 04/25/2017 11:07:04 04/25/2017 11:49:25 Essential hypertension 31256420 I10 Hyperlipidemia 92926896 E78.5 Fatigue 14419596 R53.83 [id number] Nixon Hernandez MD Main Office [address] [address] [place] [address] 07/29/2017 14:58:39 07/29/2017 16:09:18 Needs influenza immunization 279205903 Z23 [id number] Nixon Hernandez MD Main Office [address] [address] [place] [address] 10/21/2017 08:26:02 10/21/2017 09:30:21 Adult health examination 452603984 Z00.00 Essential hypertension 52191332 I10 Hyperlipidemia 08210684 E78.5 Fatigue 60702192 R53.83 Body mass index 25-29 - overweight 356654304 E66.3 Z68.25 Obsessive- compulsive disorder 656485338 F42.9 Continue SSRI [id number] Nixon Hernandez MD Main Office [address] [address] [place] [address] 10/27/2017 15:55:29 10/27/2017 16:34:42 Benign paroxysmal positional vertigo 166703866 H81.10 [id number] Nixon Hernandez MD Main Office [address] [address] [place] [address] 04/27/2018 08:47:55 04/27/2018 09:33:18 Essential hypertension 62307497 I10 Administra tion of viral vaccine 33776440 Z23 Hyperlipidemia 22744938 E78.5 Fatigue 19205530 R53.83 Patellofem oral stress syndrome 272659444 M22.2X9 [id number] Hina Hong PA-C Main Office [address] [address] [place] [address] 05/18/2018 13:01:09 05/18/2018 14:21:34 Prediabetes 793601079 R73.03 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 Mixed hyperlipidemia 267 484348 E78.2 recommend to recheck before next visit. Body mass index 25-29 - overweight 733160889 Z68.26 [id number] Nixon Hernandez MD Main Office [address] [address] [place] [address] 11/16/2018 09:12:04 11/16/2018 10:08:00 Adult health examination 499407836 Z00.00 Needs infl uenza immunization 886830273 Z23 Body mass index 25-29 - overweight 854542965 E66.3 Z68.25 Prediabetes 887378235 R7 3.03 Gastroesop hageal reflux disease 482834413 K21.9 Hyperlipidemia 65575212 E78.5 Essential hypertension 90369410 I10 Health Concerns Section Related Observation LastModified by Organization Detai ls LastModified Time None Recorded Concern Status LastModified by Organization Details LastModified Time None Recorded Advance Directives Directive Y: signed 03/17/2015 Payers Encounter Date Sequence Insurance Name Policy Number Policy Haynes Covered Member ID Haynes Member ID Guarantor Name 10/21/2017 1 [facility] ([facility]) [id number] Yancy Nalepinski [id number] Yancy Nalepinski 10/27/2017 1 [facility] ([place]) [id number] 23 Yancy Nalepinski [id number] Yancy Nalepinski 04/27/2018 1 [facility] ([place]) [id number] 23 Yancy Nalepinski [id number] Yancy Nalepinski 05/18/2018 1 [facility] ([place]) [id number] 23 Yancy Nalepinski [id number] Yancy Nalepinski 11/16/2018 1 [facility] ([facility]) [id number] 23 Yancy Nalepinski [id number] Yancy Nalepinski Notes Date Note Type Note [...] and concerns about weight. Nixon Hernandez MD [address] [address], [place], [address], [facility] 10/21/2017 09:25:17 7 text/html DizzinessReported bypatient.Quality:symptoms worse in the evening (wakes occasionally from sleep) Severity:no effect on daily activities Duration:intermittent episodes lasting:; lasts <5 minutes Notes sensation of dizziness with spinning sensation for the past 4 days. Nixon Hernandez MD [address] [address], [place], [address], [facility] 10/27/2017 16:37:37 8 text/html Hypertension F/UReported bypatient.Associated [...] injuryNotes:No obvious swelling Nixon Hernandez MD [address], [address], [facility] 04/27/2018 09:31:19 8 text/html Diabetes F/UReported bypatient.Context:normal [...] of 31. High cardiovasc. risk with early [place] in father at age 50. Pt. lost 15 lbs since April 27. Nixon Hernandez MD [address], [address], [facility] 05/18/2018 18:03:06 12/31/201 8 text/html GERD RefluxReported bypatient.Notes:Stable on PPIHypertension [...] over the summer months. Nixon Hernandez MD [address] [address], [place], [address], [facility] 11/16/2018 10:07:57
[2025-03-21 15:41] LABS: PSA,Total (Free>4and<10) 4.45 ng/mL (0.00-4.00)
[2025-03-24 10:28] LABS: Free Prostate Spec Ag 0.5 ng/mL; Percent Free Prostate Spec Ag 13 % (calc) (>25)
== END 2025-03-21 12:46 | disposition home or self-care (01) ==
LOC: HO.WFDLDS 12:45
PROVIDERS: Visit Provider Nurse Practitioner Family
DX: N40.0 Benign prostatic hyperplasia without lower urinary tract symptoms (principal); R97.20 Elevated prostate specific antigen [PSA]; Z12.5 Encounter for screening for malignant neoplasm of prostate
CPT/HCPCS: 36415; 84153; 84154

== ENCOUNTER 2025-03-22 16:13 | Outpatient (AMB) | payer OTHER, SELFPAY ==
--- NOTE | 2025-03-22 16:13 | A.OFFVIS_ITS ---
Intake Visit Reasons: 4M Follow Up Intake Note: Patient presents today for tele visit follow up visit on: increasing PSA and PSA lab results * PSA: 4.45 (pending) Urology Medications: finasteride Blood Thinner: none Hand Patcher Required: No Accompanied by: Self / Same As Patient Allergies erythromycin base Allergy (Mild, Verified 03/22/25 16:23) Rash Medication List - Last Reconciled 03/22/25 by BRI Banuelos- blood-glucose meter (FreeStyle Lite Meter kit) DX: R 73.01, test blood sugar Once a day, duration 999 days finasteride 5 mg PO DAILY 90 days lisinopril-hydrochlorothiazide 20-12.5 mg 1 tab PO DAILY 90 days lorazepam 1 mg PO BEDTIME PRN 30 days meloxicam 15 mg PO DAILY 30 days omeprazole 20 mg PO DAILY 90 days sertraline 50 mg PO DAILY 90 days HPI Comments Details: Jarret is a very pleasant 59-year-old male patient of Dr. Small. He has a past medical history of GERD, hypertension, and bilateral hip replacem ents. He is being followed up on today via telehealth for his elevated PSA and lower urinary tract symptoms. In discussion with the patient today he reports compliance with finasteride as prescribed. He does continue to report episodes of nocturia and urinary urgency. Recent PSA results were reviewed with the patient today as noted and trended below. We discussed slight increase in PSA despite compliance with finasteride as prescribed. Previous workup has included a retroperitoneal ultrasound 10/10 noting bilateral kidneys with no calculi, hydronephrosis, and or masses noted. The bladder is well distended. Bladder jets are demonstrated. Large lobulated mass protruding into the bladder possibly related to an enlarged prostate measuring 130 mL. Possible ureterocele of the right prostate gland. Trabeculations of the bladder wall. We discussed further workup to include MRI of the prostate verses prostate biopsy verses surveillance monitoring. We also discussed in office cystoscopy for further assessment evaluation to further assess potential TURP as well as biopsy if necessary. Risks and benefits of these treatment options were discussed in detail. All questions were answered. PSAs are as follows: 11/05 1.6, 11/08 3.4, 08/10 3.7, 12/11 4.0, 03/11 4.5, We discussed correlation of enlarged prostate with borderline elevated PSA. We discussed potential causes of elevated PSA as well as further workup. Risks and benefits of these interventions were discussed. He discusses following up with a urologist approximately 20 years ago as he underwent a vasectomy in the past and also has a longstanding history of prostatitis. He denies incontinence, hematuria, dysuria, foul smelling urine, changes to urinary stream, flank pain, fever, and or chills. He otherwise offers no other issues or concerns at this time. [facility] Surgical History History of hip surgery History of hernia surgery Family History Sister Breast cancer Father Alcohol abuse Social History Household Members: Children Household Members Other:: Son Housing: House Are you a primary health care recruiter to a significant other at home: No Do you presently have visiting nurse or other home services: No 75 years or older and lives alone: No Alcohol intake: current Alcohol intake frequency: a few times a week Patient Tobacco Use Status: Never used Tobacco e-Cigarette/Vaping Use: Never Used Second Hand Smoke Exposure: No service: No Current occupational status: employed 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 Current occupational exposures/hazards: No Sexual orientation: Unable to collect Gender identity: Unable to collect Cognitive needs: No Hearing needs: Yes ( says what a lot has tinnitus ) Vision needs: No Review of Systems Const All systems reviewed & are unremarkable except as noted in HPI and below Physical Exam Const General: cooperative Orientation/consciousness: patient oriented x3 Resp Effort & Inspection: able to speak in complete sentences Neuro General: patient oriented x3 Psych Speech and movement: Clear speech present Attitude: cooperative Thought content: Normal thought content present Insight: Fair insight present (Psych) Judgement: Fair judgement present (Psych) Telehealth Telehealth Telehealth Platform: [facility] Location of provider rendering services: practice address Location of patient: address on file Patient Identification confirmed using: Name, : Yes Telehealth method: video Patient verbally consented to treatment: Yes Patient verbally consented to billing insurance company: Yes Patient informed of any privacy concerns related to visit: Yes Results Reviewed Results Reviewed: Date of Service: 09/30/24 Procedure(s): US retroperitoneal comp FINDINGS: RIGHT KIDNEY: 11.2 x 6.2 x 5.0 cm (SAG x AP x TRV). No hydronephrosis. No renal calculi. Renal cortical thickness is normal. Limited visualization. LEFT KIDNEY: 12.5 x 7.0 x 5.1 cm (SAG x AP x TRV). No hydronephrosis. No renal calculi. Renal cortical thickness is normal. Limited visualization. BLADDER: Well distended. Bilateral ureteral jets are demonstrated. Prevoid bladder volume is 482.1 mL. Postvoid bladder volume is 123.1 mL. PROSTATE GLAND: The prostate gland is enlarged with a volume of 127.2 mL. Large lobulated mass protruding into the bladder, possibly related to enlarged prostate gland versus bladder wall mass. Possible ureterocele to the right of the prostate gland. Trabeculation of the bladder wall. IMPRESSION: 1. The prostate gland is enlarged with a volume of 127.2 mL. Large lobulated mass protruding into the bladder, possibly related to enlarged prostate gland versus bladder wall mass. 2. Possible ureterocele to the right of the prostate gland. Trabeculation of the bladder wall. 3. No hydronephrosis. No renal calculi. 4. Urology consultation recommended to determine further management including possible direct visualization with cystoscopy. Assessment & Plan Assessment & Plan (1) Prostatitis: Code(s): N41.9 - Inflammatory disease of prostate, unspecified Category: Medical (2) Urinary hesitancy: Code(s): R39.11 - Hesitancy of micturition Category: Medical (3) PSA elevation: Code(s): R97.20 - Elevated prostate specific antigen [PSA] Category: Medical (4) Enlarged prostate: Code(s): N40.0 - Benign prostatic hyperplasia without lower urinary tract symptoms Category: Medical (5) Ureterocele: Code(s): N28.89 - Other specified disorders of kidney and ureter Category: Medical Plan Recent PSA results reviewed with the patient today; as noted above. We discussed at length potential causes of elevated PSA. We discussed further treatment options of elevated PSA as well as risks and benefits of these interventions. Continue finasteride. All questions were answered. Will schedule for in office cystoscopy for further assessment evaluation. Follow-up per doctor's orders; or sooner with any issues, concerns, and or questions. Patient Instructions: The patient had an opportunity to ask questions regarding the treatment plan. All questions were answered. Physical exam, labs, and imaging were discussed and reviewed in detail. As well as risks, benefits, and discussion of treatment choices. No major barriers to understanding were identified. The patient expressed understanding and agreement with the above treatment plan. The patient was made aware they should contact our office by phone for worsening of their current condition, the appearance of new symptoms, or with any questions or concerns. Compliance is encouraged with any medications and follow up testing that is ordered. It is a privilege to be allowed the opportunity to participate in? your urological care.? Again, if you have any questions or concerns If you have any questions or concerns please do not hesitate to contact me. The office is [phone]. This note is constructed using voice recognition software. While every effort has been made to ensure accuracy acting professor errors may have been included. Yours sincerely, CHRISTY Banuelos Coding Level of Care Code Tele Est Pt Level 4 (47937) Diagnoses Prostatitis N41.9 Urinary hesitancy R39.11 PSA elevation R97.20 Enlarged prostate N40.0 Ureterocele N28.89
--- OUTSIDE RECORDS SUMMARY | 2025-03-22 17:03 | XMS_ITS | Data Portability ---
Author Organization [facility], Main Office Address [address] [place] [address] Care Team Providers Care Video Editing Internship Name Role Phone NIXON HERNANDEZ Primary Care Provider [facility] Rand Maker TIFF LEONARD Referring Provider [phone] Assessment Encounter Date Assessment Date Assessment LastModified [...] done 018. 2017 018 rakesh [facility], [address] [address], [place], [address], 9 11:35:33 hemogl obin A1C, finger stick 2017 018 [facility] In-Office Order, Internal Use Only DO Not Attach Compendium DO Not Attach Compendium, Do Not Delete/merge, [id number] 8 09:46:31 lipid panel, serum 2017 018 [email or web address] [facility] (Centralized Electronic Ordering - All Locations), Patient Can Go To The Location Of Their Choice, 9 15:35:57 BMP, serum or plasma 2017 018 [email or web address] [facility] (Centralized Electronic Ordering - All Locations), [...] or plasma 2017 018 JOCELINE [facility], [address], [address], [place], [address], 8 15:39:41 lipid panel, serum 2017 018 JOCELINE [facility], [address], [address], [place], [address], 8 15:39:42 TSH, serum or plasma 2017 018 JOCELINE [facility], [address], [address], [place], [address], 8 15:55:52 CBC w/ auto diff 2017 018 JOCELINE [facility], [address], [address], [place], [address], 8 14:30:42 BMP, serum or plasma 2016 017 [email or web address] [facility] (Centralized Electronic Ordering - All Locations), Patient Can Go To The Location Of Their Choice, [id number] 8 11:09:35 lipid panel, serum 2016 017 [email or web address] [facility] (Centralized Electronic Ordering - All Locations), Patient Can Go To The Location Of Their Choice, [id number] 8 11:09:35 ALT (pamela august), serum or plasma 2016 017 [email or web address] [facility] (Centralized Electronic Ordering - All Locations), Patient Can Go To The Location Of Their Choice, [id number] 8 11:09:35 TSH, serum or plasma 2016 017 [email or web address] [facility] (Centralized Electronic Ordering - All Locations), Patient Can Go To The Location Of Their Choice, [id number] 8 11:09:34 CBC w/ auto diff 2016 017 [email or web address] [facility] (Centralized Electronic Ordering - All Locations), Patient Can Go To The Location Of Their Choice, [id number] 8 11:09:35 Referral nutrit ionist /sauli karan referr al 2017 018 Not available 8 10:13:38 physic al therap ist referr al - Please see for BPPV 2016 017 [email or web address] [facility], [address] [place] [address], [address], [place], [address], 8 15:21:26 nutrit ionist /dieti karan referr al 2016 017 Not available 7 09:30:22 Procedures None record ed. Surgeries None record ed. Imaging None record ed. Medication Orders omepra zole 20 mg capsul christina manzano e 2017 018 [facility], [address] [place] [address], [place], [address], 8 09:47:43 Patient TargetsNo targets recorded. Patient Instructions Encounter Date Encounter Id Patient Instructions Last Modified By Organization Details Last Modified Time 10/21/2017 [id number] When You Want to Lose Weight: Care Instructions [email or web address] Not available 10/21/2017 09:26:49 Nutrition Referr al and Weight Management Follow-up Information [email or web address] Not available 10/21/2017 09:30:15 high blood press ure: care instructions [email or web address] Not available 10/21/2017 09:26:49 learning about h igh blood pressure [email or web address] Not available 10/21/2017 09:26:49 obsessive-compul sive disorder: care instructions [email or web address] Not available 10/21/2017 09:26:49 10/27/2017 [id number] benign paroxysma l positional vertigo (bppv): care instructions [email or web address] Not available 10/27/2017 16:34:30 04/27/2018 [id number] patellofemoral p ain syndrome (runner's knee): exercises [facility] Not available 04/27/2018 09:26:19 patellofemoral p ain syndrome: care instructions [facility] Not available 04/27/2018 09:26:18 high blood press ure: care instructions [email or web address] Not available 04/27/2018 09:26:18 learning about h igh blood pressure phelmuth Not available 04/27/2018 09:26:19 05/18/2018 [id number] high cholesterol : care instructions Not available 05/18/2018 14:06:24 heart-healthy di et: care instructions Not available 05/18/2018 14:06:24 prediabetes: car e instructions Not available 05/18/2018 13:43:06 mediterranean diet Not availab le 05/18/2018 13:43:06 11/16/2018 [id number] gastroesophageal reflux disease (GERD): care instructions [email or web address] Not available 11/16/2018 09:47:43 high cholesterol : care instructions [facility] Not available 11/16/2018 09:55:59 high blood press ure: care instructions [facility] Not available 11/16/2018 09:55:59 learning about h igh blood pressure pheuth Not available 11/16/2018 09:55:59 When You Want to Lose Weight: Care Instructions [facility] Not available 11/16/2018 09:46:30 Nutrition Referr al and Weight Management Follow-up Information [facility] Not available 11/16/2018 09:46:30 Reason for Referral 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 for Body mass index 25-29 - overweight Referring Physician: Nixon Hernandez, Internal Medicine, Encounter Date: 10/21/2017 Please see for BPPV Referring Physician: Nixon Hernandez, Internal Medicine, Encounter Date: 10/27/2017 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 for Body mass index 25-29 - overweight Referring Physician: Nixon Hernandez, Internal Medicine, Encounter Date: 11/16/2018 Results Created Date Observation Date Name Description Value Unit Range Abnormal Flag Note LastModifiedBy Organization Detail LastModifiedTime 04/27/2004/27/2018 CBC w/ auto diff WBC 4.5 K/mm3 (4.0-1 1.0) Not Available [facility] (Centralized Electronic Ordering - All Locations) Patient Can Go To The Location Of Their Choice, [id number] 04/27/2018 14:30:42 04/27/2004/27/2018 CBC w/ auto diff RBC 4.69 M/mm3 (4.70- 6.10) low Not Available [facility] (Centralized Electronic Ordering - All Locations) Patient Can Go To The Location Of Their Choice, [id number] 04/27/2018 14:30:42 04/27/2004/27/2018 CBC w/ auto diff HGB 13.8 gm/dL (13.7- 16.5) Effec tive April 10 18, refer ence range s for HGB and HCT have been updat ed. Not Available [facility] (Centralized Electronic Ordering - All Locations) Patient Can Go To The Location Of Their Choice, [id number] 04/27/2018 14:30:42 04/27/20 18 04/27/2018 CBC w/ [...] Go To The Location Of Their Choice, [id number] 04/27/2018 15:39:42 04/27/2004/27/2018 lipid panel , serum non HDL cholesterol (calc) 162 mg/dL (<160) high Not Available [facility] (Centralized Electronic Ordering - All Locations) Patient Can Go To The Location Of Their Choice, [id number] 04/27/2018 15:39:42 04/27/2004/27/2018 TSH, serum or plasm a TSH 1.28 mIU/m L (0.40- 4.00) Not Available [facility] (Centralized Electronic Ordering - All Locations) Patient Can Go To The Location Of Their Choice, [id number] 04/27/2018 15:55:52 04/27/2004/29/2018 HbA1c (hemo globi n [...] Go To The Location Of Their Choice, [id number] 04/29/2018 09:22:49 11/16/20 18 11/16/2018 BMP, serum or plasm a glucose 108 mg/dL (70-99 ) high Not Available [facility] (Centralized Electronic Ordering - All Locations) Patient Can Go To The Location Of Their Choice, [id number] 11/16/2018 11:07:04 11/16/20 18 11/16/2018 BMP, serum or plasm a BUN 21 mg/dL (6-20) high Not Available [facility] (Centralized Electronic Ordering - All Locations) Patient Can Go To The Location Of Their Choice, [id number] 11/16/2018 11:07:04 11/16/20 18 11/16/2018 BMP, serum or plasm a creatinine 1.1 mg/dL (0.7-1 .2) Not Available [facility] (Centralized Electronic Ordering - All Locations) Patient Can Go To The Location Of Their Choice, [id number] 11/16/2018 11:07:04 11/16/20 18 11/16/2018 BMP, serum or plasm a sodium 140 mmol/ L (133-1 45) Not Available [facility] (Centralized Electronic Ordering - All Locations) Patient Can Go To The Location Of Their Choice, [id number] 11/16/2018 11:07:04 11/16/20 18 11/16/2018 BMP, serum or plasm a potassium 3.8 mmol/ L (3.6-5 .2) Not Available [facility] (Centralized Electronic Ordering - All Locations) Patient Can Go To The Location Of Their Choice, [id number] 11/16/2018 11:07:04 11/16/20 18 11/16/2018 BMP, serum or plasm a chloride 97 mmol/ L (98-10 7) low Not Available [facility] (Centralized Electronic Ordering - All Locations) Patient Can Go To The Location Of Their Choice, [id number] 11/16/2018 11:07:04 11/16/20 18 11/16/2018 BMP, serum or plasm a bicarbonate 30 mmol/ L (22-29 ) high Not Available [facility] (Centralized Electronic Ordering - All Locations) Patient Can Go To The Location Of Their Choice, [id number] 11/16/2018 11:07:04 11/16/20 18 11/16/2018 BMP, serum or plasm a anion gap 13 (4-17) Not Available [facility] (Centralized Electronic Ordering - All Locations) Patient Can Go To The Location Of Their Choice, [id number] 11/16/2018 11:07:04 11/16/20 18 11/16/2018 BMP, serum or plasm a calcium 10.0 mg/dL (8.6-1 0.5) Not Available [facility] (Centralized Electronic Ordering - All Locations) Patient Can Go To The Location Of Their Choice, [id number] 11/16/2018 11:07:04 11/16/20 18 11/16/2018 BMP, serum [...] Go To The Location Of Their Choice, [id number] 11/16/2018 11:07:04 11/16/20 18 11/16/2018 BMP, serum [...] Go To The Location Of Their Choice, [address] 11/16/2018 11:07:04 11/16/20 18 11/16/2018 lipid panel , serum cholesterol, total 215 mg/dL (<200) high Not Available [facility] (Centralized [facility] Ordering - All Locations) Patient Can Go To The Location Of Their Choice, [id number] 11/16/2018 11:07:05 11/16/20 18 11/16/2018 lipid panel , serum triglyceride 297 mg/dL (<150) high Not Available [facility] (Central[facility] Ordering - All Locations) Patient Can Go To The Location Of Their Choice, [id number] 11/16/2018 11:07:05 11/16/20 18 11/16/2018 lipid panel , serum HDL chol 38 mg/dL (>39) low Not Available [facility] (Centralized Electronic Ordering - All Locations) Patient Can Go To The Location Of Their Choice, [id number] 11/16/2018 11:07:05 11/16/20 18 11/16/2018 lipid panel , serum LDL cholesterol, calculated 118 mg/dL (0-130 ) Not Available [facility] (Centralized Electronic Ordering - All Locations) Patient Can Go To The Location Of Their Choice, [address] 11/16/2018 11:07:05 11/16/20 18 11/16/2018 lipid panel , serum non HDL cholesterol (calc) 177 mg/dL (<160) high Not Available [facility] (Centralized Electronic Ordering - All Locations) Patient Can Go To The Location Of Their Choice, [id number] 11/16/2018 11:07:05 11/16/20 18 11/16/2018 HbA1c (hemo [...] Go To The Location Of Their Choice, [id number] 11/16/2018 13:52:45 11/16/20 18 11/16/2018 hemog lobin A1C, finge rstic k HA1C 5.4 % 4-6 Not Available In-Office Order Internal Use Only DO Not Attach Compendium DO Not Attach Compendium, Do Not Delete/merge, [id number] 11/16/2018 09:36:28 10/01/2010/01/2019 HbA1c (hemo globi n [...] Go To The Location Of Their Choice, [id number] 10/01/2019 18:45:25 10/01/20 19 10/01/2019 lipid panel , serum HDL chol 47 mg/dL (>39) Not Available [facility] (Centralized Electronic Ordering - All Locations) Patient Can Go To The Location Of Their Choice, [id number] 10/01/2019 18:45:25 10/01/20 19 10/01/2019 lipid panel , serum LDL cholesterol, calculated 143 mg/dL (0-130 ) high Not Available [facility] (Centralized Electronic Ordering - All Locations) Patient Can Go To The Location Of Their Choice, [id number] 10/01/2019 18:45:25 10/01/20 19 10/01/2019 lipid panel , serum non HDL cholesterol (calc) 161 mg/dL (<160) high Not Available [facility] (Centralized Electronic Ordering - All Locations) Patient Can Go To The Location Of Their Choice, [id number] 10/01/2019 18:45:25 10/21/20 17 10/22/2012 XR, abdom en + pelvi s No observ ation record ed. BARCODE Not Available 2016 12:48:22 Result Notes None recorded. Problems Name Problem SNOMED Code Status Onset Date Resolution Date Notes Provider Name and Address Organization Details Recorded Time Abdomina l pain 43199927 Completed 201206/07/2014 IMPRESSI ON: UNCLEAR CAUSE OF PAIN. NO ACUTE ABDOMEN BASED ON CT. MAYBE MILD PANCREAT ITIS. WILL CHECK AMYLASE. HE DRINKS 12 DRINKS A WEEK. NO HX ALCOHOLI SM.; RECORDED 04/02/20 13 10:12AM BY ANANYA ESTRELLA MA, ANNOTATI ON/ADDEN DUM Not Available [facility] 4 15:14:10 Abnormal findings diagnost ic imaging of liver+bi liary tract 863643552 Completed 201206/07/2014 IMPRESSI ON: THIS MAY JUST BE INCIDENT AL FINDING. NOT SURE IF CAUSE OF HIS PAIN. GI NEXT WEEK FOR FURTHER W/U; RECORDED 04/02/20 13 10:12AM BY ANANYA ESTRELLA MA, ANNOTATI ON/ADDEN DUM Not Available [facility] 4 15:14:10 Acute sinusiti s 34699917 Completed 200806/07/2014 RECORDED 02/03/20 09 7:20AM BY ANANYA ESTRELLA MA, ANNOTATI ON/ADDEN DUM Not Available [facility] 4 15:14:10 Anemia 478769587 Active 2013 [place] Sosa, [facility] 6 09:09:29 Adult health examinat ion Active 2013 LAT[place] Sosa, [facility] 6 09:09:26 Anxiety disorder 868789542 Active 2013 [place] Sosa, [facility] 6 09:09:20 Diarrhea of presumed infectio us origin 38265151 Completed 201106/07/2014 RECORDED 10/23/20 12 9:37AM BY ANANYA ESTRELLA MA, ANNOTATI ON/ADDEN DUM Not Available [facility] 4 15:14:11 Dysuria 45150318 Completed 200706/07/2014 RECORDED 11/14/20 08 9:53AM BY LATASHA DELVALLE, REGGIEATI ON/ADDEN DUM Not Available [facility] 4 15:14:11 Essentia l hyperten candace 57028209 Active 2013 LATASHA Sosa, [facility] 6 09:09:46 Respirat ory finding 224377693 Completed 201306/07/2014 RECORDED 12/03/19 14 1:12PM BY ROXY MICHELE MA, ANNOTATI ON/ADDEN DUM Not Available [facility] 4 15:14:11 Malaise and fatigue 801917574 Completed 201106/07/2014 RECORDED 10/23/20 12 9:37AM BY ANANYA ESTRELLA MA, NATALYA ON/ADDEN DUM Not Available [facility] 4 15:14:11 Influenz a vaccine needed 71585605390 06 Completed 201206/07/2014 RECORDED 04/02/20 13 10:12AM BY ANANYA ESTRELLA MA, ANNOTNAVEEN ON/ADDEN DUM Not Available [facility] 4 15:14:11 General examinat ion of patient Completed 200706/07/2014 RESOLVED DATE: 07/14/20 08; RECORDED 07/14/20 08 3:43PM BY NATALYA MONTES ON/ADDEN DUM Not Available [facility] 4 15:14:11 Hyperlip idemia 74657955 Active 2013 [place] Sosa, [facility] 6 09:09:40 Essentia l hyperten candace 18474986 Completed 201206/07/2014 RECORDED 05/21/20 13 12:30PM BY ANANYA ESTRELLA MA, ANNOTNAVEEN ON/ADDEN DUM [place] Sosa, [facility] 6 09:09:46 Insomnia 234291672 Active 2013 [place] Sosa, [facility] 6 09:09:11 Laborato ry procedur e performe d 022157499 Completed 201206/07/2014 RECORDED 04/02/20 13 10:11AM BY ANANYA ESTRELLA MA, REGGIEATI ON/ADDEN DUM Not Available [facility] 4 15:14:11 Administ ration of bacteria l and viral vaccine Completed 200706/07/2014 RECORDED 07/14/20 08 3:34PM BY DEBBIE ESTRELLA, OFFICE VISIT Not Available [facility] 4 15:14:11 Patient status finding 056808833 Completed 201310/18/2016 RECORDED 12/03/19 14 1:12PM BY ROXY MICHELE MA, OFFICE VISIT LAT[place]HA Sosa, [facility] 6 09:09:03 Elevated level of transami nase and lactic acid dehydrog enase 665065140 Completed 201106/07/2014 RECORDED 10/23/20 12 9:37AM BY ANANYA ESTRELLA MA, ANNOTNAVEEN ON/ADDEN DUM Not Available [facility] 4 15:14:12 Osteoart hritis of hip 442217537 Active 2013 LATASHA Sosa, [facility] 6 09:09:23 Disorder of bursa of shoulder region 80126130 Active 2013 LATASHA Sosa, [facility] 6 09:09:43 Disorder of skin 41011782 Completed 201306/07/2014 RECORDED 12/03/19 14 1:12PM BY ROXY MICHELE MA, ANNOTATI ON/ADDEN DUM Not Available [facility] 4 15:14:12 Dermatop hytosis of the perianal area Completed 201106/07/2014 RECORDED 10/23/20 12 9:37AM BY ANANYA ESTRELLA MA, ANNOTATI ON/ADDEN DUM Not Available [facility] 4 15:14:12 Visual disturba nce 99832919 Completed 201106/07/2014 RECORDED 10/23/20 12 9:37AM BY ANANYA ESTRELLA MA, ANNOTATI ON/ADDEN DUM Not Available [facility] 4 15:14:12 Urinary system finding 719231141 Completed 201106/07/2014 RECORDED 10/23/20 12 9:36AM BY ANANYA ESTRELLA MA, ANNOTATI ON/ADDEN DUM Not Available [facility] 4 15:14:12 Abdomina l pain 50844240 Completed 201206/27/2014 IMPRESSI ON: UNCLEAR CAUSE OF PAIN. NO ACUTE ABDOMEN BASED ON CT. MAYBE MILD PANCREAT ITIS. WILL CHECK AMYLASE. HE DRINKS 12 DRINKS A WEEK. NO HX ALCOHOLI SM.; RECORDED 04/02/20 13 10:12AM BY ANANYA ESTRELLA MA, NATALYA ON/ADDEN DUM Not Available [facility] 4 06:00:33 Abnormal findings diagnost ic imaging of liver+bi liary tract 585294558 Completed 201206/27/2014 IMPRESSI ON: THIS MAY JUST BE INCIDENT AL FINDING. NOT SURE IF CAUSE OF HIS PAIN. GI NEXT WEEK FOR FURTHER W/U; RECORDED 04/02/20 13 10:12AM BY ANANYA ESTRELLA MA, NATALYA ON/ADDEN DUM Not Available [facility] 4 06:00:33 Acute sinusiti s 02105212 Completed 200806/27/2014 RECORDED 02/03/20 09 7:20AM BY ANANYA ESTRELLA MA, NATALYA ON/ADDEN DUM Not Available [facility] 4 06:00:33 Diarrhea of presumed infectio us origin 20180129 Completed 201106/27/2014 RECORDED 10/23/20 12 9:37AM BY ANANYA ESTRELLA MA, REGGIEATI ON/ADDEN DUM Not Available [facility] 4 06:00:33 Dysuria 78503349 Completed 200706/27/2014 RECORDED 11/14/20 08 9:53AM BY NATALYA CASTRO ON/ADDEN DUM Not Available [facility] 4 06:00:33 Respirat ory finding 607602803 Completed 201306/27/2014 RECORDED 12/03/19 14 1:12PM BY ROXY MICHELE MA, NATALYA ON/ADDEN DUM Not Available [facility] 4 06:00:33 Malaise and fatigue 662519523 Completed 201106/27/2014 RECORDED 10/23/20 12 9:37AM BY ANANYA ESTRELLA MA, NATALYA ON/ADDEN DUM Not Available [facility] 4 06:00:33 Influenz a vaccine needed 38977050869 06 Completed 201206/27/2014 RECORDED 04/02/20 13 10:12AM BY ANANYA ESTRELLA MA, NATALYA ON/ADDEN DUM Not Available [facility] 4 06:00:33 General examinat ion of patient Completed 200706/27/2014 RESOLVED DATE: 07/14/20 08; RECORDED 07/14/20 08 3:43PM BY NATALYA MONTES ON/ADDEN DUM Not Available [facility] 4 06:00:33 Laborato ry procedur e performe d 318980203 Completed 201206/27/2014 RECORDED 04/02/20 13 10:11AM BY ANANYA ESTRELLA MA, NATALYA ON/ADDEN DUM Not Available [facility] 4 06:00:33 Administ ration of bacteria l and viral vaccine Completed 200706/27/2014 RECORDED 07/14/20 08 3:34PM BY DEBBIE ESTRELLA, OFFICE VISIT Not Available [facility] 4 06:00:33 Elevated level of transami nase and lactic acid dehydrog enase 607645821 Completed 201106/27/2014 RECORDED 10/23/20 12 9:37AM BY ANANYA ESTRELLA MA, NATALYA ON/ADDEN DUM Not Available [facility] 4 06:00:33 Disorder of skin 14391098 Completed 201306/27/2014 RECORDED 12/03/19 14 1:12PM BY ROXY MICHELE MA, NATALYA ON/ADDEN DUM Not Available [facility] 4 06:00:33 Dermatop hytosis of the perianal area Completed 201106/27/2014 RECORDED 10/23/20 12 9:37AM BY ANANYA ESTRELLA MA, NATALYA ON/ADDEN DUM Not Available [facility] 4 06:00:33 Visual disturba ide 55845949 Completed 201106/27/2014 RECORDED 10/23/20 12 9:37AM BY ANANYA ESTRELLA MA, ANNOTATI ON/ADDEN DUM Not Available [facility] 4 06:00:33 Urinary system finding 025953642 Completed 201106/27/2014 RECORDED 10/23/20 12 9:36AM BY ANANYA ESTRELLA MA, ANNOTATI ON/ADDEN DUM Not Available [facility] 4 06:00:33 Body mass index 25-29 - overweig ht 793140977 Active Nixon Hernandez MD [address], [place], [address] , [facility] 4 16:07:00 Gastroes ophageal reflux disease 167780218 Active Nixon Hernandez MD [address], [place], [address] , [facility] 5 14:23:28 Patellar tendonit is 58134033 Active Nixon Hernandez MD [address], [place], [address] , [facility] 5 14:23:28 Impacted cerumen 70150472 Active Nixon Hernandez MD [address], [place], [address] , [facility] 5 14:23:28 Wheezing symptom 774329041 Completed 10/18/2016 Ananya ellison MA null, [facility] 6 09:09:32 Hypersom ramon 50068944 Active Nixon Hernandez MD [address], [place], [address] , [facility] 6 09:29:57 Prediabe haroon 947363155 Active 2017 Nixon Hernandez MD [address], [place], [address] , [facility] 8 09:36:24 Mixed hyperlip idemia 491293123 Completed 201810/03/2019 Hina Hong PA-C [address], [place], [address] , [facility] 9 19:19:38 Problem Notes None recorded. Procedures Surgical History Date Name Laterality Status Provider Name and Address Organization Details Recorded Time 7 Colonoscopy completed Julissa Escobar [facility] 08/13/2017 11:18:24 6 Vasectomy completed Ata Sifuentes [facility] 10/21/2017 08:29:26 4 Eye Surgery completed Ata Sifuentes [facility] 10/21/2017 08:29:26 4 Other completed Ananya oquendo MA [facility] 08/26/2014 09:56:51 9 Hernia Repair completed Ata Sifuentes [facility] 10/21/2017 08:29:26 6 Circumcision completed Ata Sifuentes [facility] 10/21/2017 08:29:26 6 Hernia Repair completed Ata Sifuentes [facility] 10/21/2017 08:29:26 Imaging Results Imaging Date Name Status LastModified by Organiz ation Details LastModified Time 10/22/2012 XR, abdomen + pelvis completed [facility] Information not available 10/21/2017 12:48:22 Procedure Notes None recorded. Medical Equipment None Reported. Allergies Allergen ID Allergen Name Allergen Category Reaction Reaction Severity Criticality Documentation Date Start Date Code Code System Note Provider Name and Address Organization Details Recorded Time 56764 erythromy tonio medicatio n Not available Not available Not available 05/31/20142013 4053 RxNorm as an [facility]an [facility] 5 08:58:50 Medications Name Sig Start Date [...] Updated DateTime 7 181.61 cm 29.2 kg/m2 82824.5 8 g 61 /min 97 % 97 % 97.4 [degF] 130 mm[Hg] 68 mm[Hg] Ata Sifuentes [facility] 7 08:42:46 Date Recorded Body height Body temperature Oxygen saturation Oxygen saturation in Arterial blood by Pulse oximetry Heart rate Body mass index (BMI) Body weight Systolic blood pressure Diastolic blood pressure Provider Name and Address Organization Details Last Updated DateTime 7 181.61 cm 98.3 [degF] 98 % 98 % 59 /min 29 kg/m2 38082.9 9 g 136 mm[Hg] 84 mm[Hg] Ananya shi MA [facility] 7 16:14:47 Date Recorded Body height Body mass index (BMI) Body weight Oxygen saturation Oxygen saturation in Arterial blood by Pulse oximetry Heart rate Body temperature Provider Name and Address Organization Details Last Updated DateTime 8 181.61 cm 28.7 kg/m2 77685.8 1 g 97 % 97 % 65 /min 97.7 [degF] Ananya shi MA [facility] 8 09:04:31 Date Recorded Systolic blood pressure Diastolic blood pressure Provider Name and Address Organization Details Last Updated DateTime 04/27/2018 122 mm[Hg] 76 mm[Hg] Nixon Hernandez MD [address], [address], [facility] 04/27/2018 09:26:05 Date Recorded Body height Body mass index (BMI) Body weight Heart rate Oxygen saturation Oxygen saturation in Arterial blood by Pulse oximetry Body temperature Systolic blood pressure Diastolic blood pressure Provider Name and Address Organization Details Last Updated DateTime 8 181.61 cm 26.7 kg/m2 12236.6 2 g 81 /min 98 % 98 % 98.7 [degF] 127 mm[Hg] 83 mm[Hg] Claudette Unger [facility] 8 13:04:48 Date Recorded Body height Body mass index (BMI) Body weight Heart rate Oxygen saturation Oxygen saturation in Arterial blood by Pulse oximetry Body temperature Systolic blood pressure Diastolic blood pressure Provider Name and Address Organization Details Last Updated DateTime 8 181.61 cm 26.4 kg/m2 16221.7 4 g 69 /min 98 % 98 % 98.7 [degF] 107 mm[Hg] 72 mm[Hg] Catina Grimm MA [facility] 8 09:22:39 Social History Question Answer Notes LastModified by Organizat ion Details LastModified Time Tobacco Smoking Status Never Smoker LATAS[place] Melo [facility] 08/26/2014 09:56:50 Do You Have An [...] 08/26/2014 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 1 Son (Latter Day) Information not available 09/22/2015 Do You Use [...] virus, quadrivalent, PF 6 completed Not Available [facility] 12/04/2019 02:22:07 Influenza, split virus, quadrivalent, PF 7 completed Not Available [facility] 12/04/2019 02:22:11 Tdap 8 completed Not Available [facility] 12/04/2019 02:21:48 Influenza, split virus, trivalent, PF 4 completed Not Available [facility] 12/04/2019 02:21:57 Influenza, split virus, quadrivalent, PF 8 completed Not Available [facility] 12/04/2019 02:22:15 Tdap 8 completed Not Available [facility] 05/31/2014 13:23:39 Influenza, split virus, trivalent, preservative 1 completed Not Available [facility] 05/31/2014 13:23:39 Influenza, split virus, trivalent, preservative 2 completed Not Available [facility] 05/31/2014 13:23:39 Past Encounters Encounter ID Performer Location Encounter Start Date Encounter Closed Date Diagnosis/Indication Diagnosis SNOMED-CT Code Diagnosis ICD10 Code Diagnosis Note [id number] [facility]Comm [facility] [address] [facility] [place] [address] 12/18/2007 00:00:00 [id number] autoEComm erce [address] [facility] [place] [address] 12/29/2007 00:00:00 [id number] autoEComm erce [address] [facility] [place] [address] 07/14/2008 00:00:00 [id number] autoEComm erce [address] [facility] [place] [address] 11/14/2008 00:00:00 [id number] autoEComm erce [address] [facility] [place] [address] 02/02/2009 00:00:00 [id number] autoEComm erce [address] [facility] [place] [address] 09/20/2009 00:00:00 [id number] autoEComm erce [address] [facility] [place] [address] 12/20/2009 00:00:00 [id number] autoEComm erce [address] [facility] [place], [place] [address] 06/27/2010 00:00:00 [id number] autoEComm erce [address] [facility] [place], [place] [address] 01/08/2011 00:00:00 [id number] autoEComm erce [address] [facility] [place], [place] [address] 10/23/2012 00:00:00 [id number] autoEComm erce [address] [facility] [place], [place] [address] 04/02/2013 00:00:00 [id number] autoEComm erce [address] [facility] [place]midt, [place] [address] 05/21/2013 00:00:00 [id number] autoEComm erce [address] [facility] [place]midt, [place] [address] 12/03/2013 00:00:00 [id number] Nixon Hernandez MD Main Office [address] [address] [place] [address] 08/26/2014 09:40:18 08/26/2014 11:11:25 Adult health examination 765269841 Needs infl uenza immunization 619381061 Essential hypertension 46251596 Hyperlipidemia 27260090 Body mass index 25-29 - overweight 997709310 [id number] Nixon Hernandez MD Main Office [address] [address] [place], [place] [address] 03/17/2015 08:52:49 03/17/2015 09:27:02 Essential hypertension 28577228 [id number] Nixon Hernandez MD Main Office [address] [address] [place], [place] [address] 09/22/2015 08:54:36 09/22/2015 10:36:06 Adult health examination 882618666 Z00.00 Essential hypertension 70377711 I10 Anxiety disorder 6937963 06 F41.9 Hyperlipidemia 91402107 E78.5 Gastroesop hageal reflux disease 542712916 K21.9 Patellar tendonitis 3778 5001 M76.50 Impacted cerumen 4113196 6 H61.22 Wheezing symptom 3662412 08 R06.2 [id number] Nixon Hernandez MD Main Office [address] [address] [place] [address] 03/29/2016 08:43:25 03/29/2016 09:32:19 Essential hypertension 41518680 I10 Family romina nning education 275725436 Z30.02 Hypersomnia 15946662 G47 .10 [id number] Nixon Hernandez MD Main Office [address] [address] [place] [address] 10/18/2016 09:00:30 10/18/2016 10:13:03 Adult health examination 794695567 Z00.00 Needs infl uenza immunization 015910592 Z23 Screening for malignant neoplasm of colon 173653619 Z12.11 Body mass index 25-29 - overweight 056010708 E66.3 Hyperlipidemia 52257804 E78.5 Fatigue 04237830 R53.83 Gastroesop hageal reflux disease 627986964 K21.9 [id number] Nixon Hernandez MD Main Office [address] [address] [place] [address] 04/25/2017 11:07:04 04/25/2017 11:49:25 Essential hypertension 20173990 I10 Hyperlipidemia 09010164 E78.5 Fatigue 01215927 R53.83 [id number] Nixon Hernandez MD Main Office [address] [address] [place] [address] 07/29/2017 14:58:39 07/29/2017 16:09:18 Needs influenza immunization 569366898 Z23 [id number] Nixon Hernandez MD Main Office [address] [address] [place] [address] 10/21/2017 08:26:02 10/21/2017 09:30:21 Adult health examination 489565430 Z00.00 Essential hypertension 59859460 I10 Hyperlipidemia 31381739 E78.5 Fatigue 56855781 R53.83 Body mass index 25-29 - overweight 812477622 E66.3 Z68.25 Obsessive- compulsive disorder 260906397 F42.9 Continue SSRI [id number] Nixon Hernandez MD Main Office [address] [address] [place] [address] 10/27/2017 15:55:29 10/27/2017 16:34:42 Benign paroxysmal positional vertigo 567136577 H81.10 [id number] Nixon Hernandez MD Main Office [address] [address] [place] [address] 04/27/2018 08:47:55 04/27/2018 09:33:18 Essential hypertension 94060467 I10 Administra tion of viral vaccine 65788140 Z23 Hyperlipidemia 62410021 E78.5 Fatigue 97262889 R53.83 Patellofem oral stress syndrome 463261940 M22.2X9 [id number] Hina Hong PA-C Main Office [address] [address] [place] [address] 05/18/2018 13:01:09 05/18/2018 14:21:34 Prediabetes 485065633 R73.03 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 Mixed hyperlipidemia 267 127267 E78.2 recommend to recheck before next visit. Body mass index 25-29 - overweight 701980851 Z68.26 [id number] Nixon Hernandez MD Main Office [address] [address] [place] [address] 11/16/2018 09:12:04 11/16/2018 10:08:00 Adult health examination 426127032 Z00.00 Needs infl uenza immunization 923332327 Z23 Body mass index 25-29 - overweight 715874601 E66.3 Z68.25 Prediabetes 357584544 R7 3.03 Gastroesop hageal reflux disease 145480816 K21.9 Hyperlipidemia 77261350 E78.5 Essential hypertension 10644161 I10 Health Concerns Section Related Observation LastModified by Organization Detai ls LastModified Time None Recorded Concern Status LastModified by Organization Details LastModified Time None Recorded Advance Directives Directive Y: signed 03/17/2015 Payers Encounter Date Sequence Insurance Name Policy Number Policy Haynes Covered Member ID Haynes Member ID Guarantor Name 10/21/2017 1 [facility] (O) [id number] Yancy Nalepinski [id number] Yancy Nalepinski 10/27/2017 1 [facility] (O) [id number] 23 Yancy Nalepinski [id number] Yancy Nalepinski 04/27/2018 1 [facility] (O) [id number] 23 Yancy Nalepinski [id number] Yancy Nalepinski 05/18/2018 1 [facility] (O) [id number] 23 Yancy Nalepinski [id number] Yancy Nalepinski 11/16/2018 1 [facility] (O) [id number] 23 Yancy Nalepinski [id number] Yancy Nalepinski Notes Date Note Type Note [...] and concerns about weight. Nixon Hernandez MD [address] [address], [place], [address], [facility] 10/21/2017 09:25:17 7 text/html DizzinessReported bypatient.Quality:symptoms worse in the evening (wakes occasionally from sleep) Severity:no effect on daily activities Duration:intermittent episodes lasting:; lasts <5 minutes Notes sensation of dizziness with spinning sensation for the past 4 days. Nixon Hernandez MD [address] [address], [place], [address], [facility] 10/27/2017 16:37:37 8 text/html Hypertension F/UReported bypatient.Associated [...] injuryNotes:No obvious swelling Nixon Hernandez MD [address], [address], [facility] 04/27/2018 09:31:19 8 text/html Diabetes F/UReported bypatient.Context:normal [...] of 31. High cardiovasc. risk with early MN in father at age 50. Pt. lost 15 lbs since April 27. Nixon Hrenandez MD [address], [address], [facility] 05/18/2018 18:03:06 12/31/201 8 text/html GERD RefluxReported [...] over the summer months. Nixon Hernandez MD [address] [address], [place], [address], [facility] 11/16/2018 10:07:57
== END 2025-03-22 16:34 | disposition home or self-care (01) ==
LOC: HO.HUSH 16:13
PROVIDERS: PCP Family Medicine; Visit Provider Nurse Practitioner Family
DX: N41.9 Inflammatory disease of prostate, unspecified (principal); R39.11 Hesitancy of micturition; R97.20 Elevated prostate specific antigen [PSA]; N40.0 Benign prostatic hyperplasia without lower urinary tract symptoms; N28.89 Other specified disorders of kidney and ureter
CPT/HCPCS: 98006

== ENCOUNTER → 2025-03-22 16:13 | Outpatient (BNVA) | payer OTHER, SELFPAY | PROVIDERS: PCP Family Medicine; Visit Provider Nurse Practitioner Family ==

== ENCOUNTER 2025-05-03 12:51 | Outpatient (AMB) | payer OTHER, SELFPAY ==
--- NOTE | 2025-05-03 13:05 | A.OFFVIS_ITS ---
Intake Visit Reasons: cysto Intake Note: Patient is present for Cystoscopy Urology Medication:finasteride Antibiotic Allergy:erythromycin Blood Thinner:none Lot:[id number] Exp:03/25/27 Boilers Inspector Required: No Allergies erythromycin base Allergy (Mild, Verified 05/03/25 13:07) Rash HPI Comments Details: Wing is a very pleasant male. He is a patient of Dr. Small. He is seen for the following urologic conditions - elevated PSA - lower urinary tract symptoms Here for cystoscopy Found to have trilobar hypertrophy Recommend GreenLight laser Printed information provided Lower urinary tract symptoms Initial presentation with nocturia and urinary urgency Placed on finasteride Bladder ultrasound measured enlarged prostate 130 cc with protrusion Bladder wall trabeculation PSA = 11/05 1.6, 11/08 3.4, 08/10 3.7, 12/11 4.0, 03/11 4.5, PFSH Surgical History History of hip surgery History of hernia surgery Family History Sister Breast cancer Father Alcohol abuse Social History (Reviewed 03/22/25 @ 16:19 by Anila Rodrigues, [facility]) Household Members: Children Household Members Other:: Son Housing: House Are you a primary lpn care manager to a significant other at home: No Do you presently have visiting nurse or other home services: No 75 years or older and lives alone: No Alcohol intake: current Alcohol intake frequency: a few times a week Patient Tobacco Use Status: Never used Tobacco e-Cigarette/Vaping Use: Never Used Second Hand Smoke Exposure: No service: No Current occupational status: employed 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 Current occupational exposures/hazards: No Sexual orientation: Unable to collect Gender identity: Unable to collect Cognitive needs: No Hearing needs: Yes ( says what a lot has tinnitus ) Vision needs: No Review of Systems Const Denies chills and Denies fever(s) Card Reports no additional complaints and Denies syncope Resp Denies cough GI Denies abdominal pain and Denies heartburn Reports as per HPI and Denies change in libido Neuro Denies syncope Psych Denies change in libido Endo Denies change in libido Physical Exam Const General: cooperative, healthy appearing, comfortable and no acute distress Orientation/consciousness: patient oriented x3 HEENT Face and sinus: Yes normal facial exam Mouth: moist mucous membranes Neck Neck: Yes normal visual inspection, Yes full ROM and Yes trachea midline Chest Chest palpation & inspection: normal inspection of the chest Resp Effort & Inspection: normal respiratory effort, able to speak in complete sentences and no respiratory distress GI Inspection: Yes normal to inspection Back/Spine/Pelvis Cervical Spine: normal cervical lordosis Thoracic/Lumbar Spine: thoracic and lumbar spine normal to inspection Skin General skin exam: no rashes or lesions noted Neuro General: patient oriented x3, gait normal, tone normal and moves all extremities Extrem General: Yes normal to inspection and Yes capillary refill normal Office Procedures Cystoscopy Consent Discussed risk and benefit or proposed procedure with the patient. Information consent for procedure given to the patient. Discussed technical aspects, risks, benefits and alternatives in full. Addressed all of the patient's questions and concerns regarding the procedure. The patient demonstrated knowledge and understanding. They wish to proceed with this procedure. Preparation The patient was prepped in the usual manner. A sheet metal layout mechanic was present and in the room. Genitalia was prepped with betadine solution in a sterile manner. Lidocaine Jelly 2% was placed into the urethra and 16Fr flexible Olympus cystoscope was inserted into the meatus after adequate lubrication. Procedure Cystoscopy performed using a disposable Urovue digital 16 Irish cystoscope. Meatus circumcised Urethra anterior and posterior urethra normal Prostatic Urethra trilobar hyperplasia Bladder examination with retroflexion of cystoscope Bladder Orifices normal shape and position Bladder Capacity Normal Trabeculations grade 1/2 Cellule Formation small Diverticulum Formation None Mucosal Erythema None Bladder Tumor None [id number] DISPOSABLE SCOPE URO-G FLEXIBLE SCOPE Procedure code (CPT) selection complete Office Meds lidocaine HCl 2 % mucosal jelly in applicator Performing Provider: Ney Moreira MD Performing Location: [facility] Administered by: Ellen Hernández RN on 05/03/25 13:19 Dose Route Admin Location Dispensed Lot Number Expiration Date NDC Crt 10 mL intra-urethral 10 mL nitrofurantoin monohydrate/macrocrystals 100 mg capsule Performing Provider: Ney Moreira MD Performing Location: [facility] Administered by: Ellen Hernández RN on 05/03/25 13:19 Dose Route Admin Location Dispensed Lot Number Expiration Date NDC Crt 100 mg PO 1 cap Results AMB Urinalysis, Automated UA Leukoctes 0 Elana/uL Last Edit by JOSIE Prieto on 05/03/25 16:11 UA Nitrite Negative Last Edit by Sarah Fong [facility] on 05/03/25 16:11 UA Urobilinogen 0.2 mg/dL Last Edit by Sarah Fong [facility] on 05/03/25 16:1 1 UA Protein 0 mg/dL Last Edit by Sarah Fong [facility] on 05/03/25 16:11 UA pH 6.0 Last Edit by Sarah Fong [facility] on 05/03/25 16:11 UA Blood 0 Jerry/uL Last Edit by Sarah Fong [facility] on 05/03/25 16:11 UA Specific [place] 1.010 Last Edit by Sarah Fong [facility] on 05/03/25 16: 11 UA Ketone Negative Last Edit by Sarah Fong [facility] on 05/03/25 16:11 UA Bilirubin 0 mg/dL Last Edit by Sarah Fong [facility] on 05/03/25 16:11 UA Glucose 0 mg/dL Last Edit by Sarah Fong [facility] on 05/03/25 16:11 Results Reviewed Results Reviewed: Laboratory Last Values Urine pH (Auto) 6.0 05/03/25 16:11 Specific [place] (Auto) 1.010 05/03/25 16:11 Urine Protein (Auto) 0 mg/dL 05/03/25 16:11 Glucose (UA)(Auto) 0 mg/dL 05/03/25 16:11 Urine Ketones (Auto) Negative 05/03/25 16:11 Urine Blood (Auto) 0 Jerry/uL 05/03/25 16:11 Urine Nitrite (Auto) Negative 05/03/25 16:11 Urine Bilirubin (Auto) 0 mg/dL 05/03/25 16:11 Urine Urobilinogen (Auto) 0.2 mg/dL 05/03/25 16:11 Leukocyte Esterase (Auto) 0 Elana/uL 05/03/25 16:11 Assessment & Plan Assessment & Plan (1) Urinary hesitancy: Code(s): R39.11 - Hesitancy of micturition Category: Medical (2) Weak urinary stream: Code(s): R39.12 - Poor urinary stream Category: Medical Plan We discussed the nature of the decision and reasonable options for performing a prostate intervention. Interventions include TURP, GreenLight laser enucleation of the prostate, GreenLight laser ablation of the prostate, transurethral incision of the prostate, and I-Tend prostate procedure. Options such as medical therapy were discussed. The relative uncertainties and benefits related to each alternate procedure were adequately discussed. General surgical risks including, but not limited to, pain, bleeding, infection, myocardial infarction, pulmonary embolus, deep vein thrombosis and cerebrovascular accident which may result in further hosp italization were discussed. Full disclosure of the procedure as well as all major risks, benefits and complications were discussed including but not limited to damage to the urethra or bladder neck, recurrent BPH, retrograde ejaculation, bladder infection, urge, de jay frequency, incomplete emptying, dysuria, remote chance of erectile dysfunction, epididymitis, and meatal stenosis. The success rate of the procedure was discussed. Success of the procedure in the short-term does not necessarily guarantee that long-term success will be maintained. Suitable follow up will need to be maintai swati. The patient showed understanding of discussion. An opportunity was provided for questions to be answered and wishes to proceed with the following procedure. - GreenLight laser prostate Orders: Orders AMB Urinalysis Automated 05/03/25 Z13.9 - Encounter for screening, unspecified AMB Cystoscopy 05/03/25 N40.0 - Benign prostatic hyperplasia without lower urinary tract symptoms Patient Instructions: This note is constructed using voice recognition software. While every effort has been made to ensure accuracy cellophane casting machine repairer errors may have been included. Imaging studies, laboratory and physical exam results were discussed and reviewed in detail. No major barriers to patient understanding were identified. An opportunity to ask questions regarding the treatment plan was provided. All questions were answered. The patient expressed understanding and agreement with the above treatment plan. The patient is aware they should contact our office by phone for worsening of their current condition or the appearance of new urologic symptoms. Compliance is encouraged with any medications and followup testing that is ordered. It is a privilege to participate in the urologic care of your patient. If you have any questions or concerns regarding treatment for the above conditions, or other urologic issues, please do not hesitate to contact me. The office telephone contact is [phone]. SincerelDr Ney gerber MD, [facility] - Urology Compassionate Specialist Care for the Genitourinary System Coding Level of Care Code Est Pt Level 4 (17516) Complex EM visit Add On G2211 Diagnoses Urinary hesitancy R39.11 Weak urinary stream R39.12 CPT Codes Cystoscopy - CPT: 38477-[id number] ([id number])
--- OUTSIDE RECORDS SUMMARY | 2025-05-03 14:33 | XMS_ITS | Data Portability ---
Author Organization [facility], Main Office Address [address] [place] [address] Care Team Providers Care Senior Net Software Engineer Name Role Phone NIXON HERNANDEZ Primary Care Provider [facility] Ordnance Equipment Worker [phone] TIFF LEONARD Referring Provider Assessment Encounter Date [...] done 018. 2017 018 rakesh [facility], [address] [address], [place], [address], 9 11:35:33 hemogl obin A1C, finger stick 2017 018 [facility] In-Office Order, Internal Use Only DO Not Attach Compendium DO Not Attach Compendium, Do Not Delete/merge, [id number] 8 09:46:31 lipid panel, serum 2017 018 [email or web address] [facility] (Centralized Electronic Ordering - All Locations), Patient Can Go To The Location Of Their Choice, 9 15:35:57 BMP, serum or plasma 2017 018 [email or web address] [facility] (Centralized Electronic Ordering - All Locations), [...] or plasma 2017 018 JOCELINE [facility], [address], [address], [place], [address], 8 15:39:41 lipid panel, serum 2017 018 JOCELINE [facility], [address], [address], [place], [address], 8 15:39:42 TSH, serum or plasma 2017 018 JOCELINE [facility], [address], [address], [place], [address], 8 15:55:52 CBC w/ auto diff 2017 018 JOCELINE [facility], [address], [address], [place], [address], 8 14:30:42 BMP, serum or plasma 2016 017 [email or web address] [facility] (Centralized Electronic Ordering - All Locations), Patient Can Go To The Location Of Their Choice, [id number] 8 11:09:35 lipid panel, serum 2016 017 [email or web address] [facility] (Centralized Electronic Ordering - All Locations), Patient Can Go To The Location Of Their Choice, [id number] 8 11:09:35 ALT (pamela august), serum or plasma 2016 017 [email or web address] [facility] (Centralized Electronic Ordering - All Locations), Patient Can Go To The Location Of Their Choice, [id number] 8 11:09:35 TSH, serum or plasma 2016 017 [email or web address] [facility] (Centralized Electronic Ordering - All Locations), Patient Can Go To The Location Of Their Choice, [id number] 8 11:09:34 CBC w/ auto diff 2016 017 [email or web address] [facility] (Centralized Electronic Ordering - All Locations), Patient Can Go To The Location Of Their Choice, [id number] 8 11:09:35 Referral nutrit ionist /sauli karan referr al 2017 018 [email or web address] Not available 8 10:13:38 physic al therap ist referr al - Please see for BPPV 2016 017 [email or web address] [facility], [address] [place] [address], [address], [place], [address], 8 15:21:26 nutrit ionist /dieti karan referr al 2016 017 Not available 7 09:30:22 Procedures None record ed. Surgeries None record ed. Imaging None record ed. Medication Orders omepra zole 20 mg capsul christina manzano e 2017 018 [facility], [address] [place] [address], [place], [address], 8 09:47:43 Patient TargetsNo targets recorded. Patient Instructions Encounter Date Encounter Id Patient Instructions Last Modified By Organization Details Last Modified Time 10/21/2017 [id number] When You Want to Lose Weight: Care Instructions [email or web address] Not available 10/21/2017 09:26:49 Nutrition Referr al and Weight Management Follow-up Information [email or web address] Not available 10/21/2017 09:30:15 high blood press ure: care instructions [email or web address] Not available 10/21/2017 09:26:49 learning about h igh blood pressure Not available 10/21/2017 09:26:49 obsessive-compul sive disorder: care instructions [email or web address] Not available 10/21/2017 09:26:49 10/27/2017 [id number] benign paroxysma l positional vertigo (bppv): care instructions [email or web address] Not available 10/27/2017 16:34:30 04/27/2018 [id number] patellofemoral p ain syndrome (runner's knee): exercises [facility] Not available 04/27/2018 09:26:19 patellofemoral p ain syndrome: care instructions [facility] Not available 04/27/2018 09:26:18 high blood press ure: care instructions phelmuth Not available 04/27/2018 09:26:18 learning about h igh blood pressure phelmuth Not available 04/27/2018 09:26:19 05/18/2018 [id number] high cholesterol : care instructions Not available 05/18/2018 14:06:24 heart-healthy di et: care instructions Not available 05/18/2018 14:06:24 prediabetes: car e instructions Not available 05/18/2018 13:43:06 mediterranean diet Not availab le 05/18/2018 13:43:06 11/16/2018 [id number] gastroesophageal reflux disease (GERD): care instructions [email or web address] Not available 11/16/2018 09:47:43 high cholesterol : care instructions [facility] Not available 11/16/2018 09:55:59 high blood press ure: care instructions [facility] Not available 11/16/2018 09:55:59 learning about h igh blood pressure pheuth Not available 11/16/2018 09:55:59 When You Want to Lose Weight: Care Instructions [facility] Not available 11/16/2018 09:46:30 Nutrition Referr al and Weight Management Follow-up Information [facility] Not available 11/16/2018 09:46:30 Reason for Referral Computer Security Specialist/dietitian Refer ral for Body mass index 25-29 - overweight Referring Physician: Nixon Hernandez, Internal Medicine, Encounter Date: 10/21/2017 Please see for BPPV Referring Physician: Nixon Hernandez, Internal Medicine, Encounter Date: 10/27/2017 Computer Security Specialist/dietitian Refer ral for Body mass index 25-29 - overweight Referring Physician: Nixon Hernandez, Internal Medicine, Encounter Date: 11/16/2018 Results Created Date Observation Date Name Description Value Unit Range Abnormal Flag Note LastModifiedBy Organization Detail LastModifiedTime 04/27/2004/27/2018 CBC w/ auto diff WBC 4.5 K/mm3 (4.0-1 1.0) Not Available [facility] (Centralized Electronic Ordering - All Locations) Patient Can Go To The Location Of Their Choice, [id number] 04/27/2018 14:30:42 04/27/2004/27/2018 CBC w/ auto diff RBC 4.69 M/mm3 (4.70- 6.10) low Not Available [facility] (Centralized Electronic Ordering - All Locations) Patient Can Go To The Location Of Their Choice, [id number] 04/27/2018 14:30:42 04/27/2004/27/2018 CBC w/ auto diff HGB 13.8 gm/dL (13.7- 16.5) Effec tive April 10 18, refer ence range s for HGB and HCT have been updat ed. Not Available [facility] (Centralized Electronic Ordering - All Locations) Patient Can Go To The Location Of Their Choice, [id number] 04/27/2018 14:30:42 04/27/20 18 04/27/2018 CBC w/ [...] Go To The Location Of Their Choice, [id number] 04/27/2018 15:39:42 04/27/2004/27/2018 lipid panel , serum non HDL cholesterol (calc) 162 mg/dL (<160) high Not Available [facility] (Centralized Electronic Ordering - All Locations) Patient Can Go To The Location Of Their Choice, [id number] 04/27/2018 15:39:42 04/27/2004/27/2018 TSH, serum or plasm a TSH 1.28 mIU/m L (0.40- 4.00) Not Available [facility] (Centralized Electronic Ordering - All Locations) Patient Can Go To The Location Of Their Choice, [id number] 04/27/2018 15:55:52 04/27/2004/29/2018 HbA1c (hemo globi n [...] Go To The Location Of Their Choice, [id number] 04/29/2018 09:22:49 11/16/20 18 11/16/2018 BMP, serum or plasm a glucose 108 mg/dL (70-99 ) high Not Available [facility] (Centralized Electronic Ordering - All Locations) Patient Can Go To The Location Of Their Choice, [id number] 11/16/2018 11:07:04 11/16/20 18 11/16/2018 BMP, serum or plasm a BUN 21 mg/dL (6-20) high Not Available [facility] (Centralized Electronic Ordering - All Locations) Patient Can Go To The Location Of Their Choice, [id number] 11/16/2018 11:07:04 11/16/20 18 11/16/2018 BMP, serum or plasm a creatinine 1.1 mg/dL (0.7-1 .2) Not Available [facility] (Centralized Electronic Ordering - All Locations) Patient Can Go To The Location Of Their Choice, [id number] 11/16/2018 11:07:04 11/16/20 18 11/16/2018 BMP, serum or plasm a sodium 140 mmol/ L (133-1 45) Not Available [facility] (Centralized Electronic Ordering - All Locations) Patient Can Go To The Location Of Their Choice, [id number] 11/16/2018 11:07:04 11/16/20 18 11/16/2018 BMP, serum or plasm a potassium 3.8 mmol/ L (3.6-5 .2) Not Available [facility] (Centralized Electronic Ordering - All Locations) Patient Can Go To The Location Of Their Choice, [id number] 11/16/2018 11:07:04 11/16/20 18 11/16/2018 BMP, serum or plasm a chloride 97 mmol/ L (98-10 7) low Not Available [facility] (Centralized Electronic Ordering - All Locations) Patient Can Go To The Location Of Their Choice, [id number] 11/16/2018 11:07:04 11/16/20 18 11/16/2018 BMP, serum or plasm a bicarbonate 30 mmol/ L (22-29 ) high Not Available [facility] (Centralized Electronic Ordering - All Locations) Patient Can Go To The Location Of Their Choice, [id number] 11/16/2018 11:07:04 11/16/20 18 11/16/2018 BMP, serum or plasm a anion gap 13 (4-17) Not Available [facility] (Centralized Electronic Ordering - All Locations) Patient Can Go To The Location Of Their Choice, [id number] 11/16/2018 11:07:04 11/16/20 18 11/16/2018 BMP, serum or plasm a calcium 10.0 mg/dL (8.6-1 0.5) Not Available [facility] (Centralized Electronic Ordering - All Locations) Patient Can Go To The Location Of Their Choice, [id number] 11/16/2018 11:07:04 11/16/20 18 11/16/2018 BMP, serum [...] Go To The Location Of Their Choice, [id number] 11/16/2018 11:07:04 11/16/20 18 11/16/2018 BMP, serum [...] Go To The Location Of Their Choice, [id number] 11/16/2018 11:07:04 11/16/20 18 11/16/2018 lipid panel , serum cholesterol, total 215 mg/dL (<200) high Not Available [facility] (Centralized Electronic Ordering - All Locations) Patient Can Go To The Location Of Their Choice, [id number] 11/16/2018 11:07:05 11/16/20 18 11/16/2018 lipid panel , serum triglyceride 297 mg/dL (<150) high Not Available [facility] (Centralized [facility] Ordering - All Locations) Patient Can Go To The Location Of Their Choice, [id number] 11/16/2018 11:07:05 11/16/20 18 11/16/2018 lipid panel , serum HDL chol 38 mg/dL (>39) low Not Available [facility] (Centralized Electronic Ordering - All Locations) Patient Can Go To The Location Of Their Choice, [id number] 11/16/2018 11:07:05 11/16/20 18 11/16/2018 lipid panel , serum LDL cholesterol, calculated 118 mg/dL (0-130 ) Not Available [facility] (Centralized Electronic Ordering - All Locations) Patient Can Go To The Location Of Their Choice, [id number] 11/16/2018 11:07:05 11/16/20 18 11/16/2018 lipid panel , serum non HDL cholesterol (calc) 177 mg/dL (<160) high Not Available [facility] (Centralized Electronic Ordering - All Locations) Patient Can Go To The Location Of Their Choice, [id number] 11/16/2018 11:07:05 11/16/20 18 11/16/2018 HbA1c (hemo [...] Go To The Location Of Their Choice, [id number] 11/16/2018 13:52:45 11/16/20 18 11/16/2018 hemog lobin A1C, finge rstic k HA1C 5.4 % 4-6 Not Available In-Office Order Internal Use Only DO Not Attach Compendium DO Not Attach Compendium, Do Not Delete/merge, [id number] 11/16/2018 09:36:28 10/01/2010/01/2019 HbA1c (hemo globi n [...] Go To The Location Of Their Choice, [id number] 10/01/2019 18:45:25 10/01/20 19 10/01/2019 lipid panel , serum HDL chol 47 mg/dL (>39) Not Available [facility] (Centralized Electronic Ordering - All Locations) Patient Can Go To The Location Of Their Choice, [id number] 10/01/2019 18:45:25 10/01/20 19 10/01/2019 lipid panel , serum LDL cholesterol, calculated 143 mg/dL (0-130 ) high Not Available [facility] (Centralized Electronic Ordering - All Locations) Patient Can Go To The Location Of Their Choice, [id number] 10/01/2019 18:45:25 10/01/20 19 10/01/2019 lipid panel , serum non HDL cholesterol (calc) 161 mg/dL (<160) high Not Available [facility] (Centralized Electronic Ordering - All Locations) Patient Can Go To The Location Of Their Choice, [id number] 10/01/2019 18:45:25 10/21/20 17 10/22/2012 XR, abdom en + pelvi s No observ ation record ed. BARCODE Not Available 2016 12:48:22 Result Notes None recorded. Problems Name Problem SNOMED Code Status Onset Date Resolution Date Notes Provider Name and Address Organization Details Recorded Time Abdomina l pain 04206512 Completed 201206/07/2014 IMPRESSI ON: UNCLEAR CAUSE OF PAIN. NO ACUTE ABDOMEN BASED ON CT. MAYBE MILD PANCREAT ITIS. WILL CHECK AMYLASE. HE DRINKS 12 DRINKS A WEEK. NO HX ALCOHOLI SM.; RECORDED 04/02/20 13 10:12AM BY ANANYA ESTRELLA MA, ANNOTATI ON/ADDEN DUM Not Available [facility] 4 15:14:10 Abnormal findings diagnost ic imaging of liver+bi liary tract 764734687 Completed 201206/07/2014 IMPRESSI ON: THIS MAY JUST BE INCIDENT AL FINDING. NOT SURE IF CAUSE OF HIS PAIN. GI NEXT WEEK FOR FURTHER W/U; RECORDED 04/02/20 13 10:12AM BY ANANYA ESTRELLA MA, ANNOTATI ON/ADDEN DUM Not Available [facility] 4 15:14:10 Acute sinusiti s 66695018 Completed 200806/07/2014 RECORDED 02/03/20 09 7:20AM BY ANANYA ESTRELLA MA, ANNOTATI ON/ADDEN DUM Not Available [facility] 4 15:14:10 Anemia 025288484 Active 2013 LATASHA Sosa, [facility] 6 09:09:29 Adult health examinat ion Active 2013 LATASHA Sosa, [facility] 6 09:09:26 Anxiety disorder 701277884 Active 2013 LATASHA Sosa, [facility] 6 09:09:20 Diarrhea of presumed infectio us origin 40349367 Completed 201106/07/2014 RECORDED 10/23/20 12 9:37AM BY ANANYA ESTRELLA MA, ANNOTATI ON/ADDEN DUM Not Available [facility] 4 15:14:11 Dysuria 56203665 Completed 200706/07/2014 RECORDED 11/14/20 08 9:53AM BY LATASHA DELVALLE, REGGIEATI ON/ADDEN DUM Not Available [facility] 4 15:14:11 Essentia l hyperten candace 59810516 Active 2013 LATASHA Sosa, [facility] 6 09:09:46 Respirat ory finding 334125970 Completed 201306/07/2014 RECORDED 12/03/19 14 1:12PM BY ROXY MICHELE MA, ANNOTATI ON/ADDEN DUM Not Available [facility] 4 15:14:11 Malaise and fatigue 946373752 Completed 201106/07/2014 RECORDED 10/23/20 12 9:37AM BY ANANYA ESTRELLA MA, NATALYA ON/ADDEN DUM Not Available [facility] 4 15:14:11 Influenz a vaccine needed 03251957504 06 Completed 201206/07/2014 RECORDED 04/02/20 13 10:12AM BY ANANYA ESTRELLA MA, ANNOTNAVEEN ON/ADDEN DUM Not Available [facility] 4 15:14:11 General examinat ion of patient Completed 200706/07/2014 RESOLVED DATE: 07/14/20 08; RECORDED 07/14/20 08 3:43PM BY NATALYA MONTES ON/ADDEN DUM Not Available [facility] 4 15:14:11 Hyperlip idemia 97646181 Active 2013 LATASHA Sosa, [facility] 6 09:09:40 Essentia l hyperten candace 44256013 Completed 201206/07/2014 RECORDED 05/21/20 13 12:30PM BY ANANYA ESTRELLA MA, ANNOTNAVEEN ON/ADDEN DUM LATASHA Sosa, [facility] 6 09:09:46 Insomnia 936317049 Active 2013 LATASHA Sosa, [facility] 6 09:09:11 Laborato ry procedur e performe d 120739412 Completed 201206/07/2014 RECORDED 04/02/20 13 10:11AM BY ANANYA ESTRELLA MA, REGGIEATI ON/ADDEN DUM Not Available [facility] 4 15:14:11 Administ ration of bacteria l and viral vaccine Completed 200706/07/2014 RECORDED 07/14/20 08 3:34PM BY DEBBIE ESTRELLA, OFFICE VISIT Not Available [facility] 4 15:14:11 Patient status finding 757834661 Completed 201310/18/2016 RECORDED 12/03/19 14 1:12PM BY ROXY MICHELE MA, OFFICE VISIT LATASHA Sosa, [facility] 6 09:09:03 Elevated level of transami nase and lactic acid dehydrog enase 252989801 Completed 201106/07/2014 RECORDED 10/23/20 12 9:37AM BY ANANYA ESTRELLA MA, ANNOTNAVEEN ON/ADDEN DUM Not Available [facility] 4 15:14:12 Osteoart hritis of hip 973950720 Active 2013 LATASHA Sosa, [facility] 6 09:09:23 Disorder of bursa of shoulder region 76260375 Active 2013 LATASHA Sosa, [facility] 6 09:09:43 Disorder of skin 31084640 Completed 201306/07/2014 RECORDED 12/03/19 14 1:12PM BY ROXY MICHELE MA, ANNOTATI ON/ADDEN DUM Not Available [facility] 4 15:14:12 Dermatop hytosis of the perianal area Completed 201106/07/2014 RECORDED 10/23/20 12 9:37AM BY ANANYA ESTRELLA MA, ANNOTATI ON/ADDEN DUM Not Available [facility] 4 15:14:12 Visual disturba nce 64834684 Completed 201106/07/2014 RECORDED 10/23/20 12 9:37AM BY ANANYA ESTRELLA MA, ANNOTATI ON/ADDEN DUM Not Available [facility] 4 15:14:12 Urinary system finding 076735675 Completed 201106/07/2014 RECORDED 10/23/20 12 9:36AM BY ANANYA ESTRELLA MA, ANNOTATI ON/ADDEN DUM Not Available [facility] 4 15:14:12 Abdomina l pain 95000713 Completed 201206/27/2014 IMPRESSI ON: UNCLEAR CAUSE OF PAIN. NO ACUTE ABDOMEN BASED ON CT. MAYBE MILD PANCREAT ITIS. WILL CHECK AMYLASE. HE DRINKS 12 DRINKS A WEEK. NO HX ALCOHOLI SM.; RECORDED 04/02/20 13 10:12AM BY ANANYA ESTRELLA MA, NATALYA ON/ADDEN DUM Not Available [facility] 4 06:00:33 Abnormal findings diagnost ic imaging of liver+bi liary tract 500806480 Completed 201206/27/2014 IMPRESSI ON: THIS MAY JUST BE INCIDENT AL FINDING. NOT SURE IF CAUSE OF HIS PAIN. GI NEXT WEEK FOR FURTHER W/U; RECORDED 04/02/20 13 10:12AM BY ANANYA ESTRELLA MA, NATALYA ON/ADDEN DUM Not Available [facility] 4 06:00:33 Acute sinusiti s 55051057 Completed 200806/27/2014 RECORDED 02/03/20 09 7:20AM BY ANANYA ESTRELLA MA, NATALYA ON/ADDEN DUM Not Available [facility] 4 06:00:33 Diarrhea of presumed infectio us origin 26055839 Completed 201106/27/2014 RECORDED 10/23/20 12 9:37AM BY ANANYA ESTRELLA MA, REGGIEATI ON/ADDEN DUM Not Available [facility] 4 06:00:33 Dysuria 65637872 Completed 200706/27/2014 RECORDED 11/14/20 08 9:53AM BY NATALYA CASTRO ON/ADDEN DUM Not Available [facility] 4 06:00:33 Respirat ory finding 057660722 Completed 201306/27/2014 RECORDED 12/03/19 14 1:12PM BY ROXY MICHELE MA, NATALYA ON/ADDEN DUM Not Available [facility] 4 06:00:33 Malaise and fatigue 634289186 Completed 201106/27/2014 RECORDED 10/23/20 12 9:37AM BY ANANYA ESTRELLA MA, NATALYA ON/ADDEN DUM Not Available [facility] 4 06:00:33 Influenz a vaccine needed 55050342231 06 Completed 201206/27/2014 RECORDED 04/02/20 13 10:12AM BY ANANYA ESTRELLA MA, NATALYA ON/ADDEN DUM Not Available [facility] 4 06:00:33 General examinat ion of patient Completed 200706/27/2014 RESOLVED DATE: 07/14/20 08; RECORDED 07/14/20 08 3:43PM BY NATALYA MONTES ON/ADDEN DUM Not Available [facility] 4 06:00:33 Laborato ry procedur e performe d 898185346 Completed 201206/27/2014 RECORDED 04/02/20 13 10:11AM BY ANANYA ESTRELLA MA, NATALYA ON/ADDEN DUM Not Available [facility] 4 06:00:33 Administ ration of bacteria l and viral vaccine Completed 200706/27/2014 RECORDED 07/14/20 08 3:34PM BY DEBBIE ESTRELAL, OFFICE VISIT Not Available [facility] 4 06:00:33 Elevated level of transami nase and lactic acid dehydrog enase 350240186 Completed 201106/27/2014 RECORDED 10/23/20 12 9:37AM BY ANANYA ESTRELLA MA, NATALYA ON/ADDEN DUM Not Available [facility] 4 06:00:33 Disorder of skin 49260305 Completed 201306/27/2014 RECORDED 12/03/19 14 1:12PM BY ROXY MICHELE MA, NATALYA ON/ADDEN DUM Not Available [facility] 4 06:00:33 Dermatop hytosis of the perianal area Completed 201106/27/2014 RECORDED 10/23/20 12 9:37AM BY ANANYA ESTRELLA MA, NATALYA ON/ADDEN DUM Not Available [facility] 4 06:00:33 Visual disturba dce 89108095 Completed 201106/27/2014 RECORDED 10/23/20 12 9:37AM BY ANANYA ESTRELLA MA, ANNOTATI ON/ADDEN DUM Not Available [facility] 4 06:00:33 Urinary system finding 299287713 Completed 201106/27/2014 RECORDED 10/23/20 12 9:36AM BY ANANYA ESTRELLA MA, ANNOTATI ON/ADDEN DUM Not Available [facility] 4 06:00:33 Body mass index 25-29 - overweig ht 550745631 Active Nixon Hernandez MD [address], [place], [address] , [facility] 4 16:07:00 Gastroes ophageal reflux disease 119099057 Active Nixon Hernandez MD [address], [place], [address] , [facility] 5 14:23:28 Patellar tendonit is 23264250 Active Nixon Hernandez MD [address], [place], [address] , [facility] 5 14:23:28 Impacted cerumen 80036138 Active Nixon Hernandez MD [address], [place], [address] , [facility] 5 14:23:28 Wheezing symptom 301992886 Completed 10/18/2016 Ananya ellison MA null, [facility] 6 09:09:32 Hypersom ramon 43137065 Active Nixon Hernandez MD [address], [place], [address] , [facility] 6 09:29:57 Prediabe haroon 379686394 Active 2017 Nixon Hernandez MD [address], [place], [address] , [facility] 8 09:36:24 Mixed hyperlip idemia 936599973 Completed 201810/03/2019 Hina Hong PA-C [address] [facility] [address], [place], [address] , [facility] 9 19:19:38 Problem Notes None recorded. Procedures Surgical History Date Name Laterality Status Provider Name and Address Organization Details Recorded Time 7 Colonoscopy completed Julissa Escobar [facility] 08/13/2017 11:18:24 6 Vasectomy completed Ata Sifuentes [facility] 10/21/2017 08:29:26 4 Eye Surgery completed Ata Sifuentes [facility] 10/21/2017 08:29:26 4 Other completed Ananya oquendo MA [facility] 08/26/2014 09:56:51 9 Hernia Repair completed Ata Sifuentes [facility] 10/21/2017 08:29:26 6 Circumcision completed Ata Sifuentes [facility] 10/21/2017 08:29:26 6 Hernia Repair completed Ata Sifuentes [facility] 10/21/2017 08:29:26 Imaging Results None recorded. Procedure Notes None recorded. Medical Equipment None Reported. Allergies Allergen ID Allergen Name Allergen Category Reaction Reaction Severity Criticality Documentation Date Start Date Code Code System Note Provider Name and Address Organization Details Recorded Time 59426 erythromy tonio medicatio n Not available Not available Not available 05/31/20142013 4053 RxNorm as an [facility]an [facility] 5 08:58:50 Medications Name Sig [...] RECORDED 11/05/20 12 2:59PM BY NATALYA INTERIANO ON/ADDEN DUM; Not Available Not Available Not [...] RECORDED 11/05/20 12 2:59PM BY NATALYA INTERIANO ON/ADDEN DUM; Not Available Not Available Not Available Amoxil BID 12/04 completed RECORDED 01/10/20 09 6:50AM BY BRANDEN BOX MD, MEDICATI ON AUTO-YENY CTIVATIO N; Not Available Not Available Not Available Flucelvax Quad 2721-5590 (PF) 60 mcg (15 mcg x 4)/0.5 mL IM syringe active Not Available Not Available Not Available Vitals Date Recorded Systolic blood pressure Diastolic blood pressure Provider Name and Address Organization Details Last Updated DateTime 04/27/2018 122 mm[Hg] 76 mm[Hg] Nixon Hernandez MD [address], [address], [facility] 04/27/2018 09:26:05 Date Recorded Body height Body mass index (BMI) Body weight Oxygen saturation Oxygen saturation in Arterial blood by Pulse oximetry Heart rate Body temperature Provider Name and Address Organization Details Last Updated DateTime 8 181.61 cm 28.7 kg/m2 62417.8 1 g 97 % 97 % 65 /min 97.7 [degF] Ananya shi MA [facility] 8 09:04:31 Date Recorded Body height Body mass index (BMI) Body weight Heart rate Oxygen saturation Oxygen saturation in Arterial blood by Pulse oximetry Body temperature Systolic blood pressure Diastolic blood pressure Provider Name and Address Organization Details Last Updated DateTime 8 181.61 cm 26.7 kg/m2 90425.6 2 g 81 /min 98 % 98 % 98.7 [degF] 127 mm[Hg] 83 mm[Hg] Claudette Unger [facility] 8 13:04:48 Date Recorded Body height Body mass index (BMI) Body weight Heart rate Oxygen saturation Oxygen saturation in Arterial blood by Pulse oximetry Body temperature Systolic blood pressure Diastolic blood pressure Provider Name and Address Organization Details Last Updated DateTime 7 181.61 cm 29.2 kg/m2 74106.5 8 g 61 /min 97 % 97 % 97.4 [degF] 130 mm[Hg] 68 mm[Hg] Ata Sifuentes [facility] 7 08:42:46 Date Recorded Body height Body temperature Oxygen saturation Oxygen saturation in Arterial blood by Pulse oximetry Heart rate Body mass index (BMI) Body weight Systolic blood pressure Diastolic blood pressure Provider Name and Address Organization Details Last Updated DateTime 7 181.61 cm 98.3 [degF] 98 % 98 % 59 /min 29 kg/m2 76272.9 9 g 136 mm[Hg] 84 mm[Hg] Ananya shi MA [facility] 7 16:14:47 Date Recorded Body height Body mass index (BMI) Body weight Heart rate Oxygen saturation Oxygen saturation in Arterial blood by Pulse oximetry Body temperature Systolic blood pressure Diastolic blood pressure Provider Name and Address Organization Details Last Updated DateTime 8 181.61 cm 26.4 kg/m2 40422.7 4 g 69 /min 98 % 98 % 98.7 [degF] 107 mm[Hg] 72 mm[Hg] Catina Grimm MA [facility] 8 09:22:39 Social History Question Answer Notes LastModified by Organizat ion Details LastModified Time Tobacco Smoking Status Never Smoker LATASHA Melo, [facility] 08/26/2014 09:56:50 Do You Have An Advance Directive? Yes Signed 03/17/2015 Information not available 03/17/2015 Animal Exposure? Yes Information not available 08/26/2014 Do You Wear A Helmet When Biking? Yes Information not available 08/26/2014 Is Blood Transfusion Acceptable In An Emergency? Yes Information not available 08/26/2014 What Is Your Level Of Caffeine Consumption? Moderate 2 Cups Of Coffee Daily, Occasional Tea Information not available 09/22/2015 How Much Tobacco Do You Chew? None Information not available 08/26/2014 What Type Of Diet Are You Following? REGULAR Information not available 08/26/2014 Which Illicit Or Recreational Drugs Have You Used? None Information not available 09/22/2015 Education Post Graduate Information not available 08/26/2014 Have There Been Any Changes To Your [...] Many Children Do You Have? 1 Son (Shlomo) Information not available 09/22/2015 Do You Use [...] Smoked Tobacco? 0 Information not available 09/22/2015 Do You Have Difficulty Walking Or Climbing Stairs? No Information not available 08/26/2014 Sex: Unknown Functional Status Question Answer Note LastModified by Organizat ion Details LastModified Time Do you use any illicit or recreational drugs? No Information not available 08/26/2014 What is your level of alcohol consumption? Moderate Information not available 08/26/2014 Are you currently employed? Yes Information not available 08/26/2014 Difficulty driving at night? No Information not available 08/26/2014 Are you able to care for yourself? 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 [...] virus, quadrivalent, PF 6 completed Not Available [facility] 12/04/2019 02:22:07 Influenza, split virus, quadrivalent, PF 7 completed Not Available [facility] 12/04/2019 02:22:11 Tdap 8 completed Not Available [facility] 12/04/2019 02:21:48 Influenza, split virus, trivalent, PF 4 completed Not Available [facility] 12/04/2019 02:21:57 Influenza, split virus, quadrivalent, PF 8 completed Not Available [facility] 12/04/2019 02:22:15 Tdap 8 completed Not Available [facility] 05/31/2014 13:23:39 Influenza, split virus, trivalent, preservative 1 completed Not Available [facility] 05/31/2014 13:23:39 Influenza, split virus, trivalent, preservative 2 completed Not Available [facility] 05/31/2014 13:23:39 Past Encounters Encounter ID Performer Location Encounter Start Date Encounter Closed Date Diagnosis/Indication Diagnosis SNOMED-CT Code Diagnosis ICD10 Code Diagnosis Note [id number] [facility] [address] [facility] [place] [address] 12/18/2007 00:00:00 [id number] autoEComm erce [address] [facility] [place] [address] 12/29/2007 00:00:00 [id number] autoEComm erce [address] [facility] [place] [address] 07/14/2008 00:00:00 [id number] autoEComm erce [address] [facility] [place] [address] 11/14/2008 00:00:00 [id number] autoEComm erce [address] [facility] [place] [address] 02/02/2009 00:00:00 [id number] autoEComm erce [address] [facility] [place] [address] 09/20/2009 00:00:00 [id number] autoEComm erce [address] [facility] [place] [address] 12/20/2009 00:00:00 [id number] autoEComm erce [address] [facility] [place] [address] 06/27/2010 00:00:00 [id number] autoEComm erce [address] [facility] [place], [place] [address] 01/08/2011 00:00:00 [id number] autoEComm erce [address] [facility] [place], [place] [address] 10/23/2012 00:00:00 [id number] autoEComm erce [address] [facility] [place], [place] [address] 04/02/2013 00:00:00 [id number] autoEComm erce [address] [facility] [place], [place] [address] 05/21/2013 00:00:00 [id number] autoEComm erce [address] [facility] [place], [place] [address] 12/03/2013 00:00:00 [id number] Nixon Hernandez MD Main Office [address] [address] [place] [address] 08/26/2014 09:40:18 08/26/2014 11:11:25 Adult health examination 352846078 Needs infl uenza immunization 611326619 Essential hypertension 97826337 Hyperlipidemia 56719676 Body mass index 25-29 - overweight 691378779 [id number] Nixon Hernandez MD Main Office [address] [address] [place] [address] 03/17/2015 08:52:49 03/17/2015 09:27:02 Essential hypertension 41277641 [id number] Nixon Hernandez MD Main Office [address] [address] [place] [address] 09/22/2015 08:54:36 09/22/2015 10:36:06 Adult health examination 541192888 Z00.00 Essential hypertension 57109247 I10 Anxiety disorder 9928587 06 F41.9 Hyperlipidemia 97541507 E78.5 Gastroesop hageal reflux disease 709041075 K21.9 Patellar tendonitis 3778 5001 M76.50 Impacted cerumen 5873335 6 H61.22 Wheezing symptom 8635415 08 R06.2 [id number] Nixon Hernandez MD Main Office [address] [address] [place] [address] 03/29/2016 08:43:25 03/29/2016 09:32:19 Essential hypertension 24251339 I10 Family romina nning education 969765503 Z30.02 Hypersomnia 86309310 G47 .10 [id number] Nixon Hernandez MD Main Office [address] [address] 10/18/2016 09:00:30 10/18/2016 10:13:03 Adult health examination 122101779 Z00.00 Needs infl uenza immunization 954334516 Z23 Screening for malignant neoplasm of colon 832251957 Z12.11 Body mass index 25-29 - overweight 665711166 E66.3 Hyperlipidemia 78045990 E78.5 Fatigue 11570345 R53.83 Gastroesop hageal reflux disease 693651259 K21.9 [id number] Nixon Hernandez MD Main Office [address] [address] 04/25/2017 11:07:04 04/25/2017 11:49:25 Essential hypertension 59689484 I10 Hyperlipidemia 64310896 E78.5 Fatigue 06268515 R53.83 [id number] Nixon Hernandez MD Main Office [address] [address] 07/29/2017 14:58:39 07/29/2017 16:09:18 Needs influenza immunization 638298741 Z23 [id number] Nixon Hernandez MD Main Office [address] [address] 10/21/2017 08:26:02 10/21/2017 09:30:21 Adult health examination 684318376 Z00.00 Essential hypertension 70030511 I10 Hyperlipidemia 13073962 E78.5 Fatigue 24230908 R53.83 Body mass index 25-29 - overweight 359991050 E66.3 Z68.25 Obsessive- compulsive disorder 175417429 F42.9 Continue SSRI [id number] Nixon Hernandez MD Main Office [address] [address] 10/27/2017 15:55:29 10/27/2017 16:34:42 Benign paroxysmal positional vertigo 765847197 H81.10 [id number] Nixon Hernandez MD Main Office [address] [place] [address] 04/27/2018 08:47:55 04/27/2018 09:33:18 Essential hypertension 49265046 I10 Administra tion of viral vaccine 56732934 Z23 Hyperlipidemia 21878641 E78.5 Fatigue 59825961 R53.83 Patellofem oral stress syndrome 708031176 M22.2X9 [id number] Hina Hong PA-C Main Office [address] [address] [place] [address] 05/18/2018 13:01:09 05/18/2018 14:21:34 Prediabetes 986821009 R73.03 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 Mixed hyperlipidemia 267 314572 E78.2 recommend to recheck before next visit. Body mass index 25-29 - overweight 325148815 Z68.26 [id number] Nixon Hernandez MD Main Office [address] [address] [place] [address] 11/16/2018 09:12:04 11/16/2018 10:08:00 Adult health examination 833847313 Z00.00 Needs infl uenza immunization 688754151 Z23 Body mass index 25-29 - overweight 732167439 E66.3 Z68.25 Prediabetes 826914797 R7 3.03 Gastroesop hageal reflux disease 407196737 K21.9 Hyperlipidemia 53436104 E78.5 Essential hypertension 90954146 I10 Health Concerns Section Related Observation LastModified by Organization Detai ls LastModified Time None Recorded Concern Status LastModified by Organization Details LastModified Time None Recorded Advance Directives Directive Y: signed 03/17/2015 Payers Insurance Date Sequence Insurance Name Policy Number Policy Haynes Covered Member ID Haynes Member ID Guarantor Name 05/18/2019 1 [facility] ([facility]) [id number] 23 Yancy Portillo [id number] Yancy Portillo Notes Date Note Type Note Provider Name [...] concerns about weight. Nixon Hernandez MD [address], [address], [facility] 10/21/2017 09:25:17 7 text/html DizzinessReported bypatient.Quality:symptoms worse in the evening (wakes occasionally from sleep) Severity:no effect on daily activities Duration:intermittent episodes lasting:; lasts <5 minutes Notes sensation of dizziness with spinning sensation for the past 4 days. Nixon Hernandez MD [address], [address], [facility] 10/27/2017 16:37:37 8 text/html Hypertension F/UReported [...] injuryNotes:No obvious swelling Nixon Hernandez MD [address], [address], [facility] 04/27/2018 09:31:19 8 text/html Diabetes F/UReported [...] of 31. High cardiovasc. risk with early MA in father at age 50. Pt. lost 15 lbs since April 27. Nixon Hernandez MD [address], [address], [facility] 05/18/2018 18:03:06 8 text/html GERD RefluxReported bypatient.Notes:Stable [...] over the summer months. Nixon Hernandez MD [address], [address], [facility] 11/16/2018 10:07:57
== END 2025-05-03 13:39 | disposition home or self-care (01) ==
LOC: HO.HUSH 12:51
PROVIDERS: PCP Family Medicine; Visit Provider Urology
DX: N40.0 Benign prostatic hyperplasia without lower urinary tract symptoms (principal); Z13.9 Encounter for screening, unspecified
CPT/HCPCS: 52000; 99214

== ENCOUNTER → 2025-05-03 12:51 | Outpatient (BNVA) | payer OTHER, SELFPAY | PROVIDERS: PCP Family Medicine; Visit Provider Urology | DX: R39.12 Poor urinary stream (principal); N40.0 Benign prostatic hyperplasia without lower urinary tract symptoms | CPT/HCPCS: 52000; 81003 ==

== ENCOUNTER 2025-05-10 09:24 | Outpatient (AMB) | payer OTHER, SELFPAY ==
--- NOTE | 2025-05-10 09:34 | A.OFFPC_ITS ---
Vital Signs 05/10/25 09:43 Height 5 ft 11 in Weight 201 lb 2 oz BMI 28.0 BP 102/70 Blood Pressure Location Rt brachial Position Sitting Respiration 12 Pulse 66 Pulse Source Pulse Oximeter Temp 98.2 F Temp Source Temporal Artery Scan Pulse Oximetry (%) 96 Oxygen Delivery Method Room Air Intake Visit Reasons: f/u HTN, anxiety Allergies erythromycin base Allergy (Mild, Verified 05/10/25 09:39) Rash Medication List - Last Reconciled 05/10/25 by Miguel Ángel Small MD blood-glucose meter (FreeStyle Lite Meter kit) DX: R 73.01, test blood sugar Once a day, duration 999 days finasteride 5 mg PO DAILY 90 days lisinopril-hydrochlorothiazide 20-12.5 mg 1 tab PO DAILY 90 days lorazepam 1 mg PO BEDTIME PRN 30 days omeprazole 20 mg PO DAILY 90 days sertraline 50 mg PO DAILY 90 days Tobacco use date assessed: 05/10/25 Dental Screening Dental Screen Date: 05/10/25 Did you have a dental visit in the last 12 months?: Yes Did you have a dental problem in the last 6 months where you did not have access to dental care?: No Was dental information given to patient?: Patient has dentist HPI f/u HTN, anxiety HPI Details 59 y/o male presents to f/u HTN, anxiety . BP today 102/70, 66p. He is on lisinopril-HCTZ 20-12.5mg daily. Last A1c 02/01/25 5.7%. A1c today 05/10/25 HPI Comments History of Present Illness Details Documentation assistance for Miguel Ángel Small MD, was provided by David Irving, Capacity Manager on 05/10/2025 at 10:27 AM EST. Bush, Dr. Small, have read, observed, and verified documentation. PFSH Surgical History History of hip surgery History of hernia surgery Family History Sister Breast cancer Father Alcohol abuse Social History (Updated 05/10/25 @ 09:40 by Keena Jay MA) Household Members: Children Household Members Other:: Son Housing: House Are you a primary career based intervention coordinator to a significant other at home: No Do you presently have visiting nurse or other home services: No 75 years or older and lives alone: No Alcohol intake: current Alcohol intake frequency: a few times a week Patient Tobacco Use Status: Never used Tobacco e-Cigarette/Vaping Use: Never Used Second Hand Smoke Exposure: No Use of substances other than those prescribed or required for medical reasons: No service: No Current occupational status: employed 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 1. Little interest or pleasure in doing things: several days 2. Feeling down, depressed, or hopeless: not at all 3. Trouble falling or staying asleep, or sleeping too much: not at all 4. Feeling tired or having little energy: several days 5. Poor appetite or overeating: nearly every day 6. Feeling bad about yourself - or that you are a failure or have let yourself or your family down: several days 7. Trouble concentrating on things, such as reading the newspaper or watching television: several days 8. Moving or speaking so slowly that other people could have noticed. Or the opposite - being so fidgety or restless that you have been moving around a lot more than usual: not at all 9. Thoughts that you would be better off or of hurting yourself in some way: not at all Total score: 7 Depression Screening Interpretation: Positive Depression Screening Follow-up: In treatment Depression Screening Done: Yes 21699 - PHQ-9 Billing: Yes Source: Developed by Drs. Tani Mehta, Bhumika Burns, De Mckeno and colleagues, with an educational noe from [employer]. Thrive Questionnaire Date Thrive assessed: 05/10/25 I am a: Patient What is your living situation today?: I have a steady place to live Within the past 12 months, did the food you bought not last and you didn't have the money to get more?: Never true Within the past 12 months, did you worry whether your food would run out before you got money to buy more?: Never true Do you have trouble paying for medicines?: No Do you have trouble getting transportation to medical appointments?: No Do you have trouble paying your heating and electricity bill?: No Do you have trouble taking care of your child, family member or friend?: No Do you have trouble with day-to-day activities such as bathing, preparing meals, shopping, managing finances, etc.?: No Are you currently unemployed and looking for a job?: No Are you interested in more education?: No Please select the resources that you would like help with: None Currently or been in a relationship where the following occur: No concerns reported THRIVE Score: 0 AUDIT C Alcohol Use Questionnaire (AUDIT-C) 1. How often do you have a drink containing alcohol?: Monthly or less 2. How many drinks containing alcohol do you have on a typical day when you are drinking?: 1 or 2 3. How often do you have six or more drinks on one occasion?: Never Total Score: 1 SANTOS-7 AMB Questionnaire SANTOS-7 Date SANTOS - 7 assessed: 05/10/25 Feeling nervous, anxious, or on edge: 3 = Nearly every day Not being able to stop or control worryin = Not at all Worrying too much about different things: 1 = Several days Trouble relaxin = Not at all Being so restless that it is hard to sit still: 0 = Not at all Becoming easily annoyed or irritable: 1 = Several days Feeling afraid as if something awful might happen: 0 = Not at all Total SANTOS-7 score (0-4 normal; 5-9 mild; 10-14 moderate; 15-21 severe): 5 Source: Developed by Drs. Tani Mehta, Bhumika Burns, De Mckeon and colleagues, with an educational noe from [employer]. SANTOS-7 Assessment Billing SANTOS-7 Assessment Tool: SANTOS-7 Assessment 89753 Review of Systems Const Denies chills, Denies fatigue, Denies fever(s), Denies headache(s) and Denies weakness ENT Denies dizziness and Denies headache(s) Card Denies dyspnea Resp Denies cough, Denies dyspnea, Denies wheezing and Denies other (shortness of breath) Musc Denies numbness and Denies tingling Neuro Denies dizziness, Denies headache(s), Denies numbness, Denies tingling and Denies weakness Psych Denies anxiety and Denies depression Endo Denies fatigue Aller/Immun Denies wheezing Physical exam (Primary Care) Vital Signs: Last Vital Signs Temp 98.2 F 05/10/25 09:43 Pulse 66 05/10/25 09:43 Resp 12 05/10/25 09:43 BP 102/70 05/10/25 09:43 Pulse Ox 96 05/10/25 09:43 Oxygen Delivery Method Room Air 05/10/25 09:43 BMI result Body Mass Index 28.0 Tobacco/Smoking Status: Tobacco use Status Tobacco use date assessed 05/10/25 05/10/25 09:46 Patient Tobacco Use Status Never used Tobacco 05/10/25 09:40 e-Cigarette/Vaping Use Never Used 05/10/25 09:40 PHQ-9: PHQ-9 Score PHQ-9: Total score 7 05/10/25 10:20 Depression Screening Interpretation: Positive Depression Screening Follow-up: In treatment Thrive Assessment: Date of Thrive Assessment Date Thrive assessed 05/10/25 05/10/25 09:46 Currently or been in a relationship where the following occur: No concerns reported Const General: well developed; No acute distress Nutritional Appearance: well nourished Orientation/consciousness: patient oriented x3 HENMT Head: Yes normocephalic and Yes atraumatic Eyes General: appearance normal, both eyes and all related structures Pupils: Equal, round and reactive pupils present EOM: EOMs intact bilaterally Resp Effort & Inspection: normal respiratory effort Auscultation: clear to auscultation bilaterally Cardio Rate: regular rate Rhythm: regular rhythm Heart sounds: S1 normal heart sound present, S2 normal heart sound present, no gallops, no murmurs and no rubs Neuro General: patient oriented x3 and gait normal Cranial nerves: Yes Equal, round and reactive pupils present Psych Affect: normal affect Coding Level of Care Code Est Pt Level 4 (28045) Diagnoses Essential hypertension I10 Anxiety F41.9 Pre-diabetes R73.03 Additional Codes SANTOS-7 Assessment Billing - SANTOS-7 Assessment Tool: SANTOS-7 Assessment 79012 ([id number]) PHQ-9 - 10991 - PHQ-9 Billing: Yes ([id number]) Assessment & Plan Assessment & Plan (1) Essential hypertension: Code(s): I10 - Essential (primary) hypertension Category: Medical Plan: Blood?pressure?is?controlled.??Goal?is?less?than?140/90 Systolic?BP?is?low?today?and?he?says?he?notes?some?lighthe adedness?after?intense?exercise Taking?lisinopril-hydrochlorothiazide?20/12.5?mg. Will?recheck?these?medications?into?their?component?meds. He?can?take?them?at?different?times?of?day. ?Monitor?blood?p ressure?and?can?hold?one?of?his?medications?if?blood?pressure?is?low; systolic?blood?pressure?less?than?105. (2) Anxiety: Code(s): F41.9 - Anxiety disorder, unspecified Category: Medical Plan: Stable?on?sertraline?and?lorazepam Refilled?medications (3) Pre-diabetes: Code(s): R73.03 - Prediabetes Category: Medical Plan: A1c?is?again?5.7%?which?is?early?pre?diabetes?and?stable Encouraged?diet?low?in?sugars?and?starches Check?blood?sugars Medications: New lisinopril 20 mg PO DAILY 90 tabs 3RF 90 days hydrochlorothiazide 12.5 mg PO DAILY 90 tabs 2RF 90 days Refilled lorazepam [employer] Verified 1 mg PO BEDTIME PRN 12 tabs 0RF anxiety 30 days sertraline 50 mg PO DAILY 90 tabs 3RF 90 days Discontinued lisinopril-hydrochlorothiazide 20-12.5 mg Discontinued Reason: Change Referral Type 1 tab PO DAILY 90 days 90 tabs 3RF
[2025-05-10 09:43] VITALS: BP 102/70; PULSE 66; RESP 12; TEMP 36.8; O2SAT 96; BMI 28.0
--- OUTSIDE RECORDS SUMMARY | 2025-05-10 10:03 | XMS_ITS | Data Portability ---
Author Organization [facility], Main Office Address [address] [place] [address] Care Team Providers Care Major Sales Associate Name Role Phone NIXON HERNANDEZ Primary Care Provider [facility] Governor Assembler Hydraulic TIFF LEONARD Referring Provider [phone] Assessment Encounter Date Assessment Date Assessment LastModified [...] intended weight loss. Hb A1C down slightly. [email or web address] Not available 11/16/2018 10:07:32 Plan of Treatment Reminders Order Date Submit Date Provider Last Modified By Organization Details Last Modified Time Details Appointments None record ed. Lab HbA1c (hemog lobin A1c), blood - Please add to labs done 018. 2017 018 rakesh [facility], [address] [place], [address], 11:35:33 hemogl obin A1C, finger stick 2017 018 [facility] In-Office Order, Internal Use Only DO Not Attach Compendium DO Not Attach Compendium, Do Not Delete/merge, [id number] 8 09:46:31 lipid panel, serum 2017 018 [email or web address] [facility] (Centralized Electronic Ordering - All Locations), Patient Can Go To The Location Of Their Choice, 9 15:35:57 BMP, serum or plasma 2017 018 [facility] (Centralized Electronic Ordering - All Locations), [...] or plasma 2017 018 JOCELINE [facility], [address], [address], [place], [address], 8 15:39:41 lipid panel, serum 2017 018 JOCELINE [facility], [address], [address], [place], [address], 8 15:39:42 TSH, serum or plasma 2017 018 JOCELINE [facility], [address], [address], [place], [address], 8 15:55:52 CBC w/ auto diff 2017 018 JOCELINE [facility], [address], [address], [place], [address], 8 14:30:42 BMP, serum or plasma 2016 017 [email or web address] [facility] (Centralized Electronic Ordering - All Locations), Patient Can Go To The Location Of Their Choice, 8 11:09:35 lipid panel, serum 2016 017 [email or web address] [facility] (Centralized Electronic Ordering - All Locations), Patient Can Go To The Location Of Their Choice, 8 11:09:35 ALT (pamela august), serum or plasma 2016 017 [email or web address] [facility] (Centralized Electronic Ordering - All Locations), Patient Can Go To The Location Of Their Choice, 8 11:09:35 TSH, serum or plasma 2016 017 [email or web address] [facility] (Centralized Electronic Ordering - All Locations), Patient Can Go To The Location Of Their Choice, 8 11:09:34 CBC w/ auto diff 2016 017 [email or web address] [facility] (Centralized Electronic Ordering - All Locations), Patient Can Go To The Location Of Their Choice, [id number] 8 11:09:35 Referral nutrit ionist /timmy russo referr al 2017 018 [email or web address] Not available 8 10:13:38 physic al therap ist referr al - Please see for BPPV 2016 017 [email or web address] [facility], [address] [place] [address] Rd, [address], [place], [address], 8 15:21:26 nutrit ionist /timmy russo referr al 2016 017 [email or web address] Not available 7 09:30:22 Procedures None record ed. Surgeries None record ed. Imaging None record ed. Medication Orders omepra zole 20 mg capsul echristinaas e 2017 018 [facility], [address] [place] [address], [place], [address], 8 09:47:43 Patient TargetsNo targets recorded. Patient Instructions Encounter Date Encounter Id Patient Instructions Last Modified By Organization Details Last Modified Time 10/21/2017 [id number] When You Want to Lose Weight: Care Instructions [email or web address] Not available 10/21/2017 09:26:49 Nutrition Referr al and Weight Management Follow-up Information [email or web address] Not available 10/21/2017 09:30:15 high blood press ure: care instructions [email or web address] Not available 10/21/2017 09:26:49 learning about h igh blood pressure Not available 10/21/2017 09:26:49 obsessive-compul sive disorder: care instructions [email or web address] Not available 10/21/2017 09:26:49 10/27/2017 [id number] benign paroxysma l positional vertigo (bppv): care instructions [email or web address] Not available 10/27/2017 16:34:30 04/27/2018 [id number] patellofemoral p ain syndrome (runner's knee): exercises [facility] Not available 04/27/2018 09:26:19 patellofemoral p ain syndrome: care instructions [facility] Not available 04/27/2018 09:26:18 high blood press ure: care instructions [email or web address] Not available 04/27/2018 09:26:18 learning about h igh blood pressure [facility] Not available 04/27/2018 09:26:19 05/18/2018 [id number] high cholesterol : care instructions Not available 05/18/2018 14:06:24 heart-healthy di et: care instructions Not available 05/18/2018 14:06:24 prediabetes: car e instructions Not available 05/18/2018 13:43:06 mediterranean diet Not availab le 05/18/2018 13:43:06 11/16/2018 [id number] gastroesophageal reflux disease (GERD): care instructions [email or web address] Not available 11/16/2018 09:47:43 high cholesterol : care instructions [facility] Not available 11/16/2018 09:55:59 high blood press ure: care instructions [facility] Not available 11/16/2018 09:55:59 learning about h igh blood pressure [facility] Not available 11/16/2018 09:55:59 When You Want to Lose Weight: Care Instructions [facility] Not available 11/16/2018 09:46:30 Nutrition Referr al and Weight Management Follow-up Information [facility] Not available 11/16/2018 09:46:30 Reason for Referral Grants Director/dietitian Refer ral for Body mass index 25-29 - overweight Referring Physician: Nixon Hernandez, Internal Medicine, Encounter Date: 10/21/2017 Please see for BPPV Referring Physician: Nixon Hernandez Internal Medicine, Encounter Date: 10/27/2017 Grants Director/dietitian Refer ral for Body mass index 25-29 - overweight Referring Physician: Nixon Hernandez, Internal Medicine, Encounter Date: 11/16/2018 Results Created Date Observation Date Name Description Value Unit Range Abnormal Flag Note LastModifiedBy Organization Detail LastModifiedTime 04/27/2004/27/2018 CBC w/ auto diff WBC 4.5 K/mm3 (4.0-1 1.0) Not Available [facility] (Centralized Electronic Ordering - All Locations) Patient Can Go To The Location Of Their Choice, [id number] 04/27/2018 14:30:42 04/27/2004/27/2018 CBC w/ auto diff RBC 4.69 M/mm3 (4.70- 6.10) low Not Available [facility] (Centralized Electronic Ordering - All Locations) Patient Can Go To The Location Of Their Choice, [id number] 04/27/2018 14:30:42 04/27/2004/27/2018 CBC w/ auto diff HGB 13.8 gm/dL (13.7- 16.5) Effec tive April 10 18, refer ence range s for HGB and HCT have been updat ed. Not Available [facility] (Centralized Electronic Ordering - All Locations) Patient Can Go To The Location Of Their Choice, [id number] 04/27/2018 14:30:42 04/27/2004/27/2018 CBC w/ auto diff HCT 42.1 % [...] 15:39:41 04/27/2004/27/2018 BMP, serum or plasm a creatinine 0.9 [...] Location Of Their Choice, 04/27/2018 15:39:42 04/27/2004/27/2018 TSH, serum or plasm a TSH 1.28 mIU/m L (0.40- 4.00) Not Available [facility] (Centralized Electronic Ordering - All Locations) Patient Can Go To The Location Of Their Choice, 04/27/2018 15:55:52 04/27/2004/29/2018 HbA1c (hemo globi n [...] Go To The Location Of Their Choice, [id number] 04/29/2018 09:22:49 11/16/20 18 11/16/2018 BMP, serum or plasm a glucose 108 mg/dL (70-99 ) high Not Available [facility] (Centralized Electronic Ordering - All Locations) Patient Can Go To The Location Of Their Choice, [id number] 11/16/2018 11:07:04 11/16/20 18 11/16/2018 BMP, serum or plasm a BUN 21 mg/dL (6-20) high Not Available [facility] (Centralized Electronic Ordering - All Locations) Patient Can Go To The Location Of Their Choice, [id number] 11/16/2018 11:07:04 11/16/20 18 11/16/2018 BMP, serum or plasm a creatinine 1.1 mg/dL (0.7-1 .2) Not Available [facility] (Centralized Electronic Ordering - All Locations) Patient Can Go To The Location Of Their Choice, [id number] 11/16/2018 11:07:04 11/16/20 18 11/16/2018 BMP, serum or plasm a sodium 140 mmol/ L (133-1 45) Not Available [facility] (Centralized Electronic Ordering - All Locations) Patient Can Go To The Location Of Their Choice, [id number] 11/16/2018 11:07:04 11/16/20 18 11/16/2018 BMP, serum or plasm a potassium 3.8 mmol/ L (3.6-5 .2) Not Available [facility] (Centralized Electronic Ordering - All Locations) Patient Can Go To The Location Of Their Choice, [id number] 11/16/2018 11:07:04 11/16/20 18 11/16/2018 BMP, serum or plasm a chloride 97 mmol/ L (98-10 7) low Not Available [facility] (Centralized Electronic Ordering - All Locations) Patient Can Go To The Location Of Their Choice, [id number] 11/16/2018 11:07:04 11/16/20 18 11/16/2018 BMP, serum or plasm a bicarbonate 30 mmol/ L (22-29 ) high Not Available [facility] (Centralized Electronic Ordering - All Locations) Patient Can Go To The Location Of Their Choice, [id number] 11/16/2018 11:07:04 11/16/20 18 11/16/2018 BMP, serum or plasm a anion gap 13 (4-17) Not Available [facility] (Centralized Electronic Ordering - All Locations) Patient Can Go To The Location Of Their Choice, [id number] 11/16/2018 11:07:04 11/16/20 18 11/16/2018 BMP, serum or plasm a calcium 10.0 mg/dL (8.6-1 0.5) Not Available [facility] (Centralized Electronic Ordering - All Locations) Patient Can Go To The Location Of Their Choice, [id number] 11/16/2018 11:07:04 11/16/20 18 11/16/2018 BMP, serum [...] Go To The Location Of Their Choice, [id number] 11/16/2018 11:07:04 11/16/20 18 11/16/2018 BMP, serum [...] Go To The Location Of Their Choice, [id number] 11/16/2018 11:07:04 11/16/20 18 11/16/2018 lipid panel , serum cholesterol, total 215 mg/dL (<200) high Not Available [facility] ([facility] Ordering - All Locations) Patient Can Go To The Location Of Their Choice, [id number] 11/16/2018 11:07:05 11/16/20 18 11/16/2018 lipid panel , serum triglyceride 297 mg/dL (<150) high Not Available [facility] ([facility] Ordering - All Locations) Patient Can Go To The Location Of Their Choice, [id number] 11/16/2018 11:07:05 11/16/20 18 11/16/2018 lipid panel , serum HDL chol 38 mg/dL (>39) low Not Available [facility] (Centralized Electronic Ordering - All Locations) Patient Can Go To The Location Of Their Choice, [id number] 11/16/2018 11:07:05 11/16/20 18 11/16/2018 lipid panel , serum LDL cholesterol, calculated 118 mg/dL (0-130 ) Not Available [facility] (Centralized Electronic Ordering - All Locations) Patient Can Go To The Location Of Their Choice, [id number] 11/16/2018 11:07:05 11/16/20 18 11/16/2018 lipid panel , serum non HDL cholesterol (calc) 177 mg/dL (<160) high Not Available [facility] (Centralized Electronic Ordering - All Locations) Patient Can Go To The Location Of Their Choice, [id number] 11/16/2018 11:07:05 11/16/20 18 11/16/2018 HbA1c (hemo [...] Go To The Location Of Their Choice, [id number] 11/16/2018 13:52:45 11/16/20 18 11/16/2018 hemog lobin A1C, finge rstic k HA1C 5.4 % 4-6 Not Available In-Office Order Internal Use Only DO Not Attach Compendium DO Not Attach Compendium, Do Not Delete/merge, [id number] 11/16/2018 09:36:28 10/01/2010/01/2019 HbA1c (hemo globi n [...] The Location Of Their Choice, 10/01/2019 18:42:09 10/01/20 19 10/01/2019 BMP, serum [...] 18:45:16 10/01/2010/01/2019 BMP, serum or plasm a chloride 101 mmol/ L (98-10 7) Not Available [facility] (Centralized Electronic Ordering - All Locations) Patient Can Go To The Location Of Their Choice, 10/01/2019 18:45:16 10/01/2010/01/2019 BMP, serum or plasm a bicarbonate 30 [...] Kidne y Disea se Epide miolo gy Timbo gutierrez (CKD- EPI). The CKD-E [...] Go To The Location Of Their Choice, [id number] 10/01/2019 18:45:25 10/01/20 19 10/01/2019 lipid panel , serum triglyceride 91 mg/dL (<150) Not Available [facility] (Centralized [facility] Ordering - All Locations) Patient Can Go To The Location Of Their Choice, [id number] 10/01/2019 18:45:25 10/01/20 19 10/01/2019 lipid panel , serum HDL chol 47 mg/dL (>39) Not Available [facility] (Centralized Electronic Ordering - All Locations) Patient Can Go To The Location Of Their Choice, [id number] 10/01/2019 18:45:25 10/01/20 19 10/01/2019 lipid panel , serum LDL cholesterol, calculated 143 mg/dL (0-130 ) high Not Available [facility] (Centralized Electronic Ordering - All Locations) Patient Can Go To The Location Of Their Choice, [id number] 10/01/2019 18:45:25 10/01/20 19 10/01/2019 lipid panel , serum non HDL cholesterol (calc) 161 mg/dL (<160) high Not Available [facility] (Centralized Electronic Ordering - All Locations) Patient Can Go To The Location Of Their Choice, [id number] 10/01/2019 18:45:25 10/21/20 17 10/22/2012 XR, abdom en + pelvi s No observ ation record ed. BARCODE Not Available 2016 12:48:22 Result Notes None recorded. Problems Name Problem SNOMED Code Status Onset Date Resolution Date Notes Provider Name and Address Organization Details Recorded Time Abdomina l pain 14168585 Completed 201206/07/2014 IMPRESSI ON: UNCLEAR CAUSE OF PAIN. NO ACUTE ABDOMEN BASED ON CT. MAYBE MILD PANCREAT ITIS. WILL CHECK AMYLASE. HE DRINKS 12 DRINKS A WEEK. NO HX ALCOHOLI SM.; RECORDED 04/02/20 13 10:12AM BY ANANYA ESTRELLA MA, ANNOTATI ON/ADDEN DUM Not Available [facility] 4 15:14:10 Abnormal findings diagnost ic imaging of liver+bi liary tract 529316425 Completed 201206/07/2014 IMPRESSI ON: THIS MAY JUST BE INCIDENT AL FINDING. NOT SURE IF CAUSE OF HIS PAIN. GI NEXT WEEK FOR FURTHER W/U; RECORDED 04/02/20 13 10:12AM BY ANANYA ESTRELLA MA, ANNOTATI ON/ADDEN DUM Not Available [facility] 4 15:14:10 Acute sinusiti s 62258135 Completed 200806/07/2014 RECORDED 02/03/20 09 7:20AM BY ANANYA ESTRELLA MA, ANNOTATI ON/ADDEN DUM Not Available [facility] 4 15:14:10 Anemia 076577362 Active 2013 LATASHA Sosa, [facility] 6 09:09:29 Adult health examinat ion Active 2013 [place] Sosa, [facility] 6 09:09:26 Anxiety disorder 480489585 Active 2013 [place] Sosa, [facility] 6 09:09:20 Diarrhea of presumed infectio us origin 46465577 Completed 201106/07/2014 RECORDED 10/23/20 12 9:37AM BY ANANYA ESTRELLA MA, ANNOTATI ON/ADDEN DUM Not Available [facility] 4 15:14:11 Dysuria 26112497 Completed 200706/07/2014 RECORDED 11/14/20 08 9:53AM BY LATASHA DELVALLE, ANNOTATI ON/ADDEN DUM Not Available [facility] 4 15:14:11 Essentia l hyperten candace 39704079 Active 2013 [place] Sosa, [facility] 6 09:09:46 Respirat ory finding 262219146 Completed 201306/07/2014 RECORDED 12/03/19 14 1:12PM BY ROXY MICHELE MA, ANNOTATI ON/ADDEN DUM Not Available [facility] 4 15:14:11 Malaise and fatigue 868910311 Completed 201106/07/2014 RECORDED 10/23/20 12 9:37AM BY ANANYA ESTRELLA MA, ANNOTNAVEEN ON/ADDEN DUM Not Available [facility] 4 15:14:11 Influenz a vaccine needed [id number] 06 Completed 201206/07/2014 RECORDED 04/02/20 13 10:12AM BY ANANYA ESTRELLA MA, ANNOTATI ON/ADDEN DUM Not Available [facility] 4 15:14:11 General examinat ion of patient Completed 200706/07/2014 RESOLVED DATE: 07/14/20 08; RECORDED 07/14/20 08 3:43PM BY NATALYA MONTES ON/ADDEN DUM Not Available [facility] 4 15:14:11 Hyperlip idemia 08567527 Active 2013 LATASHA Sosa [facility] 6 09:09:40 Essentia l hyperten candace 55973921 Completed 201206/07/2014 RECORDED 05/21/20 13 12:30PM BY ANANYA ESTRELLA MA, NATALYA ON/ADDEN DUM [place] Sosa [facility] 6 09:09:46 Insomnia 664746389 Active 2013 [place] Sosa [facility] 6 09:09:11 Laborato ry procedur e performe d 336034673 Completed 201206/07/2014 RECORDED 04/02/20 13 10:11AM BY ANANYA ESTRELLA MA, NATALYA ON/ADDEN DUM Not Available [facility] 4 15:14:11 Administ ration of bacteria l and viral vaccine Completed 200706/07/2014 RECORDED 07/14/20 08 3:34PM BY DEBBIE ESTRELLA, OFFICE VISIT Not Available [facility] 4 15:14:11 Patient status finding 899569186 Completed 201310/18/2016 RECORDED 12/03/19 14 1:12PM BY ROXY MICHELE MA, OFFICE VISIT [place] Sosa, [facility] 6 09:09:03 Elevated level of transami nase and lactic acid dehydrog enase 152922521 Completed 201106/07/2014 RECORDED 10/23/20 12 9:37AM BY ANANYA ESTRELLA MA, ANNOTATI ON/ADDEN DUM Not Available [facility] 4 15:14:12 Osteoart hritis of hip 176543968 Active 2013 LAT[place] Sosa, [facility] 6 09:09:23 Disorder of bursa of shoulder region 71177815 Active 2013 [place] Sosa, [facility] 6 09:09:43 Disorder of skin 05336466 Completed 201306/07/2014 RECORDED 12/03/19 14 1:12PM BY ROXY MICHELE MA, ANNOTATI ON/ADDEN DUM Not Available [facility] 4 15:14:12 Dermatop hytosis of the perianal area Completed 201106/07/2014 RECORDED 10/23/20 12 9:37AM BY ANANYA ESTRELLA MA, ANNOTATI ON/ADDEN DUM Not Available [facility] 4 15:14:12 Visual disturba nce 04589925 Completed 201106/07/2014 RECORDED 10/23/20 12 9:37AM BY ANANYA ESTRELLA MA, ANNOTATI ON/ADDEN DUM Not Available [facility] 4 15:14:12 Urinary system finding 216788611 Completed 201106/07/2014 RECORDED 10/23/20 12 9:36AM BY ANANYA ESTRELLA MA, ANNOTATI ON/ADDEN DUM Not Available [facility] 4 15:14:12 Abdomina l pain 04027209 Completed 201206/27/2014 IMPRESSI ON: UNCLEAR CAUSE OF PAIN. NO ACUTE ABDOMEN BASED ON CT. MAYBE MILD PANCREAT ITIS. WILL CHECK AMYLASE. HE DRINKS 12 DRINKS A WEEK. NO HX ALCOHOLI SM.; RECORDED 04/02/20 13 10:12AM BY ANANYA ESTRELLA MA, REGGIEATI ON/ADDEN DUM Not Available [facility] 4 06:00:33 Abnormal findings diagnost ic imaging of liver+bi liary tract 624885740 Completed 201206/27/2014 IMPRESSI ON: THIS MAY JUST BE INCIDENT AL FINDING. NOT SURE IF CAUSE OF HIS PAIN. GI NEXT WEEK FOR FURTHER W/U; RECORDED 04/02/20 13 10:12AM BY ANANYA ESTRELLA MA, NATALYA ON/ADDEN DUM Not Available [facility] 4 06:00:33 Acute sinusiti s 16423168 Completed 200806/27/2014 RECORDED 02/03/20 09 7:20AM BY ANANYA ESTRELLA MA, NATALYA ON/ADDEN DUM Not Available [facility] 4 06:00:33 Diarrhea of presumed infectio us origin 50551968 Completed 201106/27/2014 RECORDED 10/23/20 12 9:37AM BY ANANYA ESTRELLA MA, REGGIEATI ON/ADDEN DUM Not Available [facility] 4 06:00:33 Dysuria 01019613 Completed 200706/27/2014 RECORDED 11/14/20 08 9:53AM BY LATASHA DELVALLE, NATALYA ON/ADDEN DUM Not Available [facility] 4 06:00:33 Respirat ory finding 676469697 Completed 201306/27/2014 RECORDED 12/03/19 14 1:12PM BY ROXY MICHELE MA, NATALYA ON/ADDEN DUM Not Available [facility] 4 06:00:33 Malaise and fatigue 255144651 Completed 201106/27/2014 RECORDED 10/23/20 12 9:37AM BY ANANYA ESTRELLA MA, NATALYA ON/ADDEN DUM Not Available [facility] 4 06:00:33 Influenz a vaccine needed 00384382693 06 Completed 201206/27/2014 RECORDED 04/02/20 13 10:12AM BY ANANYA ESTRELLA MA, NATALYA ON/ADDEN DUM Not Available [facility] 4 06:00:33 General examinat ion of patient Completed 200706/27/2014 RESOLVED DATE: 07/14/20 08; RECORDED 07/14/20 08 3:43PM BY NATALYA MONTES ON/ADDEN DUM Not Available [facility] 4 06:00:33 Laborato ry procedur e performe d 381116465 Completed 201206/27/2014 RECORDED 04/02/20 13 10:11AM BY ANANYA ESTRELLA MA, NATALYA ON/ADDEN DUM Not Available [facility] 4 06:00:33 Administ ration of bacteria l and viral vaccine Completed 200706/27/2014 RECORDED 07/14/20 08 3:34PM BY DEBBIE ESTRELLA, OFFICE VISIT Not Available [facility] 4 06:00:33 Elevated level of transami nase and lactic acid dehydrog enase 843344615 Completed 201106/27/2014 RECORDED 10/23/20 12 9:37AM BY ANANYA ESTRELLA MA, NATALYA ON/ADDEN DUM Not Available [facility] 4 06:00:33 Disorder of skin 29695398 Completed 201306/27/2014 RECORDED 12/03/19 14 1:12PM BY ROXY MICHELE MA, NATALYA ON/ADDEN DUM Not Available [facility] 4 06:00:33 Dermatop hytosis of the perianal area Completed 201106/27/2014 RECORDED 10/23/20 12 9:37AM BY ANANYA ESTRELLA MA, NATALYA ON/ADDEN DUM Not Available [facility] 4 06:00:33 Visual disturba nce 85421703 Completed 201106/27/2014 RECORDED 10/23/20 12 9:37AM BY ANANYA ESTRELLA MA, ANNOTATI ON/ADDEN DUM Not Available [facility] 4 06:00:33 Urinary system finding 675835302 Completed 201106/27/2014 RECORDED 10/23/20 12 9:36AM BY ANANYA ESTRELLA MA, ANNOTATI ON/ADDEN DUM Not Available [facility] 4 06:00:33 Body mass index 25-29 - overweig 444890278 Active Nixon Hernandez MD [address], [place], [address] , [facility] 4 16:07:00 Gastroes ophageal reflux disease 771370074 Active Nixon Hernandez MD [address] [facility], [place], [address] , [facility] 5 14:23:28 Patellar tendonit is 01050433 Active Nixon Hernandez MD [address] [facility], [place], [address] , [facility] 5 14:23:28 Impacted cerumen 09712405 Active Nixon Hernandez MD [address] [facility], [place], [address] , [facility] 5 14:23:28 Wheezing symptom 110380942 Completed 10/18/2016 Ananya ellison MA null, [facility] 6 09:09:32 Hypersom ramon 98686834 Active Nixon Hernandez MD [address], [place], [address] , [facility] 6 09:29:57 Prediabe haroon 899798985 Active 2017 Nixon Hernandez MD [address], [place], [address] , [facility] 8 09:36:24 Mixed hyperlip idemia 595825515 Completed 201810/03/2019 Hina Hong PA-C [address] [facility] [address], [place], [address] , [facility] 9 19:19:38 Problem Notes None recorded. Procedures Surgical History Date Name Laterality Status Provider Name and Address Organization Details Recorded Time 7 Colonoscopy completed Julissa Escobar [facility] 08/13/2017 11:18:24 6 Vasectomy completed Ata Sifuentes [facility] 10/21/2017 08:29:26 4 Eye Surgery completed Ata Sifuentes [facility] 10/21/2017 08:29:26 4 Other completed Ananya oquendo MA [facility] 08/26/2014 09:56:51 9 Hernia Repair completed Ata Sifuentes [facility] 10/21/2017 08:29:26 6 Circumcision completed Ata Sifuentes [facility] 10/21/2017 08:29:26 6 Hernia Repair completed Ata Sifuentes [facility] 10/21/2017 08:29:26 Imaging Results None recorded. Procedure Notes None recorded. Medical Equipment None Reported. Allergies Allergen ID Allergen Name Allergen Category Reaction Reaction Severity Criticality Documentation Date Start Date Code Code System Note Provider Name and Address Organization Details Recorded Time 08865 erythromy tonio medicatio n Not available Not available Not available 05/31/20142013 4053 RxNorm as an [facility] 5 08:58:50 Medications Name Sig Start Date [...] 122 mm[Hg] 76 mm[Hg] Nixon Hernandez MD [address], [address], [facility] 04/27/2018 09:26:05 Date Recorded Body height Body mass index (BMI) Body weight Oxygen saturation Oxygen saturation in Arterial blood by Pulse oximetry Heart rate Body temperature Provider Name and Address Organization Details Last Updated DateTime 8 181.61 cm 28.7 kg/m2 07032.8 1 g 97 % 97 % 65 /min 97.7 [degF] Ananya sih MA [facility] 8 09:04:31 Date Recorded Body height Body mass index (BMI) Body weight Heart rate Oxygen saturation Oxygen saturation in Arterial blood by Pulse oximetry Body temperature Systolic blood pressure Diastolic blood pressure Provider Name and Address Organization Details Last Updated DateTime 8 181.61 cm 26.7 kg/m2 61870.6 2 g 81 /min 98 % 98 % 98.7 [degF] 127 mm[Hg] 83 mm[Hg] Claudette Unger [facility] 8 13:04:48 Date Recorded Body height Body mass index (BMI) Body weight Heart rate Oxygen saturation Oxygen saturation in Arterial blood by Pulse oximetry Body temperature Systolic blood pressure Diastolic blood pressure Provider Name and Address Organization Details Last Updated DateTime 7 181.61 cm 29.2 kg/m2 50000.5 8 g 61 /min 97 % 97 % 97.4 [degF] 130 mm[Hg] 68 mm[Hg] Ata Sifuentes [facility] 7 08:42:46 Date Recorded Body height Body temperature Oxygen saturation Oxygen saturation in Arterial blood by Pulse oximetry Heart rate Body mass index (BMI) Body weight Systolic blood pressure Diastolic blood pressure Provider Name and Address Organization Details Last Updated DateTime 7 181.61 cm 98.3 [degF] 98 % 98 % 59 /min 29 kg/m2 18284.9 9 g 136 mm[Hg] 84 mm[Hg] Ananya shi MA [facility] 7 16:14:47 Date Recorded Body height Body mass index (BMI) Body weight Heart rate Oxygen saturation Oxygen saturation in Arterial blood by Pulse oximetry Body temperature Systolic blood pressure Diastolic blood pressure Provider Name and Address Organization Details Last Updated DateTime 8 181.61 cm 26.4 kg/m2 15071.7 4 g 69 /min 98 % 98 % 98.7 [degF] 107 mm[Hg] 72 mm[Hg] Catina Grimm MA [facility] 8 09:22:39 Social History Question Answer Notes LastModified by Organizat ion Details LastModified Time Tobacco Smoking Status Never [facility]2014 09:56:50 Do You Have An Advance [...] 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 Information not available 10/18/2016 Do you have [...] virus, quadrivalent, PF 6 completed Not Available [facility] 12/04/2019 02:22:07 Influenza, split virus, quadrivalent, PF 7 completed Not Available [facility] 12/04/2019 02:22:11 Tdap 8 completed Not Available [facility] 12/04/2019 02:21:48 Influenza, split virus, trivalent, PF 4 completed Not Available [facility] 12/04/2019 02:21:57 Influenza, split virus, quadrivalent, PF 8 completed Not Available [facility] 12/04/2019 02:22:15 Tdap 8 completed Not Available [facility] 05/31/2014 13:23:39 Influenza, split virus, trivalent, preservative 1 completed Not Available [facility] 05/31/2014 13:23:39 Influenza, split virus, trivalent, preservative 2 completed Not Available [facility] 05/31/2014 13:23:39 Past Encounters Encounter ID Performer Location Encounter Start Date Encounter Closed Date Diagnosis/Indication Diagnosis SNOMED-CT Code Diagnosis ICD10 Code Diagnosis Note [id number] autoEComm erce [address] [facility] [place] [address] 12/18/2007 00:00:00 [id number] autoEComm erce [address] [facility] [place] [address] 12/29/2007 00:00:00 [id number] autoEComm erce [address] [facility] [place] [address] 07/14/2008 00:00:00 [id number] autoEComm erce [address] [facility] [place] [address] 11/14/2008 00:00:00 [id number] autoEComm erce [address] [facility] [place] [address] 02/02/2009 00:00:00 [id number] autoEComm erce [address] [facility] [place] [address] 09/20/2009 00:00:00 [id number] autoEComm erce [address] [facility] [place] [address] 12/20/2009 00:00:00 [id number] autoEComm erce [address] [facility] [place] [address] 06/27/2010 00:00:00 [id number] autoEComm erce [address] [facility] [place], [place] [address] 01/08/2011 00:00:00 [id number] autoEComm mabele [address] [facility] [place], [place] [address] 10/23/2012 00:00:00 [id number] autoEComm mabele [address] [facility] [place], [place] [address] 04/02/2013 00:00:00 [id number] autoEComm florin [address] [facility] [place], [place] [address] 05/21/2013 00:00:00 [id number] autoEComm florin [address] [facility] [place], [place] [address] 12/03/2013 00:00:00 [id number] Nixon Hernandez MD Main Office [address] [address] [place] [address] 08/26/2014 09:40:18 08/26/2014 11:11:25 Adult health examination 505447388 Needs infl uenza immunization 388842814 Essential hypertension 94340298 Hyperlipidemia 13158079 Body mass index 25-29 - overweight 928696495 [id number] Nixon Hernandez MD Main Office [address] [address] [place] [address] 03/17/2015 08:52:49 03/17/2015 09:27:02 Essential hypertension 45078059 [id number] Nixon Hernandez MD Main Office [address] [address] [place] [address] 09/22/2015 08:54:36 09/22/2015 10:36:06 Adult health examination 917481539 Z00.00 Essential hypertension 79981050 I10 Anxiety disorder 9988998 06 F41.9 Hyperlipidemia 91094416 E78.5 Gastroesop hageal reflux disease 867546955 K21.9 Patellar tendonitis 3778 5001 M76.50 Impacted cerumen 3297281 6 H61.22 Wheezing symptom 0541745 08 R06.2 [id number] Nixon Hernandez MD Main Office [address] [address] [place] [address] 03/29/2016 08:43:25 03/29/2016 09:32:19 Essential hypertension 45860636 I10 Family romina nning education 918141311 Z30.02 Hypersomnia 61593000 G47 .10 [id number] Nixon Hernandez MD Main Office [address] [address] 10/18/2016 09:00:30 10/18/2016 10:13:03 Adult health examination 719736376 Z00.00 Needs infl uenza immunization 948536616 Z23 Screening for malignant neoplasm of colon 146755538 Z12.11 Body mass index 25-29 - overweight 569320996 E66.3 Hyperlipidemia 72084924 E78.5 Fatigue 06630563 R53.83 Gastroesop hageal reflux disease 319848062 K21.9 [id number] Nixon Hernandez MD Main Office [address] [address] 04/25/2017 11:07:04 04/25/2017 11:49:25 Essential hypertension 67153514 I10 Hyperlipidemia 54244555 E78.5 Fatigue 99266649 R53.83 [id number] Nixon Hernandez MD Main Office [address] [address] 07/29/2017 14:58:39 07/29/2017 16:09:18 Needs influenza immunization 100485687 Z23 [id number] Nixon Hernandez MD Main Office [address] [address] 10/21/2017 08:26:02 10/21/2017 09:30:21 Adult health examination 873172166 Z00.00 Essential hypertension 24702561 I10 Hyperlipidemia 82985433 E78.5 Fatigue 90421269 R53.83 Body mass index 25-29 - overweight 334086562 E66.3 Z68.25 Obsessive- compulsive disorder 822119477 F42.9 Continue SSRI [id number] Nixon Hernandez MD Main Office [address] [address] 10/27/2017 15:55:29 10/27/2017 16:34:42 Benign paroxysmal positional vertigo 722247287 H81.10 [id number] Nixon Hernandez MD Main Office [address] [address] [place] [address] 04/27/2018 08:47:55 04/27/2018 09:33:18 Essential hypertension 95813965 I10 Administra tion of viral vaccine 91740496 Z23 Hyperlipidemia 65338247 E78.5 Fatigue 46767590 R53.83 Patellofem oral stress syndrome 705047236 M22.2X9 [id number] Hina Hong PA-C Main Office [address] [address] [place] [address] 05/18/2018 13:01:09 05/18/2018 14:21:34 Prediabetes 754684509 R73.03 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 Mixed hyperlipidemia 267 976891 E78.2 recommend to recheck before next visit. Body mass index 25-29 - overweight 144647781 Z68.26 [id number] Nixon Hernandez MD Main Office [address] [address] [place] [address] 11/16/2018 09:12:04 11/16/2018 10:08:00 Adult health examination 924796205 Z00.00 Needs infl uenza immunization 058368353 Z23 Body mass index 25-29 - overweight 977649050 E66.3 Z68.25 Prediabetes 567847714 R7 3.03 Gastroesop hageal reflux disease 588815378 K21.9 Hyperlipidemia 86463163 E78.5 Essential hypertension 02850967 I10 Health Concerns Section Related Observation LastModified by Organization Detai ls LastModified Time None Recorded Concern Status LastModified by Organization Details LastModified Time None Recorded Advance Directives Directive Y: signed 03/17/2015 Payers Insurance Date Sequence Insurance Name Policy Number Policy Haynes Covered Member ID Haynes Member ID Guarantor Name 05/18/2019 1 [facility] ([facility]) [id number] Yancy Portillo [id number] Yancy Portillo Notes Date Note Type Note [...] concerns about weight. Nixon Hernandez MD [address], [address], [facility] 10/21/2017 09:25:17 7 text/html DizzinessReported bypatient.Quality:symptoms worse in the evening (wakes occasionally from sleep) Severity:no effect on daily activities Duration:intermittent episodes lasting:; lasts <5 minutes Notes sensation of dizziness with spinning sensation for the past 4 days. Nixon Hernandez MD [address], [address], [facility] 10/27/2017 16:37:37 8 text/html Hypertension [...] injuryNotes:No obvious swelling Nixon Hernandez MD [address], [address], [facility] 04/27/2018 09:31:19 8 text/html Diabetes [...] of 31. High cardiovasc. risk with early UT in father at age 50. Pt. lost 15 lbs since April 27. Nixon Hernandez MD [address], [address], [facility] 05/18/2018 18:03:06 8 text/html GERD RefluxReported bypatient.Notes:Stable [...] the summer months. Nixon Hernandez MD [address], [address], [facility] 11/16/2018 10:07:57
== END 2025-05-10 11:41 | disposition home or self-care (01) ==
LOC: HO.HMCFM 09:25
PROVIDERS: PCP Family Medicine; Visit Provider Family Medicine
DX: I10 Essential (primary) hypertension (principal); F41.9 Anxiety disorder, unspecified; R73.03 Prediabetes

== ENCOUNTER → 2025-05-10 09:24 | Outpatient (BNVA) | payer OTHER, SELFPAY | PROVIDERS: PCP Family Medicine; Visit Provider Family Medicine | DX: I10 Essential (primary) hypertension (principal); F41.9 Anxiety disorder, unspecified; R73.03 Prediabetes | CPT/HCPCS: 96127 ==

== ENCOUNTER 2025-07-25 10:30 | Day surgery (SDC) | payer OTHER, SELFPAY ==
[2025-07-21 13:19] VITALS: BMI 28.0
--- NOTE | 2025-07-22 09:13 | HO.ANESPROP2 ---
Documented by User: Oneida Niño NP 07/22/25 09:14 HPI - Anesthesia Eval Consult details Narrative: 60 yr old male for Laser Ablation Prostate w/Green Light,with Prostate Biopsy PMFSH Active Problems Active Problems: All Active Problems (Updated 07/21/25 @ 13:18 by Ellen George RN) Weak urinary stream (Acute) Difficulty concentrating (Acute) Pre-diabetes (Acute) Ureterocele (Acute) Enlarged prostate (Acute) Prostatitis (Acute) Skin tag of ear (Acute) Urinary hesitancy (Acute) Skin tag (Acute) Back pain (Acute) PSA elevation (Acute) Hyperlipidemia (Acute) Tinnitus (Acute) Adult general medical exam (Acute) Low HDL (under 40) (Acute) Elevated fasting glucose (Acute) Cellulitis (Acute) Tick bite of abdomen (Acute) GERD (gastroesophageal reflux disease) (Acute) Screening for skin cancer (Acute) Neoplasm of uncertain behavior of skin (Acute) Screening for colon cancer (Acute) Screening for prostate cancer (Acute) Anxiety (Acute) Annual physical exam (Acute) HEAVEN (obstructive sleep apnea) (Acute) OCD (obsessive compulsive disorder) (Acute) Cerumen in auditory canal on examination (Acute) Right testicular pain (Acute) Elevated hemoglobin A1c (Acute) Laboratory examination ordered as part of a routine general medical examination (Acute) Essential hypertension (Acute) Past Medical History Medical History (Updated 07/21/25 @ 13:18 by Ellen George RN) Pre-diabetes HTN (hypertension) OCD (obsessive compulsive disorder) Sleep apnea Anxiety GERD (gastroesophageal reflux disease) Elevated cholesterol Back pain Family History Family History Sister Breast cancer Father Alcohol abuse Surgical History Surgical History History of hip surgery History of hernia surgery Social History Social History (Updated 05/10/25 @ 09:40 by Keena Jay MA) Household Members: Children Household Members Other:: Son Housing: House Are you a primary physician primary care sports medicine to a significant other at home: No Do you presently have visiting nurse or other home services: No Alcohol intake: current Alcohol intake frequency: a few times a week Patient Tobacco Use Status: Never used Tobacco e-Cigarette/Vaping Use: Never Used Second Hand Smoke Exposure: No Have you been hit, kicked, punched, or otherwise hurt by someone within the past year? 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 Current occupational exposures/hazards: No Sexual orientation: Unable to collect Gender identity: Unable to collect Cognitive needs: No Hearing needs: Yes ( says what a lot has tinnitus ) Vision needs: No Meds Allergies Allergy/AdvReac Type Severity Reaction Status Date / Time erythromycin base Allergy Mild Rash Verified 05/10/25 09:39 Exam Height,Weight and Vital Signs: Height 5 ft 11 in Weight 91.172 kg Documented by User: Jessica Hopper MD 07/25/25 11:17 [facility] Past Medical History Medical History (Updated 07/21/25 @ 13:18 by Ellen George RN) Pre-diabetes HTN (hypertension) OCD (obsessive compulsive disorder) Sleep apnea Anxiety GERD (gastroesophageal reflux disease) Elevated cholesterol Back pain Family History Family History Sister Breast cancer Father Alcohol abuse Family history of problems with anesthesia: No Surgical History Surgical History History of hip surgery History of hernia surgery History of Problems with Anesthesia: No Social History Social History (Updated 05/10/25 @ 09:40 by Keena Jay MA) Household Members: Children Household Members Other:: Son Housing: House Are you a primary physician primary care sports medicine to a significant other at home: No Do you presently have visiting nurse or other home services: No Alcohol intake: current Alcohol intake frequency: a few times a week Patient Tobacco Use Status: Never used Tobacco e-Cigarette/Vaping Use: Never Used Second Hand Smoke Exposure: No Have you been hit, kicked, punched, or otherwise hurt by someone within the past year? 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 Current occupational exposures/hazards: No Sexual orientation: Unable to collect Gender identity: Unable to collect Cognitive needs: No Hearing needs: Yes ( says what a lot has tinnitus ) Vision needs: No Meds Allergies Allergy/AdvReac Type Severity Reaction Status Date / Time erythromycin base Allergy Mild Rash Verified 05/10/25 09:39 Exam Airway Mallampati Class: II TM Dist: >3cm Neck ROM: Full Heart: rrr Lungs: cta Assessment and Plan Assessment Anesthesia Assessment: Anesthesia Plan Discussed and Chart Reviewed Final Anesthetic Review Family History of Problems with Anesthesia: No History of Problems with Anesthesia: No NPO: Yes ASA Class: II Final Preanesthetic Review: No Changes in Pt Med Stat, Meds/Allgs Chart Reviewed and Consent Obtained/Reviewed Patient Risk: Low Procedure Risk: Low Anesthetic Plan Anesthetic Plan: GA Disposition: Standard PACU
[2025-07-25 10:36] VITALS: BP 149/89; PULSE 56; RESP 0; TEMP 36.9; O2SAT 97; BMI 27.5
[2025-07-25] MEDS: Lactated Ringers 1,000 ML 100 ML IVCONT (10:57)
--- NOTE | 2025-07-25 12:22 | MHC.SHP ---
Pre-Procedural Eval Section A - 24 Hr Update-Section A only Date of Service: 07/25/25 The patient is an INPATIENT: No Changes since office visit: No Cold of Flu in the past 2 weeks, No New Medical Problems, No Changes in Medication and No Patient answered all questions The patient has been examined within 24 hours of the surgical procedure. The History & Physical has been completed within 30 days and I have reviewed it.: Yes Section B - Complete if H&P > 30 days Chief Complaint: Elevated prostate specific antigen [PSA] Details of Present Illness: Prostate biopsy with GreenLight laser Allergies: Allergies Allergy/AdvReac Type Severity Reaction Status Date / Time erythromycin base Allergy Mild Rash Verified 05/10/25 09:39 Plan I have reviewed the history and physical and performed a pertinent physical examination on my patient. No changes have occurred unless specified. Time Spent With Patient Time: Total time managing care of this patient today ____ minutes.
--- NOTE | 2025-07-25 13:27 | W.PM.OPN ---
Operative Note Operative Note Date of Service: 07/25/25 Narrative: PreOperative Diagnosis: Bladder outlet obstruction, elevated PSA Post Operative Diagnosis: Bladder outlet obstruction, elevated PSA Procedure: 1. transrectal ultrasound measurement of prostate 2. transrectal ultrasound-guided pudendal nerve block 3. transrectal ultrasound-guided prostate biopsy 12 core GreenLight Laser Enucleation of the prostate CPT 57033 Surgeon: Dr Ney Moreira Anesthesia: General History of bladder outlet obstruction. Treated with alpha-zeyad and other medications. Still with symptoms. On cystoscopy in office has trilobar prostate. Recommendation for prostate procedure with laser enucleation of prostate. Risks and benefits have been discussed. Focus was placed on development of retrograde ejaculation which is a normal part of this procedure. Elevated PSA - plan for transrectal biopsy at time of procedure Procedure: After informed consent was verified the patient was brought to the operating room and placed in a supine position. Anesthesia was administered per protocol. Patient was placed in modified dorsal lithotomy position and prepped and draped in a sterile fashion. Safety pause time-out was confirmed. Antibiotics have been given. BRODIE was performed to dilate rectal sphincter Iodine 10cc with 60 cc gel was placed per rectum to reduce infection risk using a catheter tip syringe. 8 Hz Stone rectal end-fire ultrasound probe was placed transrectally without difficulty. The prostate was visualized. Seminal vesicles were normal. Prostate margins were clearly demarcated. Bladder was seen superiorly. No cystic structures were noted No calcifications were noted at the surgical margin The prostate was otherwise heterogenous in nature - BPH owens were seen within the transition zone bilateral The prostate was measured in 3 dimensions Prostatic Width: 4 cm Prostatic Height: 4 cm Urethral Length: 4 cm Total volume equals : 60 ml An ultrasound-guided pudendal nerve block was performed using a 22 gauge spinal needle in the sagittal plane. 4 cc of 1% lidocaine placed at the junction of each seminal vesicle and 2 cc placed at the apex of the prostate. A 12 core biopsy was performed with 6 cores each side using an 18 gauge prostate biopsy gun. Two cores each were taken at the prostate apex, mid and base on each side. Cores were spaced between lateral and medial aspects. Each core was examined as placed on specimen foam as part of automotive quality engineer to ensure a minimum 1 cm of length and minimal discontinuity. A Twenty-four Ecuadorean laser cystoscope was inserted per urethra. No abnormalities were found of the anterior and bulbar urethra. The prostatic urethra shows trilobar hypertrophy.. The bladder was examined and both ureteric orifices were seen in their normal positions away from the area of interest. Bladder trabeculation - Grade 1. Using a GreenLight laser with initial settings of 80 doherty incisions were made at the 5 and 7 o'clock position. The incisions were taken down from the bladder neck down to the area just proximal of the veru. These were gradually deepened in order to define the lateral aspects of the median lobe area. The deep boundary of enucleation was defined by the prostate surgical capsule. Once clearly defined the grooves were extended in the lateral directions in order to create a deep groove. The median lobe was then ablated and enucleated tissue released into the bladder with the laser power increased to 120 W. relatively small median lobe. Once the median lobe area had been cleared, attention was directed to the lateral lobes. Starting with the patient's left lateral lobe. First the 05:00 o'clock groove was further developed. This was moved in the lateral direction to undermine the tissue on the lateral side running from the bladder neck to the prostate apex. The ureteric orifice was used to guide incisions. The laser fiber was placed at the 1 o'clock position and a secondary groove was developed down to the level of prostatic capsule. The creation of a second deep groove defined a segment of intervening tissue similar to a slice of orange. At the apex of the prostate the laser was used to vertically link the two grooves releasing the intervening tissue and creating a segment of tissue. This tissue was then removed with a combination of enucleation and ablation working from the apex toward the bladder neck. A similar procedure was repeated on the patient's right-hand side. The only differences being the position of the lateral groove at he 7 o'clock position and the secondary groove at the 11 o'clock position, Otherwise the procedure was developed in a mirror fashion. Laser power between 80 and 120 w. After the majority of tissue had been debulked remnant tissue was ablated with the side fire laser and the curve of the prostate followed up each side wall clearly defining the anterior remnant strip that remained between the 11 and 1 o'clock positions. In this case the anterior tissue protruded into the prostatic fossa and was partially ablated with the laser At completion debris and pieces of prostate were removed from the bladder with irrigation. Both ureteric orifices were reviewed again in shown to be patent in away from any areas of energy damage. The apical area was reviewed and any stray mucosal ooze was controlled. A 22 Ecuadorean 30 cc balloon Robb catheter was placed into the bladder using a flexible stylet. Clear efflux was obtained upon irrigation with a Alfred piston syringe. 30 cc was placed in the balloon and gentle traction was placed. A snap was used to hold tension on the catheter to control bleeding during patient moved and transported. A drainage bag was placed. Once transportation is complete to the PACU the snap will be removed. The patient tolerated the procedure well, he was extubated in the operating and transferred in a stable condition to the recovery area. Total Power 155 kJ Lasing time 23:42 Pathology: Prostate tissue Drains: Robb catheter
[2025-07-25 13:38] VITALS: BP 135/77; PULSE 81; RESP 16; TEMP 36.2; O2SAT 100
[2025-07-25 13:40] VITALS: BP 141/72; PULSE 75; RESP 16; O2SAT 100
[2025-07-25 13:45] VITALS: BP 136/77; PULSE 74; RESP 16; O2SAT 100
[2025-07-25 13:50] VITALS: BP 140/83; PULSE 71; RESP 16; O2SAT 100
[2025-07-25 14:00] VITALS: BP 133/81; PULSE 67; RESP 16; O2SAT 100
== END 2025-07-25 14:57 | disposition home or self-care (01) ==
PROVIDERS: PCP Family Medicine; Visit Provider Urology
PROC: (CPT 52648; principal; 2025-07-25 12:10)
DX: N40.1 Benign prostatic hyperplasia with lower urinary tract symptoms (principal); R39.15 Urgency of urination; R35.1 Nocturia; N32.0 Bladder-neck obstruction; R97.20 Elevated prostate specific antigen [PSA]; N32.89 Other specified disorders of bladder; R39.11 Hesitancy of micturition; R39.12 Poor urinary stream; G47.33 Obstructive sleep apnea (adult) (pediatric); Z88.1 Allergy status to other antibiotic agents; Z79.899 Other long term (current) drug therapy
CPT/HCPCS: 52649; 55700; 76942; 88305; J1100; J1596; J1956; J2003; J2405; J2704; J3010

== ENCOUNTER → 2025-07-25 10:30 | Outpatient (BNV) | payer OTHER, SELFPAY | PROVIDERS: PCP Family Medicine; Visit Provider Urology | DX: N13.8 Other obstructive and reflux uropathy (principal); R97.20 Elevated prostate specific antigen [PSA] | CPT/HCPCS: 52649; 55700; 76872; 76942 ==

== ENCOUNTER → 2025-07-27 09:27 | Outpatient (BNVA) | payer OTHER, SELFPAY | PROVIDERS: PCP Family Medicine; Visit Provider Urology | DX: Z46.6 Encounter for fitting and adjustment of urinary device (principal); N40.0 Benign prostatic hyperplasia without lower urinary tract symptoms; R39.11 Hesitancy of micturition; R39.12 Poor urinary stream | CPT/HCPCS: 51700; 51798 ==

== ENCOUNTER 2025-08-03 15:13 | Outpatient (AMB) | payer OTHER, SELFPAY ==
--- NOTE | 2025-08-03 15:13 | A.OFFVIS_ITS ---
Intake Visit Reasons: Prostate biopsy results Intake Note: Patient is present for Telehealth for protate biopsy results Urology Medication:finasteride Antibiotic Allergy:erythromycin Blood Thinner:none Crown Assembly Machine Set Up Mechanic Required: No Accompanied by: Self / Same As Patient Allergies erythromycin base Allergy (Mild, Verified 08/03/25 15:14) Rash HPI Comments Details: Wing is a very pleasant male. He is a patient of Dr. Small. He is seen for the following urologic conditions - elevated PSA - lower urinary tract symptoms Telemedicine Evaluation 15 min Consultation [employer] [place] Video Follow-up pathology Prostate biopsy showed benign tissue Size at procedure 65 g No evidence of prostate cancer Follow-up in 6 weeks for laser prostate follow-up Lower urinary tract symptoms Initial presentation with nocturia and urinary urgency Placed on finasteride Bladder ultrasound measured enlarged prostate 130 cc with protrusion Bladder wall trabeculation PSA = 11/05 1.6, 11/08 3.4, 08/10 3.7, 12/11 4.0, 03/11 4.5 GreenLight laser prostatectomy - 07/11 [facility] Medical History (Updated 07/21/25 @ 13:18 by Ellen George RN) Pre-diabetes HTN (hypertension) OCD (obsessive compulsive disorder) Sleep apnea Anxiety GERD (gastroesophageal reflux disease) Elevated cholesterol Back pain Surgical History History of hip surgery History of hernia surgery Family History Sister Breast cancer Father Alcohol abuse Social History (Updated 05/10/25 @ 09:40 by Keena Jay MA) Household Members: Children Household Members Other:: Son Housing: House Are you a primary healthcare marketer to a significant other at home: No Do you presently have visiting nurse or other home services: No 75 years or older and lives alone: No Alcohol intake: current Alcohol intake frequency: a few times a week Patient Tobacco Use Status: Never used Tobacco e-Cigarette/Vaping Use: Never Used Second Hand Smoke Exposure: No service: No Current occupational status: employed 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 Current occupational exposures/hazards: No Sexual orientation: Unable to collect Gender identity: Unable to collect Cognitive needs: No Hearing needs: Yes ( says what a lot has tinnitus ) Vision needs: No Review of Systems Const All systems reviewed & are unremarkable except as noted in HPI and below Reports no additional complaints Resp Reports no additional complaints GI Reports no additional complaints Reports as per HPI Musc Reports no additional complaints Physical Exam Telemedicine evaluation Appropriate responses Regular breathing rate and rhythm HEENT Head: Yes normal to inspection Ears: hearing grossly normal bilaterally Eyes General: appearance normal, both eyes and all related structures Neck Neck: Yes normal visual inspection Chest Chest palpation & inspection: normal inspection of the chest Resp Effort & Inspection: normal respiratory effort and able to speak in complete sentences Telehealth Telehealth Telehealth Platform: [employer] Location of provider rendering services: practice address Location of patient: address on file Patient Identification confirmed using: Name, : Yes Telehealth method: video Patient verbally consented to treatment: Yes Patient verbally consented to billing insurance company: Yes Patient informed of any privacy concerns related to visit: Yes Minutes spent on Phone/Video with Pt.: 15 Assessment & Plan Assessment & Plan (1) Prostatitis: Code(s): N41.9 - Inflammatory disease of prostate, unspecified Category: Medical (2) Enlarged prostate: Code(s): N40.0 - Benign prostatic hyperplasia without lower urinary tract symptoms Category: Medical Plan Six week follow-up Patient Instructions: This note is constructed using voice recognition software. While every effort has been made to ensure accuracy card painter errors may have been included. Imaging studies, laboratory and physical exam results were discussed and reviewed in detail. No major barriers to patient understanding were identified. An opportunity to ask questions regarding the treatment plan was provided. All questions were answered. The patient expressed understanding and agreement with the above treatment plan. The patient is aware they should contact our office by phone for worsening of their current condition or the appearance of new urologic symptoms. Compliance is encouraged with any medications and followup testing that is ordered. It is a privilege to participate in the urologic care of your patient. If you have any questions or concerns regarding treatment for the above conditions, or other urologic issues, please do not hesitate to contact me. The office telephone contact is [phone]. Sincerely, Dr Ney Moreira MD, [facility] - Urology Compassionate Specialist Care for the Genitourinary System Coding Level of Care Code Tele Est Pt Level 3 (06667) Diagnoses Prostatitis N41.9 Enlarged prostate N40.0
== END 2025-08-03 16:28 | disposition home or self-care (01) ==
LOC: HO.HUSH 15:13
PROVIDERS: PCP Family Medicine; Visit Provider Urology
DX: N41.9 Inflammatory disease of prostate, unspecified (principal); N40.0 Benign prostatic hyperplasia without lower urinary tract symptoms
CPT/HCPCS: 99024

== ENCOUNTER 2025-09-07 09:20 | Outpatient (AMB) | payer OTHER, SELFPAY ==
--- NOTE | 2025-09-07 09:21 | A.OFFVIS_ITS ---
Intake Visit Reasons: Greenlight follow up Intake Note: Patient is present for: greenlight follow up Urology Medication:finasteride Blood Thinner:none Area Intelligence Technician Required: No Accompanied by: Self / Same As Patient Allergies erythromycin base Allergy (Mild, Verified 09/07/25 09:22) Rash HPI Comments Details: Wing is a very pleasant male. He is a patient of Dr. Small. He is seen for the following urologic conditions - elevated PSA - lower urinary tract symptoms Six week follow-up from GreenLight laser prostatectomy Bladder emptying Good flow Has had some return of urinary control in the last 2 weeks Has restarted physical activity Six-month follow-up May stop finasteride once he completes current course Lower urinary tract symptoms Initial presentation with nocturia and urinary urgency Prior medications include finasteride Bladder ultrasound measured enlarged prostate 130 cc with protrusion Bladder wall trabeculation PSA = 11/05 1.6, 11/08 3.4, 08/10 3.7, 12/11 4.0, 03/11 4.5 GreenLight laser prostatectomy - 07/11 - prostate biopsy normal [facility] Medical History (Updated 07/21/25 @ 13:18 by Ellen George RN) Pre-diabetes HTN (hypertension) OCD (obsessive compulsive disorder) Sleep apnea Anxiety GERD (gastroesophageal reflux disease) Elevated cholesterol Back pain Surgical History History of hip surgery History of hernia surgery Family History Sister Breast cancer Father Alcohol abuse Social History (Updated 05/10/25 @ 09:40 by Keena Jay MA) Household Members: Children Household Members Other:: Son Housing: House Are you a primary transitions rn care coordinator to a significant other at home: No Do you presently have visiting nurse or other home services: No 75 years or older and lives alone: No Alcohol intake: current Alcohol intake frequency: a few times a week Patient Tobacco Use Status: Never used Tobacco e-Cigarette/Vaping Use: Never Used Second Hand Smoke Exposure: No service: No Current occupational status: employed 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 Current occupational exposures/hazards: No Sexual orientation: Unable to collect Gender identity: Unable to collect Cognitive needs: No Hearing needs: Yes ( says what a lot has tinnitus ) Vision needs: No Review of Systems Const Denies chills and Denies fever(s) Card Reports no additional complaints and Denies syncope Resp Denies cough GI Denies abdominal pain and Denies heartburn Reports as per HPI and Denies change in libido Neuro Denies syncope Psych Denies change in libido Endo Denies change in libido Physical Exam Const General: cooperative, healthy appearing, comfortable and no acute distress Orientation/consciousness: patient oriented x3 HEENT Face and sinus: Yes normal facial exam Mouth: moist mucous membranes Neck Neck: Yes normal visual inspection, Yes full ROM and Yes trachea midline Chest Chest palpation & inspection: normal inspection of the chest Resp Effort & Inspection: normal respiratory effort, able to speak in complete sentences and no respiratory distress GI Inspection: Yes normal to inspection Back/Spine/Pelvis Cervical Spine: normal cervical lordosis Thoracic/Lumbar Spine: thoracic and lumbar spine normal to inspection Skin General skin exam: no rashes or lesions noted Neuro General: patient oriented x3, gait normal, tone normal and moves all extremities Extrem General: Yes normal to inspection and Yes capillary refill normal Assessment & Plan Assessment & Plan (1) Enlarged prostate: Code(s): N40.0 - Benign prostatic hyperplasia without lower urinary tract symptoms Category: Medical Plan Six-month follow-up PSA Orders: Orders Prostate Specific Antigen 6 Months N40.0 - Benign prostatic hyperplasia without lower urinary tract symptoms Patient Instructions: This note is constructed using voice recognition software. While every effort has been made to ensure accuracy child care director errors may have been included. Imaging studies, laboratory and physical exam results were discussed and reviewed in detail. No major barriers to patient understanding were identified. An opportunity to ask questions regarding the treatment plan was provided. All questions were answered. The patient expressed understanding and agreement with the above treatment plan. The patient is aware they should contact our office by phone for worsening of their current condition or the appearance of new urologic symptoms. Compliance is encouraged with any medications and followup testing that is ordered. It is a privilege to participate in the urologic care of your patient. If you have any questions or concerns regarding treatment for the above conditions, or other urologic issues, please do not hesitate to contact me. The office telephone contact is [phone]. Sincerely, Dr Ney Moreira MD, [facility] - Urology Compassionate Specialist Care for the Genitourinary System Coding Level of Care Code Est Pt Level 3 (82336) Diagnoses Enlarged prostate N40.0
--- OUTSIDE RECORDS SUMMARY | 2025-09-07 10:30 | XMS_ITS | Data Portability ---
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 2017 018 rakesh [facility], [address] [place], [address], 11:35:33 hemogl obin A1C, finger stick [address] [facility] In-Office Order, Internal Use Only DO Not Attach Compendium DO Not Attach Compendium, Do Not Delete/merge, [id number] 8 09:46:31 lipid panel, serum 2017 018 [email or web address] [facility] (Centralized Electronic Ordering - All Locations), Patient Can Go To The Location Of Their Choice, 9 15:35:57 BMP, serum or plasma 2017 018 [email or web address] [facility] (Centralized Electronic Ordering - All Locations), [...] or plasma 2017 018 JOCELINE [facility], [address], [address], [place], [address], 8 15:39:41 lipid panel, serum 2017 018 JOCELINE [facility], [address], [address], [place], [address], 8 15:39:42 TSH, serum or plasma 2017 018 JOCELINE [facility], [address], [address], [place], [address], 8 15:55:52 CBC w/ auto diff 2017 018 JOCELINE [facility], [address], [place], [address], 8 14:30:42 BMP, serum or plasma 2016 [...] Go To The Location Of Their Choice, [id number] 8 11:09:35 Referral nutrit ionist /timmy russo referr al 2017 018 [email or web address] Not available 8 10:13:38 physic al therap ist referr al - Please see for BPPV 2016 017 [email or web address] [facility], [address] [place] [address] Rd, [address], [place], [address], 8 15:21:26 nutrit ionist /timmy russo referr al 2016 017 [email or web address] Not available 7 09:30:22 Procedures None record ed. Surgeries None record ed. Imaging None record ed. Medication Orders omepra zole 20 mg capsul echristinaas e 2017 018 [facility], [address] [place] [address], [place], [address], 8 09:47:43 Patient TargetsNo targets recorded. Patient Instructions Encounter Date Encounter Id Patient Instructions Last Modified By Organization Details Last Modified Time 10/21/2017 [id number] When You Want to Lose Weight: Care Instructions [email or web address] Not available 10/21/2017 09:26:49 Nutrition Referr al and Weight Management Follow-up Information [email or web address] Not available 10/21/2017 09:30:15 high blood press ure: care instructions [email or web address] Not available 10/21/2017 09:26:49 learning about h igh blood pressure [email or web address] Not available 10/21/2017 09:26:49 obsessive-compul sive disorder: care instructions [email or web address] Not available 10/21/2017 09:26:49 10/27/2017 [id number] benign paroxysma l positional vertigo (bppv): care instructions [email or web address] Not available 10/27/2017 16:34:30 04/27/2018 [id number] patellofemoral p ain syndrome (runner's knee): exercises [facility] Not available 04/27/2018 09:26:19 patellofemoral p ain syndrome: care instructions [facility] Not available 04/27/2018 09:26:18 high blood press ure: care instructions [email or web address] Not available 04/27/2018 09:26:18 learning about h igh blood pressure [facility] 04/27/2018 09:26:19 05/18/2018 [id number] high cholesterol : care instructions Not available 05/18/2018 14:06:24 heart-healthy di et: care instructions Not available 05/18/2018 14:06:24 prediabetes: car e instructions Not available 05/18/2018 13:43:06 mediterranean diet Not availab le 05/18/2018 13:43:06 11/16/2018 [id number] gastroesophageal reflux disease (GERD): care instructions [email or web address] Not available 11/16/2018 09:47:43 high cholesterol : care instructions [facility] Not available 11/16/2018 09:55:59 high blood press ure: care instructions [facility] Not available 11/16/2018 09:55:59 learning about h igh blood pressure [facility] Not available 11/16/2018 09:55:59 When You Want to Lose Weight: Care Instructions [facility] Not available 11/16/2018 09:46:30 Nutrition Referr al and Weight Management Follow-up Information 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 Body mass index 25-29 - overweight Referring Physician: Nixon Hernandez, Internal Medicine, Encounter Date: 11/16/2018 Results Created Date Observation Date Name Description Value Unit Range Abnormal Flag Note LastModifiedBy Organization Detail LastModifiedTime 04/27/2004/27/2018 CBC w/ auto diff WBC 4.5 K/mm3 (4.0-1 1.0) Not Available [facility] (Centralized Electronic Ordering - All Locations) Patient Can Go To The Location Of Their Choice, [id number] 04/27/2018 14:30:42 04/27/2004/27/2018 CBC w/ auto diff RBC 4.69 M/mm3 (4.70- 6.10) low Not Available [facility] (Centralized Electronic Ordering - All Locations) Patient Can Go To The Location Of Their Choice, [id number] 04/27/2018 14:30:42 04/27/2004/27/2018 CBC w/ auto diff HGB 13.8 gm/dL (13.7- 16.5) Effec tive April 10 18, refer ence range s for HGB and HCT have been updat ed. Not Available [facility] (Centralized Electronic Ordering - All Locations) Patient Can Go To The Location Of Their Choice, [id number] 04/27/2018 14:30:42 04/27/2004/27/2018 CBC w/ auto diff [...] Go To The Location Of Their Choice, [id number] 04/29/2018 09:22:49 11/16/20 18 11/16/2018 BMP, serum or plasm a glucose 108 mg/dL (70-99 ) high Not Available [facility] (Centralized Electronic Ordering - All Locations) Patient Can Go To The Location Of Their Choice, [id number] 11/16/2018 11:07:04 11/16/20 18 11/16/2018 BMP, serum or plasm a BUN 21 mg/dL (6-20) high Not Available [facility] (Centralized Electronic Ordering - All Locations) Patient Can Go To The Location Of Their Choice, [id number] 11/16/2018 11:07:04 11/16/20 18 11/16/2018 BMP, serum or plasm a creatinine 1.1 mg/dL (0.7-1 .2) Not Available [facility] (Centralized Electronic Ordering - All Locations) Patient Can Go To The Location Of Their Choice, [id number] 11/16/2018 11:07:04 11/16/20 18 11/16/2018 BMP, serum or plasm a sodium 140 mmol/ L (133-1 45) Not Available [facility] (Centralized Electronic Ordering - All Locations) Patient Can Go To The Location Of Their Choice, [id number] 11/16/2018 11:07:04 11/16/20 18 11/16/2018 BMP, serum or plasm a potassium 3.8 mmol/ L (3.6-5 .2) Not Available [facility] (Centralized Electronic Ordering - All Locations) Patient Can Go To The Location Of Their Choice, [id number] 11/16/2018 11:07:04 11/16/20 18 11/16/2018 BMP, serum or plasm a chloride 97 mmol/ L (98-10 7) low Not Available [facility] (Centralized Electronic Ordering - All Locations) Patient Can Go To The Location Of Their Choice, [id number] 11/16/2018 11:07:04 11/16/20 18 11/16/2018 BMP, serum or plasm a bicarbonate 30 mmol/ L (22-29 ) high Not Available [facility] (Centralized Electronic Ordering - All Locations) Patient Can Go To The Location Of Their Choice, [id number] 11/16/2018 11:07:04 11/16/20 18 11/16/2018 BMP, serum or plasm a anion gap 13 (4-17) Not Available [facility] (Centralized Electronic Ordering - All Locations) Patient Can Go To The Location Of Their Choice, [id number] 11/16/2018 11:07:04 11/16/20 18 11/16/2018 BMP, serum or plasm a calcium 10.0 mg/dL (8.6-1 0.5) Not Available [facility] (Centralized Electronic Ordering - All Locations) Patient Can Go To The Location Of Their Choice, [id number] 11/16/2018 11:07:04 11/16/20 18 11/16/2018 BMP, serum [...] Go To The Location Of Their Choice, [id number] 11/16/2018 11:07:04 11/16/20 18 11/16/2018 BMP, serum [...] Go To The Location Of Their Choice, [id number] 11/16/2018 11:07:04 11/16/20 18 11/16/2018 lipid panel , serum cholesterol, total 215 mg/dL (<200) high Not Available [facility] ([facility] Ordering - All Locations) Patient Can Go To The Location Of Their Choice, [id number] 11/16/2018 11:07:05 11/16/20 18 11/16/2018 lipid panel , serum triglyceride 297 mg/dL (<150) high Not Available [facility] ([facility] Ordering - All Locations) Patient Can Go To The Location Of Their Choice, [id number] 11/16/2018 11:07:05 11/16/20 18 11/16/2018 lipid panel , serum HDL chol 38 mg/dL (>39) low Not Available [facility] (Centralized Electronic Ordering - All Locations) Patient Can Go To The Location Of Their Choice, [id number] 11/16/2018 11:07:05 11/16/20 18 11/16/2018 lipid panel , serum LDL cholesterol, calculated 118 mg/dL (0-130 ) Not Available [facility] (Centralized Electronic Ordering - All Locations) Patient Can Go To The Location Of Their Choice, [id number] 11/16/2018 11:07:05 11/16/20 18 11/16/2018 lipid panel , serum non HDL cholesterol (calc) 177 mg/dL (<160) high Not Available [facility] (Centralized Electronic Ordering - All Locations) Patient Can Go To The Location Of Their Choice, [id number] 11/16/2018 11:07:05 11/16/20 18 11/16/2018 HbA1c (hemo [...] Go To The Location Of Their Choice, [id number] 11/16/2018 13:52:45 11/16/20 18 11/16/2018 hemog lobin A1C, finge rstic k HA1C 5.4 % 4-6 Not Available In-Office Order Internal Use Only DO Not Attach Compendium DO Not Attach Compendium, Do Not Delete/merge, [id number] 11/16/2018 09:36:28 10/01/2010/01/2019 HbA1c (hemo globi n [...] Go To The Location Of Their Choice, [id number] 10/01/2019 18:45:25 10/01/20 19 10/01/2019 lipid panel , serum triglyceride 91 mg/dL (<150) Not Available [facility] (Centralized Electronic Ordering - All Locations) Patient Can Go To The Location Of Their Choice, [id number] 10/01/2019 18:45:25 10/01/20 19 10/01/2019 lipid panel , serum HDL chol 47 mg/dL (>39) Not Available [facility] (Centralized Electronic Ordering - All Locations) Patient Can Go To The Location Of Their Choice, [id number] 10/01/2019 18:45:25 10/01/20 19 10/01/2019 lipid panel , serum LDL cholesterol, calculated 143 mg/dL (0-130 ) high Not Available [facility] (Centralized Electronic Ordering - All Locations) Patient Can Go To The Location Of Their Choice, [id number] 10/01/2019 18:45:25 10/01/20 19 10/01/2019 lipid panel , serum non HDL cholesterol (calc) 161 mg/dL (<160) high Not Available [facility] (Centralized Electronic Ordering - All Locations) Patient Can Go To The Location Of Their Choice, [id number] 10/01/2019 18:45:25 10/21/20 17 10/22/2012 XR, abdom en + pelvi s No observ ation record ed. BARCODE Not Available 2016 12:48:22 Result Notes None recorded. Problems Name Problem SNOMED Code Status Onset Date Resolution Date Notes Provider Name and Address Organization Details Recorded Time Body mass index 25-29 - overweig ht 737139091 Active Nixon Hernandez MD [address] [address], [place], [address] , [facility] 4 16:07:00 Gastroes ophageal reflux disease 625708148 Active Nixon Hernandez MD [address] [address], [address] , [facility] 5 14:23:28 Patellar tendonit is 09497524 Active Nixon Hernandez MD [address] [facility] [address], [address] , [facility] 5 14:23:28 Impacted cerumen 23235005 Active Nixon Hernandez MD [address], [place], [address] , [facility] 5 14:23:28 Wheezing symptom 922759121 Completed 10/18/2016 Ananya ellison MA null, [facility] 6 09:09:32 Hypersom ramon 30252568 Active Nixon Hernandez MD [address], [place], [address] , [facility] 6 09:29:57 General examinat ion of patient Completed 200706/07/2014 RESOLVED DATE: 07/14/20 08; RECORDED 07/14/20 08 3:43PM BY NATALYA MONTES ON/ADDEN DUM Not Available [facility] 4 15:14:11 Administ ration of bacteria l and viral vaccine Completed 200706/07/2014 RECORDED 07/14/20 08 3:34PM BY DEBBIE ESTRELLA, OFFICE VISIT Not Available [facility] 4 15:14:11 General examinat ion of patient Completed 200706/27/2014 RESOLVED DATE: 07/14/20 08; RECORDED 07/14/20 08 3:43PM BY NATALYA MONTES ON/ADDEN DUM Not Available [facility] 4 06:00:33 Administ ration of bacteria l and viral vaccine Completed 200706/27/2014 RECORDED 07/14/20 08 3:34PM BY DEBBIE ESTRELLA, OFFICE VISIT Not Available [facility] 4 06:00:33 Dysuria 68424915 Completed 200706/07/2014 RECORDED 11/14/20 08 9:53AM BY LATASHA DELVALLE, REGGIEATI ON/ADDEN DUM Not Available [facility] 4 15:14:11 Dysuria 42872709 Completed 200706/27/2014 RECORDED 11/14/20 08 9:53AM BY LATASHA DELVALLE, REGGIEATI ON/ADDEN DUM Not Available [facility] 4 06:00:33 Acute sinusiti s 08735897 Completed 200806/07/2014 RECORDED 02/03/20 09 7:20AM BY ANANYA ESTRELLA MA, ANNOTATI ON/ADDEN DUM Not Available [facility] 4 15:14:10 Acute sinusiti s 52984296 Completed 200806/27/2014 RECORDED 02/03/20 09 7:20AM BY ANANYA ESTRELLA MA, ANNOTATI ON/ADDEN DUM Not Available [facility] 4 06:00:33 Diarrhea of presumed infectio us origin 30636669 Completed 201106/07/2014 RECORDED 10/23/20 12 9:37AM BY ANANYA ESTRELLA MA, NATALYA ON/ADDEN DUM Not Available [facility] 4 15:14:11 Malaise and fatigue 609541972 Completed 201106/07/2014 RECORDED 10/23/20 12 9:37AM BY ANANYA ESTRELLA MA, NATALYA ON/ADDEN DUM Not Available [facility] 4 15:14:11 Elevated level of transami nase and lactic acid dehydrog enase 816726861 Completed 201106/07/2014 RECORDED 10/23/20 12 9:37AM BY ANANYA ESTRELLA MA, ANNOTATI ON/ADDEN DUM Not Available [facility] 4 15:14:12 Dermatop hytosis of the perianal area Completed 201106/07/2014 RECORDED 10/23/20 12 9:37AM BY ANANYA ESTRELLA MA, NATALYA ON/ADDEN DUM Not Available [facility] 4 15:14:12 Visual disturba nce 10724303 Completed 201106/07/2014 RECORDED 10/23/20 12 9:37AM BY ANANYA ESTRELLA MA, ANNOTNAVEEN ON/ADDEN DUM Not Available [facility] 4 15:14:12 Urinary system finding Completed 201106/07/2014 RECORDED 10/23/20 12 9:36AM BY ANANYA ESTRELLA MA, NATALYA ON/ADDEN DUM Not Available [facility] 4 15:14:12 Diarrhea of presumed infectio us origin 00886143 Completed 201106/27/2014 RECORDED 10/23/20 12 9:37AM BY ANANYA ESTRELLA MA, NATALYA ON/ADDEN DUM Not Available [facility] 4 06:00:33 Malaise and fatigue 076756340 Completed 201106/27/2014 RECORDED 10/23/20 12 9:37AM BY ANANYA ESTRELLA MA, NATALYA ON/ADDEN DUM Not Available [facility] 4 06:00:33 Elevated level of transami nase and lactic acid dehydrog enase 303023024 Completed 201106/27/2014 RECORDED 10/23/20 12 9:37AM BY ANANYA ESTRELLA MA, NATALYA ON/ADDEN DUM Not Available [facility] 4 06:00:33 Dermatop hytosis of the perianal area Completed 201106/27/2014 RECORDED 10/23/20 12 9:37AM BY ANANYA ESTRELLA MA, NATALYA ON/ADDEN DUM Not Available [facility] 4 06:00:33 Visual disturba nce 32920317 Completed 201106/27/2014 RECORDED 10/23/20 12 9:37AM BY ANANYA ESTRELLA MA, NATALYA ON/ADDEN DUM Not Available [facility] 4 06:00:33 Urinary system finding Completed 201106/27/2014 RECORDED 10/23/20 12 9:36AM BY ANANYA ESTRELLA MA, NATALYA ON/ADDEN DUM Not Available [facility] 4 06:00:33 Abdomina l pain 78387482 Completed 201206/07/2014 IMPRESSI ON: UNCLEAR CAUSE OF PAIN. NO ACUTE ABDOMEN BASED ON CT. MAYBE MILD PANCREAT ITIS. WILL CHECK AMYLASE. HE DRINKS 12 DRINKS A WEEK. NO HX ALCOHOLI SM.; RECORDED 04/02/20 13 10:12AM BY ANANYA ESTRELLA MA, ANNOTATI ON/ADDEN DUM Not Available [facility] 4 15:14:10 Abnormal findings diagnost ic imaging of liver+bi liary tract 556722365 Completed 201206/07/2014 IMPRESSI ON: THIS MAY JUST BE INCIDENT AL FINDING. NOT SURE IF CAUSE OF HIS PAIN. GI NEXT WEEK FOR FURTHER W/U; RECORDED 04/02/20 13 10:12AM BY ANANYA ESTRELLA MA, ANNOTATI ON/ADDEN DUM Not Available [facility] 4 15:14:10 Influenz a vaccine needed 47570859817 06 Completed 201206/07/2014 RECORDED 04/02/20 13 10:12AM BY ANANYA ESTRELLA MA, ANNOTATI ON/ADDEN DUM Not Available [facility] 4 15:14:11 Laborato ry procedur e performe d 250292797 Completed 201206/07/2014 RECORDED 04/02/20 13 10:11AM BY ANANYA ESTRELLA MA, ANNOTATI ON/ADDEN DUM Not Available [facility] 4 15:14:11 Abdomina l pain 41407732 Completed 201206/27/2014 IMPRESSI ON: UNCLEAR CAUSE OF PAIN. NO ACUTE ABDOMEN BASED ON CT. MAYBE MILD PANCREAT ITIS. WILL CHECK AMYLASE. HE DRINKS 12 DRINKS A WEEK. NO HX ALCOHOLI SM.; RECORDED 04/02/20 13 10:12AM BY ANANYA ESTRELLA MA, ANNOTATI ON/ADDEN DUM Not Available [facility] 4 06:00:33 Abnormal findings diagnost ic imaging of liver+bi liary tract 375887574 Completed 201206/27/2014 IMPRESSI ON: THIS MAY JUST BE INCIDENT AL FINDING. NOT SURE IF CAUSE OF HIS PAIN. GI NEXT WEEK FOR FURTHER W/U; RECORDED 04/02/20 13 10:12AM BY ANANYA ESTRELLA MA, ANNOTATI ON/ADDEN DUM Not Available [facility] 4 06:00:33 Influenz a vaccine needed 82304822313 06 Completed 201206/27/2014 RECORDED 04/02/20 13 10:12AM BY ANANYA ESTRELLA MA, ANNOTATI ON/ADDEN DUM Not Available [facility] 4 06:00:33 Laborato ry procedur e performe d 008712700 Completed 201206/27/2014 RECORDED 04/02/20 13 10:11AM BY ANANYA ESTRELLA MA, ANNOTATI ON/ADDEN DUM Not Available [facility] 4 06:00:33 Essentia l hyperten candace 68169687 Completed 201206/07/2014 RECORDED 05/21/20 13 12:30PM BY ANANYA ESTRELLA MA, ANNOTATI ON/ADDEN DUM LATASHA Sosa, [facility] 6 09:09:46 Anemia 424846933 Active 2013 LATASHA Sosa, [facility] 6 09:09:29 Adult health examinat ion Active 2013 LATASHA Sosa, [facility] 6 09:09:26 Anxiety disorder 009833070 Active 2013 LATASHA Sosa, [facility] 6 09:09:20 Essentia l hyperten candace 65076049 Active 2013 LATASHA Sosa, [facility] 6 09:09:46 Respirat ory finding Completed 201306/07/2014 RECORDED 12/03/19 14 1:12PM BY ROXY MICHELE MA, ANNOTATI ON/ADDEN DUM Not Available [facility] 4 15:14:11 Hyperlip idemia 85893343 Active 2013 LATASHA Sosa, [facility] 6 09:09:40 Insomnia 058645228 Active 2013 LATASHA Sosa, [facility] 6 09:09:11 Patient status finding 434782043 Completed 201310/18/2016 RECORDED 12/03/19 14 1:12PM BY ROXY MICHELE MA, OFFICE VISIT LATASHA Sosa, [facility] 6 09:09:03 Osteoart hritis of hip 583583479 Active 2013 LATASHA Sosa, [facility] 6 09:09:23 Disorder of bursa of shoulder region 89620892 Active 2013 LATASHA Sosa, [facility] 6 09:09:43 Disorder of skin 47796892 Completed 201306/07/2014 RECORDED 12/03/19 14 1:12PM BY ROXY MICHELE MA, ANNOTNAVEEN ON/ADDEN DUM Not Available [facility] 4 15:14:12 Respirat ory finding Completed 201306/27/2014 RECORDED 12/03/19 14 1:12PM BY ROXY MICHELE MA, ANNOTATI ON/ADDEN DUM Not Available [facility] 4 06:00:33 Disorder of skin 88711722 Completed 201306/27/2014 RECORDED 12/03/19 14 1:12PM BY ROXY MICHELE MA, ANNOTATI ON/ADDEN DUM Not Available [facility] 4 06:00:33 Prediabe haroon 196856760 Active 2017 Nixon Hernandez MD [address] [address], [place], [address] , [facility] 8 09:36:24 Mixed hyperlip idemia 933151480 Completed 201810/03/2019 Hina Hong PA-C [address] [facility] [address], [place], [address] , [facility] 9 19:19:38 Problem Notes None recorded. Procedures Surgical History Date Name Laterality Status Provider Name and Address Organization Details Recorded Time 7 Colonoscopy completed Julissa Escobar [facility] 08/13/2017 11:18:24 6 Vasectomy completed Ata Sifuentes [facility] 10/21/2017 08:29:26 4 Eye Surgery completed Ata Sifuentes [facility] 10/21/2017 08:29:26 4 Other completed Ananya oquendo MA [facility] 08/26/2014 09:56:51 9 Hernia Repair completed Ata Sifuentes [facility] 10/21/2017 08:29:26 6 Circumcision completed Ata Sifuentes [facility] 10/21/2017 08:29:26 6 Hernia Repair completed Ata Sifuentes [facility] 10/21/2017 08:29:26 Imaging Results None recorded. Procedure Notes None recorded. Medical Equipment None Reported. Allergies Allergen ID Allergen Name Allergen Category Reaction Reaction Severity Criticality Documentation Date Start Date Code Code System Note Provider Name and Address Organization Details Recorded Time 39102 erythromy tonio medicatio n Not available Not available Not available 05/31/20142013 4053 RxNorm as an infan t [facility] 5 08:58:50 Medications Name Sig [...] Available Not Available Not Available Flucelvax Quad 0394-1030 (PF) 60 mcg (15 mcg x 4)/0.5 mL IM syringe active Not Available Not Available Not Available Vitals Date Recorded Systolic And Diastolic Provider Name and Address Organization Details Last Updated DateTime 04/27/2018 122/76 mm[Hg] Nixon Hernandez MD [address] [address], [place], [address], [facility] 04/27/2018 09:26:05 Date Recorded Body height Body mass index (BMI) Body weight Oxygen saturation Oxygen saturation in Arterial blood by Pulse oximetry Heart rate Body temperature Provider Name and Address Organization Details Last Updated DateTime 8 181.61 cm 28.7 kg/m2 30022.8 1 g 97 % 97 % 65 /min 97.7 [degF] Ananya shi MA [facility] 8 09:04:31 Date Recorded Body height Body mass index (BMI) Body weight Heart rate Oxygen saturation Oxygen saturation in Arterial blood by Pulse oximetry Body temperature Systolic And Diastolic Provider Name and Address Organization Details Last Updated DateTime 8 181.61 cm 26.7 kg/m2 77068.6 2 g 81 /min 98 % 98 % 98.7 [degF] 127/83 mm[Hg] Claudette Unger [facility] 8 13:04:48 Date Recorded Body height Body mass index (BMI) Body weight Heart rate Oxygen saturation Oxygen saturation in Arterial blood by Pulse oximetry Body temperature Systolic And Diastolic Provider Name and Address Organization Details Last Updated DateTime 7 181.61 cm 29.2 kg/m2 91501.5 8 g 61 /min 97 % 97 % 97.4 [degF] 130/68 mm[Hg] Ata Sifuentes [facility] 7 08:42:46 Date Recorded Body height Body temperature Oxygen saturation Oxygen saturation in Arterial blood by Pulse oximetry Heart rate Body mass index (BMI) Body weight Systolic And Diastolic Provider Name and Address Organization Details Last Updated DateTime 7 181.61 cm 98.3 [degF] 98 % 98 % 59 /min 29 kg/m2 49764.9 9 g 136/84 mm[Hg] Ananya shi MA [facility] 7 16:14:47 Date Recorded Body height Body mass index (BMI) Body weight Heart rate Oxygen saturation Oxygen saturation in Arterial blood by Pulse oximetry Body temperature Systolic And Diastolic Provider Name and Address Organization Details Last Updated DateTime 8 181.61 cm 26.4 kg/m2 23435.7 4 g 69 /min 98 % 98 % 98.7 [degF] 107/72 mm[Hg] Catina Grimm MA [facility] 8 09:22:39 Social History Question Answer Notes LastModified by Organizat ion Details LastModified Time Tobacco Smoking Status Never Smoker [facility] 08/26/2014 09:56:50 Do You Have An [...] Many Children Do You Have? 1 Son (Bahai) Information not available 09/22/2015 Do You Use [...] 08/26/2014 Are you able to care for yourself independently? 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 No Information not available 08/26/2014 What is [...] Organization Details LastModified Time Maternal Aunt Malignant neoplasm of breast 48 51 [email or web address] s Not available 08/26/2014 09:56:48 Son Anxiety disorder 6 [email or web address] Not available 08:51:52 Mother Malignant neoplasm of breast 55 [email or web address] Not available 08:51:52 [...] availa ble 03/29/2016 08:51:52 Paternal Aunt Malignant neoplasm of breast 50 55 [email or web address] s Not available 08/26/2014 09:56:48 Brother Anxiety disorder 21 [email or web address] Not available 08:51:52 Sister Allergy 21 [email or web address] s Not available 10/18/2016 09:07:58 Sister Anxiety disorder 21 [email or web address] Not available 08:51:52 Sister Malignant neoplasm of breast 44 [email or web address] s Not available [...] virus, quadrivalent, PF 6 completed Not Available [facility] 12/04/2019 02:22:07 Influenza, split virus, quadrivalent, PF 7 completed Not Available [facility] 12/04/2019 02:22:11 Tdap 8 completed Not Available [facility] 12/04/2019 02:21:48 Influenza, split virus, trivalent, PF 4 completed Not Available [facility] 12/04/2019 02:21:57 Influenza, split virus, quadrivalent, PF 8 completed Not Available [facility] 12/04/2019 02:22:15 Tdap 8 completed Not Available [facility] 05/31/2014 13:23:39 Influenza, split virus, trivalent, preservative 1 completed Not Available [facility] 05/31/2014 13:23:39 Influenza, split virus, trivalent, preservative 2 completed Not Available [facility] 05/31/2014 13:23:39 Past Encounters Encounter ID Performer Location Encounter Start Date Encounter Closed Date Diagnosis/Indication Diagnosis SNOMED-CT Code Diagnosis ICD10 Code Diagnosis IMO Codes Diagnosis Note [id number] auto[facility]Comm erce [address] [facility],[address] [place] [address] 12/18/2007 00:00:00 [id number] autoEComm erce [address] [facility],[address] [place] [address] 12/29/2007 00:00:00 [id number] autoEComm erce [address] [facility],[address] [place] [address] 07/14/2008 00:00:00 [id number] autoEComm erce [address] [facility],[address] [place] [address] 11/14/2008 00:00:00 [id number] autoEComm erce [address] [facility],[address] [place] [address] 02/02/2009 00:00:00 [id number] autoEComm erce [address] [facility],[address] [place] [address] 09/20/2009 00:00:00 [id number] autoEComm erce [address] [facility],[address] [place] [address] 12/20/2009 00:00:00 [id number] autoEComm erce [address] [facility],[address] [place] [address] 06/27/2010 00:00:00 [id number] autoEComm erce [address] [facility],[address] [place] [address] 01/08/2011 00:00:00 [id number] [address] [place], [place] [address] 10/23/2012 00:00:00 [id number] [facility] [address] [place] [address],[address] [place], [place] [address] 04/02/2013 00:00:00 [id number] auto[employer]Comm florin [address] [place] [address],[address] [place] schmidt, [place] [address] 05/21/2013 00:00:00 [id number] [facility] [address] [place] [address],[address] Alexia schmidt, [place] [address] 12/03/2013 00:00:00 [id number] Nixon Hernandez MD Main Office [address] [address] [place] [address] 08/26/2014 09:40:18 08/26/2014 11:11:25 Adult health examination 512715692 Needs infl uenza immunization 181371278 Essential hypertension 39751249 Hyperlipidemia 63782355 Body mass index 25-29 - overweight 900655628 [id number] Nixon Hernandez MD Main Office [address] [address] [place] [address] 03/17/2015 08:52:49 03/17/2015 09:27:02 Essential hypertension 28153653 [id number] Nixon Hernandez MD Main Office [address] [address] [place] [address] 09/22/2015 08:54:36 09/22/2015 10:36:06 Adult health examination 546620280 Z00.00 Essential hypertension 25729462 I10 Anxiety disorder 3199022 06 F41.9 Hyperlipidemia 85655768 E78.5 Gastroesop hageal reflux disease 947452412 K21.9 Patellar tendonitis 3778 5001 M76.50 Impacted cerumen 1466301 6 H61.22 Wheezing symptom 1936585 08 R06.2 [id number] Nixon Hernandez MD Main Office [address] [address] [place] [address] 03/29/2016 08:43:25 03/29/2016 09:32:19 Essential hypertension 66091287 I10 Family romina nning education 530072764 Z30.02 Hypersomnia 09676973 G47 .10 [id number] Nixno Hernandez MD Main Office [address] [address] [place] [address] 10/18/2016 09:00:30 10/18/2016 10:13:03 Adult health examination 912069739 Z00.00 Needs infl uenza immunization 035544649 Z23 Screening for malignant neoplasm of colon 012248825 Z12.11 Body mass index 25-29 - overweight 178763826 E66.3 Hyperlipidemia 34633565 E78.5 Fatigue 09829962 R53.83 Gastroesop hageal reflux disease 996893734 K21.9 [id number] Nixon Hernandez MD Main Office [address] [address] [place] [address] 04/25/2017 11:07:04 04/25/2017 11:49:25 Essential hypertension 99510843 I10 Hyperlipidemia 81801868 E78.5 Fatigue 43916547 R53.83 [id number] Nixon Hernandez MD Main Office [address] [address] [place] [address] 07/29/2017 14:58:39 07/29/2017 16:09:18 Needs influenza immunization 062726928 Z23 [id number] Nixon Hernandez MD Main Office [address] [address] [place] [address] 10/21/2017 08:26:02 10/21/2017 09:30:21 Adult health examination 987488804 Z00.00 Essential hypertension 95985692 I10 Hyperlipidemia 99249402 E78.5 Fatigue 24377354 R53.83 Body mass index 25-29 - overweight 971449171 E66.3 Z68.25 Obsessive- compulsive disorder 556116689 F42.9 Continue SSRI [id number] Nixon Hernandez MD Main Office [address] [address] [place] [address] 10/27/2017 15:55:29 10/27/2017 16:34:42 Benign paroxysmal positional vertigo 005867198 H81.10 [id number] Nixon Hernandez MD Main Office [address] [address] [place] [address] 04/27/2018 08:47:55 04/27/2018 09:33:18 Essential hypertension 60204817 I10 Administra tion of viral vaccine 05430641 Z23 Hyperlipidemia 20723290 E78.5 Fatigue 97098742 R53.83 Patellofem oral stress syndrome 427816581 M22.2X9 [id number] Hina Hong PA-C Main Office [address] [address] 05/18/2018 13:01:09 05/18/2018 14:21:34 Prediabetes 535574532 R73.03 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 Mixed hyperlipidemia 267 091601 E78.2 recommend to recheck before next visit. Body mass index 25-29 - overweight 218903954 Z68.26 [id number] Nixon Hernandez MD Main Office [address] [address] 11/16/2018 09:12:04 11/16/2018 10:08:00 Adult health examination 829232282 Z00.00 Needs infl uenza immunization 358489450 Z23 Body mass index 25-29 - overweight 972059816 E66.3 Z68.25 Prediabetes 203773191 R7 3.03 Gastroesop hageal reflux disease 700585135 K21.9 Hyperlipidemia 87958866 E78.5 Essential hypertension 20874776 I10 Health Concerns Section Related Observation LastModified by Organization Detai ls LastModified Time None Recorded Concern Status LastModified by Organization Details LastModified Time None Recorded Advance Directives Directive Y: signed 03/17/2015 Payers Insurance Date Sequence Insurance Name Policy Number Policy Haynes Covered Member ID Haynes Member ID Guarantor Name 05/18/2019 1 [facility] [id number] Yancy Portillo [id number] Yancy Portillo Notes Date Note Type Note Provider Name and Address Organization Details Recorded Time 7 text/html Hypertension F/UReported by PatientHPIFor associated symptoms, patient reportsno dizziness,no lightheadedness,no chest pain,no shortness of breath,no palpitations,no edema, andno calf pain with exertion. For lifestyle, patient reportsregular exerciseandlimiting/avoi ding salt. For medications, patient reportstaking medications as directedandno side effects from medication. Anxiety/DepressionReport ed by PatientStable symptoms of depression and anxiety with OCD. Taking sertraline with good effects. Previously seen by psychiatry. Good med adherence. Here for PE visit. Doing well. Reviewed cardiovascular risks and concerns about weight. Nixon Hernandez MD [address], [address], [facility] 10/21/2017 09:25:17 7 text/html DizzinessReported by PatientHPIFor quality, patient reportssymptoms worse in the evening (wakes occasionally from sleep). For severity, patient reportsno effect on daily activities. For duration, patient reportsintermittent episodes lasting:andlasts <5 minutes. Notes sensation of dizziness with spinning sensation for the past 4 days. Nixon Hernandez MD [address], [address], [facility] 10/27/2017 16:37:37 8 text/html Musculoskeletal PainReported by PatientHPIFor quality, patient reportsaching. For location, patient reportsright knee. For severity, patient reportssame. For duration, patient reportspresent for 1-6 months(approx 2 mos). For timing, patient reportsintermittent(wors e with extreme of flexion). For context, (no obvious injury).No obvious swelling Hypertension F/UReported by PatientHPIFor associated symptoms, patient reportsno dizziness,no lightheadedness,no chest pain,no shortness of breath,no palpitations,no edema, andno calf pain with exertion. For lifestyle, patient reportsregular exerciseandlimiting/avoi ding salt(has been walking more). For medications, patient reportstaking medications as directedandno side effects from medication.Stable BP checking intermittently - no recent BP readingsROS as noted in the HPI Nixon Hernandez MD [address] [address], [place], [address], [facility] 04/27/2018 09:31:19 8 text/html Diabetes F/UReported by PatientHPIFor context, patient reportsnormal range of home blood sugars (in the low 100s)andseeing eye doctor regularly. For associated symptoms, patient reportsno weight gain,no weight loss,no dizziness,no sweats,no headaches,no confusion,no increased thirst,no increased appetite,no increased urination,no blurred vision,no numbness of feet, andno calluses on feet.52 year old male presents for prediabetic counseling [...] of 31. High cardiovasc. risk with early OR in father at age 51. Pt. lost 15 lbs since April 27. Nixon Hernandez MD [address] [address], [place], [address], [facility] 05/18/2018 18:03:06 8 text/html Hypertension F/UReported by PatientHPIFor associated symptoms, patient reportsno dizziness,no lightheadedness,no chest pain,no shortness of breath,no palpitations,no edema, andno calf pain with exertion. For lifestyle, patient reportsregular exerciseandlimiting/avoi ding salt. For medications, patient reportstaking medications as directedandno side effects from medication. GERD RefluxReported by PatientStable on PPI Here for PE visit. Doing well. Reviewed cardiovascular risks and concerns about weight and exercise program. Has had 20lbs weight loss intended over the past year. Had pre-diabetes diagnosis in April 2018. Had been doing more exercise over the summer months. Nixon Hernandez MD [address] [address], [place], [address], [facility] 11/16/2018 10:07:57
== END 2025-09-07 10:15 | disposition home or self-care (01) ==
LOC: HO.HUSH 09:21
PROVIDERS: PCP Family Medicine; Visit Provider Urology
DX: N40.0 Benign prostatic hyperplasia without lower urinary tract symptoms (principal)
CPT/HCPCS: 99024